=== PATIENT | male | born 1950 | race Caucasian/White ===

== ENCOUNTER 2022-11-27 09:19 | Outpatient (OUT) | payer MEDICARE, SELFPAY ==
--- NOTE | 2022-11-27 09:22 | CT_ITS ---
[address] [address] Patient Name: JEAN SANTIAGO MRN: [id number] date: 1950 Sex: M Assigned Patient Location: CT Current Patient Location: CT Accession/Order Number: [id number] Exam Date: 11/27/2022 09:28 Report Date: 11/27/2022 15:22 At the request of: KRISTY NEILSON Procedure: CT lung screening low-dose EXAMINATION: CT lung screening low-dose HISTORY: History Of Tobacco Dependence Z87.891 COMPARISON: 10/19/2021 TECHNIQUE: Axial, Coronal, and Sagittal images were created without the administration of IV contrast material. Dose reduction techniques were achieved by using automated exposure control and/or adjustment of mA and/or kV according to patient size and/or use of iterative reconstruction technique. FINDINGS: LUNGS: Mild paraseptal emphysema with an upper lobe predominance. Biapical patchy opacities, pleural parenchymal scarring is favored. 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 VASCULATURE: No abnormality. JOSEPHINE: No mass or pathologic adenopathy. MEDIASTINUM: No mass or pathologic adenopathy. CARDIAC: No enlargement or pericardial effusion. AORTA: No aneurysm. Mild to moderate atherosclerosis. CHEST WALL: No mass or axillary adenopathy BONES: No bone lesion or fracture. LIMITED ABDOMEN: No suspicious findings. Limited images of the upper abdomen. OTHER: Negative. CT/CT lung screening low-dose IMPRESSION: LUNG SCREENING: Lung-RADS Category 1 Negative. No nodules and definitely benign nodules. Continue annual screening with LDCT in 12 months. Electronically authenticated by: ESTRELLITA RAMÍREZ Date: 11/27/2022 15:22
== END 2022-11-27 09:20 | disposition home or self-care (01) ==
LOC: CT 09:19
PROVIDERS: PCP Internal Medicine; Visit Provider Internal Medicine
DX: Z87.891 Personal history of nicotine dependence (principal)
CPT/HCPCS: 71271

== ENCOUNTER 2022-12-14 11:36 | Outpatient (OUT) | payer MEDICARE, SELFPAY ==
[2022-12-14 12:08] LABS: Basophils Absolute Auto 0.1 10^3/uL (0.0-0.1); Basophils Percent Auto 0.8 % (0.2-2.0); Eosinophils Absolute Auto 0.4 10^3/uL (0.0-0.7); Eosinophils Percent Auto 5.3 % (0.9-7.0); Hematocrit 40.7 % (42.0-54.0); Immature Granulocytes Abs Auto 0.02 10^3/uL (0.00-0.03); Immature Granulocytes Pct Auto 0.2 % (0.0-0.5); Lymphocytes Absolute Auto 1.7 10^3/uL (1.2-3.8); Lymphocytes Percent Auto 20.6 % (20.5-60.0); Mean Corpuscular HGB Conc 31.9 g/dL (29.9-35.2); Mean Corpuscular Hemoglobin 30.1 pg (25.9-34.0); Mean Corpuscular Volume 94.2 fL (80.0-94.0); Mean Platelet Volume 9.1 fL (9.5-13.5); Monocytes Absolute Auto 0.7 10^3/uL (0.3-0.8); Monocytes Percent Auto 7.8 % (1.7-12.0); Neutrophils Absolute Auto 5.4 10^3/uL (1.4-6.5); Neutrophils Percent Auto 65.3 % (43.0-75.0); Platelet Count 359 10^3/uL (150-450); Red Blood Count 4.32 10^6/uL (4.70-6.10); Red Cell Distribution Width 11.9 % (11.0-15.0); White Blood Count 8.3 10^3/uL (4.0-11.0)
[2022-12-14 12:11] LABS: Alanine Aminotransferase 27 U/L (16-63); Anion Gap 13.6; Calcium 9.5 mg/dL (8.5-10.1); Carbon Dioxide 25.9 mmol/L (21.0-32.0); Chloride 102 mmol/L (98-107); Chol HDL Ratio 4.4; Cholesterol 168 mg/dL (<=200); Estimated GFR (African America >60 (>=60); Estimated GFR (Non-African Ame 51 (>=60); Glucose 122 mg/dL (74-106); HDL Cholesterol 38 mg/dL (40-60); Potassium 4.5 mmol/L (3.5-5.1); Sodium 137 mmol/L (136-145); Triglycerides 226 mg/dL (<=150); VLDL CHOLESTEROL 45.2 mg/dL
== END 2022-12-14 11:37 | disposition home or self-care (01) ==
LOC: LAB 11:37
PROVIDERS: PCP Internal Medicine; Visit Provider Internal Medicine
DX: Z00.00 Encounter for general adult medical examination without abnormal findings (principal); E78.00 Pure hypercholesterolemia, unspecified; I10 Essential (primary) hypertension; D64.9 Anemia, unspecified; Z79.899 Other long term (current) drug therapy
CPT/HCPCS: 36415; 80048; 80061; 84460; 85025

== ENCOUNTER 2022-12-28 10:17 | Outpatient (OUT) | payer MEDICARE, SELFPAY ==
[2022-12-28 11:32] LABS: Prostate Specific Antigen Dx 12.32 ng/mL (<=4.00)
== END 2022-12-28 10:18 | disposition home or self-care (01) ==
LOC: LAB 10:18
PROVIDERS: PCP Internal Medicine; Visit Provider Urology
DX: N40.1 Benign prostatic hyperplasia with lower urinary tract symptoms (principal); R97.20 Elevated prostate specific antigen [PSA]
CPT/HCPCS: 36415; 84153

== ENCOUNTER 2023-03-26 11:25 | Outpatient (OUT) | payer MEDICARE, SELFPAY ==
[2023-03-26 12:02] LABS: Basophils Absolute Auto 0.1 10^3/uL (0.0-0.1); Basophils Percent Auto 0.8 % (0.2-2.0); Eosinophils Absolute Auto 0.3 10^3/uL (0.0-0.7); Eosinophils Percent Auto 3.1 % (0.9-7.0); Hematocrit 38.7 % (42.0-54.0); Hemoglobin 12.4 g/dL (14.0-18.0); Immature Granulocytes Abs Auto 0.03 10^3/uL (0.00-0.03); Immature Granulocytes Pct Auto 0.3 % (0.0-0.5); Lymphocytes Absolute Auto 1.8 10^3/uL (1.2-3.8); Mean Corpuscular Hemoglobin 30.1 pg (25.9-34.0); Mean Corpuscular Volume 93.9 fL (80.0-94.0); Monocytes Absolute Auto 0.8 10^3/uL (0.3-0.8); Monocytes Percent Auto 8.7 % (1.7-12.0); Neutrophils Absolute Auto 6.1 10^3/uL (1.4-6.5); Neutrophils Percent Auto 67.1 % (43.0-75.0); Platelet Count 415 10^3/uL (150-450); Red Blood Count 4.12 10^6/uL (4.70-6.10); Red Cell Distribution Width 12.4 % (11.0-15.0); White Blood Count 9.1 10^3/uL (4.0-11.0)
== END 2023-03-26 11:26 | disposition home or self-care (01) ==
LOC: LAB 11:26
PROVIDERS: PCP Internal Medicine; Visit Provider Internal Medicine
DX: D64.9 Anemia, unspecified (principal)
CPT/HCPCS: 36415; 82607; 82728; 82746; 85025

== ENCOUNTER 2023-06-12 09:58 | Outpatient (OUT) | payer MEDICARE, SELFPAY ==
--- OUTSIDE RECORDS SUMMARY | 2023-06-12 10:23 | XMS_ITS | CCD ---
Author Organization [facility] Care Team Providers Care Orthodontic Treatment Coordinator Name Role Phone Saqib Saba Unavailable MARSHALL Casas Primary Care Physician DO Marshall Zaman Primary Care Provider MD Saqib Saba Attending Provider [phone] Stuart Qureshi Unavailable MD Stuart Qureshi Attending Provider DO Marshall Zaman Primary Care Provider MISC, DR CHRISTOPHER Attending Unavailable MISC, DR CHRISTOPHER Admitting Unavailable MISC, DR CHRISTOPHER Consulting Unavailable BALL, DR WAGNER Primary Care Unavailable JUANITO ., KIARA Attending Unavailable JUANITO ., KIARA Admitting Unavailable AUSTYN, DR WAGNER Primary Care Unavailable JUANITO ., KIARA Attending Unavailable JUANITO ., KIARA Admitting Unavailable JUANITO ., KIARA Consulting Unavailable AUSTYN, DR WAGNER Primary Care Unavailable BALL, DR WAGNER Primary Care Unavailable SABA ., DR COSTA Attending Unavailable SABA ., DR COSTA Admitting Unavailable SABA ., DR COSTA Consulting Unavailable GEE, LORIE Consulting Unavailable SABA ., DR COSTA Attending Unavailable SABA ., DR COSTA Admitting Unavailable SABA ., DR COSTA Consulting Unavailable AUSTYN, DR WAGNER Primary Care Unavailable AGUBOSIM, MARYBEL Consulting Unavailable DORKOSKIECASTILLO Consulting Unavailable AUSTYN, DR WAGNER Primary Care Unavailable AUSTYN, DR WAGNER Consulting Unavailable AUSTYN, DR WAGNER Attending Unavailable BALL, DR WAGNER Admitting Unavailable BALL, DR WAGNER Primary Care Unavailable SABA ., DR COSTA Consulting Unavailable SABA ., DR COSTA Attending Unavailable SABA ., DR COSTA Admitting Unavailable AUSTYN, DR WAGNER Primary Care Unavailable AUSTYN, DR WAGNER Consulting Unavailable AUSTYN, DR WAGNER Attending Unavailable BALL, DR WAGNER Admitting Unavailable ZIEBER, DR KEESHA Sumner Consulting Unavailable BALL, DR WAGNER Consulting Unavailable AUSTYN, DR WAGNER Attending Unavailable AUSTYN, DR WAGNER Admitting Unavailable AUSTYN, DR WAGNER Primary Care Unavailable FAUSTINO, DR KEESHA Sumner Consulting Unavailable AUSTYN, DR WAGNER Attending Unavailable AUSTYN, DR WAGNER Admitting Unavailable AUSTYN, DR WAGNER Consulting Unavailable AUSTYN, DR WAGNER Primary Care Unavailable Marshall Zaman Unavailable Saqib SABA Attending Unavailable Saqib SABA Attending Unavailable Marshall Zaman DO Primary Care Provider SAPPHIRE MCALLISTER Attending Unavailable MARSHALL ZAMAN Referring Unavailable MARSHALL ZAMAN Primary Care Unavailable Allergies Allergy Classification Reported Allergen(s) Allergy Type Date of Onset Reaction(s) Facility (4 sources) patient allergy list reviewed by nurse or physicia Propensity to adverse reactions Comment:Done [employer] Other (1 source) No Known Medication Allergies; Translations: [No Known Medication Allergies] Propensity to adverse reactions (disorder) [facility] Repository Medications Current Medications Medication Drug Class(es) Dates Sig (Normalized) Sig (Original) amLODIPine 5 mg oral tablet (15 sources) Dihydropyridine Calcium Channel Lina Start: 11-01-2021 take 1 tablet by mouth in the morning amLODIPine (NORVASC) 5 mg tablet Take 1 tablet (5 mg total) by mouth in the morning. 0 05/18/2022 Active amLODIPine Besyl ate Active amoxicillin 500 mg oral tablet (3 sources) Penicillin-class Antibacterial Start: 01-10-2023 take 4 tablets by mouth every hour Amoxicillin 500 MG 4 tablets Orally 1 hour prior to dental appt for 1 days Dec, Active aspirin 325 mg oral tablet (16 sources) Platelet Aggregation Inhibitor, Nonsteroidal Anti-inflammatory Drug Start: 01-01-2022 aspirin 325 mg tablet Take by mouth. 0 01/01/2022 Active Start: 11-01-2021 take 81 mg by mouth once daily Aspirin Active 81 MG PO Daily November 01, 2021 12:00am Start: 07-07-2019 aspirin 81 mg Chew Tab 81 mg = 1 tab(s), Chewed, Daily Start Date: 07/07/19 Status: Ordered take 1 tablet by mouth once [place] Aspirin 325 mg 325 mg one tab orally daily Active atorvastatin 20 mg oral tablet (16 sources) HMG-CoA Reductase Inhibitor Start: 07-07-2019 take 1 tablet by mouth once daily atorvastatin (LIPITOR) 20 mg tablet Take 1 tablet (20 mg total) by mouth nightly. 0 05/19/2022 Active 24 hr buPROPion hydrochloride 300 mg extended release oral tablet (16 sources) Aminoketone Start: 06-18-2022 take 1 tablet by mouth every twenty-four hours in the morning buPROPion XL (WELLBUTRIN XL) 300 mg 24 hr tablet Take 1 tablet (300 mg total) by mouth in the morning. 0 06/18/2022 Active Start: 11-01-2021 take 300 mg by mouth once [place] Bupropion Hcl Active 300 MG PO Daily November 01, 2021 12:00am Start: 04-29-2020 take 1 tablet by mercedes th every twenty-four hours buPROPion 300 mg XL /24 hrs mg tab(s), Oral, q24hr, Refills(s) 0 Start Date: 04/29/20 Status: Ordered Wellbutrin Activ e Celebrate Multivitamin (1 source) Start: 07-07-2019 Celebrate Mult ivitamin Start Date: 07/07/19 Status: Ordered lisinopril 30 mg oral tablet (13 sources) Angiotensin Converting Enzyme Inhibitor Start: 01-01-2022 lisinopriL (PRINIVIL,ZESTRIL) 30 mg tablet Take by mouth. 0 01/01/2022 Active Start: 11-01-2021 take 30 mg by mouth once daily Lisinopril Active 30 MG PO Daily November 01, 2021 12:00am take 1 tablet by mercedes th every twenty-four hours Lisinopril 40 MG 1 tablet Orally Once a day for 90 days Active Lisinopril Activ e Multi For Him (13 sources) Multi For Him Or ally Active Multivitamin (Daily Vitamin) Tablet (1 source) Start: 11-01-2021 take 1 tablet by mouth once daily Multivitamin (Daily Vitamin) Tablet Active 1 TAB PO Daily November 01, 2021 12:00am nabumetone 750 mg oral tablet (11 sources) Nonsteroidal Anti-inflammatory Drug Start: 11-01-2021 take 1 tablet by mouth in the morning, then take 1 tablet by mouth at bedtime nabumetone (RELAFEN) 750 mg tablet Take 1 tablet (750 mg total) by mouth in the morning and 1 tablet (750 mg total) before bedtime. 0 07/02/2022 Active Start: 07-14-2021 take 1 mg by mouth once daily nabumetone 750 mg Tab mg tab(s), Oral, Daily, Refills(s) 0 Start Date: 07/14/21 Status: Ordered Nabumetone Activ e tamsulosin hydrochloride 0.4 mg oral capsule (14 sources) alpha-Adrenergic Lina Start: 11-01-2021 tamsu losin (FLOMAX) 0.4 mg capsule Take by mouth daily. 0 06/26/2022 Active Tamsulosin HCl A ctive Completed/Discontinued Medications Medication Drug Class(es) Dates Sig (Normalized) Sig (Original) betamethasone 3 mg/ml / betamethasone acetate 3 mg/ml injectable suspension (2 sources) Corticosteroid Start: 06-03-2023 End: 06-03-2023 betamethasone acet & sod phos (CELESTONE) injection 12 mg Problems Active Problems Problem Classification Problem Date Documented Da te Episodic/Chronic Aortic; peripheral; and visceral artery aneurysms (15 sources) Aneurysm of left iliac artery; Translations: [Aneurysm of iliac artery] Chronic Calculus of urinary tract (1 source) History of calculus of kidney 07-07-2019 Episodic Chronic obstructive pulmonary disease and bronchiectasis (14 sources) Simple chronic bronchitis; Translations: [Simple chronic bronchitis] Chronic Deficiency and other anemia (8 sources) Anemia, unspecified; Translations: [ANEMIA UNSPECIFIED] Onset: 05-18-2022 Episodic Deficiency and other anemia (15 sources) Anemia; Translations: [Anemia, unspecified] Episodic Disorders of lipid metabolism (20 sources) Hyperlipidemia; Translations: [Familial hypercholesterolemia ] Onset: 08-24-2021 07-07-2019 Chronic Essential hypertension (18 sources) Essential hypertension; Translations: [Essential (primary) hypertension] Chronic Hyperplasia of prostate (20 sources) Benign prostatic hypertrophy with outflow obstruction; Translations: [Benign prostatic hyperplasia with lower urinary tract symptoms] Onset: 07-14-2021 Chronic Immunizations and screening for infectious disease (4 sources) Vaccination given; Translations: [Encounter for immunization] Episodic Mood disorders (19 sources) Recurrent major depression in full remission; Translations: [Major depressive disorder, recurrent, in full remission] Chronic Osteoarthritis (14 sources) Osteoarthritis of right knee joint; Translations: [Unilateral primary osteoarthritis, right knee] Onset: 10-22-2022 Chronic Other aftercare (1 source) Long-term current use of anticoagulant 07-07-2019 Episodic Other aftercare (2 sources) 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; Translations: [OTH ASSISTED CURRENT DRUG THERAPY] Onset: 12-14-2021 Episodic Other aftercare (4 sources) Long-term current use of drug therapy; Translations: [Other shelter (current) drug therapy] Episodic Other injuries and conditions due to external causes (4 sources) History of fall; Translations: [History of falling] Episodic Other male genital disorders (1 source) Impotence 10-23-2019 Chronic Other male genital disorders (1 source) Impotence of organic origin 07-07-2019 Chronic Other male genital disorders (1 source) Male erectile dysfunction, unspecified; Translations: [MALE ERECTILE DYSFUNCTION UNS] Onset: 08-24-2021 Chronic Other nutritional; endocrine; and metabolic disorders (4 sources) Overweight; Translations: [Overweight] Episodic Other upper respiratory disease (11 sources) Allergic rhinitis; Translations: [Other allergic rhinitis] Chronic Other upper respiratory disease (1 source) Other allergic rhinitis Chronic Peripheral and visceral atherosclerosis (20 sources) Peripheral vascular disease; Translations: [Peripheral vascular disease, unspecified] Onset: 07-24-2021 Resolved: 10-23-2021 Chronic Spondylosis; intervertebral disc disorders; other back problems (18 sources) Spondylosis without myelopathy or radiculopathy, thoracic region; Translations: [Lumbar spondylosis] Onset: 08-31-2021 Chronic Spondylosis; intervertebral disc disorders; other back problems (20 sources) Pain in thoracic spine; Translations: [Pain in thoracic spine] Onset: 11-03-2014 Resolved: 08-11-2019 Episodic Substance-related disorders (12 sources) Tobacco user; Translations: [Nicotine dependence, cigarettes, uncomplicated] Onset: 07-04-2018 Resolved: 12-07-2020 Chronic Unclassified (4 sources) Alcohol abuse with withdrawal, unspecified; Translations: [Alcohol abuse with withdrawal, unspecified] Onset: 01-20-2021 Past or Other Problems Problem Classification Problem Date Documented Date Episodic/Chronic Abdominal pain (4 sources) Left lower quadrant pain; Translations: [Left lower quadrant pain] Onset: 07-29-2015 Resolved: 08-11-2019 Episodic Aortic and peripheral arterial embolism or thrombosis (4 sources) Embolism and thrombosis of arteries of the lower extremities; Translations: [Embolism and thrombosis of arteries of the lower extremities] Onset: 11-03-2014 Resolved: 08-11-2019 Chronic Fracture of lower limb (4 sources) Closed fracture of foot; Translations: [Unspecified fracture of left foot, initial encounter for closed fracture] Onset: 01-17-2021 Episodic Genitourinary symptoms and ill-defined conditions (2 sources) Microscopic hematuria; Translations: [Hematuria, unspecified] Onset: 08-24-2021 07-07-2019 Episodic Malaise and fatigue (4 sources) Malaise and fatigue; Translations: [Other malaise and fatigue] Onset: 07-02-2017 Resolved: 08-11-2019 Episodic Other aftercare (1 source) jail (current) use of aspirin; Translations: [QUALITY HEAD CURRENT USE OF ASPIRIN] Onset: 08-24-2021 Episodic Other aftercare (1 source) jail (current) use of anticoagulants; Translations: [ASSISTED CURRNT USE ANTICOAGULANTS] Onset: 08-17-2021 Episodic Other connective tissue disease (1 source) Myalgia, other site; Translations: [MYALGIA OTHER SITE] Onset: 08-31-2021 Episodic Other eye disorders (4 sources) Dermatochalasis of unspecified eye, unspecified eyelid; Translations: [DERMATOCHALASIS UNS EYE UNS EYELID] Onset: 01-30-2022 Episodic Other eye disorders (1 source) Unspecified ptosis of unspecified eyelid; Translations: [UNSPEC PTOSIS OF UNS EYELID] Onset: 02-04-2022 Episodic Other male genital disorders (1 source) Other specified disorders of prostate; Translations: [OTHER SPECIFIED DISORDERS PROSTATE] Onset: 08-24-2021 Episodic Other male genital disorders (1 source) Disorder of prostate, unspecified; Translations: [DISORDER OF PROSTATE UNSPECIFIED] Onset: 08-17-2021 Episodic Other screening for suspected conditions (not mental disorders or infectious disease) (11 sources) Raised prostate specific antigen; Translations: [Elevated prostate specific antigen [PSA]] Onset: 07-02-2017 Resolved: 08-11-2019 Episodic Other skin disorders (4 sources) Disorder of sebaceous gland; Translations: [Other specified disease of sebaceous glands] Onset: 06-23-2014 Resolved: 08-11-2019 Episodic Residual codes; unclassified (2 sources) Other specified postprocedural states Onset: 09-18-2021 Resolved: 10-23-2021 Episodic Residual codes; unclassified (4 sources) Tobacco user; Translations: [Tobacco use] Onset: 07-02-2017 Resolved: 08-11-2019 Episodic Screening and history of mental health and substance abuse codes (5 sources) Ex-cigarette smoker; Translations: [Personal history of nicotine dependence] Onset: 10-19-2021 07-07-2019 Episodic Unclassified (4 sources) Long-term current use of drug therapy; Translations: [Long-term (current) use of other medications] Onset: 08-24-2017 Resolved: 08-11-2019 Unclassified (1 source) SBE (subacute bacterial endocarditis) prophylaxis candidate Z29.89 Results Test Name Value Interpretation Reference Range Facility $ Large Joint Injection: andres ateral kneeon 06-03-2023 Sapphire Mcallister MD 06/03/2023 1:06 PM $ Large Joint Injection: bilateral knee on 06/03/2023 1:02 PM Indications: pain Details: 22 G needle, anterolateral approach Medications (Right): 12 mg betamethasone acet & sod phos 6 mg/mL Medications (Left): 12 mg betamethasone acet & sod phos 6 mg/mL Outcome: tolerated well, no immediate complications The patient was instructed to use ice, NSAIDs, or Tylenol for pain as needed. The patient will call with any signs or concerns. Procedure, treatment alternatives, risks and benefits explained, specific risks discussed. Patient was prepped and draped in the usual sterile fashion. MANUALLY TRANSCRIBED RESULTS [facility] Ambulatory Visit Summaryon 1 Ambulatory Visit Summary JEAN SANTIAGO :1950 Visit Date:12/31/2022 Ambulatory Visit Instructions Your Diagnosis Benign localized hyperplasia of prostate with urinary obstruction and lower urinary tract symptoms Elevated PSA Tests Performed Urnls Dip Stick Auto w/o Microscopy POC 45110 Your Care Team Attending Physician - OMER JOVEL, Saqib Sumner Primary Care Physician - MARSHALL ZAMAN DO This Is Your Medications List tamsulosin (Flomax 0.4 mg Cap) Contact prescribing physician if questions or concerns amlodipine (amLODIPine 5 mg Tab) aspirin (aspirin 325 mg Tab) atorvastatin (Lipitor 20 mg Tab) buPROPion (buPROPion 300 mg XL /24 hrs) lisinopril (lisinopril 30 mg Tab) multivitamin with minerals (Celebrate Multivitamin) nabumetone (nabumetone 750 mg Tab) Procedures Performed MRI-US fusion guided transperineal biopsy of prostate (08/17/2021), Transrectal biopsy of prostate using ultrasound (US) guidance (10/21/2012), CE - Cataract extraction, Hernia repair, Reconstruction of artery, Rotator cuff repair. Discharge Vitals Heart Rate (Peripheral) 70 Respiratory Rate 16 Blood Pressure 133/70 Height 183 cm Height 72 in Weight 93.2 kg Weight 205.04 lb BMI 27.83 What to do next Scheduled Follow-Up Appointments Saturday 8:45 AM EDT With: OMER JOVEL, Saqib Sumner Where: [facility] Lab Reportson 12-31-2022 Lab Reports [id number] [facility] Patient Educationon 01-01-20 Patient Education Urology Benign Prostatic Hyperplasia Benign prostatic hyperplasia (BPH) is an enlarged prostate gland that is caused by the normal aging process. The prostate may get bigger as a man gets older. The condition is not caused by cancer. The prostate is a walnut-sized gland that is involved in the production of semen. It is located in front of the rectum and below the bladder. The bladder stores urine. The urethra carries stored urine out of the body. An enlarged prostate can press on the urethra. This can make it harder to pass urine. The buildup of urine in the bladder can cause infection. Back pressure and infection may progress to bladder damage and kidney (renal) failure. What are the causes? This condition is part of the normal aging process. However, not all men develop problems from this condition. If the prostate enlarges away from the urethra, urine flow will not be blocked. If it enlarges toward the urethra and compresses it, there will be problems passing urine. What increases the risk? This condition is more likely to develop in men older than 50 years. What are the signs or symptoms? Symptoms of this condition include: ? Getting up often during the night to urinate. ? Needing to urinate frequently during the day. ? Difficulty starting urine flow. ? Decrease in size and strength of your urine stream. ? Leaking (dribbling) after urinating. ? Inability to pass urine. This needs immediate treatment. ? Inability to completely empty your bladder. ? Pain when you pass urine. This is more common if there is also an infection. ? Urinary tract infection (UTI). How is this diagnosed? This condition is diagnosed based on your medical history, a physical exam, and your symptoms. Tests will also be done, such as: ? A post-void bladder scan. This measures any amount of urine that may remain in your bladder after you finish urinating. ? A digital rectal exam. In a rectal exam, your health care provider checks your prostate by putting a lubricated, gloved finger into your rectum to feel the back of your prostate gland. This exam detects the size of your gland and any abnormal lumps or growths. ? An exam of your urine (urinalysis). ? A prostate specific antigen (PSA) screening. This is a blood test used to screen for prostate cancer. ? An ultrasound. This test uses sound waves to electronically produce a picture of your prostate gland. Your health care provider may refer you to a specialist in kidney and prostate diseases (urologist). How is this treated? Once symptoms begin, your health care provider will monitor your condition (active surveillance or watchful waiting). Treatment for this condition will depend on the severity of your condition. Treatment may include: ? Observation and yearly exams. This may be the only treatment needed if your condition and symptoms are mild. ? Medicines to relieve your symptoms, including: ? Medicines to shrink the prostate. ? Medicines to relax the muscle of the prostate. ? Surgery in severe cases. Surgery may include: ? Prostatectomy. In this procedure, the prostate tissue is removed completely through an open incision or with a laparoscope or robotics. ? Transurethral resection of the prostate (TURP). In this procedure, a tool is inserted through the opening at the tip of the penis (urethra). It is used to cut away tissue of the inner core of the prostate. The pieces are removed through the same opening of the penis. This removes the blockage. ? Transurethral incision (TUIP). In this procedure, small cuts are made in the prostate. This lessens the prostate's pressure on the urethra. ? Transurethral microwave thermotherapy (TUMT). This procedure uses microwaves to create heat. The heat destroys and removes a small amount of prostate tissue. ? Transurethral needle ablation (TUNA). This procedure uses radio frequencies to destroy and remove a small amount of prostate tissue. ? Interstitial laser coagulation (ILC). This procedure uses a laser to destroy and remove a small amount of prostate tissue. ? Transurethral electrovaporization (TUVP). This procedure uses electrodes to destroy and remove a small amount of prostate tissue. ? Prostatic urethral lift. This procedure inserts an implant to push the lobes of the prostate away from the urethra. Follow these instructions at home: ? Take xtyd-cfh-ceofvua and prescription medicines only as told by your health care provider. ? Monitor your symptoms for any changes. Contact your health care provider with any changes. ? Avoid drinking large amounts of liquid before going to bed or out in public. ? Avoid or reduce how much caffeine or alcohol you drink. ? Give yourself time when you urinate. ? Keep all follow-up visits. This is important. Contact a health care provider if: ? You have unexplained back pain. ? Your symptoms do not get better with treatment. ? You develop side effects from the medicine (more content not included)... Normal [facility] Urology Office/Clinic Noteon 12-31-2022 Urology Office/Clinic Note Chief Complaint elevated PSA HPI Staff 1 year f/u with PSA. Previous dx of BPH with urinary obstruction/LUTS and elevated PSA. Current PSA done 12/28/22 is 12.32 and previous done 07/03/21 was 9.29. Pt needs a new script for the Tamsulosin 0.4mg QD. Dysuria: no Incomplete bladder emptying: no Hematuria: no Frequency: no Urgency: no Nocturia: 1-2x Stream: no straining or hesitation Leaking: no Post void dripping: no Wearing pads/ Depends: no Urge incontinence: no Stress incontinence: no Incontinence without Sensory Awareness: no Abdominal pain: no Flank pain: no Sexual complaints: no History of Present Illness Tests reviewed: reviewed UA and PSA. I have reviewed the previous health record information and history for this patient from . I have reviewed and verified the staff HPI to be accurate for this encounter. There have been no associated fever, chills, flank pain, or blood in the urine. Denies any urinary infections since last encounter. Review of Systems PHQ Score Initial Depression Screen Score: 0 ROS - Provider Constitutional: denies weight loss, denies hot flashes. Eyes: denies eye problems. Gastrointestinal: denies nausea, denies vomiting. Cardiovascular: denies chest pain or angina. Integumentary: no dryness Musculoskeletal: denies musculoskeletal symptoms. ENMT: denies otolaryngeal symptoms. Respiratory: no shortness of breath. Heme/Lymph: denies easy bleeding tendency, denies easy bruising tendency. Psychiatric: no confusion, no anxiety. Genitourinary: See HPI. Physical Exam Vitals & Measurements HR: 70(Peripheral) RR: 16 BP: 133/70 HT: 72 in HT: 183 cm WT: 93.2 kg WT: 205.04 lb BMI: 27.83 General Appearance: alert, no distress, well nourished, well developed male. Genitourinary: normal scrotum, normal testes, normal urethra, normal epididymis, normal vas deferens/spermatic cord. Flank Pain: none. Bladder: nonpalpable. Prostate: normal prostate, estimated weight 50 gms, no hard nodule observed. Assessment/Plan 1. Benign localized hyperplasia of prostate with urinary obstruction and lower urinary tract symptoms (N40.1: Benign prostatic hyperplasia with lower urinary tract symptoms) Pt is currently taking Tamsulosin 0.4mg QD. Pt states that he needs refills. SATYA: 50gms, no nodules. Pt states that his urinary sxs have stayed the same since prior OV, and he denies any SE's from the Tamsulosin. -Will send refill for Tamsulosin to pharm on file. 2. Elevated PSA (R97.20: Elevated prostate specific antigen [PSA]) Transrectal Biopsy of Prostate using US guidance 10/21/12 MRI of Prostate w/wo Con 07/07/20 - a suspicious lesion graded a PIRADS-4, in which the pathology showed inflammation in that area of interest. MRI fusion biopsy done 08/17/21 - no areas of malignancy, all benign prostatitic tissue. PSA 02/27/21 - 8.84 07/03/21 - 9.29 12/28/22 - 12.32 Discussed PSA levels with pt, increased from previous level, UA shows no signs of infection. Advised pt that he may be the type of person that has a chronically elevated PSA from chronic subclinical prostatitis. Will continue to monitor. Follow up in 6 mos w/PSA. All questions/concerns were discussed. Pt to call the office if he encounters any issues prior. Pt acknowledges understanding. -Will order PSA. Follow-up With When Contact Information Saqib SABA MD, URFrank In 6 months [facility] [address], [place] [address]- Additional Instructions: w/PSA Patient Education Benign Prostatic Hyperplasia I, Naima Arias , personally scribed for Dr. Saba on 12/31/2022 11:24:39. . Documentation recorded by the scribe, Naima Arias, accurately reflects the services(s) I performed and decisions made by me. 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 Medications amLODIPine 5 mg Tab aspirin 325 mg Tab, Oral, q4hr buPROPion 300 mg XL /24 hrs, Oral, q24hr Celebrate Multivitamin Flomax 0.4 mg Cap, 0.4 mg= 1 cap(s), Oral, Daily, 3 refills Lipitor 20 mg Tab, 20 mg= 1 tab(s), Oral, Daily lisinopril 30 mg Tab, Oral, Daily nabumetone 750 mg Tab, Oral, Daily Allergies No Known Medication Allergies Social History Alcohol - Denies Alcohol Use, 10/23/2019 Tobacco - Denies Tobacco Use, 10/23/2019 Former smoker, quit mo (more content not included)... Normal [facility] Comment on above: Result Comment: Elec tronically Signed By: Saqib SABA MD\.br\Date and Time Signed: 12/31/22 11:26 EDT\.br\Electronically Co-Signed By: Naima Arias\.br\Date and Time Co-Signed: 12/31/22 11:24 EDT CBC AUTO DIFFon 05-18-2022 BASO # 0.1 103/ul Normal 0.0-0.1 [facility] Comment on above: Performed By: #### C BC #### [facility] [address] [place] [address] Dr. Jr Leiva Basophils/100 WBC (Bld) 0.8 % Normal 0.2-2.0 [facility] Comment on above: Performed By: #### C BC #### [facility] [address] [place] [address] Dr. Jr Leiva EO # 0.5 103/ul Normal 0.0-0.7 [facility] Comment on above: Performed By: #### C BC #### [facility] [address] [place] [address] Dr. Jr Leiva Eosinophils/100 WBC (Bld) 6.1 % Normal 0.9-7.0 [facility] Comment on above: Performed By: #### C BC #### [facility] [address] [place] [address] Dr. Jr Leiva Erythrocyte distribution width (RBC) [Ratio] 12.6 % Normal 11.0-15.0 [facility] Comment on above: Performed By: #### C BC #### [facility] [address] [place] [address] Dr. Jr Leiva Hematocrit (Bld) [Volume fraction] 40.6 % Critically low 42.0-54.0 [facility] Comment on above: Performed By: #### C BC #### [facility] [address] [place] [address] Dr. Jr Leiva Hemoglobin (Bld) [Mass/Vol] 13.1 g/dL Critically low 14.0-18.0 [facility] Comment on above: Performed By: #### C BC #### [facility] [address] [place] [address] Dr. Jr Leiva IG # 0.02 10e3/ul Normal 0.00-0.03 [facility] Comment on above: Performed By: #### C BC #### [facility] [address] [place] [address] Dr. Jr Leiva IG % 0.3 % Normal 0.0-0.5 [facility] Comment on above: Performed By: #### C BC #### [facility] [address] [place] [address] Dr. Jr Leiva LYMPH # 1.5 103/ul Normal 1.2-3.8 [facility] Comment on above: Performed By: #### C BC #### [facility] [address] [place] [address] Dr. Jr Leiva Lymphocytes/100 WBC (Bld) 20.3 % Critically low 20.5-60.0 [facility] Comment on above: Performed By: #### C BC #### [facility] [address] [place] [address] Dr. Jr Leiva MANUAL DIFF REQ NO Normal [facility] Comment on above: Performed By: #### C BC #### [facility] [address] [place] [address] Dr. Jr Leiva MCH (RBC) [Entitic mass] 29.3 pg Normal 25.9-34.0 [facility] Comment on above: Performed By: #### C BC #### [facility] [address] [place] [address] Dr. Jr Leiva MCHC (RBC) [Mass/Vol] 32.3 g/dL Normal 29.9-35.2 [facility] Comment on above: Performed By: #### C BC #### [facility] [address] [place] [address] Dr. Jr Leiva MCV (RBC) [Entitic vol] 90.8 fL Normal 80.0-94.0 [facility] Comment on above: Performed By: #### C BC #### [facility] [address] [place] [address] Dr. Jr Leiva MONO # 0.6 103/ul Normal 0.3-0.8 [facility] Comment on above: Performed By: #### C BC #### [facility] [address] [address] [address] Jr Leiva Monocytes/100 WBC (Bld) 8.4 % Normal 1.7-12.0 [facility] Comment on above: Performed By: #### C BC #### [facility] [address] [address] [address] Jr Leiva NEUT # 4.7 103/ul Normal 1.4-6.5 [facility] Comment on above: Performed By: #### C BC #### [facility] [address] [address] [address] Jr Leiva Neutrophils/100 WBC (Bld) 64.1 % Normal 43.0-75.0 [facility] Comment on above: Performed By: #### C BC #### [facility] [address] [place] [address] Dr. Jr Leiva Platelet mean volume (Bld) [Entitic vol] 8.8 fL Critically low 9.5-13.5 [facility] Comment on above: Performed By: #### C BC #### [facility] [address] [place] [address] Dr. Jr Leiva PLT 402 103/ul Normal 150-450 [facility] Comment on above: Performed By: #### C BC #### [facility] [address] [address] [address] Jr Leiva RBC 4.47 106/ul Critically low 4.70-6.10 [facility] Comment on above: Performed By: #### C BC #### [facility] [address] [address] [address] Jr Leiva WBC 7.4 103/ul Normal 4.0-11.0 [facility] Comment on above: Performed By: #### C BC #### [facility] [address] [address] [address] Jr Leiva FERRITINon 05-18-2022 Ferritin [Mass/Vol] 85.0 ng/mL Normal 26.0-388.0 [facility] Comment on above: Performed By: #### F ETIBC, FERR, VITB12 #### [facility] [address] [place] [address] Dr. Jr Leiva IRON AND TIBCon 05-18-2022 % SATURATION 27.2 % Normal [facility] Comment on above: Performed By: #### C BC #### [facility] [address] [place] [address] Dr. Jr Leiva Iron [Mass/Vol] 72.0 ug/dL Normal 65.0-175.0 [facility] Comment on above: Performed By: #### C BC #### [facility] [address] [place] [address] Dr. Jr Leiva [facility] 265.0 ug/dL Normal 250.0-450.0 [facility] Comment on above: Performed By: #### C BC #### [facility] [address] [place] [address] Dr. Jr Leiva TIBCon 05-18-2022 [facility] [employer] Other VITAMIN B12on 05-18-2022 Cobalamin (Vitamin B12) [Mass/Vol] 832.0 pg/mL Normal 193.0-986.0 [facility] Comment on above: Performed By: #### F ETIBC, FERR, VITB12 #### [facility] [address] [place] [address] Dr. Jr Leiva CBC AUTO DIFFon 01-30-2022 BASO # 0.1 103/ul Normal 0.0-0.1 [facility] Comment on above: Performed By: #### C BC #### [facility] [address] [place] [address] Dr. Jr Leiva Basophils/100 WBC (Bld) 0.9 % Normal 0.2-2.0 [facility] Comment on above: Performed By: #### C BC #### [facility] [address] [place] [address] Dr. Jr Leiva EO # 0.3 103/ul Normal 0.0-0.7 [facility] Comment on above: Performed By: #### C BC #### [facility] [address] [place] [address] Dr. Jr Leiva Eosinophils/100 WBC (Bld) 4.0 % Normal 0.9-7.0 [facility] Comment on above: Performed By: #### C BC #### [facility] [address] [place] [address] Dr. Jr Leiva Erythrocyte distribution width (RBC) [Ratio] 12.3 % Normal 11.0-15.0 [facility] Comment on above: Performed By: #### C BC #### [facility] [address] [place] [address] Dr. Jr Leiva Hematocrit (Bld) [Volume fraction] 38.0 % Critically low 42.0-54.0 [facility] Comment on above: Performed By: #### C BC #### [facility] [address] [place] [address] Dr. Jr Leiva Hemoglobin (Bld) [Mass/Vol] 12.5 g/dL Critically low 14.0-18.0 [facility] Comment on above: Performed By: #### C BC #### [facility] [address] [place] [address] Dr. Jr Leiva IG # 0.02 10e3/ul Normal 0.00-0.03 [facility] Comment on above: Performed By: #### C BC #### [facility] [address] [place] [address] Dr. Jr Leiva IG % 0.2 % Normal 0.0-0.5 [facility] Comment on above: Performed By: #### C BC #### [facility] [address] [place] [address] Dr. Jr Leiva LYMPH # 1.7 103/ul Normal 1.2-3.8 [facility] Comment on above: Performed By: #### C BC #### [facility] [address] [place] [address] Dr. Jr Leiva Lymphocytes/100 WBC (Bld) 19.9 % Critically low 20.5-60.0 [facility] Comment on above: Performed By: #### C BC #### [facility] [address] [place] [address] Dr. Jr Leiva MANUAL DIFF REQ NO Normal [facility] Comment on above: Performed By: #### C BC #### [facility] [address] [place] [address] Dr. Jr Leiva MCH (RBC) [Entitic mass] 29.6 pg Normal 25.9-34.0 [facility] Comment on above: Performed By: #### C BC #### [facility] [address] [place] [address] Dr. Jr Leiva MCHC (RBC) [Mass/Vol] 32.9 g/dL Normal 29.9-35.2 [facility] Comment on above: Performed By: #### C BC #### [facility] [address] [place] [address] Dr. Jr Leiva MCV (RBC) [Entitic vol] 89.8 fL Normal 80.0-94.0 [facility] Comment on above: Performed By: #### C BC #### [facility] [address] [place] [address] Dr. Jr Leiva MONO # 0.7 103/ul Normal 0.3-0.8 [facility] Comment on above: Performed By: #### C BC #### [facility] [address] [place] [address] Dr. Jr Leiva Monocytes/100 WBC (Bld) 7.7 % Normal 1.7-12.0 [facility] Comment on above: Performed By: #### C BC #### [facility] [address] [place] [address] Dr. Jr Leiva NEUT # 5.7 103/ul Normal 1.4-6.5 [facility] Comment on above: Performed By: #### C BC #### [facility] [address] [place] [address] Dr. Jr Leiva Neutrophils/100 WBC (Bld) 67.3 % Normal 43.0-75.0 [facility] Comment on above: Performed By: #### C BC #### [facility] [address] [place] [address] Dr. Jr Leiva Platelet mean volume (Bld) [Entitic vol] 9.1 fL Critically low 9.5-13.5 [facility] Comment on above: Performed By: #### C BC #### [facility] [address] [address] [address] Jr Leiva PLT 312 103/ul Normal 150-450 [facility] Comment on above: Performed By: #### C BC #### [facility] [address] [place] [address] Dr. Jr Leiva RBC 4.23 106/ul Critically low 4.70-6.10 [facility] Comment on above: Performed By: #### C BC #### [facility] [address] [place] [address] Dr. Jr Leiva WBC 8.5 103/ul Normal 4.0-11.0 [facility] Comment on above: Performed By: #### C BC #### [facility] [address] [place] [address] Dr. Jr Leiva CBC AUTO DIFFon 12-13-2021 BASO # 0.1 103/ul Normal 0.0-0.1 [facility] Comment on above: Performed By: #### C BC #### [facility] [address] [place] [address] Dr. Jr Leiva Basophils/100 WBC (Bld) 0.7 % Normal 0.2-2.0 [facility] Comment on above: Performed By: #### C BC #### [facility] [address] [place] [address] Dr. Jr Leiva EO # 0.4 103/ul Normal 0.0-0.7 [facility] Comment on above: Performed By: #### C BC #### [facility] [address] [place] [address] Dr. Jr Leiva Eosinophils/100 WBC (Bld) 4.1 % Normal 0.9-7.0 [facility] Comment on above: Performed By: #### C BC #### [facility] [address] [place] [address] Dr. Jr Leiva Erythrocyte distribution width (RBC) [Ratio] 12.5 % Normal 11.0-15.0 [facility] Comment on above: Performed By: #### C BC #### [facility] [address] [place] [address] Dr. Jr Leiva Hematocrit (Bld) [Volume fraction] 40.1 % Critically low 42.0-54.0 [facility] Comment on above: Performed By: #### C BC #### [facility] [address] [place] [address] Dr. Jr Leiva Hemoglobin (Bld) [Mass/Vol] 13.0 g/dL Critically low 14.0-18.0 [facility] Comment on above: Performed By: #### C BC #### [facility] [address] [place] [address] Dr. Jr Leiva IG # 0.03 10e3/ul Normal 0.00-0.03 [facility] Comment on above: Performed By: #### C BC #### [facility] [address] [place] [address] Dr. Jr Leiva IG % 0.3 % Normal 0.0-0.5 [facility] Comment on above: Performed By: #### C BC #### [facility] [address] [place] [address] Dr. Jr Leiva LYMPH # 1.7 103/ul Normal 1.2-3.8 [facility] Comment on above: Performed By: #### C BC #### [facility] [address] [place] [address] Dr. Jr Leiva Lymphocytes/100 WBC (Bld) 19.1 % Critically low 20.5-60.0 [facility] Comment on above: Performed By: #### C BC #### [facility] [address] [place] [address] Dr. Jr Leiva MANUAL DIFF REQ NO Normal [facility] Comment on above: Performed By: #### C BC #### [facility] [address] [place] [address] Dr. Jr Leiva MCH (RBC) [Entitic mass] 29.8 pg Normal 25.9-34.0 [facility] Comment on above: Performed By: #### C BC #### [facility] [address] [place] [address] Dr. Jr Leiva MCHC (RBC) [Mass/Vol] 32.4 g/dL Normal 29.9-35.2 [facility] Comment on above: Performed By: #### C BC #### [facility] [address] [place] [address] Dr. Jr Leiva MCV (RBC) [Entitic vol] 92.0 fL Normal 80.0-94.0 [facility] Comment on above: Performed By: #### C BC #### [facility] [address] [place] [address] Dr. Jr Leiva MONO # 0.7 103/ul Normal 0.3-0.8 [facility] Comment on above: Performed By: #### C BC #### [facility] [address] [place] [address] Dr. Jr Leiva Monocytes/100 WBC (Bld) 8.3 % Normal 1.7-12.0 [facility] Comment on above: Performed By: #### C BC #### [facility] [address] [place] [address] Dr. Jr Leiva NEUT # 5.9 103/ul Normal 1.4-6.5 [facility] Comment on above: Performed By: #### C BC #### [facility] [address] [place] [address] Dr. Jr Leiva Neutrophils/100 WBC (Bld) 67.5 % Normal 43.0-75.0 [facility] Comment on above: Performed By: #### C BC #### [facility] [address] [place] [address] Dr. Jr Leiva Platelet mean volume (Bld) [Entitic vol] 9.2 fL Critically low 9.5-13.5 [facility] Comment on above: Performed By: #### C BC #### [facility] [address] [place] [address] Dr. Jr Leiva PLT 377 103/ul Normal 150-450 [facility] Comment on above: Performed By: #### C BC #### [facility] [address] [address] [address] Jr Leiva RBC 4.36 106/ul Critically low 4.70-6.10 [facility] Comment on above: Performed By: #### C BC #### [facility] [address] [address] [address] Jr Leiva WBC 8.8 103/ul Normal 4.0-11.0 [facility] Comment on above: Performed By: #### C BC #### [facility] [address] [place] [address] Dr. Jr Leiva LIPID PROFILEon 12-13-2021 CHOL-HDL RATIO NORM SEE BELOW Normal [facility] Comment on above: Result Comment: 3.3 - 4.4 LOW RISK 4.4 - 7.1 AVERAGE RISK 7.1 - 11.0 MODERATE RISK >11.0 HIGH RISK Performed By: #### L IPID, CMP #### [facility] [address] [place] [address] Dr. Jr Leiva Cholesterol [Mass/Vol] 186 mg/dL Normal <=200 [facility] Comment on above: Performed By: #### L IPID, CMP #### [facility] [address] [place] [address] Dr. Jr Leiva Cholesterol in HDL [Mass/Vol] 36 mg/dL Critically low 40-60 [facility] Comment on above: Performed By: #### L IPID, CMP #### [facility] [address] [place] [address] Dr. Jr Leiva Cholesterol in LDL [Mass/Vol] 100.8 mg/dL Normal [facility] Comment on above: Performed By: #### L IPID, CMP #### [facility] [address] [place] [address] Dr. Jr Leiva Cholesterol.total/Cho lesterol in HDL [Mass ratio] 5.2 {ratio} Normal [facility] Comment on above: Performed By: #### L IPID, CMP #### [facility] [address] [address] [address] Jr Leiva HDL NORMAL > or = 60 mg/dl - LO W CARDIOVASCULAR RISK <40 mg/dl - HIGH CARDIOVASCULAR RISK Normal [facility] Comment on above: Performed By: #### L IPID, CMP #### [facility] [address] [address] [address] Jr Leiva LDL CALC NORMAL SEE BELOW Normal [facility] Comment on above: Result Comment: <100 mg/dl OPTIMAL 100 - 129 mg/dl NEAR OR ABOVE OPTIMAL 130 - 159 mg/dl BORDERLINE HIGH 160 - 189 mg/dl HIGH >190 mg/dl VERY HIGH Performed By: #### L IPID, CMP #### [facility] [address] [place] [address] Dr. Jr Leiva Triglyceride [Mass/Vol] 246 mg/dL Critically high <=150 [facility] Comment on above: Performed By: #### L IPID, CMP #### [facility] [address] [address] [address] Jr Leiva VLDL CALC 49.2 mg/dL Normal [facility] Comment on above: Performed By: #### L IPID, CMP #### [facility] [address] [place] [address] Dr. Jr Leiva PROF 14(COMP METB)on 022 Albumin [Mass/Vol] 3.6 g/dL Normal 3.4-5.0 [facility] Comment on above: Performed By: #### L IPID, CMP #### [facility] [address] [place] [address] Dr. Jr Leiva Albumin/Globulin [Mass ratio] 1.1 {ratio} Normal [facility] Comment on above: Performed By: #### L IPID, CMP #### [facility] [address] [place] [address] Dr. Jr Leiva ALP [Catalytic activity/Vol] 102 U/L Normal 46-116 [facility] Comment on above: Performed By: #### L IPID, CMP #### [facility] [address] [place] [address] Dr. Jr Leiva ALT [Catalytic activity/Vol] 26 U/L Normal 16-63 [facility] Comment on above: Performed By: #### L IPID, CMP #### [facility] [address] [address] [address] Jr Leiva Anion gap [Moles/Vol] 11.4 mmol/L Normal [facility] Comment on above: Performed By: #### L IPID, CMP #### [facility] [address] [address] [address] Jr Leiva AST [Catalytic activity/Vol] 12 U/L Critically low 15-37 [facility] Comment on above: Performed By: #### L IPID, CMP #### [facility] [address] [place] [address] Dr. Jr Leiva Bilirubin [Mass/Vol] 0.5 mg/dL Normal 0.2-1.0 [facility] Comment on above: Performed By: #### L IPID, CMP #### [facility] [address] [place] [address] Dr. Jr Leiva Calcium [Mass/Vol] 8.9 mg/dL Normal 8.5-10.1 [facility] Comment on above: Performed By: #### L IPID, CMP #### [facility] [address] [place] [address] Dr. Jr Leiva Chloride [Moles/Vol] 105 mmol/L Normal 98-107 [facility] Comment on above: Performed By: #### L IPID, CMP #### [facility] [address] [place] [address] Dr. Jr Leiva CO2 [Moles/Vol] 26.5 mmol/L Normal 21.0-32.0 [facility] Comment on above: Performed By: #### L IPID, CMP #### [facility] [address] [place] [address] Dr. Jr Leiva Creatinine [Mass/Vol] 1.10 mg/dL Normal 0.70-1.30 [facility] Comment on above: Performed By: #### L IPID, CMP #### [facility] [address] [address] [address] Jr Leiva EGFR-AF SIERRA LEONEAN >60 Normal >=60 [facility] Comment on above: Performed By: #### L IPID, CMP #### [facility] [address] [address] [address] Jr Leiva EGFR-NON AF SIERRA LEONEAN >60 Normal >=60 [facility] Comment on above: Performed By: #### L IPID, CMP #### [facility] [address] [address] [address] Jr Leiva Globulin (S) [Mass/Vol] 3.4 g/dL Normal [facility] Comment on above: Performed By: #### L IPID, CMP #### [facility] [address] [address] [address] Jr Leiva Glucose [Mass/Vol] 109 mg/dL Critically high 74-106 [facility] Comment on above: Performed By: #### L IPID, CMP #### [facility] [address] [address] [address] Jr Leiva Potassium [Moles/Vol] 3.9 mmol/L Normal 3.5-5.1 [facility] Comment on above: Performed By: #### L IPID, CMP #### [facility] [address] [address] [address] Jr Leiva Protein [Mass/Vol] 7.0 g/dL Normal 6.4-8.2 [facility] Comment on above: Performed By: #### L IPID, CMP #### [facility] [address] [address] [address] Jr Leiva Sodium [Moles/Vol] 139 mmol/L Normal 136-145 [facility] Comment on above: Performed By: #### L IPID, CMP #### [facility] [address] [address] [address] Jr Leiva Urea nitrogen [Mass/Vol] 13.0 mg/dL Normal 7.0-18.0 [facility] Comment on above: Performed By: #### L IPID, CMP #### [facility] [address] [place], [place] [address] Dr. Jr Leiva Urea nitrogen/Creatinine [Mass ratio] 11.8 mg/mg Normal [facility] Comment on above: Performed By: #### L IPID, CMP #### [facility] [address] [place], [place] [address] Dr. Jr Leiva Blood Urea Nitrogenon 2021 Urea nitrogen [Mass/Vol] 15 mg/dL Normal 9- [facility] Comment on above: Performed By: #### C REAT, BUN #### [facility] [address] [place] [address] [place] Creatinineon 11-01-2021 Creatinine [Mass/Vol] 1.17 mg/dL Normal 0.64-1.27 [facility] Comment on above: Performed By: #### C REAT, BUN #### [address] Creatinine Clr Calc Pharmacy 63.56 [facility] Comment on above: Result Comment: PERF ORMED BY: [place] [address] PATHOLOGIST [employer] MARY BURNETT M.D. Performed By: #### C REAT, BUN #### [address] Estimated GFR ( María > 60 [facility] Comment on above: Result Comment: GFR estimated reference range: According to KDOQI guidelines, <60 ml/min/1.73m2 is sufficient to diagnose a patient with chronic kidney disease. Performed By: #### C REAT, BUN #### [address] Estimated GFR (Non- Am > 60 [facility] Comment on above: Performed By: #### C REAT, BUN #### [place] [address] [place] Creatinine and Glomerular fi ltration rate.predicted panel (S/P/Bld)Ordered By: Stuart Qureshi on 11-01-2021 Creatinine [Mass/Vol] 1.17 mg/dL 0.64-1.27 [facility] Estimated glomerular filtrat ion rate (GFR) non- AmericanOrdered By: Stuart Qureshi on 11-01-2021 GFR/1.73 sq M.predicted among non-blacks MDRD (S/P/Bld) [Vol rate/Area] > 60 mL/Min [facility] No Panel InformationOrdered By: Stuart Qureshi on 11-01-2021 Estimated GFR () > 60 mL/Min [facility] Comment on above: GFR estimated refere nce range: According to KDOQI guidelines, <60 ml/min/1.73m2 is sufficient to diagnose a patient with chronic kidney disease. Pharmacy Creatinine Clearance (Chem 63.56 [facility] Serum or plasma urea nitroge n measurement (mass/volume)Ordered By: Stuart Qureshi on 11-01-2021 Urea nitrogen [Mass/Vol] 15 mg/dL 9-23 [facility] [address] LUNG CANCER SCREENINGon 0 10-19-2021 CT LUNG CANCER SCREENING EXAMINATION: CT LUNG CANCER SCREENING HISTORY: Nicotine dependence COMPARISON: CT lung cancer screening 08/29/2020 TECHNIQUE: Axial, Coronal, and Sagittal images were created without the administration of IV contrast material. Dose reduction techniques were achieved by using automated exposure control and/or adjustment of mA and/or kV according to patient size and/or use of iterative reconstruction technique. FINDINGS: LUNGS: No suspicious nodules or acute infiltrates. Mild emphysematous changes. PLEURA: Calcified pleural plaques. VASCULATURE: No abnormality. JOSEPHINE: No mass or pathologic adenopathy. MEDIASTINUM: No mass or pathologic adenopathy. CARDIAC: No enlargement, pericardial thickening, or significant calcification. AORTA: No aneurysm or dissection. CHEST WALL: No mass or axillary adenopathy BONES: No bone lesion or fracture. LIMITED ABDOMEN: No suspicious findings. Limited images of the upper abdomen. OTHER: Negative. IMPRESSION: 1. LUNG SCREENING: Lung-RADS Category 1 Negative. No nodules and definitely benign nodules. Continue annual screening with LDCT in 12 months. 2. Mild emphysematous changes. 3. Calcified pleural plaques (typically associated with the combination of smoking and asbestos exposure). Electronically authenticated by: KEESHA HARMON Date: 2021-10-19 17:22 Normal [facility] CT angio abd aorta runoffon 09-29-2021 CT angio abd aorta runoff [facility] [place] [address] [place] [address] CT Scan Report Signed Patient: Jean Santiago MR#: [id number] 72 : 1950 Acct:[id number] Age/Sex: 71 / M ADM Date: 09/29/21 Loc: CT Room: Type: [facility] Attending Dr: Stuart Qureshi MD Copies to: Stuart Qureshi MD Ordering Provider: Stuart Qureshi MD Date of Service: 09/29/21 CT/CT angio abd aorta runoff: I70.213 CTA OF ABDOMEN PELVIS WERE WITH RUNOFF OF THE LOWER EXTREMITIES CLINICAL DATA: Lower extremity fatigue bilateral groin pseudoaneurysms COMPARISON: CT abdomen pelvis 07/29/2015 Following the intravenous administration of 90 mL Isovue-370 spiral images were obtained through the abdomen, pelvis and both lower extremities. Sagittal and coronal MIP as well as 3-D volume rendered reconstructions of the aorta and its branches were reviewed. This CT exam was performed using one or more following dose reduction techniques: Automated exposure control, adjustment of the mA and/or kV according to patient size, or use of iterative reconstruction technique. Limited cuts through the lung bases show calcified pleural plaque bilaterally. There is also minor atelectasis or scarring as well as some airspace lucencies. There is reflux of contrast into the IVC and hepatic veins suggesting the possibility of right heart failure. There is atherosclerotic plaque involving the aorta, greater distally. There is no aneurysm though there is a segment in the infrarenal region where there is mild luminal narrowing. There is also mild narrowing at the origin of the right common iliac artery and near the iliac bifurcation. There is no opacification of the proximal internal iliac artery on the left where there is suggestion of a short stent. A second external iliac stent is seen on that side that does contain contrast. There is some luminal narrowing at the distal aspect of the stent and the vessel distal to this remains small in caliber. There are postoperative changes in the groin region bilaterally where there is stenosis. A patent femorofemoral bypass graft is visualized. The femoral and popliteal arteries are patent. Otherwise. These areas show minor plaque and no prominent associated stenosis. There is potential fatty infiltration of the liver as well as small hepatic hemangiomas. There is cholelithiasis, without complication. The spleen and adrenal glands show no significant findings. The pancreatic duct is borderline prominent, similar to the prior. There is also still slight heterogeneity at the inferior pancreatic head. The renal nephrograms are symmetric. No hydronephrosis is seen. There is no prominent adenopathy or free fluid. There is an upper abdominal ventral hernia containing fat and another smaller fat-containing periumbilical hernia. There are no dilated small bowel loops. There is stool along the colon. Images through the pelvis show nondilated small bowel. There is mild colonic stool. There are some sigmoid diverticula. No active inflammation is present. No appendiceal inflammation is seen. There is an enlarged lobulated prostate with heterogeneous nodular enhancing area anteriorly on the left. There is mass effect at the bladder trigone. The bladder is not well-distended and there is apparent wall thickening. No ascites is seen. 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 THERE ARE LEFT-SIDED ILIAC STENTS, THE MORE PROXIMAL IS OCCLUDED. THERE IS ALSO A FEMOROFEMORAL BYPASS GRAFT WHICH IS PATENT. CHOLELITHIASIS. POSSIBLE FATTY LIVER WITH HEMANGIOMAS. NO BOWEL OR URINARY TRACT OBSTRUCTION. MILD DIVERTICULOSIS. ABDOMINAL VENTRAL HERNIAS CONTAINING FAT. ENLARGED PROSTATE. CORRELATION WITH PSA IS RECOMMENDED. Impression dictated by: Darlene Masters M.D.09/29/2021 2:40 PM Dictation Location: [place] [address] Transcribed By: [facility] 09/29/21 1440 Dictated By: Darlene Masters MD 09/29/21 1309 Signed By: 09/29/21 1440 [facility] Creatinine (Bld) [Mass/Vol]O rdered By: Stuart Qureshi on 09-29-2021 Creatinine [Mass/Vol] 1.0 mg/dL 0.6-1.3 [facility] Comment on above: ER/ESD physician is notified/shown all ISTAT results. Critical values may be confirmed by laboratory testing if deemed necessary by ER attending doctor. ISTAT XRay CREon 09-29-2021 Creatinine [Mass/Vol] 1.0 mg/dL Normal 0.6-1.3 [facility] Comment on above: Result Comment: ER/E SD physician is notified/shown all ISTAT results. Critical values may be confirmed by laboratory testing if deemed necessary by ER attending doctor. Performed By: #### I SCRE #### [facility] [address] [place] [address] Point of Care testing , ISTAT GFR ( > 60 Normal [facility] Comment on above: Result Comment: GFR estimated reference range: According to KDOQI guidelines, <60 ml/min/1.73m2 is sufficient to diagnose a patient with chronic kidney disease. PERFORMED BY: [place] [address] PATHOLOGIST [employer] MARY BURNETT M.D. Performed By: #### I SCRE #### [address] Point of Care testing , ISTAT GFR (Non- Am > 60 [facility] Comment on above: Performed By: #### I SCRE #### [facility] [address] [place] [address] Point of Care testing , No Panel InformationOrdered By: Stuart Qureshi on 09-29-2021 POC Estimated GFR > 60 [facility] Comment on above: GFR estimated refere nce range: According to KDOQI guidelines, <60 ml/min/1.73m2 is sufficient to diagnose a patient with chronic kidney disease. POC Estimated GFR Non- Amer > 60 [facility] CBC AUTO DIFFon 08-14-2021 BASO # 0.1 103/ul Normal 0.0-0.1 [facility] Comment on above: Performed By: #### C BC #### [facility] [address] [place] [address] [address] Jr Leiva Basophils/100 WBC (Bld) 0.7 % Normal 0.2-2.0 [facility] Comment on above: Performed By: #### C BC #### [facility] [address] [place] [address] [address] Jr Leiva EO # 0.4 103/ul Normal 0.0-0.7 [facility] Comment on above: Performed By: #### C BC #### [facility] [address] [place] [address] Dr. Jr Leiva Eosinophils/100 WBC (Bld) 4.5 % Normal 0.9-7.0 [facility] Comment on above: Performed By: #### C BC #### [facility] [address] [place] [address] Dr. Jr Leiva Erythrocyte distribution width (RBC) [Ratio] 12.6 % Normal 11.0-15.0 [facility] Comment on above: Performed By: #### C BC #### [facility] [address] [place] [address] Dr. Jr Leiva Hematocrit (Bld) [Volume fraction] 42.2 % Normal 42.0-54.0 [facility] Comment on above: Performed By: #### C BC #### [facility] [address] [place] [address] Dr. Jr Leiva Hemoglobin (Bld) [Mass/Vol] 13.6 g/dL Critically low 14.0-18.0 [facility] Comment on above: Performed By: #### C BC #### [facility] [address] [place] [address] Dr. Jr Leiva IG # 0.02 10e3/ul Normal 0.00-0.03 [facility] Comment on above: Performed By: #### C BC #### [facility] [address] [place] [address] Dr. Jr Leiva IG % 0.2 % Normal 0.0-0.5 [facility] Comment on above: Performed By: #### C BC #### [facility] [address] [place] [address] Dr. Jr Leiva LYMPH # 1.5 103/ul Normal 1.2-3.8 [facility] Comment on above: Performed By: #### C BC #### [facility] [address] [place] [address] Dr. Jr Leiva Lymphocytes/100 WBC (Bld) 18.4 % Critically low 20.5-60.0 [facility] Comment on above: Performed By: #### C BC #### [facility] [address] [place] [address] Dr. Jr Leiva MANUAL DIFF REQ NO Normal [facility] Comment on above: Performed By: #### C BC #### [facility] [address] [place] [address] Dr. Jr Leiva MCH (RBC) [Entitic mass] 29.4 pg Normal 25.9-34.0 [facility] Comment on above: Performed By: #### C BC #### [facility] [address] [place] [address] Dr. Jr Leiva MCHC (RBC) [Mass/Vol] 32.2 g/dL Normal 29.9-35.2 [facility] Comment on above: Performed By: #### C BC #### [facility] [address] [place] [address] Dr. Jr Leiva MCV (RBC) [Entitic vol] 91.1 fL Normal 80.0-94.0 [facility] Comment on above: Performed By: #### C BC #### [facility] [address] [place] [address] Dr. Jr Leiva MONO # 0.8 103/ul Normal 0.3-0.8 [facility] Comment on above: Performed By: #### C BC #### [facility] [address] [place] [address] Dr. Jr Leiva Monocytes/100 WBC (Bld) 9.2 % Normal 1.7-12.0 [facility] Comment on above: Performed By: #### C BC #### [facility] [address] [place] [address] Dr. Jr Leiva NEUT # 5.4 103/ul Normal 1.4-6.5 [facility] Comment on above: Performed By: #### C BC #### [facility] [address] [place] [address] Dr. Jr Leiva Neutrophils/100 WBC (Bld) 67.0 % Normal 43.0-75.0 [facility] Comment on above: Performed By: #### C BC #### [facility] [address] [place] [address] Dr. Jr Leiva Platelet mean volume (Bld) [Entitic vol] 8.9 fL Critically low 9.5-13.5 [facility] Comment on above: Performed By: #### C BC #### [facility] [address] [place] [address] Dr. Jr Leiva PLT 330 103/ul Normal 150-450 [facility] Comment on above: Performed By: #### C BC #### [facility] [address] [place] [address] [address] Jr Leiva RBC 4.63 106/ul Critically low 4.70-6.10 [facility] Comment on above: Performed By: #### C BC #### [facility] [address] [place] [address] Dr. Jr Leiva WBC 8.1 103/ul Normal 4.0-11.0 [facility] Comment on above: Performed By: #### C BC #### [facility] [address] [place] [address] Dr. Jr Leiva PROF CHEM 8 (BAS METB)on Anion gap [Moles/Vol] 13.7 mmol/L Normal [facility] Comment on above: Performed By: #### B MP #### [facility] [address] [place] [address] Dr. Jr Leiva Calcium [Mass/Vol] 9.0 mg/dL Normal 8.5-10.1 [facility] Comment on above: Performed By: #### B MP #### [facility] [address] [place] [address] Dr. Jr Leiva Chloride [Moles/Vol] 104 mmol/L Normal 98-107 [facility] Comment on above: Performed By: #### B MP #### [facility] [address] [place] [address] Dr. Jr Leiva CO2 [Moles/Vol] 24.9 mmol/L Normal 21.0-32.0 [facility] Comment on above: Performed By: #### B MP #### [facility] [address] [place] [address] [address] Jr Leiva Creatinine [Mass/Vol] 1.15 mg/dL Normal 0.70-1.30 [facility] Comment on above: Performed By: #### B MP #### [facility] [address] [place] [address] [address] Jr Leiva EGFR-AF SIERRA LEONEAN >60 Normal >=60 [facility] Comment on above: Performed By: #### B MP #### [facility] [address] [place] [address] [address] Jr Leiva EGFR-NON AF SIERRA LEONEAN >60 Normal >=60 [facility] Comment on above: Performed By: #### B MP #### [facility] [address] [place] [address] Dr. Jr Leiva Glucose [Mass/Vol] 111 mg/dL Critically high 74-106 T [facility] Comment on above: Performed By: #### B MP #### [facility] [address] [place] [address] Dr. Jr Leiva Potassium [Moles/Vol] 4.6 mmol/L Normal 3.5-5.1 [facility] Comment on above: Performed By: #### B MP #### [facility] [address] [place] [address] Dr. Jr Leiva Sodium [Moles/Vol] 138 mmol/L Normal 136-145 [facility] Comment on above: Performed By: #### B MP #### [facility] [address] [place] [address] Dr. Jr Leiva Urea nitrogen [Mass/Vol] 17.0 mg/dL Normal 7.0-18.0 [facility] Comment on above: Performed By: #### B MP #### [facility] [address] [place] [address] Dr. Jr Leiva Urea nitrogen/Creatinine [Mass ratio] 14.8 mg/mg Normal [facility] Comment on above: Performed By: #### B MP #### [facility] [address] [place] [address] Dr. Jr Leiva PROTIMEon 08-14-2021 INR Coag (PPP) [Relative time] 0.94 {INR} Normal [facility] Comment on above: Performed By: #### C BC #### [facility] [address] [place] [address] [address] Jr Leiva INR GUIDELINES SEE BELOW Normal [facility] Comment on above: Result Comment: ANANTH RED INR: 2.0 - 3.0 CONDITIONS NOT LISTED BELOW 2.5 - 3.5 FOR PROSTHETIC HEART VALVE REPLACEMENT 2.5 - 3.5 RECURRENT THROMBOSIS Performed By: #### C BC #### [facility] [address] [place] [address] [address] Jr Leiva PT Coag (PPP) [Time] 10.2 s Normal 9.0-11.6 [facility] Comment on above: Performed By: #### C BC #### [facility] [address] [place] [address] [address] Jr Leiva PTTon 08-14-2021 aPTT Coag (Bld) [Time] 28.8 s Normal 22.3-36.2 [facility] Comment on above: Performed By: #### C BC #### [facility] [address] [place] [address] [address] Jr Leiva Creatinine (Bld) [Mass/Vol]O rdered By: Saqib Saba on 08-07-2021 Creatinine [Mass/Vol] 1.0 mg/dL 0.6-1.3 [facility] Comment on above: ER/ESD physician is notified/shown all ISTAT results. Critical values may be confirmed by laboratory testing if deemed necessary by ER attending doctor. ISTAT XRay CREon 08-07-2021 Creatinine [Mass/Vol] 1.0 mg/dL Normal 0.6-1.3 [facility] Comment on above: Result Comment: ER/E SD physician is notified/shown all ISTAT results. Critical values may be confirmed by laboratory testing if deemed necessary by ER attending doctor. Performed By: #### I SCRE #### [address] Point of Care testing , ISTAT GFR ( > 60 Normal [facility] Comment on above: Result Comment: GFR estimated reference range: According to KDOQI guidelines, <60 ml/min/1.73m2 is sufficient to diagnose a patient with chronic kidney disease. PERFORMED BY: [place] [address] PATHOLOGIST [employer] MARY BURNETT M.D. Performed By: #### I SCRE #### [facility] [address] [place] [address] Point of Care testing , ISTAT GFR (Non- Am > 60 Normal [facility] Comment on above: Performed By: #### I SCRE #### [facility] [address] [place] [address] Point of Care testing , MR prostate wo/w conon 08-07 MR prostate wo/w con [facility] [place] [address] [place] [address] MRI Report Signed Patient: Jean Santiago MR#: [id number] 72 : 1950 Acct:[id number] Age/Sex: 71 / M ADM Date: 08/07/21 Loc: Room: Type: [facility] Attending Dr: Saqib Saba MD Ordering Provider: Saqib Saba MD Date of Service: 08/07/21 MR/MR prostate wo/w con: elevated PSA Copies to: Saqib Saba MD EXAMINATION: MR prostate wo/w con HISTORY: Elevated PSA. COMPARISON: Outside prostate MRI dated 07/07/2020 TECHNIQUE: Multiparametric imaging of the prostate gland was performed with IV contrast. FINDINGS: Prostate Dimensions: 5.2 x 4.4 x 6.5 cm. Prostate Volume: 78 mL Peripheral Zone: Heterogenous in T2 signal suggestive of prior prostatitis. A focal area of T2 hypointensity is identified within the posterolateral aspect of the right peripheral zone at the level of the mid gland measuring 5 x 5 mm which appears isointense on the high B value DWI imaging with low ADC value. Please see series 4 image 26, and series 650 image 21. There is associated abnormal enhancement. Central/Transitional Zone: BPH changes. No focal T2 or ADC map abnormality is identified to suggest prostate malignancy. Seminal Vesicles: Decompressed without focal abnormality. Neurovascular bundles: Unremarkable. Lymphadenopathy: No evidence of lymphadenopathy. Bladder: No focal lesion. Bowel: Diverticulosis. Peritoneal Cavity: No free fluid. Bones: Heterogenous in bone marrow signal without focal lesion. MR/MR prostate wo/w con IMPRESSION: 1. A focal area of T2 hypointensity is identified within the posterolateral aspect of the right peripheral zone at the level of the mid gland measuring 5 x 5 mm which appears isointense on the high B value DWI imaging with low ADC value. Please see series 4 image 26, and series 650 image 21. There is associated abnormal enhancement. PI-RADS 4. Targeting of this region on biopsy is recommended. 2. BPH. Impression dictated by: Freddie Garcia Jr., D.OMae08/07/2021 2:47 PM Dictation Location: [place] [address] Transcribed By: [facility] 08/07/21 1447 Dictated By: Freddie Garcia Jr, DO 08/07/21 1404 Signed By: 08/07/21 1447 Normal [facility] No Panel InformationOrdered By: Saqib Saba on 08-07-2021 POC Estimated GFR > 60 [facility] Comment on above: GFR estimated refere nce range: According to KDOQI guidelines, <60 ml/min/1.73m2 is sufficient to diagnose a patient with chronic kidney disease. POC Estimated GFR Non- Amer > 60 [facility] XR TSPINE 2 VIEWSon 07-25-19 XR TSPINE 2 VIEWS EXAMINATION: XR CHES T 2 V, XR TSPINE 2 VIEWS HISTORY: Pain in thoracic spine COMPARISON: CT lung cancer screening 08/29/2020 FINDINGS: LUNGS: Hyperexpanded lungs suggestive of mild COPD. Calcified pleural plaques greatest on left, felt to account for the midlung opacity. VASCULATURE: No increased pulmonary vasculature. PLEURA: No pneumothorax, effusion, or pleural thickening. CARDIAC: No cardiomegaly or cardiac silhouette abnormality. MEDIASTINUM: No visible mass or adenopathy. BONES: Very minimal anterior wedging of T8 and T9 vertebral bodies without increased irregular density or significant endplate changes. OTHER: Negative. IMPRESSION: 1. Mild COPD. 2. Calcified pleural plaques typically associated with the combination of smoking and asbestos exposure. 3. Stable minimal anterior wedging of T8 and T9; remote mild compression fractures versus developmental. These are unchanged compared to CT chest from 08/29/2020. Electronically authenticated by: KEESHA HARMON Date: 2021-07-24 10:39 Normal [facility] ALLIED HEALTHon 07-07-2020 ALLIED HEALTH HNO ID: [id number] Author: Georgina (Rt) Desire Moise Service: Radiology Author Type: [employer] Type: Allied Health Filed: 07/07/2020 9:37 AM Note Text: Radiology Service Progress Note PATIENT NAME: Jean Santiago DATE OF SERVICE: July 07, 2020 TIME: 9:37 AM PATIENT IDENTITY VERIFICATION COMPLETED USING TWO (2) IDENTIFIERS: Name and Date of confirmed by patient verbally and Name and Date of confirmed by identification band. FALL SCREENING: Has the patient had 2 falls in the last year or 1 fall with injury or currently using an Ambulatory Assistive Device (Walker, Cane, Wheelchair, Crutches, etc.)? No PATIENT GENDER DATA: Male PATIENT RELEVANT IMPLANT DATA REVIEWED: Yes RADIOLOGY DEPARTMENT: MR; Exam(s) Completed: Body: Prostate PERIPHERAL IV DATA: Site assessment: Clean,Dry and Intact, Site disposition Discontinued SIGNED BY: RT Mau July 07, 2020 9:37 AM Normal [facility] MRI PROSTATE WO/W IVCONon MRI PROSTATE WO/W IVCON * * *Final Report* * * DATE OF EXAM: Jul 07 2020 10:22AM [facility] 0751 - MRI PROSTATE WO/W IVCON / PROCEDURE REASON: ELEVATED PSA * * * * Physician Interpretation * * * * EXAMINATION: MRI PELVIS WITHOUT AND WITH IV CONTRAST (MULTIPARAMETRIC PROSTATE MRI) IV CONTRAST CLINICAL HISTORY: 70 year old being evaluated for prostate cancer. Prior biopsy and PSA results are not available. Previous biopsy: Not available or unknown. PSA: Not available or unknown; Prior therapy: Unknown COMPARISON: None TECHNIQUE: Multiparametric MRI of the prostate and pelvis performed on a 3T scanner utilizing phase pelvic coil. Sequences obtained: multiplanar T2-WI with small FOV; Axial DWI with multiple B-values and creation of ADC-maps; DCE T1-weighted images through the prostate obtained before, during and after the administration of intravenous gadolinium; prostate dimensions and volume were obtained using a semi-automated software (netZentry). CONTRAST: IV: 18 cc of (Dotarem). RESULT: Prostate: Dimensions: 5.8 x 5.5 x 6.3 cm corresponding to a volume of approximately 81 cc. Post biopsy hemorrhage: Absent Peripheral zone: Linear and/or wedge-shaped T2/ADC map hypointensities (PI-RADS 2). No focal lesion present. Transition zone: There is transition zone hypertrophy, without focal abnormalities suspicious for clinically significant disease (PI-RADS 2). No focal lesion present. Neurovascular bundle: Unremarkable. Seminal vesicles: Unremarkable. Adjacent Organ Involvement: Not applicable. Lymph nodes: No enlarged pelvic lymph nodes. Bladder: Unremarkable. Pelvic bones: No suspicious pelvic osseous lesions. Other Findings: Sigmoid diverticulosis. 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 IMPRESSION: BPH HYPERTROPHY IN THE TRANSITION ZONE. NO FOCAL LESIONS TO SUGGEST CLINICALLY SIGNIFICANT DISEASE. NO BONNIE OR OSSEOUS METASTATIC DISEASE. Number of targets created for MR/US fusion biopsy: Peripheral zone: 0 Transition zone: 0 If present, targets were numbered in order of level of suspicion for clinically significant prostate cancer (Deborah score 3 + 4 or higher). PI-RADS v2.1 Assessment Categories: PI-RADS 1: Clinically significant cancer is highly unlikely PI-RADS 2: Clinically significant cancer is unlikely PI-RADS 3: Clinically significant cancer is equivocal PI-RADS 4: Clinically significant cancer is likely PI-RADS 5: Clinically significant cancer is highly likely Medical Fee Clerk: STEVE Transcribe Date/Time: Jul 07 2020 11:26A Dictated by : GIRMA BROTHERS, DO This examination was interpreted and the report reviewed and electronically signed by: FREDDIE WILLSON MD on Jul 07 2020 2:53PM EST [id number] [facility] NURSING PROGon 07-07-2020 NURSING PROG HNO ID: [id number] Author: Caden Stephens (Rn) KVNG De La Fuente Service: Nursing Author Type: Registered Nurse Type: Nursing Progress Note Filed: 07/07/2020 9:04 AM Note Text: Radiology Service Progress Note DATE OF SERVICE: July 07, 2020 TIME: 9:02 AM PATIENT WEIGHT: 203 LBS PATIENT IDENTITY VERIFICATION COMPLETED USING TWO (2) STANDARD IDENTIFIERS: Name and Date of confirmed by patient verbally. FALL SCREENING: Has the patient had 2 falls in the last year or 1 fall with injury or currently using an Ambulatory Assistive Device (Walker, Cane, Wheelchair, Crutches, etc.)? No PATIENT GENDER DATA: Male ALLERGIES: Reviewed and unchanged CONTRAST ALLERGY: No EXAM: MRI - CONTRAST TYPE: GROUP II IV SITE: Ambulatory: A peripheral IV was started in the Right antecubital site with a Angio cath: 22 gauge. and A Saline lock was inserted per protocol IV SITE APPEARANCE: Clean,Dry and Intact SIGNATURE: Caden De La Fuente RN PATIENT NAME: Jean Santiago DATE: July 07, 2020 TIME: 9:02 AM [facility] 07-07-2020 [facility] Vital Signs Date Time Vital Sign Value Performing Clinician Facility 06-03-2023 12:33-0400 Body height 181.9 cm Sapphire Mcallister MD Work Phone: [employer] 06-03-2023 12:33-0400 Body mass index (BMI) [Ratio] 28.39 kg/m2 Sapphire Mcallister MD Work Phone: [employer] 06-03-2023 12:33-0400 Body weight 93.89 kg Sapphire Mcallister MD Work Phone: [employer] 12-14-2022 10:30-0400 Body height 182.88 cm Marshall Zaman Other [employer] Other 12-14-2022 10:30-0400 Body mass index (BMI) [Ratio] 26.69 kg/m2 Marshall Ball Other [employer] Other 12-14-2022 10:30-0400 Body weight 89.27 kg Marshall Ball Other [employer] Other 12-14-2022 10:30-0400 Diastolic blood pressure 72 mm[Hg] Marshall Ball Other [employer] Other 12-14-2022 10:30-0400 Respiratory rate 12 /min Marshall Ball Other [employer] Other 12-14-2022 10:30-0400 Systolic blood pressure 133 mm[Hg] Marshall Ball Other [employer] Other 05-28-2022 09:30-0500 Body height 182.88 cm Marshall Ball Other [employer] Other 05-28-2022 09:30-0500 Body mass index (BMI) [Ratio] 28.72 kg/m2 Marshall Ball Other [employer] Other 05-28-2022 09:30-0500 Body weight 96.07 kg Marshall Ball Other [employer] Other 05-28-2022 09:30-0500 Diastolic blood pressure 70 mm[Hg] Marshall Ball Other [employer] Other 05-28-2022 09:30-0500 Respiratory rate 12 /min Marshall Ball Other [employer] Other 05-28-2022 09:30-0500 Systolic blood pressure 122 mm[Hg] Marshall Ball Other [employer] Other 11-01-2021 11:00-0400 Diastolic blood pressure 73 mm[Hg] DO Marshall Ball Work Phone: [facility] 11-01-2021 11:00-0400 Heart rate 61 /min DO Marshall Ball Work Phone: [facility] 11-01-2021 11:00-0400 Respiratory rate 16 /min DO Marshall Ball Work Phone: [facility] 11-01-2021 11:00-0400 SaO2% (BldA) [Mass fraction] 96 % DO Marshall Ball Work Phone: [facility] 11-01-2021 11:00-0400 Systolic blood pressure 157 mm[Hg] DO Marshall Ball Work Phone: [facility] 11-01-2021 07:37-0400 Body height 182.88 cm DO Marshall Ball Work Phone: [facility] 11-01-2021 07:37-0400 Body weight 92.07 kg DO Marshall Ball Work Phone: [facility] 10-23-2021 10:15-0400 Body height 182.88 cm Stuart Qureshi Other [employer] Other 10-23-2021 10:15-0400 Body mass index (BMI) [Ratio] 27.12 kg/m2 Stuart Qureshi Other [employer] Other 10-23-2021 10:15-0400 Body temperature 97.3 [degF] Stuart Qureshi Other [employer] Other 10-23-2021 10:15-0400 Body weight 90.72 kg Stuartsybil Newmanrekaitlin Other [employer] Other 10-23-2021 10:15-0400 Diastolic blood pressure 58 mm[Hg] Stuart Newmanrekaitlin Other [employer] Other 10-23-2021 10:15-0400 SaO2% (BldA) [Mass fraction] 97 % Stuart Newmanrekaitlin Other [employer] Other 10-23-2021 10:15-0400 Systolic blood pressure 126 mm[Hg] Stuart Patyrer Other [employer] Other 09-18-2021 11:30-0400 Body height 182.88 cm Stuart Newmanrer Other [employer] Other 09-18-2021 11:30-0400 Body mass index (BMI) [Ratio] 27.12 kg/m2 Stuart Newmanrer Other [employer] Other 09-18-2021 11:30-0400 Body temperature 97.2 [degF] Stuart Titus Other [employer] Other 09-18-2021 11:30-0400 Body weight 90.72 kg Stuart Titus Other [employer] Other 09-18-2021 11:30-0400 Diastolic blood pressure 70 mm[Hg] Stuart Newmanrer Other [employer] Other 09-18-2021 11:30-0400 SaO2% (BldA) [Mass fraction] 96 % Stuart Titus Other [employer] Other 09-18-2021 11:30-0400 Systolic blood pressure 160 mm[Hg] Stuart Newmanrer Other [employer] Other 08-07-2021 09:50-0400 Body weight 94.34 kg DO Marshall Ball Work Phone: [facility] 08-07-2021 09:50-0400 Diastolic blood pressure 72 mm[Hg] DO Marshall Ball Work Phone: [facility] 08-07-2021 09:50-0400 Heart rate 66 /min DO Marshall Ball Work Phone: [facility] 08-07-2021 09:50-0400 Respiratory rate 16 /min DO Marshall Ball Work Phone: [facility] 08-07-2021 09:50-0400 SaO2% (BldA) [Mass fraction] 98 % DO Marshall Ball Work Phone: [facility] 08-07-2021 09:50-0400 Systolic blood pressure 201 mm[Hg] DO Marshall Ball Work Phone: [facility] 08-07-2021 09:36-0400 Body height 182.88 cm DO Marshall Ball Work Phone: [facility] 07-14-2021 08:13-0400 Blood Pressure Location Saqib SABA [facility] 07-14-2021 08:13-0400 Diastolic blood pressure 89 mm[Hg] Saqib SABA [facility] 07-14-2021 08:13-0400 Heart rate 68 /min Saqib SABA [facility] 07-14-2021 08:13-0400 Respiratory rate 16 /min Saqib SABA [facility] 07-14-2021 08:13-0400 Systolic blood pressure 138 mm[Hg] Saqib SABA [facility] Encounters Encounter Date Encounter Type Care Provider Facility Start: 07-12-2023 ambulatory Saqib Doyle ty:HARLEY Stevens Start: 06-03-2023 End: 06-03-2023 ambulatory SAPPHIRE MCALLISTER [facility] Start: 06-03-2023 End: 06-03-2023 Office outpatient visit 15 minutes Sapphire Mcallister MD Work Phone: [facility] Comment on above: 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 Dx) Start: 03-26-2023 End: 03-26-2023 ambulatory Marshall Ball [facility] [employer] Other Start: 03-26-2023 Telephone encounter Marshall Ball [facility] Start: 03-20-2023 End: 03-20-2023 ambulatory Marshall Ball Other [employer] Other Start: 03-20-2023 Telephone encounter Marshall Ball [facility] Start: 01-10-2023 End: 01-10-2023 ambulatory Marshall Ball Other [employer] Other Start: 01-10-2023 Telephone encounter Marshall Ball [facility] Start: 12-31-2022 End: 01-01-2023 ambulatory Saqib SABA Facility:[facility] Start: 12-14-2022 End: 12-14-2022 ambulatory Marshall Ball [facility] [employer] Other Start: 12-14-2022 Patient encounter procedure Marshall Ball [facility] Start: 12-05-2022 End: 12-05-2022 ambulatory Marshall Ball Other [employer] Other Start: 12-05-2022 Telephone encounter Marshall Ball [facility] Start: 11-29-2022 End: 11-29-2022 ambulatory Marshall Ball Other [employer] Other Start: 11-29-2022 Telephone encounter Marshall Ball [facility] Start: 11-28-2022 End: 11-28-2022 ambulatory Marshall Ball Other [employer] Other Start: 11-28-2022 Telephone encounter Marshall [facility]aman [facility] Start: 11-13-2022 End: 11-13-2022 ambulatory Marshall Zaman Other [employer] Other Start: 11-13-2022 Telephone encounter Marshall Zaman [facility] Start: 09-24-2022 End: 09-24-2022 ambulatory Marshall Zaman Other [employer] Other Start: 09-24-2022 Telephone encounter Marshall Zaman [facility] Start: 05-28-2022 End: 05-28-2022 ambulatory Marshall Zaman [facility] [employer] Other Start: 05-28-2022 Office outpatient vi sit 25 minutes Marshall Zaman [facility] Start: 05-18-2022 End: 05-19-[address] MARSHALL ZAMAN Facility:[facility] Start: 05-04-2022 End: 05-04-2022 ambulatory Marshall Zaman [facility] [employer] Other Start: 05-04-2022 Telephone encounter Marshall Zaman [facility] Start: 01-30-2022 End: 01-31-[address] DOCTOR WEST Facility:[facility] Start: 12-14-2021 Encounter for genera l adult medical examination without abnormal findings DR MARSHALL ZAMAN [facility] Start: 12-13-2021 Adult health examination Robert peacock Austyn Other [employer] Other Start: 12-13-2021 End: 12-14-[address] MARSHALL ZAMAN Facility:[facility] Start: 12-13-2021 End: 12-14-2021 Encounter for general adult medical examination without abnormal findings DR MARSHALL ZAMAN Facility:[facility] Start: 11-01-2021 End: 11-01-2021 Admission to same day surgery center DO Marshall Zaman Work Phone: [facility] Start: 10-23-2021 End: 10-23-2021 ambulatory Stuart Qureshi Other [employer] Other Start: 10-23-2021 Office outpatient vi sit 25 minutes Stuart Qureshi [facility] V[facility] Surgery Start: 10-19-2021 End: 10-20-[address] MARSHALL ZAMAN Facility:[facility] Start: 09-29-2021 End: 09-29-2021 Patient encounter procedure DO Marshall Zaman Work Phone: [facility] [place] Start: 09-27-2021 End: 09-28-2021 ambulatory KIARA JUANITO . Facility:[facility] Start: 09-18-2021 End: 09-18-2021 ambulatory Stuart Qureshi Other [facility] [employer] Other Start: 09-18-2021 Office outpatient vi sit 25 minutes Stuart Qureshi [facility] Vascular Surgery Start: 08-25-2021 End: 08-26-2021 ambulatory KIARA JUANITO . Facility:[facility] Start: 08-17-2021 Encounter for preprocedural cardiovascular examination DR SAQIB SABA . [facility] Start: 08-17-2021 Encounter for preprocedural laboratory examination DR SAQIB SBAA . [facility] Start: 08-17-2021 End: 08-17-[address] SAQIB SABA . Facility:[facility] Start: 08-14-2021 End: 08-15-[address] MARSHALL ZAMAN Facility:[facility] Start: 08-14-2021 End: 08-15-2021 Encounter for preprocedural cardiovascular examination DR MARSHALL ZAMAN Facility:[facility] Start: 08-07-2021 End: 08-07-2021 Patient encounter procedure DO Marshall Zaman Work Phone: [facility] [place] Start: 07-24-2021 End: 07-25-[address] MARSHALL ZAMAN Facility:[facility] Start: 07-14-2021 End: 07-14-2021 Patient encounter procedure Saqib SABA [facility] Start: 07-03-2021 End: 07-04-[address] MARSHALL ZAMAN Facility:[facility] Start: 07-07-2020 End: 07-07-2020 Subsequent hospital visit by physician [place] [id number] (I-Stat/3t) Work Phone: Radiology Comment on above: Benign prostatic hyp erplasia without lower urinary tract symptoms [N40.0] Procedures Date Procedure Procedure Detail Performing Clinician Start: 06-03-2023 Arthrocentesis aspir &/inj major jt/bursa w/o us Sapphire Mcallister MD Work Phone: Start: 11-01-2021 Abdominal aortogram DO Marshall Zaman Work Phone: Start: 09-29-2021 CT of abdominal aort a with contrast DO Marshall Zaman Work Phone: Start: 08-07-2021 MR prostate wo/w con DO Marshall Zaman Work Phone: Start: 07-03-[address] DOCTOR WEST Comment on above: Performed By: #### P SAD #### [facility] [address] [place] [address] Dr. Jr Leiva Start: 07-07-2020 Mri pelvis w/o & w/c ontrast material [facility] Provider Start: 07-05-2018 End: 08-11-2019 Screening for malignant neoplasm of colon Marshall Zaman Other Start: 07-02-2017 End: 08-11-2019 Diabetes mellitus screening Marshall valentino Other Start: 07-02-2017 End: 08-11-2019 Hyperlipidemia screening Marshall Zaman Other Start: 10-21-2012 Transrectal biopsy o f prostate using ultrasound guidance Saqib SABA Depression screening Collin Zaman Other Hernia repair Saqib SABA Reconstruction of artery Adwoa SABA Repair of musculoten dinous cuff of shoulder Saqib SABA Plan of Treatment Date Care Activity Detail Author Start: 06-02-2024 Adult BMI Screening Adult BMI Screening [facility] Start: 02-12-2024 Tobacco Screening Tobacco Screening [facility] Start: 09-16-2023 End: 09-16-2023 Patient encounter procedure 09/16/2023 9:40 AM EDT Office Visit [facility] [address] [place] [address] Sapphire Mcallister MD [address] [place] [id number] [facility] Start: 11-23-2022 Influenza vaccination Influenza Vaccine [facility] Start: 11-01-2021 End: 11-01-2021 [facility] Work Phone: Start: 11-23-2020 Influenza vaccination INFLUENZA (Season Ended) [facility] Start: 06-26-2015 ADVANCE DIRECTIVE DISCUSSION ADVANCE DIRECTIVE DISCUSSION [facility] Start: 06-26-2015 Fall Risk Screening Fall Risk Screening [facility] Start: 06-26-2015 PNEUMOVAX AGE 65 AND OVER WITH 5YR LOOKBACK (#1) PNEUMOVAX AGE 65 AND OVER WITH 5YR LOOKBACK (#1) [facility] Start: 2000 Screening for malignant neoplasm of colon [facility] Start: 2000 SHINGRIX VACCINE (1 of 2) SHINGRIX VACCINE (1 of 2) [facility] Start: 06-26-1995 DIABETES SCREEN DIABETES SCREEN [facility] Start: 1985 LIPID SCREEN LIPID SCREEN [facility] Start: 1969 DTaP,Tdap and Td Vaccines (1 - Tdap) DTaP,Tdap and Td Vaccines (1 - Tdap) [facility] Start: 1969 Urine microalbumin profile DTAP,TDAP,TD (1 - Tdap) [facility] Start: 1968 Adult BMI Follow Up Plan Adult BMI Follow Up Plan [facility] Start: 1968 HEPATITIS C SCREENING HEPATITIS C SCREENING [facility] Start: 1962 Adult depression screening assessment [facility] Start: 1950 Medicare Annual Wellness Visit Medicare Annual Wellness Visit [facility] [employer] [facility] Patient Education Arteriogram (DC) [facility] Work Phone: Patient referral [facility] Work Phone: Immunizations Immunization Date Immunization Notes Care Provider Fa cili 12-14-2022 influenza, high dose seasonal, preservative-free Marshall Zaman [facility] [employer] Other 12-13-2021 influenza virus vaccine, split virus (incl. purified surface antigen) Marshall Zaman [facility] [employer] Other 12-13-2021 influenza virus vaccine, unspecified formulation Sapphire Mcallister MD Work Phone: [employer] 01-13-2021 influenza virus vaccine, split virus (incl. purified surface antigen) Marshall Zaman [facility] [employer] Other 12-30-2020 COVID-19 mRNA, Comirnaty (Pfizer) DO Marshall Zaman Work Phone: [facility] 05-30-2020 SARS-CoV-2 (COVID-19 ) mRNA BNT-162b2 vax Saqib SABA [facility] 05-27-2020 COVID-19 mRNA, Comirnaty (Pfizer) DO Marshall Zamna Work Phone: [facility] 04-26-2020 COVID-19 mRNA, Comirnaty (Pfizer) DO Marshall Zaman Work Phone: [facility] 01-11-2020 influenza virus vaccine, unspecified formulation Saqib SABA [facility] 11-26-2019 influenza virus vaccine, split virus (incl. purified surface antigen) Marshall Zaman [facility] [employer] Other 07-04-2018 pneumococcal polysaccharide vaccine, 23 valent Marshall Zaman [facility] [employer] Other 07-02-2017 pneumococcal conjuga te vaccine, 13 valent Marshall Zaman [facility] [employer] Other 07-02-2017 pneumococcal Conjuga te, unspecified formulation; Translations: [Need for prophylactic vaccination against Streptococcus pneumoniae (pneumococcus)] Marshall Zaman Other [employer] Other 04-16-2017 influenza virus vaccine, split virus (incl. purified surface antigen) Marshall Zaman [facility] [employer] Other Payers Date Payer Category Payer Medicare ANTHEM MEDICARE ANTHEM MEDICARE ADVANTAGE [id number] 2017-Present [phone] [address] [place] [address] [id number] 2017 Unknown [facility] S AND BLUE SHIELD ANTH MEDIBLUE ACCESS [id number] 2017-Present PPO [id number] 1959 Medicare [id number] 1950 Unknown [id number] 1950 Unknown [id number] 1950 Unknown [id number] 1950 Unknown [id number] 1950 Unknown [id number] 1950 Unknown [id number] 1950 Unknown [id number] 1950 Unknown [id number] 1950 Unknown [id number] 1950 Unknown [id number] 1950 Unknown [id number] 1950 Unknown [id number] 1950 Unknown [id number] 6 Self-pay Self Pay [id number] Social History Date Type Detail Facility Tobacco smoking stat [facility] Unknown if ever smoked [facility] Start: 1950 Sex Assigned At Not on file [facility] Exposure to SARS-CoV -2 (event) Not sure [facility] Start: 10-23-2019 End: 07-16-2022 Tobacco smoking status Ex-smoker (finding) [facility] Start: 02-11-2023 End: 06-03-2023 Sex Assigned At Male [facility] Start: 04-03-1951 Sex Assigned At Male [facility] History of tobacco use [facility] History of tobacco use Cigarette Smoker [facility] Start: 07-16-2022 Tobacco use and exposure Smokeless tobacco non-user [facility] Start: 06-03-2023 Alcohol intake Ex-drinker (finding) [facility] Start: 02-11-2023 End: 06-03-2023 History of Social function [facility] Childcare Unknown [facility] Clinical Notes 07-14-2021 to 06-03-2023 Sapphire Mcallister MD - 06/03/2023 12:40 PM EDT Note Date & Type Note Facility 06-03-2023 History of Present illness Narrative Associated Order(s): $ Large Joint Injection: bilateral knee Post-Procedure Diagnose(s): Primary osteoarthritis of both knees [facility] [address] [facility] [id number] Name: Jean Santiago : 1950 Chief Complaint Patient presents with Right Knee - Follow-up Last [facility] 02/11/23 increased pain with bowling Left Knee - Follow-up Last [facility] 02/11/23 left is worse increased pain with bowling Subjective Jean Santiago is a 72 y.o. year old male who presents to the office today for evaluation of bilateral knees. He has a history of bilateral knee osteoarthritis. He states his left knee is more painful in his right knee. He did start bowling in November and feels after his 1st night of bowling during the week he will get increased pain in his left knee. He does take NSAIDs and Tylenol for pain relief. The shots lasted him until late April. He would like to continue with conservative management. Past Medical, Family, Surgical, and Social History, as well as Medications, Allergies, and Review of Systems were reviewed and can be seen in the patient's chart. Objective Body mass index is 28.39 kg/m . Jean is alert and oriented, in no acute distress. Upon examination of bilateral knees reveals skin is clean, dry intact with no erythema, edema or ecchymosis. No significant effusion present bilaterally. Range of motion is from 0-115 degrees bilaterally with crepitation noted. Strength 5/5 with flexion extension. Knee is stable to varus and valgus stress testing. Negative Heide's bilaterally. Calf is subtle nontender. Negative Homans. Images X-ray knee right minimum 4 views Bilateral standing AP, tunnel, Grecia x-rays of the knees and lateral x-ray of the right knee were performed in the office today. My interpretation is that there is evidence of lateral and patellofemoral compartment arthritis no acute osseous abnormalities. Assessment There are no diagnoses linked to this encounter. Bilateral knee pain. Lateral and patellofemoral compartment arthritis. Plan: I, SAPPHIRE MCALLISTER MD, personally performed the face to face evaluation on this patient. I discussed with the patient and confirmed the accuracy and completeness of the aforementioned history prepared by the [place] practice provider, and I personally performed the clinical examination of the patient. I discussed the treatment plan with the patient. Reviewed clinical findings in detail today. He does have lateral and predominantly patellofemoral based arthritis in both knees. The previous steroid injections provided significant pain relief. He would like to continue with conservative treatment. On examination today he has mild effusion bilaterally he has peripatellar tenderness palpation with peripatellar crepitus throughout range of motion. Risks benefits of bilateral knee steroid injections discussed he wished to proceed both knees were injected with steroid without complication. He tolerated this well I am going to see him back in 3 months with repeat x-rays of both knees all questions answered.. $ Large Joint Injection: bilateral knee on 06/03/2023 1:02 PM Indications: pain Details: 22 G needle, anterolateral approach Medications (Right): 12 mg betamethasone acet & sod phos 6 mg/mL Medications (Left): 12 mg betamethasone acet & sod phos 6 mg/mL Outcome: tolerated well, no immediate complications The patient was instructed to use ice, NSAIDs, or Tylenol for pain as needed. The patient will call with any signs or concerns. Procedure, treatment alternatives, risks and benefits explained, specific risks discussed. Patient was prepped and draped in the usual sterile fashion. documented in this encounter [facility] 03-26-2023 Evaluation note Encounter Date Diagnosis Assessment Notes Mar, Recurrent major depressive disorder, in full remission (ICD-10 - F33.42) [facility] Other 12-27-2023 Evaluation note* Encounter Date Diagnosis Assessment Notes Treatment Notes Treatment Clinical Notes Feb, Anemia, unspecified type (ICD-10 - D64.9) [facility] Other 10-19-2023 Evaluation note* Encounter Date Diagnosis Assessment Notes Treatment Notes Treatment Clinical Notes Dec, SBE (subacute bacterial endocarditis) prophylaxis candidate (ICD-10 - Z29.89) [facility] Other 09-22-2023 Evaluation note* Encounter Date Diagnosis Assessment Notes Treatment Notes Treatment Clinical Notes Nov, Medicare annual wellness visit, subsequent (ICD-10 - Z00.00) Personalized health advice was given to the beneficiary including a written plan for screenings discussed and provided. Advanced care planning reviewed and/or information given as requested. Additional counseling was provided here today in regards to, [ ]. The above visit was performed by [ ], under direct supervision of [ ]. Document reviewed and amended by provider signed below. Nov, Simple chronic bronchitis (ICD-10 - J41.0) Continue abstinence from tobacco products. No inhalers necessary. No ER visits for AECOPD Yearly LDCT completed w/o suspicious nodules found Nov, Primary hypertension (ICD-10 - I10) This patient is instructed to consume a healthy, low-fat, low-salt diet. They are also encouraged to continue exercise to achieve/maintain a normal BMI. Nov, Atherosclerosis of [place] arteries of extremities with intermittent claudication, bilateral legs (ICD-10 - I70.213) Walk daily until pain develops, rest and restart. Inspect feet daily for cuts, ulcers and calluses. Continue secondary prevention w/ ASA and Statin therapy Nov, Elevated cholesterol (ICD-10 - E78.00) Instructed on diet and exercise with continued statin therapy.Discussed the beneficial effects of lowering cholesterol in reducing the risk for cerebrovascular and cardiovascular disease. Nov, Lumbar spondylosis (ICD-10 - M47.816) The patient is instructed to avoid bending, twisting or lifting. They are to use intermittent heat and ice as needed. They may schedule a massage or gentle manipulation. They may safely use Tylenol as needed. Nov, Recurrent major depressive disorder, in full remission (ICD-10 - F33.42) Much improved, continue healthy diet and activity. Continue medical therapy Nov, Anemia, unspecified type (ICD-10 - D64.9) No obvious s/s of bleeding Denies N/V, heartburn or dysphagia. Had one episode of BRBPR - discussed further evaluation - last scope in 2018Nov, High risk medication use (ICD-10 - Z79.899) Check labs: CBC, BS, GFR [facility] Other 09-13-2023 Evaluation note* Encounter Date Diagnosis Assessment Notes Treatment Notes Treatment Clinical Notes Nov, Primary hypertension (ICD-10 - I10) [facility] Other 09-06-2023 Evaluation note* Encounter Date Diagnosis Assessment Notes Treatment Notes Treatment Clinical Notes Nov, Simple chronic bronchitis (ICD-10 - J41.0) LDCT w/o suspicious nodules: 11/2022 [facility] Other 07-03-2023 Evaluation note* Encounter Date Diagnosis Assessment Notes Treatment Notes Treatment Clinical Notes Sep, Recurrent major depressive disorder, in full remission (ICD-10 - F33.42) [facility] Other 03-06-2023 Evaluation note* Encounter Date Diagnosis Assessment Notes Treatment Notes Treatment Clinical Notes May, Simple chronic bronchitis (ICD-10 - J41.0) Mucinex as needed. No inhalers required for symptoms. Instructed to exercise, keep active May, Primary hypertension (ICD-10 - I10) This patient is instructed to consume a healthy, low-fat, low-salt diet. They are also encouraged to continue exercise to achieve/maintain a normal BMI. May, Atherosclerosis of [place] arteries of extremities with intermittent claudication, bilateral legs (ICD-10 - I70.213) Healthy diet, walk daily. Continue ASA and Statin therapy. Inspect feet on daily basis May, Elevated cholesterol (ICD-10 - E78.00) Diet and exercise with continued statin therapy. 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 They are to use intermittent heat and ice as needed. They may schedule a massage or gentle manipulation. They may safely use Tylenol as needed. May, Benign non-nodular prostatic hyperplasia with lower urinary tract symptoms (ICD-10 - N40.1) f/u for yearly evaluation and PSA May, Recurrent major depressive disorder, in full remission (ICD-10 - F33.42) Healthy diet and exercise May, Primary osteoarthritis of right knee (ICD-10 - M17.11) Quad exercises, ice/heat and bracing. Appt w/ Orthopedics May, Anemia, unspecified type (ICD-10 - D64.9) Discussed on evaluation: - no vitamin deficiency - no s/s bleeding - uses NSAIDs which may cause gastritis, ulcer Monitor for now, repeat CBC in 3mo, EGD discussed Normal Colonoscopy in 2019 [facility] Other 02-10-2023 Evaluation note* Encounter Date Diagnosis Assessment Notes Treatment Notes Treatment Clinical Notes Apr, Anemia, unspecified type (ICD-10 - D64.9) [facility] Other 08-01-2022 Evaluation note* Encounter Date Diagnosis Assessment Notes Treatment Notes Treatment Clinical Notes Oct, Peripheral vascular disease, unspecified (ICD-10 - I73.9) Oct, Other specified postprocedural states (ICD-10 - Z98.890) Oct, Other Peripheral vascular occlusive disease I have advised him that reviewing his anatomy we probably cannot improve his buttock claudication. However, he states that both eyes get tired and it may be that a right common iliac artery lesion above his femoral-femoral bypass graft could be resulting in claudication in both eyes. To avoid puncture of his femoral-femoral graft and for ease of access he will undergo diagnostic arteriogram from the left arm puncture. We will examine the right common iliac artery and if we indeed find significant stenosis we should be able to treated from the arm. He understands the nature of the procedure as well as goals and agrees to proceed. 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 He has not had a CT scan for some time and does have moderate femoral-popliteal disease based on his physical examination and noninvasive studies. We will perform a CT angiogram to better assess the internal iliac arteries as well as a runoff study to look at his femoral-popliteal disease and I will have him back once that is accomplished to discuss the findings with him. He and his understand and reviewed the previous images with me. They agree with that plan. [facility] Other 04-22-2022 Hospital Discharge instructions Patient Education 07/14/2021 08:41:31 Prostate Cancer Screening Prostate Cancer Screening The prostate is a walnut-sized gland that is located below the bladder and in front of the rectum in males. The function of the prostate (prostate gland) is to add fluid to semen during ejaculation. Prostate cancer is the second most common type of cancer in men. A screening test for cancer is a test that is done before cancer symptoms start. Screening can helpto identify cancer at an early stage, when the cancer can be treated more easily. The recommended prostate cancer screening test is a blood test called the prostate-specific antigen (PSA) test. PSA is a protein that is made in the prostate. As you age, your prostate naturally produces more PSA. Abnormally high PSA levels may be caused by: Prostate cancer. An enlarged prostate that is not caused by cancer (benign prostatic hyperplasia, BPH). This condition is very common in older men. A prostate gland infection (prostatitis). Medicines to assist with hair growth, such as finasteride. Depending on the PSA results, you may need more tests, such as: A physical exam to check the size of your prostate gland. Blood and imaging tests. A procedure to remove tissue samples from your prostate gland for testing (biopsy). Who should have screening? Screening recommendations vary based on age. If you are younger than age 40, screening is not recommended. If you are age 40 54 and you have no risk factors, screening is not recommended. If you are younger than age 55, ask your health care provider if you need screening if you have oneof these risk factors: ?Being of -Citizen Of [place] descent. ?Having a family history of prostate cancer. If you are age 55 69, talk with your health care provider about your need for screening and how often screening should be done. If you are older than age 70, screening is not recommended. This is because the risks that screening can cause are greater than the benefits that it may provide (risks outweigh the benefits). If you are at high risk for prostate cancer, your health care provider may recommend that you have screenings more often or start screening at a younger age. You may be at high risk if you: Are older than age 55. Are -Citizen Of [place]. Have a father, brother, or uncle who has been diagnosed with prostate cancer. The risk may be higher if your family member's cancer occurred at an early age. What are the benefits of screening? There is a small chance that screening may lower your risk of dying from prostate cancer. The chance is small because prostate cancer is typically a slow-growing cancer, and most men with prostate cancer from a different cause. What are the risks of screening? The main risk of prostate cancer screening is diagnosing and treating prostate cancer that would never have caused any symptoms or problems (overdiagnosis and overtreatment). PSA screening cannot tell you if your PSA is high due to cancer or a different cause. A prostate biopsy is the only procedure to diagnose prostate cancer. Even the results of a biopsy may not tell you if your cancer needs denny treated. Slow-growing prostate cancer may not need any treatment other than monitoring, so diagnosing and treating it may cause unnecessary stress or other side effects. A prostate biopsy may also cause: Infection or fever. A false negative. This is a result that shows that you do not have prostate cancer when you actually do have prostate cancer. Questions to ask your health care provider When should I start prostate cancer screening? What is my risk for prostate cancer? How often do I need screening? What type of screening tests do I need? How do I get my test results? What do my results mean? Do I need treatment? Contact a health care provider if: You have difficulty urinating. You have pain when you urinate or ejaculate. You have blood in your urine or semen. You have pain in your back or in the area of your prostate. You have trouble getting or maintaining an erection (erectile dysfunction, ED). Summary Prostate cancer is a common type of cancer in men. The prostate (prostate gland) is located below the bladder and in front of the rectum. This gland adds fluid to semen during ejaculation. Prostate cancer screening may identify cancer at an early stage, when the cancer can be treated more easily. The prostate-specific antigen (PSA) test is the recommended screening test for prostate cancer. Discuss the risks and benefits of prostate cancer screening with your health care provider. If you are age 70 or older, screening is likely to lead to more risks than benefits (risks outweigh the benefits). This information is not intended to replace advice given to you by your health care provider. Make sure you discuss any questions you have with your health care provider. Document Released: 12/20/2017 Document Revised: 02/21/2018 Document Reviewed: 12/20/2017 [employer] Patient Education 2020 [employer]. Follow Up Care 07/15/2020 08:51:04 With:OMER JOVEL, Saqib R, URL Address: [facility] [address], [place] [address]- [phone] When: Unknown [facility] evaluation + Plan note No data available for this section [facility] evaluation noteNo assessment information available [facility] Work Phone: Evaluation noteNo InformationNort [employer] Other Evaluation note* Diagnosis Primary osteoarthritis of both knees- Primary [facility] - [facility]* Type Description Date Medical History Ruptured iliac artery-left Medical History hypertension Medical History hypercholesterolemia Surgical History Aortogram/left iliac artery angiogram/right to left fem-fem bypass graft/left common iliac artery embolic occlusion with elective left common iliac artery angiogram/left external iliac artery endoluminal stent graft with angioplasty 07/30/2015 Surgical History hernia repair Surgical History rotator cuff tear repair B/L Surgical History 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 H Hospitalization History See Above [facility] Other [facility] general Narrative - Reported* Type Description Date Medical History Ruptured iliac artery-left Medical History hypertension Medical History hypercholesterolemia Medical History Anemia Medical History Benign non-nodular p rostatic hyperplasia with lower urinary tract symptoms Medical History Aneurysm of left iliac artery Medical History Lumbar spondylosis Medical History Hyperlipidemia type II Medical History 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, bilateral legs Medical History Chronic midline thoracic back pa in Surgical History Aortogram/left iliac artery angiogram/right to left fem-fem bypass graft/left common iliac artery embolic occlusion with elective left common iliac artery angiogram/left external iliac artery endoluminal stent graft with angioplasty 07/30/2015 Surgical History hernia repair Surgical History rotator cuff tear repair B/L Surgical History 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 H Surgical History MR GUIDANCE FOR NEEDLE PLACE Surgical History COLONOSCOPY Hospitalization History See Above [facility] Other [facility] general Narrative - Reported* Type Description Date Medical History Ruptured iliac artery-left Medical History hypertension Medical History hypercholesterolemia Medical History Anemia Medical History Benign non-nodular p rostatic hyperplasia with lower urinary tract symptoms Medical History Aneurysm of left iliac artery Medical History Lumbar spondylosis Medical History Hyperlipidemia type II Medical History 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, bilateral legs Medical History Chronic midline thoracic back pa in Surgical History Aortogram/left iliac artery angiogram/right to left fem-fem bypass graft/left common iliac artery embolic occlusion with elective left common iliac artery angiogram/left external iliac artery endoluminal stent graft with angioplasty 07/30/2015 Surgical History hernia repair Surgical History rotator cuff tear repair B/L Surgical History 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 H Surgical History MR GUIDANCE FOR NEEDLE PLACE Surgical History COLONOSCOPY 2019 Hospitalization History See Above [facility] Other InstructionsNot on filedocumented in this encounter [facility] Summary Purpose Family History No Family History Records FoundNo Family History Records FoundNo Family History Records FoundNo Family History Records FoundNo Family History Records Found Advance Directives No Advanced Directives Records Found Advance Directive Response Recorded Date/ Time Advance Directives No July 31, 2021 2:01pm Chief Complaint and Reason for Visit Chief Complaint Elevated PSA Chief Complaint Elevated PSA I70.213 Chief Complaint I70.213 PAD Additional Source Comments (unrecognized sect ion and content) No Status Records FoundNo Status Records FoundNo Status Records FoundNo Status Records FoundNo Status Records Found INFORMATION SOURCE (unrecogn ized section and content) DATE CREATED AUTHOR 07/08/2020 [facility] DATE CREATED AUTHOR AUTHOR'S ORGANIZ ATION 11/06/2021 [facility] DATE CREATED AUTHOR AUTHOR'S ORGANIZ ATION 05/25/2022 [facility] DATE CREATED AUTHOR AUTHOR'S ORGANIZ ATION 01/01/2023 [facility] DATE CREATED AUTHOR AUTHOR'S ORGANIZ ATION 06/04/2023 [facility] Source Comments (unrecognize d section and content) In the event this informatio n is protected by the Federal Confidentiality of Alcohol and Drug Abuse Patient Records regulations: The Federal rules restrict any use of the information to criminally investigate or prosecute any alcohol or drug abuse patient.[facility] Reason for Visit (unrecogniz ed section and content) Status Reason Specialty Diagnoses / Procedures Referred By Contact Referred To Contact Outside PCP Radiology / RADI O MRI [facility] Diagnoses MRI Prostate WWO Contrast- BPH elevated PSA Procedures MRI WWO PROSTATE [address] [place] [address] Radio Mri [facility] [address] [place] [address] Reason Comments Follow-up Last [facility] 02/11 increased pain with bowling Follow-up [facility] 02/11 left is worse increased pain with bowling Caden De La Fuente (Rn), RN - 07/07/2020 9:00 AM EDT Nursing Notes (unrecognized section and content) Radiology Service Progress Note DATE OF SERVICE: July 07, 2020 TIME: 9:02 AM PATIENT WEIGHT: 203 LBS PATIENT IDENTITY VERIFICATION COMPLETED USING TWO (2) STANDARD IDENTIFIERS: Name and Date of confirmed by patient verbally. FALL SCREENING: Has the patient had 2 falls in the last year or 1 fall with injury or currently using an Ambulatory Assistive Device (Walker, Cane, Wheelchair, Crutches, etc.)? No PATIENT GENDER DATA: Male ALLERGIES: Reviewed and unchanged CONTRAST ALLERGY: No EXAM: MRI - CONTRAST TYPE: GROUP II IV SITE: Ambulatory: A peripheral IV was started in the Right antecubital site with a Angio cath: 22 gauge. and A Saline lock was inserted per protocol IV SITE APPEARANCE: Clean,Dry and Intact SIGNATURE: Caden De La Fuente RN PATIENT NAME: Jean Santiago DATE: July 07, 2020 TIME: 9:02 AM documented in this encounter [facility]ina Moise)Desire - 07/07/2020 9:00 AM EDT Miscellaneous Notes (unrecog nized section and content) Radiology Service Progress Note PATIENT NAME: Jean Santiago DATE OF SERVICE: July 07, 2020 TIME: 9:37 AM PATIENT IDENTITY VERIFICATION COMPLETED USING TWO (2) IDENTIFIERS: Name and Date of confirmed by patient verbally and Name and Date of confirmed by identification band. FALL SCREENING: Has the patient had 2 falls in the last year or 1 fall with injury or currently using an Ambulatory Assistive Device (Walker, Cane, Wheelchair, Crutches, etc.)? No PATIENT GENDER DATA: Male PATIENT RELEVANT IMPLANT DATA REVIEWED: Yes RADIOLOGY DEPARTMENT: MR; Exam(s) Completed: Body: Prostate PERIPHERAL IV DATA: Site assessment: Clean,Dry and Intact, Site disposition Discontinued SIGNED BY: RT Mau July 07, 2020 9:37 AM documented in this encounter Care Teams (unrecognized sec tion and content) Team Status: Inactive Member Role Status Dates Marshall Ball , DO Primary Care Provider Active Saqib Saba MD Attending Provider Active Team Status: Active Member Role Status Dates Marshall Zaman , Primary Care Provider Active Team Status: Inactive Member Role Status Dates Marshall Zaman , Primary Care Provider Active Stuart Qureshi MD Attending Provider Active Orthodontic Treatment Coordinator Relationship Specialty Start Date End Date Marshall Zaman DO [address] [place] [address] PCP - General 07/14/22 Goals (unrecognized section and content) Goals may be documented in a n alternate section FOR RECORDS PERTAINING TO PATIENTS WHO ARE OR HAVE BEEN ENROLLED IN A CHEMICAL DEPENDENCY/SUBSTANCEABUSE PROGRAM, SOME INFORMATION MAY BE OMITTED. This clinical summary was aggregated from multiple sources. Caution should be exercised in using it in the provision of clinical care. This summary normalizes information from multiple sources, and as a consequence, information in this document may materially change the coding, format and clinical context of patient data. In addition, data may be omitted in some cases. CLINICAL DECISIONS SHOULD BE BASED ON THE PRIMARY CLINICAL RECORDS. [facility]. provides no warranty or guarantee of the accuracy or completeness of information in this document.
[2023-06-12 10:37] LABS: Basophils Absolute Auto 0.1 10^3/uL (0.0-0.1); Basophils Percent Auto 0.6 % (0.2-2.0); Eosinophils Absolute Auto 0.4 10^3/uL (0.0-0.7); Eosinophils Percent Auto 3.9 % (0.9-7.0); Hemoglobin 12.9 g/dL (14.0-18.0); Immature Granulocytes Abs Auto 0.05 10^3/uL (0.00-0.03); Immature Granulocytes Pct Auto 0.5 % (0.0-0.5); Lymphocytes Absolute Auto 1.9 10^3/uL (1.2-3.8); Lymphocytes Percent Auto 19.5 % (20.5-60.0); Mean Corpuscular HGB Conc 31.5 g/dL (29.9-35.2); Mean Corpuscular Hemoglobin 29.8 pg (25.9-34.0); Mean Corpuscular Volume 94.7 fL (80.0-94.0); Mean Platelet Volume 8.9 fL (9.5-13.5); Monocytes Absolute Auto 0.8 10^3/uL (0.3-0.8); Monocytes Percent Auto 8.2 % (1.7-12.0); Neutrophils Absolute Auto 6.6 10^3/uL (1.4-6.5); Neutrophils Percent Auto 67.3 % (43.0-75.0); Platelet Count 451 10^3/uL (150-450); Red Blood Count 4.33 10^6/uL (4.70-6.10); Red Cell Distribution Width 12.1 % (11.0-15.0); White Blood Count 9.9 10^3/uL (4.0-11.0)
[2023-06-12 10:55] LABS: Estimated Average Glucose 111 mg/dL; Glycohemoglobin A1C 5.5 % (4.5-6.2)
== END 2023-06-12 09:59 | disposition home or self-care (01) ==
LOC: LAB 09:59
PROVIDERS: PCP Internal Medicine; Visit Provider Internal Medicine
DX: R73.01 Impaired fasting glucose (principal); D64.9 Anemia, unspecified; I10 Essential (primary) hypertension
CPT/HCPCS: 36415; 82728; 83036; 85025

== ENCOUNTER 2023-07-05 10:07 | Outpatient (OUT) | payer MEDICARE, SELFPAY ==
--- OUTSIDE RECORDS SUMMARY | 2023-07-05 10:21 | XMS_ITS | CCD ---
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 Role Phone Saqib Saba Unavailable MARSHALL Casas Primary Care Physician DO Marshall Zaman Primary Care Provider MD Saqib Saba Attending Provider [phone] Stuart Qureshi Unavailable MD Stuart Qureshi Attending Provider DO Marshall Zaman Primary Care Provider [phone] MISC, DR CHRISTOPHER Attending Unavailable MISC, DR [...] AUSTYN, DR WAGNER Primary Care Unavailable Marshall Zaamn Unavailable Saqib SABA Attending Unavailable Saqib SABA Attending Unavailable Marshall Zaman DO Primary Care Provider SAPPHIRE MCALLISTER Attending Unavailable MARSHALL ZAMAN Referring Unavailable MARSHALL ZAMAN Primary Care Unavailable Allergies Allergy Classification Reported Allergen(s) Allergy Type Date of Onset Reaction(s) Facility (4 sources) patient allergy list reviewed by nurse or physicia Propensity to adverse reactions Comment:Done [facility] Other (1 source) No Known Medication Allergies; Translations: [No Known Medication Allergies] Propensity to adverse reactions (disorder) [facility] Repository Medications Current Medications Medication Drug [...] 07-07-2019 Episodic Other aftercare (2 sources) Other roasterman (current) drug therapy; Translations: [OTH CORRECTION CURRENT DRUG THERAPY] Onset: 12-14-2021 Episodic Other aftercare (4 sources) Long-term current use of drug therapy; Translations: [Other group home (current) drug therapy] Episodic Other injuries and [...] Resolved: 08-11-2019 Episodic Other aftercare (1 source) USP (current) use of aspirin; 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 Take owge-[id number] and prescription medicines only as told by [...] the medicine (more content not included)... Normal [facility] Urology Office/Clinic Noteon 12-31-2022 Urology Office/Clinic [...] [facility] [address], [place] [address]- Additional Instructions: w/PSA Patient Education Benign Prostatic [...] quit mo (more content not included)... Normal [facility] Comment on above: Result Comment: Elec tronically Signed By: Saqib SABA MD\.br\Date and Time Signed: 12/31/22 11:26 EDT\.br\Electronically Co-Signed By: Naima Arias\.br\Date and Time Co-Signed: 12/31/22 11:24 EDT CBC AUTO DIFFon 05-18-2022 BASO # 0.1 103/ul Normal 0.0-0.1 [facility] Comment on above: Performed By: #### C BC #### [facility] [address] [place] [address] Dr. Jr Leiva Basophils/100 WBC (Bld) 0.8 % Normal 0.2-2.0 [facility] Comment on above: Performed By: #### C BC #### [facility] [address] [place] [address] Dr. Jr Leiva EO # 0.5 103/ul Normal 0.0-0.7 [facility] Comment on above: Performed By: #### C BC #### [facility] [address] [place] [address] Dr. Jr Leiva Eosinophils/100 WBC (Bld) 6.1 % Normal 0.9-7.0 [facility] Comment on above: Performed By: #### C BC #### [facility] [address] [place] [address] Dr. Jr Leiva Erythrocyte distribution width (RBC) [Ratio] 12.6 % Normal 11.0-15.0 [facility] Comment on above: Performed By: #### C BC #### [facility] [address] [place] [address] Dr. Jr Leiva Hematocrit (Bld) [Volume fraction] 40.6 % Critically low 42.0-54.0 [facility] Comment on above: Performed By: #### C BC #### [facility] [address] [place] [address] Dr. Jr Leiva Hemoglobin (Bld) [Mass/Vol] 13.1 g/dL Critically low 14.0-18.0 [facility] Comment on above: Performed By: #### C BC #### [facility] [address] [place] [address] Dr. Jr Leiva IG # 0.02 10e3/ul Normal 0.00-0.03 [facility] Comment on above: Performed By: #### C BC #### [facility] [address] [place] [address] Dr. Jr Leiva IG % 0.3 % Normal 0.0-0.5 [facility] Comment on above: Performed By: #### C BC #### [facility] [address] [place] [address] Dr. Jr Leiva LYMPH # 1.5 103/ul Normal 1.2-3.8 [facility] Comment on above: Performed By: #### C BC #### [facility] [address] [place] [address] Dr. Jr Leiva Lymphocytes/100 WBC (Bld) 20.3 % Critically low 20.5-60.0 [facility] Comment on above: Performed By: #### C BC #### [facility] [address] [place] [address] Dr. Jr Leiva MANUAL DIFF REQ NO Normal [facility] Comment on above: Performed By: #### C BC #### [facility] [address] [place] [address] Dr. Jr Leiva MCH (RBC) [Entitic mass] 29.3 pg Normal 25.9-34.0 [facility] Comment on above: Performed By: #### C BC #### [facility] [address] [place] [address] Dr. Jr Leiva MCHC (RBC) [Mass/Vol] 32.3 g/dL Normal 29.9-35.2 [facility] Comment on above: Performed By: #### C BC #### [facility] [address] [place] [address] Dr. Jr Leiva MCV (RBC) [Entitic vol] 90.8 fL Normal 80.0-94.0 [facility] Comment on above: Performed By: #### C BC #### [facility] [address] [place] [address] Dr. Jr Leiva MONO # 0.6 103/ul Normal 0.3-0.8 [facility] Comment on above: Performed By: #### C BC #### [facility] [address] [address] [address] Jr Leiva Monocytes/100 WBC (Bld) 8.4 % Normal 1.7-12.0 [facility] Comment on above: Performed By: #### C BC #### [facility] [address] [address] [address] Jr Leiva NEUT # 4.7 103/ul Normal 1.4-6.5 [facility] Comment on above: Performed By: #### C BC #### [facility] [address] [address] [address] Jr Leiva Neutrophils/100 WBC (Bld) 64.1 % Normal 43.0-75.0 [facility] Comment on above: Performed By: #### C BC #### [facility] [address] [place] [address] Dr. Jr Leiva Platelet mean volume (Bld) [Entitic vol] 8.8 fL Critically low 9.5-13.5 [facility] Comment on above: Performed By: #### C BC #### [facility] [address] [place] [address] Dr. Jr Leiva PLT 402 103/ul Normal 150-450 [facility] Comment on above: Performed By: #### C BC #### [facility] [address] [address] [address] Jr Leiva RBC 4.47 106/ul Critically low 4.70-6.10 [facility] Comment on above: Performed By: #### C BC #### [facility] [address] [address] [address] Jr Leiva WBC 7.4 103/ul Normal 4.0-11.0 [facility] Comment on above: Performed By: #### C BC #### [facility] [address] [address] [address] Jr Leiva FERRITINon 05-18-2022 Ferritin [Mass/Vol] 85.0 ng/mL Normal 26.0-388.0 [facility] Comment on above: Performed By: #### F ETIBC, FERR, VITB12 #### [facility] [address] [place] [address] Dr. Jr Leiva IRON AND TIBCon 05-18-2022 % SATURATION 27.2 % Normal [facility] Comment on above: Performed By: #### C BC #### [facility] [address] [place] [address] Dr. Jr Leiva Iron [Mass/Vol] 72.0 ug/dL Normal 65.0-175.0 [facility] Comment on above: Performed By: #### C BC #### [facility] [address] [place] [address] Dr. Jr Leiva [facility] 265.0 ug/dL Normal 250.0-450.0 [facility] Comment on above: Performed By: #### C BC #### [facility] [address] [place] [address] Dr. Jr Leiva TIBCon 05-18-2022 [facility] [employer] Other VITAMIN B12on 05-18-2022 Cobalamin (Vitamin B12) [Mass/Vol] 832.0 pg/mL Normal 193.0-986.0 [facility] Comment on above: Performed By: #### F ETIBC, FERR, VITB12 #### [facility] [address] [place] [address] Dr. Jr Leiva CBC AUTO DIFFon 01-30-2022 BASO # 0.1 103/ul Normal 0.0-0.1 [facility] Comment on above: Performed By: #### C BC #### [facility] [address] [place] [address] Dr. Jr Leiva Basophils/100 WBC (Bld) 0.9 % Normal 0.2-2.0 [facility] Comment on above: Performed By: #### C BC #### [facility] [address] [place] [address] Dr. Jr Leiva EO # 0.3 103/ul Normal 0.0-0.7 [facility] Comment on above: Performed By: #### C BC #### [facility] [address] [place] [address] Dr. Jr Leiva Eosinophils/100 WBC (Bld) 4.0 % Normal 0.9-7.0 [facility] Comment on above: Performed By: #### C BC #### [facility] [address] [place] [address] Dr. Jr Leiva Erythrocyte distribution width (RBC) [Ratio] 12.3 % Normal 11.0-15.0 [facility] Comment on above: Performed By: #### C BC #### [facility] [address] [place] [address] Dr. Jr Leiva Hematocrit (Bld) [Volume fraction] 38.0 % Critically low 42.0-54.0 [facility] Comment on above: Performed By: #### C BC #### [facility] [address] [place] [address] Dr. Jr Leiva Hemoglobin (Bld) [Mass/Vol] 12.5 g/dL Critically low 14.0-18.0 [facility] Comment on above: Performed By: #### C BC #### [facility] [address] [place] [address] Dr. Jr Leiva IG # 0.02 10e3/ul Normal 0.00-0.03 [facility] Comment on above: Performed By: #### C BC #### [facility] [address] [place] [address] Dr. Jr Leiva IG % 0.2 % Normal 0.0-0.5 [facility] Comment on above: Performed By: #### C BC #### [facility] [address] [place] [address] Dr. Jr Leiva LYMPH # 1.7 103/ul Normal 1.2-3.8 [facility] Comment on above: Performed By: #### C BC #### [facility] [address] [place] [address] Dr. Jr Leiva Lymphocytes/100 WBC (Bld) 19.9 % Critically low 20.5-60.0 [facility] Comment on above: Performed By: #### C BC #### [facility] [address] [place] [address] Dr. Jr Leiva MANUAL DIFF REQ NO Normal [facility] Comment on above: Performed By: #### C BC #### [facility] [address] [place] [address] Dr. Jr Leiva MCH (RBC) [Entitic mass] 29.6 pg Normal 25.9-34.0 [facility] Comment on above: Performed By: #### C BC #### [facility] [address] [place] [address] Dr. Jr Leiva MCHC (RBC) [Mass/Vol] 32.9 g/dL Normal 29.9-35.2 [facility] Comment on above: Performed By: #### C BC #### [facility] [address] [place] [address] Dr. Jr Leiva MCV (RBC) [Entitic vol] 89.8 fL Normal 80.0-94.0 [facility] Comment on above: Performed By: #### C BC #### [facility] [address] [place] [address] Dr. Jr Leiva MONO # 0.7 103/ul Normal 0.3-0.8 [facility] Comment on above: Performed By: #### C BC #### [facility] [address] [place] [address] Dr. Jr Leiva Monocytes/100 WBC (Bld) 7.7 % Normal 1.7-12.0 [facility] Comment on above: Performed By: #### C BC #### [facility] [address] [place] [address] Dr. Jr Leiva NEUT # 5.7 103/ul Normal 1.4-6.5 [facility] Comment on above: Performed By: #### C BC #### [facility] [address] [place] [address] Dr. Jr Leiva Neutrophils/100 WBC (Bld) 67.3 % Normal 43.0-75.0 [facility] Comment on above: Performed By: #### C BC #### [facility] [address] [place] [address] Dr. Jr Leiva Platelet mean volume (Bld) [Entitic vol] 9.1 fL Critically low 9.5-13.5 [facility] Comment on above: Performed By: #### C BC #### [facility] [address] [address] [address] Jr Leiva PLT 312 103/ul Normal 150-450 [facility] Comment on above: Performed By: #### C BC #### [facility] [address] [place] [address] Dr. Jr Leiva RBC 4.23 106/ul Critically low 4.70-6.10 [facility] Comment on above: Performed By: #### C BC #### [facility] [address] [place] [address] Dr. Jr Leiva WBC 8.5 103/ul Normal 4.0-11.0 [facility] Comment on above: Performed By: #### C BC #### [facility] [address] [place] [address] Dr. Jr Leiva CBC AUTO DIFFon 12-13-2021 BASO # 0.1 103/ul Normal 0.0-0.1 [facility] Comment on above: Performed By: #### C BC #### [facility] [address] [place] [address] Dr. Jr Leiva Basophils/100 WBC (Bld) 0.7 % Normal 0.2-2.0 [facility] Comment on above: Performed By: #### C BC #### [facility] [address] [place] [address] Dr. Jr Leiva EO # 0.4 103/ul Normal 0.0-0.7 [facility] Comment on above: Performed By: #### C BC #### [facility] [address] [place] [address] Dr. Jr Leiva Eosinophils/100 WBC (Bld) 4.1 % Normal 0.9-7.0 [facility] Comment on above: Performed By: #### C BC #### [facility] [address] [place] [address] Dr. Jr Leiva Erythrocyte distribution width (RBC) [Ratio] 12.5 % Normal 11.0-15.0 [facility] Comment on above: Performed By: #### C BC #### [facility] [address] [place] [address] Dr. Jr Leiva Hematocrit (Bld) [Volume fraction] 40.1 % Critically low 42.0-54.0 [facility] Comment on above: Performed By: #### C BC #### [facility] [address] [place] [address] Dr. Jr Leiva Hemoglobin (Bld) [Mass/Vol] 13.0 g/dL Critically low 14.0-18.0 [facility] Comment on above: Performed By: #### C BC #### [facility] [address] [place] [address] Dr. Jr Leiva IG # 0.03 10e3/ul Normal 0.00-0.03 [facility] Comment on above: Performed By: #### C BC #### [facility] [address] [place] [address] Dr. Jr Leiva IG % 0.3 % Normal 0.0-0.5 [facility] Comment on above: Performed By: #### C BC #### [facility] [address] [place] [address] Dr. Jr Leiva LYMPH # 1.7 103/ul Normal 1.2-3.8 [facility] Comment on above: Performed By: #### C BC #### [facility] [address] [place] [address] Dr. Jr Leiva Lymphocytes/100 WBC (Bld) 19.1 % Critically low 20.5-60.0 [facility] Comment on above: Performed By: #### C BC #### [facility] [address] [place] [address] Dr. Jr Leiva MANUAL DIFF REQ NO Normal [facility] Comment on above: Performed By: #### C BC #### [facility] [address] [place] [address] Dr. Jr Leiva MCH (RBC) [Entitic mass] 29.8 pg Normal 25.9-34.0 [facility] Comment on above: Performed By: #### C BC #### [facility] [address] [place] [address] Dr. Jr Leiva MCHC (RBC) [Mass/Vol] 32.4 g/dL Normal 29.9-35.2 [facility] Comment on above: Performed By: #### C BC #### [facility] [address] [place] [address] Dr. Jr Leiva MCV (RBC) [Entitic vol] 92.0 fL Normal 80.0-94.0 [facility] Comment on above: Performed By: #### C BC #### [facility] [address] [place] [address] Dr. Jr Leiva MONO # 0.7 103/ul Normal 0.3-0.8 [facility] Comment on above: Performed By: #### C BC #### [facility] [address] [place] [address] Dr. Jr Leiva Monocytes/100 WBC (Bld) 8.3 % Normal 1.7-12.0 [facility] Comment on above: Performed By: #### C BC #### [facility] [address] [place] [address] Dr. rJ Leiva NEUT # 5.9 103/ul Normal 1.4-6.5 [facility] Comment on above: Performed By: #### C BC #### [facility] [address] [place] [address] Dr. Jr Leiva Neutrophils/100 WBC (Bld) 67.5 % Normal 43.0-75.0 [facility] Comment on above: Performed By: #### C BC #### [facility] [address] [place] [address] Dr. Jr Leiva Platelet mean volume (Bld) [Entitic vol] 9.2 fL Critically low 9.5-13.5 [facility] Comment on above: Performed By: #### C BC #### [facility] [address] [place] [address] Dr. Jr Leiva PLT 377 103/ul Normal 150-450 [facility] Comment on above: Performed By: #### C BC #### [facility] [address] [address] [address] Jr Leiva RBC 4.36 106/ul Critically low 4.70-6.10 [facility] Comment on above: Performed By: #### C BC #### [facility] [address] [address] [address] Jr Leiva WBC 8.8 103/ul Normal 4.0-11.0 [facility] Comment on above: Performed By: #### C BC #### [facility] [address] [place] [address] Dr. Jr Leiva LIPID PROFILEon 12-13-2021 CHOL-HDL RATIO NORM SEE BELOW Normal [facility] Comment on above: Result Comment: 3.3 - 4.4 LOW RISK 4.4 - 7.1 AVERAGE RISK 7.1 - 11.0 MODERATE RISK >11.0 HIGH RISK Performed By: #### L IPID, CMP #### [facility] [address] [place] [address] Dr. Jr Leiva Cholesterol [Mass/Vol] 186 mg/dL Normal <=200 [facility] Comment on above: Performed By: #### L IPID, CMP #### [facility] [address] [place] [address] Dr. Jr Leiva Cholesterol in HDL [Mass/Vol] 36 mg/dL Critically low 40-60 [facility] Comment on above: Performed By: #### L IPID, CMP #### [facility] [address] [place] [address] Dr. Jr Leiva Cholesterol in LDL [Mass/Vol] 100.8 mg/dL Normal [facility] Comment on above: Performed By: #### L IPID, CMP #### [facility] [address] [place] [address] Dr. Jr Leiva Cholesterol.total/Cho lesterol in HDL [Mass ratio] 5.2 {ratio} Normal [facility] Comment on above: Performed By: #### L IPID, CMP #### [facility] [address] [address] [address] Jr Leiva HDL NORMAL > or = 60 mg/dl - LO W CARDIOVASCULAR RISK <40 mg/dl - HIGH CARDIOVASCULAR RISK Normal [facility] Comment on above: Performed By: #### L IPID, CMP #### [facility] [address] [address] [address] Jr Leiva LDL CALC NORMAL SEE BELOW Normal [facility] Comment on above: Result Comment: <100 mg/dl OPTIMAL 100 - 129 mg/dl NEAR OR ABOVE OPTIMAL 130 - 159 mg/dl BORDERLINE HIGH 160 - 189 mg/dl HIGH >190 mg/dl VERY HIGH Performed By: #### L IPID, CMP #### [facility] [address] [place] [address] Dr. Jr Leiva Triglyceride [Mass/Vol] 246 mg/dL Critically high <=150 [facility] Comment on above: Performed By: #### L IPID, CMP #### [facility] [address] [address] [address] Jr Leiva VLDL CALC 49.2 mg/dL Normal [facility] Comment on above: Performed By: #### L IPID, CMP #### [facility] [address] [place] [address] Dr. Jr Leiva PROF 14(COMP METB)on 022 Albumin [Mass/Vol] 3.6 g/dL Normal 3.4-5.0 [facility] Comment on above: Performed By: #### L IPID, CMP #### [facility] [address] [place] [address] Dr. Jr Leiva Albumin/Globulin [Mass ratio] 1.1 {ratio} Normal [facility] Comment on above: Performed By: #### L IPID, CMP #### [facility] [address] [place] [address] Dr. Jr Leiva ALP [Catalytic activity/Vol] 102 U/L Normal 46-116 [facility] Comment on above: Performed By: #### L IPID, CMP #### [facility] [address] [place] [address] Dr. Jr Leiva ALT [Catalytic activity/Vol] 26 U/L Normal 16-63 [facility] Comment on above: Performed By: #### L IPID, CMP #### [facility] [address] [address] [address] Jr Leiva Anion gap [Moles/Vol] 11.4 mmol/L Normal [facility] Comment on above: Performed By: #### L IPID, CMP #### [facility] [address] [address] [address] Jr Leiva AST [Catalytic activity/Vol] 12 U/L Critically low 15-37 [facility] Comment on above: Performed By: #### L IPID, CMP #### [facility] [address] [place] [address] Dr. Jr Leiva Bilirubin [Mass/Vol] 0.5 mg/dL Normal 0.2-1.0 [facility] Comment on above: Performed By: #### L IPID, CMP #### [facility] [address] [place] [address] Dr. Jr Leiva Calcium [Mass/Vol] 8.9 mg/dL Normal 8.5-10.1 [facility] Comment on above: Performed By: #### L IPID, CMP #### [facility] [address] [place] [address] Dr. Jr Leiva Chloride [Moles/Vol] 105 mmol/L Normal 98-107 [facility] Comment on above: Performed By: #### L IPID, CMP #### [facility] [address] [place] [address] Dr. Jr Leiva CO2 [Moles/Vol] 26.5 mmol/L Normal 21.0-32.0 [facility] Comment on above: Performed By: #### L IPID, CMP #### [facility] [address] [place] [address] Dr. Jr Leiva Creatinine [Mass/Vol] 1.10 mg/dL Normal 0.70-1.30 [facility] Comment on above: Performed By: #### L IPID, CMP #### [facility] [address] [address] [address] Jr Leiva EGFR-AF BERMUDIAN >60 Normal >=60 [facility] Comment on above: Performed By: #### L IPID, CMP #### [facility] [address] [address] [address] Jr Leiva EGFR-NON AF BERMUDIAN >60 Normal >=60 [facility] Comment on above: Performed By: #### L IPID, CMP #### [facility] [address] [address] [address] Jr Leiva Globulin (S) [Mass/Vol] 3.4 g/dL Normal [facility] Comment on above: Performed By: #### L IPID, CMP #### [facility] [address] [address] [address] Jr Leiva Glucose [Mass/Vol] 109 mg/dL Critically high 74-[address] [facility] Comment on above: Performed By: #### L IPID, CMP #### [facility] [address] [address] [address] Jr Leiva Potassium [Moles/Vol] 3.9 mmol/L Normal 3.5-5.1 [facility] Comment on above: Performed By: #### L IPID, CMP #### [facility] [address] [address] [address] Jr Leiva Protein [Mass/Vol] 7.0 g/dL Normal 6.4-8.2 [facility] [place] [facility] Comment on above: Performed By: #### L IPID, CMP #### [facility] [address] [address] [address] Jr Leiva Sodium [Moles/Vol] 139 mmol/L Normal 136-145 [facility] [place] [facility] Comment on above: Performed By: #### L IPID, CMP #### [facility] [address] [address] [address] Jr Leiva Urea nitrogen [Mass/Vol] 13.0 mg/dL Normal 7.0-18.0 [facility] Comment on above: Performed By: #### L IPID, CMP #### [facility] [address] [place], [place] [address] Dr. Jr Leiva Urea nitrogen/Creatinine [Mass ratio] 11.8 mg/mg Normal [facility] Comment on above: Performed By: #### L IPID, CMP #### [facility] [address] [place], [place] [address] Dr. Jr Leiva Blood Urea Nitrogenon 2021 Urea nitrogen [Mass/Vol] 15 mg/dL Normal 9- [facility] Comment on above: Performed By: #### C REAT, BUN #### [facility] [address] [place] [address] [place] Creatinineon 11-01-2021 Creatinine [Mass/Vol] 1.17 mg/dL Normal 0.64-1.27 [facility] Comment on above: Performed By: #### C REAT, BUN #### [address] Creatinine Clr Calc Pharmacy 63.56 [facility] Comment on above: Result Comment: PERF ORMED BY: [place] [address] PATHOLOGIST CHOIR ACCOMPANIST MARY BURNETT M.D. Performed By: #### C REAT, BUN #### [address] Estimated GFR ( María > 60 [facility] Comment on above: Result Comment: GFR estimated reference range: According to KDOQI guidelines, <60 ml/min/1.73m2 is sufficient to diagnose a patient with chronic kidney disease. Performed By: #### C REAT, BUN #### [address] Estimated GFR (Non- Am > 60 [facility] Comment on above: Performed By: #### C REAT, BUN #### [place] [address] [place] Creatinine and Glomerular fi ltration rate.predicted panel (S/P/Bld)Ordered By: Stuart Qureshi on 11-01-2021 Creatinine [Mass/Vol] 1.17 mg/dL 0.64-1.27 [facility] Estimated glomerular filtrat ion rate (GFR) non- AmericanOrdered By: Stuart Qureshi on 11-01-2021 GFR/1.73 sq M.predicted among non-blacks MDRD (S/P/Bld) [Vol rate/Area] > 60 mL/Min [facility] No Panel InformationOrdered By: Stuart Qureshi on 11-01-2021 Estimated GFR () > 60 mL/Min [facility] Comment on above: GFR estimated refere nce range: According to KDOQI guidelines, <60 ml/min/1.73m2 is sufficient to diagnose a patient with chronic kidney disease. Pharmacy Creatinine Clearance (Chem 63.56 [facility] Serum or plasma urea nitroge n measurement (mass/volume)Ordered By: Stuart Qureshi on 11-01-2021 Urea nitrogen [Mass/Vol] 15 mg/dL 9-23 [facility] CT LUNG CANCER SCREENINGon 0 10-19-2021 [...] KEESHA HARMON Date: 2021-10-19 17:22 Normal [facility] CT angio abd aorta runoffon 09-29-2021 CT angio abd aorta runoff [facility] [place] [address] [place] [address] CT Scan Report Signed Patient: Jean Santiago MR#: [id number] 72 : 1950 Acct:[id number] Age/Sex: 71 / M ADM Date: 09/29/21 Loc: CT Room: Type: [facility] Attending Dr: Stuart Qureshi MD Copies to: [...] Darlene Masters M.D.09/29/2021 2:40 PM Dictation Location: [place] [address] Transcribed By: [facility] 09/29/21 1440 Dictated By: Darlene Masters MD 09/29/21 1309 Signed By: 09/29/21 1440 [facility] Creatinine (Bld) [Mass/Vol]O rdered By: Stuart Qureshi on 09-29-2021 Creatinine [Mass/Vol] 1.0 mg/dL 0.6-1.3 [facility] Comment on above: ER/ESD physician is notified/shown all ISTAT results. Critical values may be confirmed by laboratory testing if deemed necessary by ER attending doctor. ISTAT XRay CREon 09-29-2021 Creatinine [Mass/Vol] 1.0 mg/dL Normal 0.6-1.3 [facility] Comment on above: Result Comment: ER/E SD physician is notified/shown all ISTAT results. Critical values may be confirmed by laboratory testing if deemed necessary by ER attending doctor. Performed By: #### I SCRE #### [facility] [address] [place] [address] Point of Care testing , ISTAT GFR ( > 60 Normal [facility] Comment on above: Result Comment: GFR estimated reference range: According to KDOQI guidelines, <60 ml/min/1.73m2 is sufficient to diagnose a patient with chronic kidney disease. PERFORMED BY: [place] [address] PATHOLOGIST CHOIR ACCOMPANIST MARY BURNETT M.D. Performed By: #### I SCRE #### [address] Point of Care testing , ISTAT GFR (Non- Am > 60 [facility] Comment on above: Performed By: #### I SCRE #### [facility] [address] [place] [address] Point of Care testing , No Panel InformationOrdered By: Stuart Qureshi on 09-29-2021 POC Estimated GFR > 60 [facility] Comment on above: GFR estimated refere nce range: According to KDOQI guidelines, <60 ml/min/1.73m2 is sufficient to diagnose a patient with chronic kidney disease. POC Estimated GFR Non- Amer > 60 [facility] CBC AUTO DIFFon 08-14-2021 BASO # 0.1 103/ul Normal 0.0-0.1 [facility] Comment on above: Performed By: #### C BC #### [facility] [address] [place] [address] [address] Jr Leiva Basophils/100 WBC (Bld) 0.7 % Normal 0.2-2.0 [facility] Comment on above: Performed By: #### C BC #### [facility] [address] [place] [address] [address] Jr Leiva EO # 0.4 103/ul Normal 0.0-0.7 [facility] Comment on above: Performed By: #### C BC #### [facility] [address] [place] [address] Dr. Jr Leiva Eosinophils/100 WBC (Bld) 4.5 % Normal 0.9-7.0 [facility] Comment on above: Performed By: #### C BC #### [facility] [address] [place] [address] Dr. Jr Leiva Erythrocyte distribution width (RBC) [Ratio] 12.6 % Normal 11.0-15.0 [facility] Comment on above: Performed By: #### C BC #### [facility] [address] [place] [address] Dr. Jr Leiva Hematocrit (Bld) [Volume fraction] 42.2 % Normal 42.0-54.0 [facility] Comment on above: Performed By: #### C BC #### [facility] [address] [place] [address] Dr. Jr Leiva Hemoglobin (Bld) [Mass/Vol] 13.6 g/dL Critically low 14.0-18.0 [facility] Comment on above: Performed By: #### C BC #### [facility] [address] [place] [address] Dr. Jr Leiva IG # 0.02 10e3/ul Normal 0.00-0.03 [facility] Comment on above: Performed By: #### C BC #### [facility] [address] [place] [address] Dr. Jr Leiva IG % 0.2 % Normal 0.0-0.5 [facility] Comment on above: Performed By: #### C BC #### [facility] [address] [place] [address] Dr. Jr Leiva LYMPH # 1.5 103/ul Normal 1.2-3.8 [facility] Comment on above: Performed By: #### C BC #### [facility] [address] [place] [address] Dr. Jr Leiva Lymphocytes/100 WBC (Bld) 18.4 % Critically low 20.5-60.0 [facility] Comment on above: Performed By: #### C BC #### [facility] [address] [place] [address] Dr. Jr Leiva MANUAL DIFF REQ NO Normal [facility] Comment on above: Performed By: #### C BC #### [facility] [address] [place] [address] Dr. Jr Leiva MCH (RBC) [Entitic mass] 29.4 pg Normal 25.9-34.0 [facility] Comment on above: Performed By: #### C BC #### [facility] [address] [place] [address] Dr. Jr Leiva MCHC (RBC) [Mass/Vol] 32.2 g/dL Normal 29.9-35.2 [facility] Comment on above: Performed By: #### C BC #### [facility] [address] [place] [address] Dr. Jr Leiva MCV (RBC) [Entitic vol] 91.1 fL Normal 80.0-94.0 [facility] Comment on above: Performed By: #### C BC #### [facility] [address] [place] [address] Dr. Jr Leiva MONO # 0.8 103/ul Normal 0.3-0.8 [facility] Comment on above: Performed By: #### C BC #### [facility] [address] [place] [address] Dr. Jr Leiva Monocytes/100 WBC (Bld) 9.2 % Normal 1.7-12.0 [facility] Comment on above: Performed By: #### C BC #### [facility] [address] [place] [address] Dr. Jr Leiva NEUT # 5.4 103/ul Normal 1.4-6.5 [facility] Comment on above: Performed By: #### C BC #### [facility] [address] [place] [address] Dr. Jr Leiva Neutrophils/100 WBC (Bld) 67.0 % Normal 43.0-75.0 [facility] Comment on above: Performed By: #### C BC #### [facility] [address] [place] [address] Dr. Jr Leiva Platelet mean volume (Bld) [Entitic vol] 8.9 fL Critically low 9.5-13.5 [facility] Comment on above: Performed By: #### C BC #### [facility] [address] [place] [address] Dr. Jr Leiva PLT 330 103/ul Normal 150-450 [facility] Comment on above: Performed By: #### C BC #### [facility] [address] [place] [address] [address] Jr Leiva RBC 4.63 106/ul Critically low 4.70-6.10 [facility] Comment on above: Performed By: #### C BC #### [facility] [address] [place] [address] Dr. Jr Leiva WBC 8.1 103/ul Normal 4.0-11.0 [facility] Comment on above: Performed By: #### C BC #### [facility] [address] [place] [address] Dr. Jr Leiva PROF CHEM 8 (BAS METB)on Anion gap [Moles/Vol] 13.7 mmol/L Normal [facility] Comment on above: Performed By: #### B MP #### [facility] [address] [place] [address] Dr. Jr Leiva Calcium [Mass/Vol] 9.0 mg/dL Normal 8.5-10.1 [facility] Comment on above: Performed By: #### B MP #### [facility] [address] [place] [address] Dr. Jr Leiva Chloride [Moles/Vol] 104 mmol/L Normal 98-107 [facility] Comment on above: Performed By: #### B MP #### [facility] [address] [place] [address] Dr. Jr Leiva CO2 [Moles/Vol] 24.9 mmol/L Normal 21.0-32.0 [facility] Comment on above: Performed By: #### B MP #### [facility] [address] [place] [address] [address] Jr Leiva Creatinine [Mass/Vol] 1.15 mg/dL Normal 0.70-1.30 [facility] Comment on above: Performed By: #### B MP #### [facility] [address] [place] [address] [address] Jr Leiva EGFR-AF BERMUDIAN >60 Normal >=60 [facility] Comment on above: Performed By: #### B MP #### [facility] [address] [place] [address] [address] Jr Leiva EGFR-NON AF BERMUDIAN >60 Normal >=60 [facility] Comment on above: Performed By: #### B MP #### [facility] [address] [place] [address] Dr. Jr Leiva Glucose [Mass/Vol] 111 mg/dL Critically high 74-[address] [facility] Comment on above: Performed By: #### B MP #### [facility] [address] [place] [address] Dr. Jr Leiva Potassium [Moles/Vol] 4.6 mmol/L Normal 3.5-5.1 [facility] Comment on above: Performed By: #### B MP #### [facility] [address] [place] [address] Dr. Jr Leiva Sodium [Moles/Vol] 138 mmol/L Normal 136-145 [facility] Comment on above: Performed By: #### B MP #### [facility] [address] [place] [address] Dr. Jr Leiva Urea nitrogen [Mass/Vol] 17.0 mg/dL Normal 7.0-18.0 [facility] Comment on above: Performed By: #### B MP #### [facility] [address] [place] [address] Dr. Jr Leiva Urea nitrogen/Creatinine [Mass ratio] 14.8 mg/mg Normal [facility] Comment on above: Performed By: #### B MP #### [facility] [address] [place] [address] Dr. Jr Leiva PROTIMEon 08-14-2021 INR Coag (PPP) [Relative time] 0.94 {INR} Normal [facility] Comment on above: Performed By: #### C BC #### [facility] [address] [place] [address] [address] Jr Leiva INR GUIDELINES SEE BELOW Normal [facility] Comment on above: Result Comment: ANANTH RED INR: 2.0 - 3.0 CONDITIONS NOT LISTED BELOW 2.5 - 3.5 FOR PROSTHETIC HEART VALVE REPLACEMENT 2.5 - 3.5 RECURRENT THROMBOSIS Performed By: #### C BC #### [facility] [address] [place] [address] [address] Jr Leiva PT Coag (PPP) [Time] 10.2 s Normal 9.0-11.6 [facility] Comment on above: Performed By: #### C BC #### [facility] [address] [place] [address] [address] Jr Leiva PTTon 08-14-2021 aPTT Coag (Bld) [Time] 28.8 s Normal 22.3-36.2 [facility] Comment on above: Performed By: #### C BC #### [facility] [address] [place] [address] [address] Jr Leiva Creatinine (Bld) [Mass/Vol]O rdered By: Saqib Saba on 08-07-2021 Creatinine [Mass/Vol] 1.0 mg/dL 0.6-1.3 [facility] Comment on above: ER/ESD physician is notified/shown all ISTAT results. Critical values may be confirmed by laboratory testing if deemed necessary by ER attending doctor. ISTAT XRay CREon 08-07-2021 Creatinine [Mass/Vol] 1.0 mg/dL Normal 0.6-1.3 [facility] Comment on above: Result Comment: ER/E SD physician is notified/shown all ISTAT results. Critical values may be confirmed by laboratory testing if deemed necessary by ER attending doctor. Performed By: #### I SCRE #### [address] Point of Care testing , ISTAT GFR ( > 60 Normal [facility] Comment on above: Result Comment: GFR estimated reference range: According to KDOQI guidelines, <60 ml/min/1.73m2 is sufficient to diagnose a patient with chronic kidney disease. PERFORMED BY: [place] [address] PATHOLOGIST CHOIR ACCOMPANIST MARY BURNETT M.D. Performed By: #### I SCRE #### [facility] [address] [place] [address] Point of Care testing , ISTAT GFR (Non- Am > 60 Normal [facility] Comment on above: Performed By: #### I SCRE #### [facility] [address] [place] [address] Point of Care testing , MR prostate wo/w conon 08-07 MR prostate wo/w con [facility] [place] [address] [place] [address] MRI Report Signed Patient: Jean Santiago MR#: [id number] 72 : 1950 Acct:[id number] Age/Sex: 71 / M ADM Date: 08/07/21 Loc: Room: Type: [facility] Attending Dr: Saqib Saba MD Ordering Provider: [...] Garcia Jr., D.OMae08/07/2021 2:47 PM Dictation Location: [place] [address] Transcribed By: [facility] 08/07/21 1447 Dictated By: Freddie Garcia Jr, DO 08/07/21 1404 Signed By: 08/07/21 1447 Normal [facility] No Panel InformationOrdered By: Saqib Saba on 08-07-2021 POC Estimated GFR > 60 [facility] Comment on above: GFR estimated refere nce range: According to KDOQI guidelines, <60 ml/min/1.73m2 is sufficient to diagnose a patient with chronic kidney disease. POC Estimated GFR Non- Amer > 60 [facility] XR TSPINE 2 VIEWSon 07-25-19 XR [...] by: KEESHA HARMON Date: 2021-07-24 10:39 Normal [facility] ALLIED HEALTHon 07-07-2020 ALLIED HEALTH HNO ID: [id number] Author: Georgina (Rt) Desire Moise Service: Radiology Author Type: Safety Net Maker Type: Allied Health Filed: 07/07/2020 9:37 AM [...] Mau July 07, 2020 9:37 AM Normal [facility] MRI PROSTATE WO/W IVCONon MRI PROSTATE WO/W IVCON * * *Final Report* * * DATE OF EXAM: Jul 07 2020 10:22AM [facility] 0751 - MRI PROSTATE WO/W IVCON [...] volume were obtained using a semi-automated software (SVXR). CONTRAST: IV: 18 cc of (Dotarem). RESULT: [...] 5: Clinically significant cancer is highly likely [employer] Helper: STEVE Transcribe Date/Time: Jul 07 2020 11:26A Dictated by : GIRMA BROTHERS, DO This examination was interpreted and the report reviewed and electronically signed by: FREDDIE WILLSON MD on Jul 07 2020 2:53PM EST [id number] [facility] NURSING PROGon 07-07-2020 NURSING PROG HNO ID: [id number] Author: Caden Stephens (Rn) [facility] [place] [...] DATE: July 07, 2020 TIME: 9:02 AM [facility] 07-07-2020 [facility] Vital Signs Date Time Vital Sign Value Performing Clinician Facility 06-03-2023 12:33-0400 Body height 181.9 cm Sapphire Mcallister MD Work Phone: [employer] 06-03-2023 12:33-0400 Body mass index (BMI) [Ratio] 28.39 kg/m2 Sapphire Mcallister MD Work Phone: [employer] 06-03-2023 12:33-0400 Body weight 93.89 kg Sapphire Mcallister MD Work Phone: [employer] 12-14-2022 10:30-0400 Body height 182.88 cm Marshall Zaman Other [facility] Other 12-14-2022 10:30-0400 Body mass index (BMI) [Ratio] 26.69 kg/m2 Marshall Ball Other [facility] Other 12-14-2022 10:30-0400 Body weight 89.27 kg Marshall Ball Other [facility] Other 12-14-2022 10:30-0400 Diastolic blood pressure 72 mm[Hg] Marshall Ball Other [facility] Other 12-14-2022 10:30-0400 Respiratory rate 12 /min Marshall Ball Other [facility] Other 12-14-2022 10:30-0400 Systolic blood pressure 133 mm[Hg] Marshall Ball Other [facility] Other 05-28-2022 09:30-0500 Body height 182.88 cm Marshall Ball Other [facility] Other 05-28-2022 09:30-0500 Body mass index (BMI) [Ratio] 28.72 kg/m2 Marshall Ball Other [facility] Other 05-28-2022 09:30-0500 Body weight 96.07 kg Marshall Ball Other [facility] Other 05-28-2022 09:30-0500 Diastolic blood pressure 70 mm[Hg] Marshall Ball Other [facility] Other 05-28-2022 09:30-0500 Respiratory rate 12 /min Marshall Ball Other [facility] Other 05-28-2022 09:30-0500 Systolic blood pressure 122 mm[Hg] Marshall Ball Other [facility] Other 11-01-2021 11:00-0400 Diastolic blood pressure 73 mm[Hg] DO Marshall Ball Work Phone: [facility] 11-01-2021 11:00-0400 Heart rate 61 /min DO Marshall Ball Work Phone: [facility] 11-01-2021 11:00-0400 Respiratory rate 16 /min DO Marshall Ball Work Phone: [facility] 11-01-2021 11:00-0400 SaO2% (BldA) [Mass fraction] 96 % DO Marshall Ball Work Phone: [facility] 11-01-2021 11:00-0400 Systolic blood pressure 157 mm[Hg] DO Marshall Ball Work Phone: [facility] 11-01-2021 07:37-0400 Body height 182.88 cm DO Marshall Ball Work Phone: [facility] 11-01-2021 07:37-0400 Body weight 92.07 kg DO Marshall Ball Work Phone: [facility] 10-23-2021 10:15-0400 Body height 182.88 cm Stuart Qureshi Other [facility] Other 10-23-2021 10:15-0400 Body mass index (BMI) [Ratio] 27.12 kg/m2 Stuart Qureshi Other [facility] Other 10-23-2021 10:15-0400 Body temperature 97.3 [degF] Stuart Qureshi Other [facility] Other 10-23-2021 10:15-0400 Body weight 90.72 kg Stuartsybil Newmanrekaitlin Other [facility] Other 10-23-2021 10:15-0400 Diastolic blood pressure 58 mm[Hg] Stuart Newmanrekaitlin Other [facility] Other 10-23-2021 10:15-0400 SaO2% (BldA) [Mass fraction] 97 % Stuart Newmanrekaitlin Other [facility] Other 10-23-2021 10:15-0400 Systolic blood pressure 126 mm[Hg] Stuart Patyrer Other [facility] Other 09-18-2021 11:30-0400 Body height 182.88 cm Stuart Newmanrer Other [facility] Other 09-18-2021 11:30-0400 Body mass index (BMI) [Ratio] 27.12 kg/m2 Stuart Newmanrer Other [facility] Other 09-18-2021 11:30-0400 Body temperature 97.2 [degF] Stuart Titus Other [facility] Other 09-18-2021 11:30-0400 Body weight 90.72 kg Stuart Titus Other [facility] Other 09-18-2021 11:30-0400 Diastolic blood pressure 70 mm[Hg] Stuart Newmanrer Other [facility] Other 09-18-2021 11:30-0400 SaO2% (BldA) [Mass fraction] 96 % Stuart Titus Other [facility] Other 09-18-2021 11:30-0400 Systolic blood pressure 160 mm[Hg] Stuart Newmanrer Other [facility] Other 08-07-2021 09:50-0400 Body weight 94.34 kg DO Marshall Ball Work Phone: [facility] 08-07-2021 09:50-0400 Diastolic blood pressure 72 mm[Hg] DO Marshall Ball Work Phone: [facility] 08-07-2021 09:50-0400 Heart rate 66 /min DO Marshall Ball Work Phone: [facility] 08-07-2021 09:50-0400 Respiratory rate 16 /min DO Marshall Ball Work Phone: [facility] 08-07-2021 09:50-0400 SaO2% (BldA) [Mass fraction] 98 % DO Marshall Ball Work Phone: [facility] 08-07-2021 09:50-0400 Systolic blood pressure 201 mm[Hg] DO Marshall Ball Work Phone: [facility] 08-07-2021 09:36-0400 Body height 182.88 cm DO Marshall Ball Work Phone: [facility] 07-14-2021 08:13-0400 Blood Pressure Location Saqib SABA [facility] 07-14-2021 08:13-0400 Diastolic blood pressure 89 mm[Hg] Saqib SABA [facility] 07-14-2021 08:13-0400 Heart rate 68 /min Saqib SABA [facility] 07-14-2021 08:13-0400 Respiratory rate 16 /min Saqib SABA [facility] 07-14-2021 08:13-0400 Systolic blood pressure 138 mm[Hg] Saqib SABA [facility] Encounters Encounter Date Encounter Type Care Provider Facility Start: 07-12-2023 ambulatory Saqib Doyle ty:[facility] Start: 06-03-2023 End: 06-03-2023 ambulatory SAPPHIRE MCALLISTER [facility] Start: 06-03-2023 End: 06-03-2023 Office outpatient visit 15 minutes Sapphire Mcallister MD Work Phone: [facility] Comment on above: 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 Dx) Start: 03-26-2023 End: 03-26-2023 ambulatory Marshall Ball Other [facility] Other Start: 03-26-2023 Telephone encounter Marshall Ball [facility] Start: 03-20-2023 End: 03-20-2023 ambulatory Marshall Ball Other [facility] Other Start: 03-20-2023 Telephone encounter Marshall Ball [facility] Start: 01-10-2023 End: 01-10-2023 ambulatory Marshall Ball Other [facility] Other Start: 01-10-2023 Telephone encounter Marshall Ball [facility] Start: 12-31-2022 End: 01-01-2023 ambulatory Saqib SABA Facility:[facility] Start: 12-14-2022 End: 12-14-2022 ambulatory Marshall Ball Other [facility] Other Start: 12-14-2022 Patient encounter procedure Marshall Ball [facility] Start: 12-05-2022 End: 12-05-2022 ambulatory Marshall Ball Other [facility] Other Start: 12-05-2022 Telephone encounter Marshall Ball [facility] Start: 11-29-2022 End: 11-29-2022 ambulatory Marshall Ball Other [facility] Other Start: 11-29-2022 Telephone encounter Marshall Ball [facility] Start: 11-28-2022 End: 11-28-2022 ambulatory Marshall Ball Other [facility] Other Start: 11-28-2022 Telephone encounter [facility] Start: 11-13-2022 End: 11-13-2022 ambulatory Marshall Zaman Other [facility] Other Start: 11-13-2022 Telephone encounter Marshall Zaman [facility] Start: 09-24-2022 End: 09-24-2022 ambulatory Marshall Zaman Other [facility] Other Start: 09-24-2022 Telephone encounter Marshall Zaman [facility] Start: 05-28-2022 End: 05-28-2022 ambulatory Marshall Zaman Other [facility] Other Start: 05-28-2022 Office outpatient vi sit 25 minutes Marshall Z[facility] Start: 05-18-2022 End: 05-19-[address] MARSHALL ZAMAN Facility:[facility] Start: 05-04-2022 End: 05-04-2022 ambulatory Marshall Zaman Other [facility] Other Start: 05-04-2022 Telephone encounter Marshall Zaman [facility] Start: 01-30-2022 End: 01-31-[address] DOCTOR WEST Facility:[facility] Start: 12-14-2021 Encounter for genera l adult medical examination without abnormal findings DR MARSHALL ZAMAN [facility] Start: 12-13-2021 Adult health examination Robert peacock Austyn Other [facility] Other Start: 12-13-2021 End: 12-14-[address] MARSHALL ZAMAN Facility:[facility] Start: 12-13-2021 End: 12-14-2021 Encounter for general adult medical examination without abnormal findings DR MARSHALL ZAMAN Facility:[facility] Start: 11-01-2021 End: 11-01-2021 Admission to same day surgery center DO Marshall Zaman Work Phone: [facility]-Interventional Radiology Start: 10-23-2021 End: 10-23-2021 ambulatory Stuart Qureshi Other [address] [employer] Other Start: 10-23-2021 Office outpatient vi sit 25 minutes Stuart Qureshi [facility] Vascular Surgery Start: 10-19-2021 End: 10-20-[address] MARSHALL ZAMAN Facility:H1 Start: 09-29-2021 End: 09-29-2021 Patient encounter procedure DO Marshall Zaman Work Phone: [facility]-CT Scan Main [place] Start: 09-27-2021 End: 09-28-2021 ambulatory KIARA JUANITO . Facility:H1 Start: 09-18-2021 End: 09-18-2021 ambulatory Stuart Qureshi Other [facility] Other Start: 09-18-2021 Office outpatient vi sit 25 minutes Stuart Qureshi [facility] Vascular Surgery Start: 08-25-2021 End: 08-26-2021 ambulatory KIARA JUANITO . Facility:H1 Start: 08-17-2021 Encounter for preprocedural cardiovascular examination DR SAQIB SABA . [facility] Start: 08-17-2021 Encounter for preprocedural laboratory examination DR SAQIB SABA . [facility] Start: 08-17-2021 End: 08-17-[address] SAQIB SABA . Facility:H1 Start: 08-14-2021 End: 08-15-[address] MARSHALL ZAMAN Facility:H1 Start: 08-14-2021 End: 08-15-2021 Encounter for preprocedural cardiovascular examination DR MARSHALL ZAMAN Facility:H1 Start: 08-07-2021 End: 08-07-2021 Patient encounter procedure DO Marshall Zaman Work Phone: [facility]-MRI Main [place] Start: 07-24-2021 End: 07-25-[address] MARSHALL ZAMAN Facility:H1 Start: 07-14-2021 End: 07-14-2021 Patient encounter procedure Saqib SABA [facility] Start: 07-03-2021 End: 07-04-[address] MARSHALL ZAMAN Facility:H1 Start: 07-07-2020 End: 07-07-2020 Subsequent hospital visit by physician [place] [address] (I-Stat/3t) Work Phone: Radiology Comment on above: [...] above: Performed By: #### P SAD #### [facility] [address] [place] [address] Dr. Jr Leiva Start: 07-07-2020 Mri pelvis w/o & w/c ontrast material [facility] Provider Start: 07-05-2018 End: 08-11-2019 Screening for malignant neoplasm of colon Marshall Zmaan Other Start: 07-02-2017 End: 08-11-2019 Diabetes mellitus [...] 06-02-2024 Adult BMI Screening Adult BMI Screening [facility] Start: 02-12-2024 Tobacco Screening Tobacco Screening [facility] Start: 09-16-2023 End: 09-16-2023 Patient encounter procedure 09/16/2023 9:40 AM EDT Office Visit [facility] [address] [place] [address] Sapphire Mcallister MD [address] [place] [address] [facility] Start: 11-23-2022 Influenza vaccination Influenza Vaccine [facility] Start: 11-01-2021 End: 11-01-2021 [facility] Work Phone: Start: 11-23-2020 Influenza vaccination INFLUENZA (Season Ended) [facility] Start: 06-26-2015 ADVANCE DIRECTIVE DISCUSSION ADVANCE DIRECTIVE DISCUSSION [facility] Start: 06-26-2015 Fall Risk Screening Fall Risk Screening [facility] Start: 06-26-2015 PNEUMOVAX AGE 65 AND OVER WITH 5YR LOOKBACK (#1) PNEUMOVAX AGE 65 AND OVER WITH 5YR LOOKBACK (#1) [facility] Start: 2000 Screening for malignant neoplasm of colon [facility] Start: 2000 SHINGRIX VACCINE (1 of 2) SHINGRIX VACCINE (1 of 2) [facility] Start: 06-26-1995 DIABETES SCREEN DIABETES SCREEN [facility] Start: 1985 LIPID SCREEN LIPID SCREEN [facility] Start: 1969 DTaP,Tdap and Td Vaccines (1 - Tdap) DTaP,Tdap and Td Vaccines (1 - Tdap) [facility] Start: 1969 Urine microalbumin profile DTAP,TDAP,TD (1 - Tdap) [facility] Start: 1968 Adult BMI Follow Up Plan Adult BMI Follow Up Plan [facility] Start: 1968 HEPATITIS C SCREENING HEPATITIS C SCREENING [facility] Start: 1962 Adult depression screening [facility] Start: [facility] Medicare Annual Wellness Visit Medicare Annual Wellness Visit [facility] Patient Education Arteriogram (DC) [facility] Work Phone: Patient referral [facility] Work Phone: Immunizations Immunization Date Immunization Notes Care Provider Fa cili 12-14-2022 influenza, high dose seasonal, preservative-free Marshall Zaman Other [employer] Other 12-13-2021 influenza virus vaccine, split virus (incl. purified surface antigen) Marshall Zaman Other [employer] Other 12-13-2021 influenza virus vaccine, unspecified formulation Sapphire Mcallister MD Work Phone: [employer] 01-13-2021 influenza virus vaccine, split virus (incl. purified surface antigen) Marshall Zaman Other [employer] Other 12-30-2020 COVID-19 mRNA, Comirnaty (Pfizer) DO Marshall Zaman Work Phone: [facility] 05-30-2020 SARS-CoV-2 (COVID-19 ) mRNA BNT-162b2 vax Saqib SABA [facility] 05-27-2020 COVID-19 mRNA, Comirnaty (Pfizer) DO Marshall Zaman Work Phone: [facility] 04-26-2020 COVID-19 mRNA, Comirnaty (Pfizer) DO Marshall Zaman Work Phone: [facility] 01-11-2020 influenza virus vaccine, unspecified formulation Saqib SABA [facility] 11-26-2019 influenza virus vaccine, split virus (incl. purified surface antigen) Marshall Zaman Other [facility] Other 07-04-2018 pneumococcal polysaccharide vaccine, 23 valent Marshall Zaman Other [facility] Other 07-02-2017 pneumococcal conjuga te vaccine, 13 valent Marshall Zaman Other [facility] Other 07-02-2017 pneumococcal Conjuga te, unspecified formulation; Translations: [Need for prophylactic vaccination against Streptococcus pneumoniae (pneumococcus)] Marshall Zaman Other [employer] Other 04-16-2017 influenza virus vaccine, split virus (incl. purified surface antigen) Marshall Zaman Other [employer] Other Payers Date Payer Category Payer Medicare ANTHEM MEDICARE ANTHEM MEDICARE ADVANTAGE [id number] 2017-Present [phone] [address] [place] [address] [id number] 2017 Unknown [facility] S AND BLUE SHIELD ANTH MEDIBLUE ACCESS [id number] 2017-Present PPO [id number] 1959 Medicare [id number] 1950 Unknown [id number] 1950 Unknown [id number] [id number] 1950 Unknown [id number] [id number] 1950 Unknown [id number] [id number] 1950 Unknown [id number] [id number] 1950 Unknown [id number] [id number] 1950 Unknown [id number] 2.16.840.1.556172.3.579.2.593 1950 Unknown [id number] 2.16.840.1.619548.3.579.2.593 1950 Unknown [id number] 2.16.840.1.362720.3.579.2.593 1950 Unknown [id number] 2.16.840.1.558059.3.579.2.593 1950 Unknown [id number] [id number] 1950 Unknown [id number] [id number] 1950 Unknown [id number] [id number] 6 Self-pay Self Pay [id number] Social History Date Type Detail Facility Tobacco smoking stat [facility] Unknown if ever smoked [facility] Start: 1950 Sex Assigned At Not on file [facility] Exposure to SARS-CoV -2 (event) Not sure [facility] Start: 10-23-2019 End: 07-16-2022 Tobacco smoking status Ex-smoker (finding) [facility] Start: 02-11-2023 End: 06-03-2023 Sex Assigned At Male [facility] Start: 04-03-1951 Sex Assigned At Male [facility] History of tobacco use [facility] of tobacco use Cigarette Smoker [facility] Start: 07-16-2022 Tobacco use and exposure Smokeless tobacco non-user [facility] Start: 06-03-2023 Alcohol intake Ex-drinker (finding) [facility] Start: 02-11-2023 End: 06-03-2023 History of Social function [facility] Childcare Unknown [facility] Clinical Notes 07-14-2021 to 06-03-2023 Sapphire Mcallister MD - 06/03/2023 12:40 PM EDT Note Date & Type Note Facility 06-03-2023 History of Present illness Narrative Associated Order(s): $ Large Joint Injection: bilateral knee Post-Procedure Diagnose(s): Primary osteoarthritis of both knees [facility] [address] [facility] [address] Name: Jean Santiago : 1950 Chief Complaint [...] of the aforementioned history prepared by the [place] practice provider, and I personally performed the [...] usual sterile fashion. documented in this encounter [facility] 03-26-2023 Evaluation note Encounter Date Diagnosis Assessment Notes Mar, Recurrent major depressive disorder, in full remission (ICD-10 - F33.42) [facility] Other 12-27-2023 Evaluation note* Encounter Date Diagnosis Assessment Notes Treatment Notes Treatment Clinical Notes Feb, Anemia, unspecified type (ICD-10 - D64.9) [facility] Other 10-19-2023 Evaluation note* Encounter Date Diagnosis Assessment Notes Treatment Notes Treatment Clinical Notes Dec, SBE (subacute bacterial endocarditis) prophylaxis candidate (ICD-10 - Z29.89) [facility] Other 09-22-2023 Evaluation note* Encounter Date Diagnosis [...] achieve/maintain a normal BMI. Nov, Atherosclerosis of [place] arteries of extremities with intermittent claudication, bilateral [...] - Z79.899) Check labs: CBC, BS, GFR [facility] Other 09-13-2023 Evaluation note* Encounter Date Diagnosis Assessment Notes Treatment Notes Treatment Clinical Notes Nov, Primary hypertension (ICD-10 - I10) [facility] Other 09-06-2023 Evaluation note* Encounter Date Diagnosis Assessment Notes Treatment Notes Treatment Clinical Notes Nov, Simple chronic bronchitis (ICD-10 - J41.0) LDCT w/o suspicious nodules: 11/2022 [facility] Other 07-03-2023 Evaluation note* Encounter Date Diagnosis Assessment Notes Treatment Notes Treatment Clinical Notes Sep, Recurrent major depressive disorder, in full remission (ICD-10 - F33.42) [facility] Other 03-06-2023 Evaluation note* Encounter Date Diagnosis [...] achieve/maintain a normal BMI. May, Atherosclerosis of [place] arteries of extremities with intermittent claudication, bilateral [...] 3mo, EGD discussed Normal Colonoscopy in 2019 [facility] Other 02-10-2023 Evaluation note* Encounter Date Diagnosis Assessment Notes Treatment Notes Treatment Clinical Notes Apr, Anemia, unspecified type (ICD-10 - D64.9) [facility] Other 08-01-2022 Evaluation note* Encounter Date Diagnosis [...] well as goals and agrees to proceed. [facility] Other 06-27-2022 Evaluation note* Encounter Date Diagnosis [...] with me. They agree with that plan. [facility] Other 04-22-2022 Hospital Discharge instructions Patient Education [...] have oneof these risk factors: ?Being of -Portuguese descent. ?Having a family history of prostate [...] you: Are older than age 55. Are -Portuguese. Have a father, brother, or uncle who [...] 12/20/2017 Document Revised: 02/21/2018 Document Reviewed: 12/20/2017 [employer] Patient Education 2020 [employer]. Follow Up Care 07/15/2020 08:51:04 With:OMER JOVEL, Saqib R, URL Address: [facility] [address], [place] [address] [phone] When: Unknown [facility] evaluation + Plan note No data available for this section [facility] evaluation noteNo assessment information available [facility] Work Phone: Evaluation noteNo [employer] Other Evaluation note* Diagnosis Primary osteoarthritis of [...] LEG 2000IS H Hospitalization History See Above [facility] Other [facility] general Narrative - Reported* Type Description Date [...] Surgical History COLONOSCOPY Hospitalization History See Above [facility] Other [facility] general Narrative - Reported* Type Description Date [...] History COLONOSCOPY 2019 Hospitalization History See Above [facility] Other InstructionsNot on filedocumented in this encounter [facility] Summary Purpose Family History No Family [...] section and content) DATE CREATED AUTHOR 07/08/2020 [facility] DATE CREATED AUTHOR AUTHOR'S ORGANIZ ATION 11/06/2021 [facility] DATE CREATED AUTHOR AUTHOR'S ORGANIZ ATION 05/25/2022 [facility] DATE CREATED AUTHOR AUTHOR'S ORGANIZ [...] or prosecute any alcohol or drug abuse patient.[facility] Reason for Visit (unrecogniz ed section and content) Status Reason Specialty Diagnoses / Procedures Referred By Contact Referred To Contact Outside PCP Radiology / RADI O MRI [facility] Diagnoses MRI Prostate WWO Contrast- BPH elevated PSA Procedures MRI WWO PROSTATE [address] Saqib Saba [address] [place] [address] Radio Mri [facility] [address] [place] [address] Reason Comments Follow-up Last [facility] 02/11 increased [...] TIME: 9:02 AM documented in this encounter [facility] Georgina Moise)Desire - 07/07/2020 9:00 AM [...] Active Stuart Qureshi MD Attending Provider 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 [employer] [facility]. provides no warranty or guarantee of the accuracy or completeness of information in this document.
[2023-07-05 12:19] LABS: Prostate Specific Antigen Dx 12.14 ng/mL (<=4.00)
== END 2023-07-05 10:08 | disposition home or self-care (01) ==
LOC: LAB 10:08
PROVIDERS: PCP Internal Medicine; Visit Provider Urology
DX: R97.20 Elevated prostate specific antigen [PSA] (principal)
CPT/HCPCS: 36415; 84153

== ENCOUNTER 2023-12-24 09:15 | Outpatient (OUT) | payer MEDICARE, SELFPAY ==
--- NOTE | 2023-12-24 09:20 | CT_ITS ---
[address] [address] Patient Name: JEAN SANTIAGO MRN: [id number] date: 1950 Sex: M Assigned Patient Location: CT Current Patient Location: CT Accession/Order Number: [id number] Exam Date: 12/24/2023 09:28 Report Date: 12/24/2023 13:15 At the request of: KRISTY NIELSON Procedure: CT lung screening low-dose EXAMINATION: CT lung screening low-dose HISTORY: History Of Tobacco Dependence COMPARISON: 11/27/2022 TECHNIQUE: Axial, Coronal, and Sagittal images were created without the administration of IV contrast material. Dose reduction techniques were achieved by using automated exposure control and/or adjustment of mA and/or kV according to patient size and/or use of iterative reconstruction technique. FINDINGS: LUNGS: Mild biapical pleural parenchymal scarring. Mild paraseptal emphysema. Some scattered linear opacities likely representing atelectasis/scar. 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 JOSEPHINE: No mass or pathologic adenopathy. MEDIASTINUM: No mass or pathologic adenopathy. CARDIAC: No enlargement or pericardial effusion CORONARY ARTERIES: Coronary calcifications are mild. AORTA: No aortic aneurysm. Moderate calcific atherosclerosis CHEST WALL: No mass or axillary adenopathy BONES: No bone lesion or fracture. LIMITED ABDOMEN: No suspicious findings. Limited images of the upper abdomen. OTHER: Negative. CT/CT lung screening low-dose IMPRESSION: LUNG SCREENING: Lung-RADS Category 1 Negative. No nodules and definitely benign nodules. Continue annual screening with LDCT in 12 months. Electronically authenticated by: ESTRELLITA RAMÍREZ Date: 12/24/2023 13:15
--- OUTSIDE RECORDS SUMMARY | 2023-12-24 09:36 | XMS_ITS | CCD ---
Author Organization [facility] CliniSyri Care Team Providers Care Public Employment Mediator Name Role Phone Saqib Saba Unavailable Unavailable MARSHALL ZAMAN Primary Care Physician DO Marshall Zaman Primary Care Provider MD Saqib Saba Attending Provider [phone] Stuart Qureshi Unavailable MD Stuart Qureshi Attending Provider DO Marshall Zaman Primary Care Provider MISC, DR CHRISTOPHER Attending Unavailable MISC, DR CHRISTOPHER Admitting Unavailable MISC, DR CHRISTOPHER Consulting Unavailable AUSTYN, DR WAGNER Primary Care Unavailable JUANITO ., KIARA Attending Unavailable JUANITO ., KIARA Admitting Unavailable BALL, DR WAGNER Primary Care [...] Unavailable SABA ., DR COSTA Consulting Unavailable BALL, DR WAGNER Primary Care Unavailable AGUBOSIM, MARYBEL Consulting Unavailable DORKOSKIE, CASTILLO Consulting Unavailable BALL, DR WAGNER Primary Care Unavailable BALL, DR WAGNER Consulting Unavailable AUSTYN, DR WAGNER Attending Unavailable BALL, DR WAGNER Admitting Unavailable BALL, DR WAGNER Primary Care Unavailable SABA ., DR COSTA Consulting Unavailable SABA ., DR COSTA Attending Unavailable SABA ., DR COSTA Admitting Unavailable BALL, DR WAGNER Primary Care Unavailable BALL, DR WAGNER Consulting Unavailable AUSTYN, DR WAGNER Attending Unavailable BALL, DR WAGNER Admitting Unavailable ZIEBER, DR KEESHA Sumner Consulting Unavailable BALL, DR WAGNER Consulting Unavailable BALL, DR WAGNER Attending Unavailable BALL, DR WAGNER Admitting Unavailable AUSTYN, DR WAGNER Primary Care Unavailable FAUSTINO, DR KEESHA Sumner Consulting Unavailable AUSTYN, DR WAGNER Attending Unavailable AUSTYN, DR WAGNER Admitting Unavailable AUSTYN, DR WAGNER Consulting Unavailable AUSTYN, DR WAGNER Primary Care Unavailable Austyn, Marshall Unavailable Marshall Zaman DO E Primary Care Provider Saqib SABA Attending Unavailable OMER, Saqib Sumner Attending Unavailable Saqib SABA Attending Unavailable MCALLISTER, SAPPHIRE K Attending Unavailable AUSTYN, MARSHALL E Referring Unavailable AUSTYN, MARSHALL E Primary Care Unavailable MCALLISTER, SAPPHIRE K Attending Unavailable AUSTYN, MARSHALL E Referring Unavailable AUSTYN, MARSHALL E Primary Care Unavailable MCALLISTER, SAPPHIRE K Referring Unavailable AUSTYN, MARSHALL E Primary Care Unavailable Allergies Allergy Classification Reported Allergen(s) Allergy Type Date of Onset Reaction(s) Facility (4 sources) patient allergy list reviewed by nurse or physicia Propensity to adverse reactions 5 Comment:Done Hipvan Other (1 source) No Known Medication Allergies; Translations: [No Known Medication Allergies] Propensity to adverse reactions (disorder) [facility] Repository Medications Current Medications Medication Drug Class(es) Dates Sig (Normalized) Sig (Original) amLODIPine 5 mg oral tablet (15 sources) Dihydropyridine Calcium Channel Lina Start: 11-01-2021 take 1 tablet by mouth in the morning amLODIPine (NORVASC) 5 mg tablet Take 1 tablet (5 mg total) by mouth in the morning. 0 05/18/2022 Active amLODIPine Besyl ate Active amLODIPine 5 mg / telmisartan 80 mg oral tablet (1 source) Dihydropyridine Calcium Channel Lina, Angiotensin 2 Receptor Lina Start: 07-12-2023 amlodipine-telmisartan 5 mg-80 mg oral tablet Refill(s) 0 Start Date: 07/12/23 Status: Ordered amoxicillin 500 mg oral tablet (3 sources) Penicillin-class Antibacterial Start: 01-10-2023 take 4 tablets by mouth every hour Amoxicillin 500 MG 4 tablets Orally 1 hour prior to dental appt for 1 days Dec, Active aspirin 325 mg oral tablet (17 sources) Platelet Aggregation Inhibitor, Nonsteroidal Anti-inflammatory Drug [...] daily Active atorvastatin 20 mg oral tablet (17 sources) HMG-CoA Reductase Inhibitor Start: 07-07-2019 take 1 tablet by mouth once daily Lipitor 20 mg Tab 20 mg = 1 tab(s), Oral, Daily Start Date: 07/07/19 Status: Ordered 24 hr buPROPion hydrochloride 300 mg extended release oral tablet (17 sources) Aminoketone Start: 06-18-2022 take 1 tablet [...] Refills(s) 0 Start Date: 04/29/20 Status: Ordered Start: 04-29-2020 take 1 tablet by mercedes th every twenty-four hours buPROPion 300 mg XL /24 hrs mg tab(s), Oral, q24hr, Refills(s) 0 Start Date: 04/29/20 Status: Ordered Wellbutrin Activ e Celebrate Multivitamin (2 sources) Start: 07-07-2019 Celebrate Mult ivitamin Start Date: [...] 2021 12:00am nabumetone 750 mg oral tablet (12 sources) Nonsteroidal Anti-inflammatory Drug Start: 11-01-2021 take [...] e tamsulosin hydrochloride 0.4 mg oral capsule (15 sources) alpha-Adrenergic Lina Start: 11-01-2021 take 1 capsule by mouth once daily Flomax 0.4 mg Cap 0.4 mg = 1 cap(s), Oral, Daily, # 90 tab(s), Refills(s) 3, Pharmacy: [facility]/pharmacy #[id number], 183, cm, 12/31/22 10:47:00 EDT, Height/Length Dosing, 93.2, kg, 12/31/22 10:47:00 EDT, Weight Dosing Start Date: 12/31/22 Status: Ordered Tamsulosin HCl A ctive Completed/Discontinued Medications Medication [...] iliac artery] Chronic Calculus of urinary tract (2 sources) History of calculus of kidney 07-07-2019 Episodic [...] Essential hypertension; Translations: [Essential (primary) hypertension] Chronic Genitourinary symptoms and ill-defined conditions (3 sources) Microscopic hematuria; Translations: [Hematuria, unspecified] Onset: 08-24-2021 07-07-2019 Episodic Hyperplasia of prostate (20 sources) Benign prostatic hypertrophy with outflow obstruction; Translations: [Benign prostatic hyperplasia with lower urinary tract symptoms] Onset: 07-14-2021 Chronic Immunizations and screening for infectious disease (4 sources) Vaccination given; Translations: [Encounter for immunization] Episodic Mood disorders (19 sources) Recurrent major depression in full remission; Translations: [Major depressive disorder, recurrent, in full remission] Chronic Osteoarthritis (15 sources) Osteoarthritis of right knee joint; Translations: [Unilateral primary osteoarthritis, right knee] Onset: 10-22-2022 Chronic Other aftercare (2 sources) Long-term current use of anticoagulant 07-07-2019 Episodic Other aftercare (2 sources) Other 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 long goods helper (current) drug therapy; Translations: [OTH [facility] CURRENT DRUG THERAPY] Onset: 12-14-2021 Episodic Other aftercare (4 sources) Long-term current use of drug therapy; Translations: [Other machine long goods helper (current) drug therapy] Episodic Other injuries and conditions due to external causes (4 sources) History of fall; Translations: [History of falling] Episodic Other male genital disorders (2 sources) Impotence 10-23-2019 Chronic Other male genital disorders (2 sources) Impotence of organic origin 07-07-2019 Chronic Other male genital disorders (1 source) Male erectile dysfunction, unspecified; Translations: [MALE ERECTILE DYSFUNCTION UNS] Onset: 08-24-2021 Chronic Other non-traumatic joint disorders (1 source) Pain in right knee; Translations: [Pain in right knee] Onset: 09-16-2023 Episodic Other non-traumatic joint disorders (1 source) Pain in left knee; Translations: [Pain in left knee] Onset: 09-16-2023 Episodic Other nutritional; endocrine; and metabolic disorders (4 sources) Overweight; Translations: [Overweight] Episodic Other screening for suspected conditions (not mental disorders or infectious disease) (13 sources) Raised prostate specific antigen; Translations: [Elevated prostate specific antigen [PSA]] Onset: 07-02-2017 Resolved: 08-11-2019 Episodic Other upper respiratory disease (11 sources) Allergic rhinitis; Translations: [Other allergic rhinitis] Chronic Other upper respiratory disease (1 source) Other allergic rhinitis Chronic Peripheral and visceral atherosclerosis (20 sources) Peripheral vascular disease; Translations: [Peripheral vascular disease, unspecified] Onset: 07-24-2021 Resolved: 10-23-2021 Chronic Screening and history of mental health and substance abuse codes (6 sources) Ex-cigarette smoker; Translations: [Personal history of nicotine dependence] Onset: 10-19-2021 07-07-2019 Episodic Spondylosis; intervertebral disc disorders; other back problems [...] [Alcohol abuse with withdrawal, unspecified] Onset: 01-20-2021 Unclassified (1 source) Injection Onset: 09-16-2023 Past or Other Problems Problem Classification Problem [...] encounter for closed fracture] Onset: 01-17-2021 Episodic Malaise and fatigue (4 sources) Malaise and fatigue; Translations: [Other malaise and fatigue] Onset: 07-02-2017 Resolved: 08-11-2019 Episodic Other aftercare (1 source) [facility] (current) use of aspirin; 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] Onset: 08-24-2021 Episodic Other aftercare (1 source) [facility] (current) use of anticoagulants; Translations: [[facility] CURRNT USE ANTICOAGULANTS] Onset: 08-17-2021 Episodic Other [...] OF PROSTATE UNSPECIFIED] Onset: 08-17-2021 Episodic Other skin disorders (4 sources) Disorder of sebaceous gland; Translations: [Other specified disease of sebaceous glands] Onset: 06-23-2014 Resolved: 08-11-2019 Episodic Residual codes; unclassified (2 sources) Other specified postprocedural states Onset: 09-18-2021 Resolved: 10-23-2021 Episodic Residual codes; unclassified (4 sources) Tobacco user; Translations: [Tobacco use] Onset: 07-02-2017 Resolved: 08-11-2019 Episodic Unclassified (4 sources) Long-term current use of drug therapy; Translations: [Long-term (current) use of other medications] Onset: 08-24-2017 Resolved: 08-11-2019 Unclassified (1 source) SBE (subacute bacterial endocarditis) prophylaxis candidate Z29.89 Results Test Name Value Interpretation Reference Range Facility Ambulatory Visit Summaryon 0 07-12-2023 Ambulatory Visit Summary JEAN SANTIAGO :1950 Visit Date:07/12/2023 Ambulatory Visit Instructions Your Diagnosis Elevated PSA BPH with urinary obstruction Your Care Team Attending Physician - Saqib SABA MD Primary Care Physician - MARSHALL ZAMAN DO This Is Your Medications List tamsulosin (Flomax 0.4 mg Cap) Contact prescribing physician if questions or concerns amlodipine-telmisartan (amlodipine-telmisarta n 5 mg-80 mg oral tablet) aspirin (aspirin 325 mg Tab) atorvastatin (Lipitor 20 mg Tab) buPROPion (buPROPion 300 mg XL /24 hrs) multivitamin with minerals (Celebrate Multivitamin) nabumetone (nabumetone 750 mg Tab) Procedures Performed MRI-US fusion guided transperineal biopsy of prostate (08/17/2021), Transrectal biopsy of prostate using ultrasound (US) guidance (10/21/2012), CE - Cataract extraction, Hernia repair, Reconstruction of artery, Rotator cuff repair. Discharge Vitals Heart Rate (Peripheral) 67 Respiratory Rate 16 Blood Pressure 136/71 Height 183 cm Height 72 in Weight 91 kg Weight 200.2 lb BMI 27.17 What to do next Scheduled Follow-Up Appointments Saturday 8:30 AM EDT With: OMER JOVEL, Saqib Sumner Where: [facility] Patient Educationon 07-12-19 Patient Education Oncology Prostate Cancer Screening Prostate cancer screening is testing that is done to check for the presence of prostate cancer in men. The prostate gland is a walnut-sized gland that is located below the bladder and in front of the rectum in males. The function of the prostate is to add fluid to semen during ejaculation. Prostate cancer is one of the most common types of cancer in men. Who should have prostate cancer screening? Screening recommendations vary based on age and other risk factors, as well as between the professional organizations who make the recommendations. In general, screening is recommended if: ? You are age 50 to 70 and have an average risk for prostate cancer. You should talk with your health care provider about your need for screening and how often screening should be done. Because most prostate cancers are slow growing and will not cause , screening in this age group is generally reserved for men who have a 10- to 15-year life expectancy. ? You are younger than age 50, and you have these risk factors: ? Having a father, brother, or uncle who has been diagnosed with prostate cancer. The risk is higher if your family member's cancer occurred at an early age or if you have multiple family members with prostate cancer at an early age. ? Being a male who is Black or is of [place] or sub-Saharan descent. In general, screening is not recommended if: ? You are younger than age 40. ? You are between the ages of 40 and 49 and you have no risk factors. ? You are 70 years of age or older. At this age, the risks that screening can cause are greater than the benefits that it may provide. If you are at high risk for prostate cancer, your health care provider may recommend that you have screenings more often or that you start screening at a younger age. How is screening for prostate cancer done? The recommended prostate cancer screening test is a blood test called the prostate-specific antigen (PSA) test. PSA is a protein that is made in the prostate. As you age, your prostate naturally produces more PSA. Abnormally high PSA levels may be caused by: ? Prostate cancer. ? An enlarged prostate that is not caused by cancer (benign prostatic hyperplasia, or BPH). This condition is very common in older men. ? A prostate gland infection (prostatitis) or urinary tract infection. ? Certain medicines such as male hormones (like testosterone) or other medicines that raise testosterone levels. A rectal exam may be done as part of prostate cancer screening to help provide information about the size of your prostate gland. When a rectal exam is performed, it should be done after the PSA level is drawn to avoid any effect on the results. Depending on the PSA results, you may need more tests, such as: ? A physical exam to check the size of your prostate gland, if not done as part of screening. ? Blood and imaging tests. ? A procedure to remove tissue samples from your prostate gland for testing (biopsy). This is the only way to know for certain if you have prostate cancer. What are the benefits of prostate cancer screening? ? Screening can help to identify cancer at an early stage, before symptoms start and when the cancer can be treated more easily. ? There is a small chance that screening may lower your risk of dying from prostate cancer. The chance is small because prostate cancer is a slow-growing cancer, and most men with prostate cancer from a different cause. What are the risks of prostate cancer screening? The main risk of prostate cancer screening is diagnosing and treating prostate cancer that would never have caused any symptoms or problems. This is called overdiagnosisand overtreatment. PSA screening cannot tell you if your PSA is high due to cancer or a different cause. A prostate biopsy is the only procedure to diagnose prostate cancer. Even the results of a biopsy may not tell you if your cancer needs to be treated. Slow-growing prostate cancer may not need any treatment other than monitoring, so diagnosing and treating it may cause unnecessary stress or other side effects. Questions to ask your health care provider ? When should I start prostate cancer screening? ? What is my risk for prostate cancer? ? How often do I need screening? ? What type of screening tests do I need? ? How do I get my test results? ? What do my results mean? ? Do I need treatment? Where to find more information ? The [place] [employer]: www.cancer.org ? [employer]: www.auanet.org Contact a health care provider if: ? You have difficulty urinating. ? You have pain when you urinate or ejaculate. ? You have blood in your urine or semen. ? You have pain in your back or in the area of your prostate. Summary ? Prostate cancer is a common type of cancer in men. The prostate gland is located below the bladder and in front of the rectum. This gland adds flu (more content not included)... Normal [facility] Urology Office/Clinic Noteon 07-12-2023 Urology Office/Clinic Note Chief Complaint 6m PSA HPI Staff 6 month with PSA Dx: BPH with obstruction/LUTS and elevated PSA Tamsulosin 0.4mg qd PSA 07/05/23- 12.14 Denies pain/burning and visible blood in urine. Denies complaints with urinary stream. No concerns at this time. History of Present Illness Tests reviewed: reviewed UA and PSA. I have reviewed the previous health record information and history for this patient from Dr. Saba. I have reviewed and verified the staff HPI to be accurate for this encounter. There have been no associated fever, chills, flank pain, or blood in the urine. Denies any urinary infections since last encounter. Review of Systems PHQ Score Initial Depression Screen Score: 0 SCORE ROS - Provider Constitutional: denies weight loss, [...] HPI. Physical Exam Vitals & Measurements HR: 67(Peripheral) RR: 16 BP: 136/71 HT: 72 in HT: 183 cm WT: 91 kg WT: 200.2 lb BMI: 27.17 General Appearance: alert, no distress, well nourished, well developed male. Assessment/Plan 1. Elevated PSA (R97.20: Elevated prostate specific antigen [PSA]) PSA: 02/27/21 - 8.84 07/03/21 - 9.29 12/28/22 - 12.32 07/05/23 - 12.14 TRUS/bx 10/21/12. MRI of prostate w/wo Con 07/07/20 PI-RADS 2. No focal lesions to suggest clinically significant disease. No don or osseous metastatic disease. MRI of prostate 08/07/21 PI-RADS 4. MRI fusion bx 08/17/21 benign. Asx of prostatitis, could be subclinical prostatitis. Will continue to monitor PSA vs repeating bx at this time. -Follow up in 1 year w/ PSA 2. BPH with urinary obstruction (N40.1: Benign prostatic hyperplasia with lower urinary tract symptoms) MRI of prostate 07/07/20 prostate volume 81 cc. BPH hypertrophy in the transition zone. MRI of prostate 08/07/21 prostate volume 78 cc. BPH. Taking Flomax 0.4mg qd. UA today neg. Stable urination. Does notice a change in urination depending on what he drinks. No urinary concerns. Had the discussion of adding Dutasteride, in which pt understands it takes at least 6 months to receive full affect. Pt defers at this time. SATYA 12/31/22: 50g, no nodules. -Cont med management, call for refills Follow-up With When Contact Information OMER JOVEL, Saqib Sumner, [address] [place] [address]- Additional Instructions: 1 year w/ PSA Patient Education Prostate Cancer Screening I, Yazmin Oleary, personally scribed for Dr. Saba on 07/12/2023 09:37:13. . Documentation recorded by the scribe, Yazmin Oleary, accurately reflects the services(s) I performed and decisions made by me. Authenticated by Dr. Saba on 07/12/2023 09:38:43. Problem List/Past Medical History Ongoing Anticoagulant long-term use Benign localized hyperplasia of prostate with urinary obstruction and lower urinary tract symptoms BPH with elevated PSA BPH with urinary obstruction Elevated PSA Ex-cigarette smoker History of kidney stones Hyperlipemia Impotence Impotence of organic origin Microscopic hematuria Historical No qualifying data Procedure/Surgical History MRI-US fusion guided transperineal biopsy of prostate (08/17/2021), Transrectal biopsy of prostate using ultrasound (US) guidance (10/21/2012), CE - Cataract extraction, Hernia repair, Reconstruction of artery, Rotator cuff repair. Medications amlodipine-telmisartan 5 mg-80 mg oral tablet aspirin 325 mg Tab, Oral, q4hr buPROPion 300 mg XL /24 hrs, Oral, q24hr Celebrate Multivitamin Flomax 0.4 mg Cap, 0.4 mg= 1 cap(s), Oral, Daily, 3 refills Lipitor 20 mg Tab, 20 mg= 1 tab(s), Oral, Daily nabumetone 750 mg Tab, Oral, Daily Allergies No Known Medication Allergies Social History Alcohol - Denies Alcohol Use, 10/23/2019 Tobacco - Denies Tobacco Use, 10/23/2019 Former smoker, quit more than 30 days ago Tobacco Use:. Never Smokeless Tobacco Use:. Cigarettes, 07/12/2023 Family History Cancer: Father. Diabetes: Mother. Immunizations Vaccine Date Status Comments zoster vaccine, inactivated 02/13/2023 Recorded zoster vaccine, inactivated 11/12/2022 Recorded SARS-CoV-2 (COVID-19) [id number].ORD![id number] 08/02/2022 Recorded influenza virus vaccine, inactivated 12/13/2021 Recorded SARS-CoV-2 (COVID-19) mRNAMUL.ORD![id number] 12/06/2021 Recorded SARS-CoV-2 (COVID-19) mRNA BNT-162b2 vax 12/30/2020 Recorded 2023-07-12: [id number] SARS-CoV-2 (COVID-19) mRNA BNT-162b2 vax 05/30/2020 Recorded SARS-CoV-2 (COVID-19) mRNA BNT-162b2 vax 05/27/2020 Recorded SARS-CoV (more content not included)... [facility] Comment on above: Result Comment: Elec tronically Signed By: Saqib SABA MD\.br\Date and Time Signed: 07/12/23 09:38 EDT\.br\Electronically Co-Signed By: Yazmin Oleary.br\Date and Time Co-Signed: 07/12/23 09:37 EDT Lab Reportson 07-08-2023 Lab Reports [id number] 0TIFF [facility] $ Large Joint Injection: andres ateral kneeon [...] the usual sterile fashion. MANUALLY TRANSCRIBED RESULTS [facility] Ambulatory Visit Summaryon 1 Ambulatory Visit Summary JEAN SANTIAGO :1950 Visit Date:12/31/2022 Ambulatory Visit Instructions Your Diagnosis Benign localized hyperplasia of prostate with urinary obstruction and lower urinary tract symptoms Elevated PSA Tests Performed Urnls Dip Stick Auto w/o Microscopy POC [id number] Your Care Team Attending Physician - Saqib SABA MD Primary Care Physician - MARSHALL ZAMAN DO [...] JOVEL, Saqib Sumner Where: [facility] Lab Reportson 12-31-2022 Lab Reports [id number] 0TIFF [facility] Patient Educationon 01-01-20 Patient Education Urology Benign [...] Follow these instructions at home: ? Take [id number] and prescription medicines only as told by [...] the medicine (more content not included)... Normal [facility] Urology Office/Clinic Noteon 12-31-2022 Urology Office/Clinic Note [...] order PSA. Follow-up With When Contact Information OMER JOVEL, Saqib Sumner, [place] In 6 months [facility] [address], [place] [address]- Additional Instructions: w/PSA Patient Education Benign Prostatic [...] quit mo (more content not included)... Normal [facility] Comment on above: Result Comment: Elec tronically Signed By: Saqib SABA MD\.br\Date and Time Signed: 12/31/22 11:26 EDT\.br\Electronically Co-Signed By: Naima Arias\.br\Date and Time Co-Signed: 12/31/22 11:24 EDT CBC AUTO DIFFon 05-18-2022 BASO # 0.1 103/ul Normal 0.0-0.1 [facility] Comment on above: Performed By: #### C BC #### [facility] [address] [place] [address] Dr. Jr Leiva Basophils/100 WBC (Bld) 0.8 % Normal 0.2-2.0 [facility] Comment on above: Performed By: #### C BC #### [facility] [address] [address] [address] Jr Leiva EO # 0.5 103/ul Normal 0.0-0.7 [facility] Comment on above: Performed By: #### C BC #### [facility] [address] [place] [address] Dr. Jr Leiva Eosinophils/100 WBC (Bld) 6.1 % Normal 0.9-7.0 [facility] Comment on above: Performed By: #### C BC #### [facility] [address] [place] [address] Dr. Jr Leiva Erythrocyte distribution width (RBC) [Ratio] 12.6 % Normal 11.0-15.0 [facility] Comment on above: Performed By: #### C BC #### [facility] [address] [address] [address] Jr Leiva Hematocrit (Bld) [Volume fraction] 40.6 % Critically low 42.0-54.0 [facility] Comment on above: Performed By: #### C BC #### [facility] [address] [place] [address] Dr. Jr Leiva Hemoglobin (Bld) [Mass/Vol] 13.1 g/dL Critically low 14.0-18.0 [facility] Comment on above: Performed By: #### C BC #### [facility] [address] [place] [address] Dr. Jr Leiva IG # 0.02 10e3/ul Normal 0.00-0.03 [facility] Comment on above: Performed By: #### C BC #### [facility] [address] [place] [address] Dr. Jr Leiva IG % 0.3 % Normal 0.0-0.5 [facility] Comment on above: Performed By: #### C BC #### [facility] [address] [place] [address] Dr. Jr Leiva LYMPH # 1.5 103/ul Normal 1.2-3.8 [facility] Comment on above: Performed By: #### C BC #### [facility] [address] [place] [address] Dr. Jr Leiva Lymphocytes/100 WBC (Bld) 20.3 % Critically low 20.5-60.0 [facility] Comment on above: Performed By: #### C BC #### [facility] [address] [place] [address] Dr. Jr Leiva MANUAL DIFF REQ NO Normal [facility] Comment on above: Performed By: #### C BC #### [facility] [address] [place] [address] Dr. Jr Leiva MCH (RBC) [Entitic mass] 29.3 pg Normal 25.9-34.0 [facility] Comment on above: Performed By: #### C BC #### [facility] [address] [place] [address] Dr. Jr Leiva MCHC (RBC) [Mass/Vol] 32.3 g/dL Normal 29.9-35.2 [facility] Comment on above: Performed By: #### C BC #### [facility] [address] [place] [address] Dr. Jr Leiva MCV (RBC) [Entitic vol] 90.8 fL Normal 80.0-94.0 [facility] Comment on above: Performed By: #### C BC #### [facility] [address] [address] [address] Jr Leiva MONO # 0.6 103/ul Normal 0.3-0.8 [facility] Comment on above: Performed By: #### C BC #### [facility] [address] [address] [address] Jr Leiva Monocytes/100 WBC (Bld) 8.4 % Normal 1.7-12.0 [facility] Comment on above: Performed By: #### C BC #### [facility] [address] [place] [address] Dr. Jr Leiva NEUT # 4.7 103/ul Normal 1.4-6.5 [facility] Comment on above: Performed By: #### C BC #### [facility] [address] [place] [address] Dr. Jr Leiva Neutrophils/100 WBC (Bld) 64.1 % Normal 43.0-75.0 [facility] Comment on above: Performed By: #### C BC #### [facility] [address] [place] [address] Dr. Jr Leiva Platelet mean volume (Bld) [Entitic vol] 8.8 fL Critically low 9.5-13.5 [facility] Comment on above: Performed By: #### C BC #### [facility] [address] [place] [address] Dr. Jr Leiva PLT 402 103/ul Normal 150-450 [facility] Comment on above: Performed By: #### C BC #### [facility] [address] [place], [place] [id number] Dr. Jr Leiva RBC 4.47 106/ul Critically low 4.70-6.10 [facility] Comment on above: Performed By: #### C BC #### [facility] [address] [place] [address] Dr. Jr Leiva WBC 7.4 103/ul Normal 4.0-11.0 [facility] Comment on above: Performed By: #### C BC #### [facility] [address] [address] [address] Jr Leiva FERRITINon 05-18-2022 Ferritin [Mass/Vol] 85.0 ng/mL Normal 26.0-388.0 [facility] Comment on above: Performed By: #### F ETIBC, FERR, VITB12 #### [facility] [address] [address] [address] Jr Leiva IRON AND TIBCon 05-18-2022 % SATURATION 27.2 % Normal [facility] Comment on above: Performed By: #### C BC #### [facility] [address] [place] [address] Dr. Jr Leiva Iron [Mass/Vol] 72.0 ug/dL Normal 65.0-175.0 [facility] Comment on above: Performed By: #### C BC #### [facility] [address] [place] [address] Dr. Jr Leiva TIB DIRECT 265.0 ug/dL Normal 250.0-450.0 [facility] Comment on above: Performed By: #### C BC #### [facility] [address] [place] [address] Dr. Jr Leiva TIBCon 05-18-2022 [facility] Other VITAMIN B12on 05-18-2022 Cobalamin (Vitamin B12) [Mass/Vol] 832.0 pg/mL Normal 193.0-986.0 [facility] Comment on above: Performed By: #### F ETIBC, FERR, VITB12 #### [facility] [address] [place] [address] Dr. Jr Leiva CBC AUTO DIFFon 01-30-2022 BASO # 0.1 103/ul Normal 0.0-0.1 [facility] Comment on above: Performed By: #### C BC #### [facility] [address] [place] [address] Dr. Jr Leiva Basophils/100 WBC (Bld) 0.9 % Normal 0.2-2.0 [facility] Comment on above: Performed By: #### C BC #### [facility] [address] [place] [address] Dr. Jr Leiva EO # 0.3 103/ul Normal 0.0-0.7 [facility] Comment on above: Performed By: #### C BC #### [facility] [address] [place] [address] Dr. Jr Leiva Eosinophils/100 WBC (Bld) 4.0 % Normal 0.9-7.0 [facility] Comment on above: Performed By: #### C BC #### [facility] [address] [place] [address] Dr. Jr Leiva Erythrocyte distribution width (RBC) [Ratio] 12.3 % Normal 11.0-15.0 [facility] Comment on above: Performed By: #### C BC #### [facility] [address] [place] [address] Dr. Jr Leiva Hematocrit (Bld) [Volume fraction] 38.0 % Critically low 42.0-54.0 [facility] Comment on above: Performed By: #### C BC #### [facility] [address] [place] [address] Dr. Jr Leiva Hemoglobin (Bld) [Mass/Vol] 12.5 g/dL Critically low 14.0-18.0 [facility] Comment on above: Performed By: #### C BC #### [facility] [address] [place] [address] Dr. Jr Leiva IG # 0.02 10e3/ul Normal 0.00-0.03 [facility] Comment on above: Performed By: #### C BC #### [facility] [address] [place] [address] Dr. Jr Leiva IG % 0.2 % Normal 0.0-0.5 [facility] Comment on above: Performed By: #### C BC #### [facility] [address] [place] [address] Dr. Jr Leiva LYMPH # 1.7 103/ul Normal 1.2-3.8 [facility] Comment on above: Performed By: #### C BC #### [facility] [address] [place] [address] Dr. Jr Leiva Lymphocytes/100 WBC (Bld) 19.9 % Critically low 20.5-60.0 [facility] Comment on above: Performed By: #### C BC #### [facility] [address] [place] [address] Dr. Jr Leiva MANUAL DIFF REQ NO Normal [facility] Comment on above: Performed By: #### C BC #### [facility] [address] [place] [address] Dr. Jr Leiva MCH (RBC) [Entitic mass] 29.6 pg Normal 25.9-34.0 [facility] Comment on above: Performed By: #### C BC #### [facility] [address] [place] [address] Dr. Jr Leiva MCHC (RBC) [Mass/Vol] 32.9 g/dL Normal 29.9-35.2 [facility] Comment on above: Performed By: #### C BC #### [facility] [address] [place] [address] Dr. Jr Leiva MCV (RBC) [Entitic vol] 89.8 fL Normal 80.0-94.0 [facility] Comment on above: Performed By: #### C BC #### [facility] [address] [place] [address] Dr. Jr Leiva MONO # 0.7 103/ul Normal 0.3-0.8 [facility] Comment on above: Performed By: #### C BC #### [facility] [address] [place] [address] Dr. Jr Leiva Monocytes/100 WBC (Bld) 7.7 % Normal 1.7-12.0 [facility] Comment on above: Performed By: #### C BC #### [facility] [address] [place] [address] Dr. Jr Leiva NEUT # 5.7 103/ul Normal 1.4-6.5 [facility] Comment on above: Performed By: #### C BC #### [facility] [address] [address] [address] Jr Leiva Neutrophils/100 WBC (Bld) 67.3 % Normal 43.0-75.0 [facility] Comment on above: Performed By: #### C BC #### [facility] [address] [place] [address] Dr. Jr Leiva Platelet mean volume (Bld) [Entitic vol] 9.1 fL Critically low 9.5-13.5 [facility] Comment on above: Performed By: #### C BC #### [facility] [address] [place] [address] Dr. Jr Leiva PLT 312 103/ul Normal 150-450 [facility] Comment on above: Performed By: #### C BC #### [facility] [address] [place] [address] Dr. Jr Leiva RBC 4.23 106/ul Critically low 4.70-6.10 [facility] Comment on above: Performed By: #### C BC #### [facility] [address] [place] [address] Dr. Jr Leiva WBC 8.5 103/ul Normal 4.0-11.0 [facility] Comment on above: Performed By: #### C BC #### [facility] [address] [place] [address] Dr. Jr Leiva CBC AUTO DIFFon 12-13-2021 BASO # 0.1 103/ul Normal 0.0-0.1 [facility] Comment on above: Performed By: #### C BC #### [facility] [address] [place] [address] Dr. Jr Leiva Basophils/100 WBC (Bld) 0.7 % Normal 0.2-2.0 [facility] Comment on above: Performed By: #### C BC #### [facility] [address] [place] [address] Dr. Jr Leiva EO # 0.4 103/ul Normal 0.0-0.7 [facility] Comment on above: Performed By: #### C BC #### [facility] [address] [place] [address] Dr. Jr Leiva Eosinophils/100 WBC (Bld) 4.1 % Normal 0.9-7.0 [facility] Comment on above: Performed By: #### C BC #### [facility] [address] [place] [address] Dr. Jr Leiva Erythrocyte distribution width (RBC) [Ratio] 12.5 % Normal 11.0-15.0 [facility] Comment on above: Performed By: #### C BC #### [facility] [address] [place] [address] Dr. Jr Leiva Hematocrit (Bld) [Volume fraction] 40.1 % Critically low 42.0-54.0 [facility] Comment on above: Performed By: #### C BC #### [facility] [address] [place] [address] Dr. Jr Leiva Hemoglobin (Bld) [Mass/Vol] 13.0 g/dL Critically low 14.0-18.0 [facility] Comment on above: Performed By: #### C BC #### [facility] [address] [place] [address] Dr. Jr Leiva IG # 0.03 10e3/ul Normal 0.00-0.03 [facility] Comment on above: Performed By: #### C BC #### [facility] [address] [place] [address] Dr. Jr Leiva IG % 0.3 % Normal 0.0-0.5 [facility] Comment on above: Performed By: #### C BC #### [facility] [address] [place] [address] Dr. Jr Leiva LYMPH # 1.7 103/ul Normal 1.2-3.8 [facility] Comment on above: Performed By: #### C BC #### [facility] [address] [place] [address] Dr. Jr Leiva Lymphocytes/100 WBC (Bld) 19.1 % Critically low 20.5-60.0 [facility] Comment on above: Performed By: #### C BC #### [facility] [address] [place] [address] Dr. Jr Leiva MANUAL DIFF REQ NO Normal [facility] Comment on above: Performed By: #### C BC #### [facility] [address] [place] [address] Dr. Jr Leiva MCH (RBC) [Entitic mass] 29.8 pg Normal 25.9-34.0 [facility] Comment on above: Performed By: #### C BC #### [facility] [address] [place] [address] Dr. Jr Leiva MCHC (RBC) [Mass/Vol] 32.4 g/dL Normal 29.9-35.2 [facility] Comment on above: Performed By: #### C BC #### [facility] [address] [place] [address] Dr. Jr Leiva MCV (RBC) [Entitic vol] 92.0 fL Normal 80.0-94.0 [facility] Comment on above: Performed By: #### C BC #### [facility] [address] [place] [address] Dr. Jr Leiva MONO # 0.7 103/ul Normal 0.3-0.8 [facility] Comment on above: Performed By: #### C BC #### [facility] [address] [place] [address] Dr. Jr Leiva Monocytes/100 WBC (Bld) 8.3 % Normal 1.7-12.0 [facility] Comment on above: Performed By: #### C BC #### [facility] [address] [place] [address] Dr. Jr Leiva NEUT # 5.9 103/ul Normal 1.4-6.5 [facility] Comment on above: Performed By: #### C BC #### [facility] [address] [place] [address] Dr. Jr Leiva Neutrophils/100 WBC (Bld) 67.5 % Normal 43.0-75.0 [facility] Comment on above: Performed By: #### C BC #### [facility] [address] [address] [address] Jr Leiva Platelet mean volume (Bld) [Entitic vol] 9.2 fL Critically low 9.5-13.5 [facility] Comment on above: Performed By: #### C BC #### [facility] [address] [address] [address] Jr Leiva PLT 377 103/ul Normal 150-450 [facility] Comment on above: Performed By: #### C BC #### [facility] [address] [address] [address] Jr Leiva RBC 4.36 106/ul Critically low 4.70-6.10 [facility] Comment on above: Performed By: #### C BC #### [facility] [address] [address] [address] Jr Leiva WBC 8.8 103/ul Normal 4.0-11.0 [facility] Comment on above: Performed By: #### C BC #### [facility] [address] [place] [address] Dr. Jr Leiva LIPID PROFILEon 12-13-2021 CHOL-HDL RATIO NORM SEE BELOW Normal [facility] Comment on above: Result Comment: 3.3 - 4.4 LOW RISK 4.4 - 7.1 AVERAGE RISK 7.1 - 11.0 MODERATE RISK >11.0 HIGH RISK Performed By: #### L IPID, CMP #### [facility] [address] [place] [address] Dr. Jr Leiva Cholesterol [Mass/Vol] 186 mg/dL Normal <=200 [facility] Comment on above: Performed By: #### L IPID, CMP #### [facility] [address] [address] [address] Jr Leiva Cholesterol in HDL [Mass/Vol] 36 mg/dL Critically low 40-60 [facility] Comment on above: Performed By: #### L IPID, CMP #### [facility] [address] [address] [address] Jr Leiva Cholesterol in LDL [Mass/Vol] 100.8 mg/dL Normal [facility] Comment on above: Performed By: #### L IPID, CMP #### [facility] [address] [address] [address] Jr Leiva Cholesterol.total/Cho lesterol in HDL [Mass ratio] 5.2 {ratio} Normal [facility] Comment on above: Performed By: #### L IPID, CMP #### [facility] [address] [address] [address] Jr Leiva HDL NORMAL > or = 60 mg/dl - LO W CARDIOVASCULAR RISK <40 mg/dl - HIGH CARDIOVASCULAR RISK Normal [facility] Comment on above: Performed By: #### L IPID, CMP #### [facility] [address] [address] [address] Jr Leiva LDL CALC NORMAL SEE BELOW Normal [facility] Comment on above: Result Comment: <100 mg/dl OPTIMAL 100 - 129 mg/dl NEAR OR ABOVE OPTIMAL 130 - 159 mg/dl BORDERLINE HIGH 160 - 189 mg/dl HIGH >190 mg/dl VERY HIGH Performed By: #### L IPID, CMP #### [facility] [address] [address] [address] Jr Leiva Triglyceride [Mass/Vol] 246 mg/dL Critically high <=150 [facility] Comment on above: Performed By: #### L IPID, CMP #### [facility] [address] [place] [address] Dr. Jr Leiva VLDL CALC 49.2 mg/dL Normal [facility] Comment on above: Performed By: #### L IPID, CMP #### [facility] [address] [address] [address] Jr Leiva PROF 14(COMP METB)on 022 Albumin [Mass/Vol] 3.6 g/dL Normal 3.4-5.0 [facility] Comment on above: Performed By: #### L IPID, CMP #### [facility] [address] [place] [address] Dr. Jr Leiva Albumin/Globulin [Mass ratio] 1.1 {ratio} Normal [facility] Comment on above: Performed By: #### L IPID, CMP #### [facility] [address] [address] [address] Jr Leiva ALP [Catalytic activity/Vol] 102 U/L Normal 46-116 [facility] Comment on above: Performed By: #### L IPID, CMP #### [facility] [address] [address] [address] Jr Leiva ALT [Catalytic activity/Vol] 26 U/L Normal 16-63 [facility] Comment on above: Performed By: #### L IPID, CMP #### [facility] [address] [address] [address] Jr Leiva Anion gap [Moles/Vol] 11.4 mmol/L Normal [facility] Comment on above: Performed By: #### L IPID, CMP #### [facility] [address] [place] [address] Dr. Jr Leiva AST [Catalytic activity/Vol] 12 U/L Critically low 15-37 [facility] Comment on above: Performed By: #### L IPID, CMP #### [facility] [address] [address] [address] Jr Leiva Bilirubin [Mass/Vol] 0.5 mg/dL Normal 0.2-1.0 [facility] Comment on above: Performed By: #### L IPID, CMP #### [facility] [address] [address] [address] Jr Leiva Calcium [Mass/Vol] 8.9 mg/dL Normal 8.5-10.1 [facility] Comment on above: Performed By: #### L IPID, CMP #### [facility] [address] [address] [address] Jr Leiva Chloride [Moles/Vol] 105 mmol/L Normal 98-107 [facility] Comment on above: Performed By: #### L IPID, CMP #### [facility] [address] [address] [address] Jr Leiva CO2 [Moles/Vol] 26.5 mmol/L Normal 21.0-32.0 [facility] Comment on above: Performed By: #### L IPID, CMP #### [facility] [address] [address] [address] Jr Leiva Creatinine [Mass/Vol] 1.10 mg/dL Normal 0.70-1.30 [facility] Comment on above: Performed By: #### L IPID, CMP #### [facility] [address] [address] [address] Jr Leiva EGFR-AF TANZANIAN >60 Normal >=60 [facility] Comment on above: Performed By: #### L IPID, CMP #### [facility] [address] [address] [address] Jr Leiva EGFR-NON AF TANZANIAN >60 Normal >=60 [facility] Comment on above: Performed By: #### L IPID, CMP #### [facility] [address] [address] [address] Jr Leiva Globulin (S) [Mass/Vol] 3.4 g/dL Normal [facility] Comment on above: Performed By: #### L IPID, CMP #### [facility] [address] [address] [address] Jr Leiva Glucose [Mass/Vol] 109 mg/dL Critically high 74-106 [facility] Comment on above: Performed By: #### L IPID, CMP #### [facility] [address] [address] [address] Jr Leiva Potassium [Moles/Vol] 3.9 mmol/L Normal 3.5-5.1 [facility] Comment on above: Performed By: #### L IPID, CMP #### [facility] [address] [address] [address] Jr Leiva Protein [Mass/Vol] 7.0 g/dL Normal 6.4-8.2 [facility] Comment on above: Performed By: #### L IPID, CMP #### [facility] [address] [address] [address] Jr Leiva Sodium [Moles/Vol] 139 mmol/L Normal 136-145 [facility] Comment on above: Performed By: #### L IPID, CMP #### [facility] [address] [place], [place] [address] Dr. Jr Leiva Urea nitrogen [Mass/Vol] 13.0 mg/dL Normal 7.0-18.0 [facility] Comment on above: Performed By: #### L IPID, CMP #### [facility] [address] [place], [place] [address] Dr. Jr Leiva Urea nitrogen/Creatinine [Mass ratio] 11.8 mg/mg Normal [facility] Comment on above: Performed By: #### L IPID, CMP #### [facility] [address] [place], [place] [address] Dr. Jr Leiva Blood Urea Nitrogenon 2021 Urea nitrogen [Mass/Vol] 15 mg/dL Normal - [facility] Comment on above: Performed By: #### C REAT, BUN #### [facility] [address] [place] [address] [place] Creatinineon 11-01-2021 Creatinine [Mass/Vol] 1.17 mg/dL Normal 0.64-1.27 [facility] Comment on above: Performed By: #### C REAT, BUN #### [facility] [address] [place] [address] [place] Creatinine Clr Calc Pharmacy 63.56 [facility] Comment on above: Result Comment: PERF ORMED BY: [place] [address] PATHOLOGIST MACHINE [employer]AYER MARY BURNETT M.D. Performed By: #### C REAT, BUN #### [facility] [address] Estimated GFR ( María > 60 [facility] Comment on above: Result Comment: GFR estimated reference range: According to KDOQI guidelines, <60 ml/min/1.73m2 is sufficient to diagnose a patient with chronic kidney disease. Performed By: #### C REAT, BUN #### [facility] [address] [place] [address] [place] Estimated GFR (Non- Am > 60 [facility] Comment on above: Performed By: #### C REAT, BUN #### [facility] [address] Creatinine and Glomerular fi ltration rate.predicted panel (S/P/Bld)Ordered By: Stuart Qureshi on 11-01-2021 Creatinine [Mass/Vol] 1.17 mg/dL 0.64-1.27 [facility] Estimated glomerular filtrat ion rate (GFR) non- AmericanOrdered By: Stuart Qureshi on 11-01-2021 GFR/1.73 sq M.predicted among non-blacks MDRD (S/P/Bld) [Vol rate/Area] > 60 mL/Min [facility] No Panel InformationOrdered By: Stuart Qureshi on 11-01-2021 Estimated GFR () > 60 mL/Min [facility] Comment on above: GFR estimated refere nce range: According to KDOQI guidelines, <60 ml/min/1.73m2 is sufficient to diagnose a patient with chronic kidney disease. Pharmacy Creatinine Clearance (Chem 63.56 [facility] Serum or plasma urea nitroge n measurement (mass/volume)Ordered By: Stuart Qureshi on 11-01-2021 Urea nitrogen [Mass/Vol] 15 mg/dL 9 [facility] CT LUNG CANCER SCREENINGon 0 10-19-2021 CT [...] by: KEESHA HARMON Date: 2021-10-19 17:22 Normal [facility] CT angio abd aorta runoffon 09-29-2021 CT angio abd aorta runoff [facility] [place] [address] [place] [address] CT Scan Report Signed Patient: Jean Santiago MR#: [id number] 72 : 1950 Acct:[id number] Age/Sex: 71 / M ADM Date: 09/29/21 Loc: CT Room: Type: [facility] Attending Dr: Stuart Qureshi MD Copies to: [...] Darlene Masters M.D.09/29/2021 2:40 PM Dictation Location: [place] [address] Transcribed By: [facility] 09/29/21 1440 Dictated By: Darlene Masters MD 09/29/21 1306 Signed By: 09/29/21 1440 [facility] Creatinine (Bld) [Mass/Vol]O rdered By: Stuart Qureshi on 09-29-2021 Creatinine [Mass/Vol] 1.0 mg/dL 0.6-1.3 [facility] Comment on above: ER/ESD physician is notified/shown all ISTAT results. Critical values may be confirmed by laboratory testing if deemed necessary by ER attending doctor. ISTAT XRay CREon 09-29-2021 Creatinine [Mass/Vol] 1.0 mg/dL Normal 0.6-1.3 [facility] Comment on above: Result Comment: ER/E SD physician is notified/shown all ISTAT results. Critical values may be confirmed by laboratory testing if deemed necessary by ER attending doctor. Performed By: #### I SCRE #### [address] Point of Care testing , ISTAT GFR ( > 60 Normal [facility] Comment on above: Result Comment: GFR estimated reference range: According to KDOQI guidelines, <60 ml/min/1.73m2 is sufficient to diagnose a patient with chronic kidney disease. PERFORMED BY: [place] [address] PATHOLOGIST MACHINE SPRAYER MARY BURNETT M.D. Performed By: #### I SCRE #### [address] Point of Care testing , ISTAT GFR (Non- Am > 60 Normal [facility] Comment on above: Performed By: #### I SCRE #### [facility] [address] [place] [address] Point of Care testing , No Panel InformationOrdered By: Stuart Qureshi on 09-29-2021 POC Estimated GFR > 60 [facility] Comment on above: GFR estimated refere nce range: According to KDOQI guidelines, <60 ml/min/1.73m2 is sufficient to diagnose a patient with chronic kidney disease. POC Estimated GFR Non- Amer > 60 [facility] CBC AUTO DIFFon 08-14-2021 BASO # 0.1 103/ul Normal 0.0-0.1 [facility] Comment on above: Performed By: #### C BC #### [facility] [address] [address] [address] Jr Leiva Basophils/100 WBC (Bld) 0.7 % Normal 0.2-2.0 [facility] Comment on above: Performed By: #### C BC #### [facility] [address] [place] [address] Dr. Jr Leiva EO # 0.4 103/ul Normal 0.0-0.7 [facility] Comment on above: Performed By: #### C BC #### [facility] [address] [place] [address] Dr. Jr Leiva Eosinophils/100 WBC (Bld) 4.5 % Normal 0.9-7.0 [facility] Comment on above: Performed By: #### C BC #### [facility] [address] [place] [address] Dr. Jr Leiva Erythrocyte distribution width (RBC) [Ratio] 12.6 % Normal 11.0-15.0 [facility] Comment on above: Performed By: #### C BC #### [facility] [address] [place] [address] Dr. Jr Leiva Hematocrit (Bld) [Volume fraction] 42.2 % Normal 42.0-54.0 [facility] Comment on above: Performed By: #### C BC #### [facility] [address] [place] [address] Dr. Jr Leiva Hemoglobin (Bld) [Mass/Vol] 13.6 g/dL Critically low 14.0-18.0 [facility] Comment on above: Performed By: #### C BC #### [facility] [address] [place] [address] Dr. Jr Leiva IG # 0.02 10e3/ul Normal 0.00-0.03 [facility] Comment on above: Performed By: #### C BC #### [facility] [address] [place] [address] Dr. Jr Leiva IG % 0.2 % Normal 0.0-0.5 [facility] Comment on above: Performed By: #### C BC #### [facility] [address] [place] [address] Dr. Jr Leiva LYMPH # 1.5 103/ul Normal 1.2-3.8 [facility] Comment on above: Performed By: #### C BC #### [facility] [address] [place] [address] Dr. Jr Leiva Lymphocytes/100 WBC (Bld) 18.4 % Critically low 20.5-60.0 [facility] Comment on above: Performed By: #### C BC #### [facility] [address] [place] [address] Dr. Jr Leiva MANUAL DIFF REQ NO Normal [facility] Comment on above: Performed By: #### C BC #### [facility] [address] [place] [address] Dr. Jr Leiva MCH (RBC) [Entitic mass] 29.4 pg Normal 25.9-34.0 [facility] Comment on above: Performed By: #### C BC #### [facility] [address] [place] [address] Dr. Jr Leiva MCHC (RBC) [Mass/Vol] 32.2 g/dL Normal 29.9-35.2 [facility] Comment on above: Performed By: #### C BC #### [facility] [address] [place] [address] Dr. Jr Leiva MCV (RBC) [Entitic vol] 91.1 fL Normal 80.0-94.0 [facility] Comment on above: Performed By: #### C BC #### [facility] [address] [place] [address] Dr. Jr Leiva MONO # 0.8 103/ul Normal 0.3-0.8 [facility] Comment on above: Performed By: #### C BC #### [facility] [address] [place] [address] Dr. Jr Leiva Monocytes/100 WBC (Bld) 9.2 % Normal 1.7-12.0 [facility] Comment on above: Performed By: #### C BC #### [facility] [address] [place] [address] Dr. Jr Leiva NEUT # 5.4 103/ul Normal 1.4-6.5 [facility] Comment on above: Performed By: #### C BC #### [facility] [address] [address] [address] Jr Leiva Neutrophils/100 WBC (Bld) 67.0 % Normal 43.0-75.0 [facility] Comment on above: Performed By: #### C BC #### [facility] [address] [address] [address] Jr Leiva Platelet mean volume (Bld) [Entitic vol] 8.9 fL Critically low 9.5-13.5 [facility] Comment on above: Performed By: #### C BC #### [facility] [address] [place] [address] Dr. Jr Leiva PLT 330 103/ul Normal 150-450 [facility] Comment on above: Performed By: #### C BC #### [facility] [address] [place] [address] Dr. Jr Leiva RBC 4.63 106/ul Critically low 4.70-6.10 [facility] Comment on above: Performed By: #### C BC #### [facility] [address] [place] [address] Dr. Jr Leiva WBC 8.1 103/ul Normal 4.0-11.0 [facility] Comment on above: Performed By: #### C BC #### [facility] [address] [place] [address] Dr. Jr Leiva PROF CHEM 8 (BAS METB)on Anion gap [Moles/Vol] 13.7 mmol/L Normal [facility] Comment on above: Performed By: #### B MP #### [facility] [address] [place] [address] Dr. Jr Leiva Calcium [Mass/Vol] 9.0 mg/dL Normal 8.5-10.1 [facility] Comment on above: Performed By: #### B MP #### [facility] [address] [place] [address] Dr. Jr Leiva Chloride [Moles/Vol] 104 mmol/L Normal 98-107 [facility] Comment on above: Performed By: #### B MP #### [facility] [address] [address] [address] Jr Leiva CO2 [Moles/Vol] 24.9 mmol/L Normal 21.0-32.0 [facility] Comment on above: Performed By: #### B MP #### [facility] [address] [address] [address] Jr Leiva Creatinine [Mass/Vol] 1.15 mg/dL Normal 0.70-1.30 [facility] Comment on above: Performed By: #### B MP #### [facility] [address] [address] [address] Jr Leiva EGFR-AF TANZANIAN >60 Normal >=60 [facility] Comment on above: Performed By: #### B MP #### [facility] [address] [address] [address] Jr Leiva EGFR-NON AF TANZANIAN >60 Normal >=60 [facility] Comment on above: Performed By: #### B MP #### [facility] [address] [address] [address] Jr Leiva Glucose [Mass/Vol] 111 mg/dL Critically high 74-106 [facility] Comment on above: Performed By: #### B MP #### [facility] [address] [address] [address] Jr Leiva Potassium [Moles/Vol] 4.6 mmol/L Normal 3.5-5.1 [facility] Comment on above: Performed By: #### B MP #### [facility] [address] [address] [address] Jr Leiva Sodium [Moles/Vol] 138 mmol/L Normal 136-145 [facility] Comment on above: Performed By: #### B MP #### [facility] [address] [address] [address] Jr Leiva Urea nitrogen [Mass/Vol] 17.0 mg/dL Normal 7.0-18.0 [facility] Comment on above: Performed By: #### B MP #### [facility] [address] [address] [address] Jr Leiva Urea nitrogen/Creatinine [Mass ratio] 14.8 mg/mg Normal [facility] Comment on above: Performed By: #### B MP #### [facility] [address] [address] [address] Jr Leiva PROTIMEon 08-14-2021 INR Coag (PPP) [Relative time] 0.94 {INR} Normal [facility] Comment on above: Performed By: #### C BC #### [facility] [address] [place] [address] Dr. Jr Leiva INR GUIDELINES SEE BELOW Normal [facility] Comment on above: Result Comment: ANANTH RED INR: 2.0 - 3.0 CONDITIONS NOT LISTED BELOW 2.5 - 3.5 FOR PROSTHETIC HEART VALVE REPLACEMENT 2.5 - 3.5 RECURRENT THROMBOSIS Performed By: #### C BC #### [facility] [address] [place] [address] Dr. Jr Leiva PT Coag (PPP) [Time] 10.2 s Normal 9.0-11.6 [facility] Comment on above: Performed By: #### C BC #### [facility] [address] [place] [address] Dr. Jr Leiva PTTon 08-14-2021 aPTT Coag (Bld) [Time] 28.8 s Normal 22.3-36.2 [facility] Comment on above: Performed By: #### C BC #### [facility] [address] [place] [address] Dr. Jr Leiva Creatinine (Bld) [Mass/Vol]O rdered By: Saqib Saba on 08-07-2021 Creatinine [Mass/Vol] 1.0 mg/dL 0.6-1.3 [facility] Comment on above: ER/ESD physician is notified/shown all ISTAT results. Critical values may be confirmed by laboratory testing if deemed necessary by ER attending doctor. ISTAT XRay CREon 08-07-2021 Creatinine [Mass/Vol] 1.0 mg/dL Normal 0.6-1.3 [facility] Comment on above: Result Comment: ER/E SD physician is notified/shown all ISTAT results. Critical values may be confirmed by laboratory testing if deemed necessary by ER attending doctor. Performed By: #### I SCRE #### [address] Point of Care testing , ISTAT GFR ( > 60 Normal [facility] Comment on above: Result Comment: GFR estimated reference range: According to KDOQI guidelines, <60 ml/min/1.73m2 is sufficient to diagnose a patient with chronic kidney disease. PERFORMED BY: [place] [address] PATHOLOGIST MACHINE SPRAYER MARY BURNETT M.D. Performed By: #### I SCRE #### [address] Point of Care testing , ISTAT GFR (Non- Am > 60 Normal [facility] Comment on above: Performed By: #### I SCRE #### [address] Point of Care testing , MR prostate wo/w conon 08-07 MR prostate wo/w con [facility] [place] [address] MRI Report Signed Patient: Jean Santiago MR#: [id number] 72 : 1950 Acct:[id number] Age/Sex: 71 / M ADM Date: 08/07/21 Loc: Room: Type: [facility] Attending Dr: Saqib Saba MD Ordering Provider: [...] BPH. Impression dictated by: Freddie Garcia Jr., Kristine08/07/2021 2:47 PM Dictation Location: [place] [address] Transcribed By: [facility] 08/07/21 1447 Dictated By: Freddie Garcia Jr, DO 08/07/21 1404 Signed By: 08/07/21 1447 Normal [facility] No Panel InformationOrdered By: Saqib Saba on 08-07-2021 POC Estimated GFR > 60 [facility] Comment on above: GFR estimated refere nce range: According to KDOQI guidelines, <60 ml/min/1.73m2 is sufficient to diagnose a patient with chronic kidney disease. POC Estimated GFR Non- Amer > 60 [facility] XR TSPINE 2 VIEWSon 07-25-19 XR TSPINE [...] by: KEESHA HARMON Date: 2021-07-24 10:39 Normal [facility] ALLIED HEALTHon 07-07-2020 ALLIED HEALTH HNO ID: [id number] Author: Georgina GonzalezRtDesire Garcia Service: Radiology Author Type: [employer] Specialist Type: Allied Health Filed: 07/07/2020 9:37 AM [...] Mau July 07, 2020 9:37 AM Normal [facility] MRI PROSTATE WO/W IVCONon MRI PROSTATE WO/W IVCON * * *Final Report* * * DATE OF EXAM: Jul 07 2020 10:22AM [facility] 0751 - MRI PROSTATE WO/W IVCON / [...] volume were obtained using a semi-automated software ([employer]). CONTRAST: IV: 18 cc of (Dotare[employer]). RESULT: [...] LESIONS TO SUGGEST CLINICALLY SIGNIFICANT DISEASE. NO DON OR OSSEOUS METASTATIC DISEASE. Number of targets [...] 5: Clinically significant cancer is highly likely [employer]: STEVE Transcribe Date/Time: Jul 07 2020 11:26A Dictated by : GIRMA BROTHERS, DO This examination was interpreted and the report reviewed and electronically signed by: FREDDIE WILLSON MD on Jul 07 2020 2:53PM EST [id number] [facility] NURSING PROGon 07-07-2020 NURSING PROG HNO ID: [id number] Author: Caden Stephens (Rn) [facility] [place] [...] DATE: July 07, 2020 TIME: 9:02 AM [facility] Otheron 07-07-2020 [facility] Vital Signs Date Time Vital Sign Value Performing Clinician Facility 07-12-2023 08:49-0400 Blood Pressure Location Saqib SABA [facility] 07-12-2023 08:49-0400 Diastolic blood pressure 71 mm[Hg] Saqib SABA [facility] 07-12-2023 08:49-0400 Heart rate 67 /min Saqib SABA [facility] 07-12-2023 08:49-0400 Respiratory rate 16 /min Saqib SABA [facility] 07-12-2023 08:49-0400 Systolic blood pressure 136 mm[Hg] Saqib SABA [facility] 06-03-2023 12:33-0400 Body height 181.9 cm Sapphire Mcallister MD Work Phone: [email or web address] 06-03-2023 12:33-0400 Body mass index (BMI) [Ratio] 28.39 kg/m2 Sapphire Mcallister MD Work Phone: [email or web address] 06-03-2023 12:33-0400 Body weight 93.89 kg Sapphire Mcallister MD Work Phone: [email or web address] 12-14-2022 10:30-0400 Body height 182.88 cm Marshall Ball Other [facility] Other 12-14-2022 10:30-0400 Body mass index (BMI) [Ratio] 26.69 kg/m2 Marshall Ball Other [facility] Other 12-14-2022 10:30-0400 Body weight 89.27 kg Marshall Ball Other [facility] Other 12-14-2022 10:30-0400 Diastolic blood pressure 72 mm[Hg] Marshall Ball Other [facility] Other 12-14-2022 10:30-0400 Respiratory rate 12 /min Marshall Ball Other [facility] Other 12-14-2022 10:30-0400 Systolic blood pressure 133 mm[Hg] Marshall Ball Other [facility] Other 05-28-2022 09:30-0500 Body height 182.88 cm Marshall Ball Other [facility] Other 05-28-2022 09:30-0500 Body mass index (BMI) [Ratio] 28.72 kg/m2 Marshall Ball Other [facility] [employer] Other 05-28-2022 09:30-0500 Body weight 96.07 kg Marshall Ball Other [facility] Other 05-28-2022 09:30-0500 Diastolic blood pressure 70 mm[Hg] Marshall Ball Other [facility] [employer] Other 05-28-2022 09:30-0500 Respiratory rate 12 /min Marshall Ball Other [facility] [employer] Other 05-28-2022 09:30-0500 Systolic blood pressure 122 mm[Hg] Marshall Ball Other [facility] [employer] Other 11-01-2021 11:00-0400 Diastolic blood pressure 73 mm[Hg] DO Marshall Ball Work Phone: [facility] 11-01-2021 11:00-0400 Heart rate 61 /min DO Marshall Ball Work Phone: [facility] 11-01-2021 11:00-0400 Respiratory rate 16 /min DO Marshall Ball Work Phone: [facility] 11-01-2021 11:00-0400 SaO2% (BldA) [Mass fraction] 96 % DO Marshall Ball Work Phone: [facility] 11-01-2021 11:00-0400 Systolic blood pressure 157 mm[Hg] DO Marshall Ball Work Phone: [facility] 11-01-2021 07:37-0400 Body height 182.88 cm DO Marshall Ball Work Phone: [facility] 11-01-2021 07:37-0400 Body weight 92.07 kg DO Marshall Ball Work Phone: [facility] 10-23-2021 10:15-0400 Body height 182.88 cm Stuart Buehrer Other [facility] Other 10-23-2021 10:15-0400 Body mass index (BMI) [Ratio] 27.12 kg/m2 Stuart Buehrer Other [facility] Other 10-23-2021 10:15-0400 Body temperature 97.3 [degF] Stuart Buehrer Other [facility] Other 10-23-2021 10:15-0400 Body weight 90.72 kg Stuart Buehrer Other [facility] Other 10-23-2021 10:15-0400 Diastolic blood pressure 58 mm[Hg] Stuart Buehrer Other [facility] Other 10-23-2021 10:15-0400 SaO2% (BldA) [Mass fraction] 97 % Stuart Buehrer Other [facility] Other 10-23-2021 10:15-0400 Systolic blood pressure 126 mm[Hg] Stuart Buehrer Other [facility] Other 09-18-2021 11:30-0400 Body height 182.88 cm Stuart Buehrer Other [facility] Other 09-18-2021 11:30-0400 Body mass index (BMI) [Ratio] 27.12 kg/m2 Stuart Buehrer Other [facility] Other 09-18-2021 11:30-0400 Body temperature 97.2 [degF] Stuart Buehrer Other [facility] Other 09-18-2021 11:30-0400 Body weight 90.72 kg Stuart Qureshi Other [facility] Other 09-18-2021 11:30-0400 Diastolic blood pressure 70 mm[Hg] Stuart Qureshi Other [facility] Other 09-18-2021 11:30-0400 SaO2% (BldA) [Mass fraction] 96 % Stuart Qureshi Other [facility] Other 09-18-2021 11:30-0400 Systolic blood pressure 160 mm[Hg] Stuart Qureshi Other [facility] Other 08-07-2021 09:50-0400 Body weight 94.34 kg DO Marshall Ball Work Phone: [facility] 08-07-2021 09:50-0400 Diastolic blood pressure 72 mm[Hg] DO Marshall Ball Work Phone: [facility] 08-07-2021 09:50-0400 Heart rate 66 /min DO Marshall Ball Work Phone: [facility] 08-07-2021 09:50-0400 Respiratory rate 16 /min DO Marshall Ball Work Phone: [facility] 08-07-2021 09:50-0400 SaO2% (BldA) [Mass fraction] 98 % DO Marshall Ball Work Phone: [facility] 08-07-2021 09:50-0400 Systolic blood pressure 201 mm[Hg] DO Marshall Ball Work Phone: [facility] 08-07-2021 09:36-0400 Body height 182.88 cm DO Marshall Ball Work Phone: [phone] [place] [address] 07-14-2021 08:13-0400 Blood Pressure Location Saqib SABA [facility] 07-14-2021 08:13-0400 Diastolic blood pressure 89 mm[Hg] Saqib SABA [facility] 07-14-2021 08:13-0400 Heart rate 68 /min Saqib SABA [facility] 07-14-2021 08:13-0400 Respiratory rate 16 /min Saqib SABA [facility] 07-14-2021 08:13-0400 Systolic blood pressure 138 mm[Hg] Saqib SABA [facility] Encounters Encounter Date Encounter Type Care Provider Facility Start: 07-10-2024 ambulatory Saqib SABA Facili ty:[facility] Start: 09-16-2023 End: 09-16-2023 ambulatory SAPPHIRE MCALLISTER [facility] Start: 07-12-2023 End: 07-13-2023 ambulatory Saqib SABA Facility:[facility] Start: 07-12-2023 End: 07-12-2023 Patient encounter procedure Saqib SABA [facility] Start: 06-03-2023 End: 06-03-2023 Office outpatient visit 15 minutes Sapphire Mcallister MD Work Phone: [facility] Comment on above: 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 Dx) Start: 06-03-2023 End: 06-03-2023 ambulatory SAPPHIRE Wills [facility] Start: 03-26-2023 End: 03-26-2023 ambulatory Marshall Ball Other [facility] Other Start: 03-26-2023 Telephone encounter Marshall Zaman [facility] Start: 03-20-2023 End: 03-20-2023 ambulatory Marshall Ball Other [facility] Other Start: 03-20-2023 Telephone encounter Marshall Ball [facility] Start: 01-10-2023 End: 01-10-2023 ambulatory Marshall Ball Other [facility] Other Start: 01-10-2023 Telephone encounter Marshall Ball [facility] Start: 12-31-2022 End: 01-01-2023 ambulatory Saqib SABA Facility:[facility] Start: 12-14-2022 End: 12-14-2022 ambulatory Marshall Zaman Other [facility] Other Start: 12-14-2022 Patient encounter procedure Marshall Austyn [facility] Start: 12-05-2022 End: 12-05-2022 ambulatory Marshall Ball Other [facility] Other Start: 12-05-2022 Telephone encounter Marshall Ball [facility] Start: 11-29-2022 End: 11-29-2022 ambulatory Marshall Ball Other [facility] Other Start: 11-29-2022 Telephone encounter Marshall Ball [facility] Start: 11-28-2022 End: 11-28-2022 ambulatory Marshall Ball Other [facility] Other Start: 11-28-2022 Telephone encounter Marshall Ball [facility] Start: 11-13-2022 End: 11-13-2022 ambulatory Marshall Ball Other [facility] Other Start: 11-13-2022 Telephone encounter Marshall Zaman [facility] Start: 09-24-2022 End: 09-24-2022 ambulatory Marshall Zaman Other [facility] Other Start: 09-24-2022 Telephone encounter Marshall Zaman ANNA [facility] Start: 05-28-2022 End: 05-28-2022 ambulatory Marshall Zaman Other [facility] Other Start: 05-28-2022 Office outpatient vi sit 25 minutes Marshall Zaman [facility] Start: 05-18-2022 End: 05-19-[address] MARSHALL ZAMAN Facility:[facility] Start: 05-04-2022 End: 05-04-2022 ambulatory Marshall Zaman Other [facility] Other Start: 05-04-2022 Telephone encounter Marshall Zaman ANNA [facility] Start: 01-30-2022 End: 01-31-[address] DOCTOR WEST Facility:[facility] Start: 12-14-2021 Encounter for genera l adult medical examination without abnormal findings DR MARSHALL ZAMNA [facility] Start: 12-13-2021 Adult health examination Robert Zaman Other [facility] Other Start: 12-13-2021 End: 12-14-[address] MARSHALL ZAMAN Facility:[facility] Start: 12-13-2021 End: 12-14-2021 Encounter for general adult medical examination without abnormal findings DR MARSHALL ZAMAN Facility:[facility] Start: 11-01-2021 End: 11-01-2021 Admission to same day surgery center DO Marshall Zaman Work Phone: [facility] Start: 10-23-2021 End: 10-23-2021 ambulatory Stuart Qureshi Other [facility] Other Start: 10-23-2021 Office outpatient vi sit 25 minutes Stuart Qureshi [facility] Vascular Surgery Start: 10-19-2021 End: 10-20-[address] MARSHALL ZAMAN Facility:[facility] Start: 09-29-2021 End: 09-29-2021 Patient encounter procedure DO Marshall Zaman Work Phone: [facility]-CT Scan [place] Start: 09-27-2021 End: 09-28-2021 ambulatory KIARA SOLOMON . Facility:H1 Start: 09-18-2021 End: 09-18-2021 ambulatory Stuart Qureshi Other [facility] [employer] Other Start: 09-18-2021 Office outpatient vi sit 25 minutes Stuart Qureshi [facility] Vascular Surgery Start: 08-25-2021 End: 08-26-2021 ambulatory KIARA SOLOMON . Facility:H1 Start: 08-17-2021 Encounter for preprocedural cardiovascular examination DR SAQIB SABA . [facility] Start: 08-17-2021 Encounter for preprocedural laboratory examination DR SAQIB SABA . [facility] Start: 08-17-2021 End: 08-17-[address] SAQIB SABA . Facility:[facility]1 Start: 08-14-2021 End: 08-15-[address] MARSHALL ZAMAN Facility:[facility]1 Start: 08-14-2021 End: 08-15-2021 Encounter for preprocedural cardiovascular examination DR MARSHALL ZAMAN Facility:[facility]1 Start: 08-07-2021 End: 08-07-2021 Patient encounter procedure DO Marshall Zaman Work Phone: [facility]-MRI [place] Start: 07-24-2021 End: 07-25-[address] MARSHALL ZAMAN Facility:[facility]1 Start: 07-14-2021 End: 07-14-2021 Patient encounter procedure Saqib SABA [facility] Start: 07-03-2021 End: 07-04-[address] MARSHALL ZAMAN Facility:H1 Start: 07-07-2020 End: 07-07-2020 Subsequent hospital visit by physician [facility] 2 (I-Stat/3t) Work Phone: Radiology Comment on above: Benign prostatic hyp erplasia without lower urinary tract symptoms [N40.0] Procedures Date Procedure Procedure Detail Performing Clinician Start: 06-03-2023 Arthrocentesis aspir &/inj major jt/bursa w/o us Sapphire Mcallister MD Work Phone: Start: 06-03-2023 Follow-up visit Follow-up SAPPHIRE MCALLISTER Start: 11-01-2021 Abdominal aortogram DO Marshall Zaman Work Phone: Start: 09-29-2021 CT of abdominal aort a with contrast DO Marshall Zaman Work Phone: Start: 08-17-2021 MRI-US fusion guided transperineal biopsy of prostate Saqib SABA Start: 08-07-2021 MR prostate wo/w con DO Marshall Zaman Work Phone: Start: 07-03-[address] DOCTOR WEST Comment on above: Performed By: #### P SAD #### [facility] [address] [place] [address] Dr. Jr Leiva Start: 07-07-2020 Mri pelvis w/o & w/c ontrast material [facility] Provider Start: 07-05-2018 End: 08-11-2019 Screening for malignant neoplasm of colon Marshall Zaman Other Start: 07-02-2017 End: 08-11-2019 Diabetes mellitus screening Marshall Shen chelsy Other Start: 07-02-2017 End: 08-11-2019 Hyperlipidemia screening Marshall Zaman Other Start: 10-21-2012 Transrectal biopsy o f prostate using ultrasound guidance Saqib SABA Depression screening Collin Zaman Other Extraction of cataract Adwoadanyel christiane SABA Hernia repair Saqib SABA Reconstruction of artery Pat leonel SABA Repair of musculoten dinous cuff of shoulder Saqib SABA Plan of Treatment Date Care Activity Detail Author Start: 06-02-2024 Adult BMI Screening Adult BMI Screening [facility] Start: 02-12-2024 Tobacco Screening Tobacco Screening [facility] Start: 09-16-2023 End: 09-16-2023 Patient encounter procedure 09/16/2023 9:40 AM EDT Office Visit [facility] [address] [place] [phone] Sapphire Mcallister MD [address] [place] [id number] [facility] Start: 11-23-2022 Influenza vaccination Influenza Vaccine [facility] Start: 11-01-2021 End: 11-01-2021 [facility] Work Phone: Start: 11-23-2020 Influenza vaccination INFLUENZA (Season Ended) [facility] Start: 06-26-2015 ADVANCE DIRECTIVE DISCUSSION ADVANCE DIRECTIVE DISCUSSION [facility] Start: 06-26-2015 Fall Risk Screening Fall Risk Screening [facility] Start: 06-26-2015 PNEUMOVAX AGE 65 AND OVER WITH 5YR LOOKBACK (#1) PNEUMOVAX AGE 65 AND OVER WITH 5YR LOOKBACK (#1) [facility] Start: 2000 Screening for malignant neoplasm of colon [facility] Start: 2000 SHINGRIX VACCINE (1 of 2) SHINGRIX VACCINE (1 of 2) [facility] Start: 06-26-1995 DIABETES SCREEN DIABETES SCREEN [facility] Start: 1985 LIPID SCREEN LIPID SCREEN [facility] Start: 1969 DTaP,Tdap and Td Vaccines (1 - Tdap) DTaP,Tdap and Td Vaccines (1 - Tdap) [facility] Start: 1969 Urine microalbumin profile DTAP,TDAP,TD (1 - Tdap) [facility] Start: 1968 Adult BMI Follow Up Plan Adult BMI Follow Up Plan [facility] Start: 1968 HEPATITIS C SCREENING HEPATITIS C SCREENING [facility] Start: 1962 Adult depression screening assessment DEPRESSION SCREENING [facility] Start: 1950 Medicare Annual Wellness Visit Medicare Annual Wellness Visit [facility] Patient Education Arteriogram (DC) [facility] Work Phone: Patient referral [facility] Work Phone: Immunizations Immunization Date Immunization Notes Care Provider [facility] 02-13-2023 zoster vaccine recombinant Saqib SABA [facility] 12-14-2022 influenza, high dose seasonal, preservative-free Marshall Zaman Other [facility] Other 11-12-2022 zoster vaccine recombinant Saqibleonel SABA [facility] 08-02-2022 SARS-CoV-2 (COVID-19 ) mRNAMUL.ORD![id number] Saqib SABA [facility] 12-13-2021 influenza virus vaccine, split virus (incl. purified surface antigen) Marshall Zaman Other [facility] Other 12-13-2021 influenza virus vaccine, unspecified formulation Sapphire Mcallister MD Work Phone: [facility] 12-06-2021 SARS-CoV-2 (COVID-19 ) mRNAMUL.ORD![id number] Saqib SABA [facility] 01-13-2021 influenza virus vaccine, split virus (incl. purified surface antigen) Marshall Zaman Other [facility] Other 12-30-2020 COVID-19 mRNA, Comirnaty (Pfizer) DO Marshall Zaman Work Phone: [facility] Comment on above: Result Comment: 2023: [id number] 03-08-2021 SARS-CoV-2 (COVID-19 ) mRNA BNT-162b2 vax Saqib SABA [facility] 05-27-2020 COVID-19 mRNA, Comirnaty (Pfizer) DO Marshall Zaman Work Phone: [facility] 05-06-2020 SARS-CoV-2 (COVID-19 ) mRNA BNT-162b2 vax Saqib SABA [facility] 04-26-2020 COVID-19 mRNA, Comirnaty (Pfizer) DO Marshall Zaman Work Phone: [facility] 01-11-2020 influenza virus vaccine, unspecified formulation Saqib [employer] [facility] 11-26-2019 influenza virus vaccine, split virus (incl. purified surface antigen) Marshall Zaman Other [facility] Other 11-22-2018 influenza virus vaccine, unspecified formulation Saqib [employer] [facility] 07-04-2018 pneumococcal polysaccharide vaccine, 23 valent Marshall Zaman Other [facility] 01-22-2018 influenza virus vaccine, unspecified formulation Saqib SABA [facility] 07-02-2017 pneumococcal conjuga te vaccine, 13 valent Marshall Zaman Other [facility] 07-02-2017 pneumococcal Conjuga te, unspecified formulation; Translations: [Need for prophylactic vaccination against Streptococcus pneumoniae (pneumococcus)] Marshall Zaman Other [facility] Other 04-16-2017 influenza virus vaccine, split virus (incl. purified surface antigen) Marshall Zaman Other [facility] Other 04-16-2017 influenza virus vaccine, unspecified formulation Saqib SABA [facility] 01-16-2014 influenza virus vaccine, unspecified formulation Saqib SABA [facility] Payers Date Payer Category Payer Medicare ANTHEM MEDICARE ANTHEM MEDICARE ADVANTAGE [id number] 2017-Present [phone] [address] [place] [address] [id number] 2017 Unknown ANTHEM BLUE CROS S AND BLUE SHIELD ANTHEM MEDIBLUE ACCESS [id number] 2017-Present PPO [id number] 1959 Medicare [id number] 1950 Unknown [id number] 1950 Unknown [id number] .[id number] 1950 Unknown [id number] .[id number] 1950 Unknown [id number] 2.16.840.1.309500.3.579.2.593 1950 Unknown [id number] .16.840.1.745355.3.579.2.593 1950 Unknown [id number] 2.16.840.1.055539.3.579.2.593 1950 Unknown [id number] 2.16.840.1.111796.3.579.2.593 1950 Unknown [id number] 2.16.840.1.217492.3.579.2.593 1950 Unknown [id number] 2.16.840.1.256370.3.579.2.593 1950 Unknown [id number] 2.16.840.1.435347.3.579.2.593 1950 Unknown [id number] 2.16.840.1.001342.3.579.2.727 1950 Unknown [id number] 2.16.840.1.812827.3.579.2.727 1950 Unknown [id number] 2.16.840.1.727587.3.579.2.727 1950 Unknown [id number] 2.16.840.1.545780.3.579.2.128 6 1950 Unknown [id number] 2.16.840.1.391903.3.579.2.128 6 1950 Unknown [id number] 2.16.840.1.670775.3.579.2.128 6 1950 Unknown [id number] 2.16.840.1.745017.3.579.2.128 6 Self-pay Self Pay [id number] Social History Date Type Detail Facility [facility] Start: 1950 Sex Assigned At Not on file [facility] Exposure to SARS-CoV -2 (event) Not sure [facility] Start: 10-23-2019 End: 07-12-2023 Tobacco smoking status Ex-smoker (finding) [facility] Start: 02-11-2023 End: 06-03-2023 Sex Assigned At Male [facility] Start: 1950 Sex Assigned At Male [facility] History of tobacco use Current smoker [facility] History of tobacco use Cigarette Smoker [facility] Start: 07-16-2022 Tobacco use and exposure Smokeless tobacco non-user [facility] Start: 06-03-2023 Alcohol intake Ex-drinker (finding) [email or web address] Start: 02-11-2023 End: 06-03-2023 History of Social function [facility] [employer] [facility] Functional Status Date Assessment Result Facility 07-12-2023 Functional Status N/A [facility] Clinical Notes 07-14-2021 to 07-12-2023 Sapphire Mcallister MD - 06/03/2023 12:40 PM EDT Note Date & Type Note Facility 07-12-2023 Hospital Discharge instructions Patient Education 07/12/2023 09:35:33 Prostate Cancer Screening Prostate Cancer Screening Prostate cancer screening is testing that is done to check for the presence of prostate cancer in men. The prostate gland is a walnut-sized gland that is located below the bladder and in front of the rectum in males. The function of the prostate is to add fluid to semen during ejaculation. Prostate cancer is one of the most common types of cancer in men. Who should have prostate cancer screening? Screening recommendations vary based on age and other risk factors, as well as between the professional organizations who make the recommendations. In general, screening is recommended if: You are age 50 to 70 and have an average risk for prostate cancer. You should talk with your health care provider about your need for screening and how often screening should be done. Because most prostate cancers are slow growing and will not cause , screening in this age group is generally reserved for men who have a 10- to 15-year life expectancy. You are younger than age 50, and you have these risk factors: ?Having a father, brother, or uncle who has been diagnosed with prostate cancer. The risk is higher if your family member's cancer occurred at an early age or if you have multiple family members with prostate cancer at an early age. ?Being a male who is Black or is of [place] or sub-Saharan descent. In general, screening is not recommended if: You are younger than age 40. You are between the ages of 40 and 49 and you have no risk factors. You are 70 years of age or older. At this age, the risks that screening can cause are greater than the benefits that it may provide. If you are at high risk for prostate cancer, your health care provider may recommend that you have screenings more often or that you start screening at a younger age. How is screening for prostate cancer done? The recommended prostate cancer screening test is a blood test called the prostate-specific antigen (PSA) test. PSA is a protein that is made in the prostate. As you age, your prostate naturally produces more PSA. Abnormally high PSA levels may be caused by: Prostate cancer. An enlarged prostate that is not caused by cancer (benign prostatic hyperplasia, or BPH). This condition is very common in older men. A prostate gland infection (prostatitis) or urinary tract infection. Certain medicines such as male hormones (like testosterone) or other medicines that raise testosterone levels. A rectal exam may be done as part of prostate cancer screening to help provide information about the size of your prostate gland. When a rectal exam is performed, it should be done after the PSA level is drawn to avoid any effect on the results. Depending on the PSA results, you may need more tests, such as: A physical exam to check the size of your prostate gland, if not done as part of screening. Blood and imaging tests. A procedure to remove tissue samples from your prostate gland for testing (biopsy). This is the only way to know for certain if you have prostate cancer. What are the benefits of prostate cancer screening? Screening can help to identify cancer at an early stage, before symptoms start and when the cancer can be treated more easily. There is a small chance that screening may lower your risk of dying from prostate cancer. The chance is small because prostate cancer is a slow-growing cancer, and most men with prostate cancer from a different cause. What are the risks of prostate cancer screening? The main risk of prostate cancer screening is diagnosing and treating prostate cancer that would never have caused any symptoms or problems. This is called overdiagnosisand overtreatment. PSA screening cannot tell you if your PSA is high due to cancer or a different cause. A prostate biopsy is the only procedure to diagnose prostate cancer. Even the results of a biopsy may not tell you if your cancer needs to be treated. Slow-growing prostate cancer may not need any treatment other than monitoring, so diagnosing and treating it may cause unnecessary stress or other side effects. Questions to ask your health care provider When should I start prostate cancer screening? What is my risk for prostate cancer? How often do I need screening? What type of screening tests do I need? How do I get my test results? What do my results mean? Do I need treatment? Where to find more information The [employer]: www.cancer.org [employer]: www.auanet.org Contact a health care provider if: You have difficulty urinating. You have pain when you urinate or ejaculate. You have blood in your urine or semen. You have pain in your back or in the area of your prostate. Summary Prostate cancer is a common type of cancer in men. The prostate gland is located below the bladder and in front of the rectum. This gland adds fluid to semen during ejaculation. Prostate cancer screening may identify cancer at an early stage, when the cancer can be treated more easily and is less likely to have spread to other areas of the body. The prostate-specific antigen (PSA) test is the recommended screening test for prostate cancer, but it has associated risks. Discuss the risks and benefits of prostate cancer screening with your health care provider. If you are age 70 or older, the risks that screening can cause are greater than the benefits that it may provide. This information is not intended to replace advice given to you by your health care provider. Make sure you discuss any questions you have with your health care provider. Document Revised: 09/04/2021 Document Reviewed: 09/04/2021 [email or web address] Patient Education 2022 [employer]. Follow Up Care 12/31/2022 11:29:59 With:OMER JOVEL, Saqib Sumner, URL Address: [address] [place] [address]- When: Unknown [facility] 06-03-2023 History of Present illness Narrative Associated Order(s): $ Large Joint Injection: bilateral knee Post-Procedure Diagnose(s): Primary osteoarthritis of both knees [facility] [address] [facility] [address] Name: Jean Santiago : 1950 Chief Complaint [...] of the aforementioned history prepared by the advance practice provider, and I personally performed the [...] usual sterile fashion. documented in this encounter [facility] 03-26-2023 Evaluation note Encounter Date Diagnosis Assessment Notes Mar, Recurrent major depressive disorder, in full remission (ICD-10 - F33.42) [facility] Other 12-27-2023 Evaluation note* Encounter Date Diagnosis Assessment Notes Treatment Notes Treatment Clinical Notes Feb, Anemia, unspecified type (ICD-10 - D64.9) [facility] Other 10-19-2023 Evaluation note* Encounter Date Diagnosis Assessment Notes Treatment Notes Treatment Clinical Notes Dec, SBE (subacute bacterial endocarditis) prophylaxis candidate (ICD-10 - Z29.89) [facility] Other 09-22-2023 Evaluation note* Encounter Date Diagnosis [...] achieve/maintain a normal BMI. 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, bilateral [...] - Z79.899) Check labs: CBC, BS, GFR [facility] Other 09-13-2023 Evaluation note* Encounter Date Diagnosis Assessment Notes Treatment Notes Treatment Clinical Notes Nov, Primary hypertension (ICD-10 - I10) [facility] Other 09-06-2023 Evaluation note* Encounter Date Diagnosis Assessment Notes Treatment Notes Treatment Clinical Notes Nov, Simple chronic bronchitis (ICD-10 - J41.0) LDCT w/o suspicious nodules: 11/2022 [facility] Other 07-03-2023 Evaluation note* Encounter Date Diagnosis Assessment Notes Treatment Notes Treatment Clinical Notes Sep, Recurrent major depressive disorder, in full remission (ICD-10 - F33.42) [facility] Other 03-06-2023 Evaluation note* Encounter Date Diagnosis [...] achieve/maintain a normal BMI. 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 [facility] Other 06-27-2022 Evaluation note* Encounter Date Diagnosis [...] with me. They agree with that plan. [facility] Other 04-22-2022 Hospital Discharge instructions Patient Education [...] have oneof these risk factors: ?Being of -Ira[place] descent. ?Having a family history of prostate [...] you: Are older than age 55. Are -[place]raqi. Have a father, brother, or uncle who [...] 12/20/2017 Document Revised: 02/21/2018 Document Reviewed: 12/20/2017 [email or web address] Patient Education 2020 [email or web address] Follow Up Care 07/15/2020 08:51:04 With:Saqib SABA MD, URL Address: [facility] [address] [place] [phone] When: Unknown [facility] evaluation + Plan note No data available for this section [facility] evaluation + Plan note Future Appointments Appointment Date:07/10/2024 08:30:00 AM Scheduled Provider:Saqib SABA MD Location:[facility] Appointment Type:URO Office Visit Diagnostic Tests Pending * PSA Total 04/25/24 [facility] evaluation noteNo assessment information available [facility] Work Phone: Evaluation noteNo InformationNort [employer] Other Evaluation note* Diagnosis Primary osteoarthritis of both knees- Primary documented in this encounter [facility] System[facility] general Narrative - Reported* Type Description [...] LEG 2000IS H Hospitalization History See Above [facility] Other Hisilwd general Narrative - Reported* Type Description Date [...] Surgical History COLONOSCOPY Hospitalization History See Above [facility] Other History general Narrative - Reported* Type Description Date [...] History COLONOSCOPY 2019 Hospitalization History See Above [facility] Other InstructionsNot on filedocumented in this encounter [facility] note No data available for this section [facility] Harri Summary Purpose Family History No Family History Records FoundNo Family History Records FoundNo Family History Records Found No data available for this section No Family History Records FoundNo Family History [...] section and content) DATE CREATED AUTHOR 07/08/2020 [facility] DATE CREATED AUTHOR AUTHOR'S ORGANIZ ATION 11/06/2021 [facility] DATE CREATED AUTHOR AUTHOR'S ORGANIZ ATION 05/25/2022 [facility] DATE CREATED AUTHOR AUTHOR'S ORGANIZ ATION 07/14/2023 [facility] DATE CREATED AUTHOR AUTHOR'S ORGANIZ ATION 09/16/2023 [facility] [employer] Comments (unrecognize d section and content) In the event this informatio n is protected by the Federal Confidentiality of Alcohol and Drug Abuse Patient Records regulations: The Federal rules restrict any use of the information to criminally investigate or prosecute any alcohol or drug abuse patient.[facility] Reason for Visit (unrecogniz ed section and content) Status Reason Specialty Diagnoses / Procedures Referred By Contact Referred To Contact Outside PCP Radiology / RADI O MRI [facility] Diagnoses MRI Prostate WWO Contrast- BPH elevated PSA Procedures MRI WWO PROSTATE [address] Saqib Saba [address] [place] [address] Radio Mri [facility] [address] [place] [address] Reason Comments Follow-up Last [facility] 02/11 increased [...] TIME: 9:02 AM documented in this encounter [facility] Georgina Moise ()Desire - 07/07/2020 9:00 AM EDT Miscellaneous Notes [...] Inactive Member Role Status Dates Marshall Zaman DO Primary Care Provider Active Saqib Saba MD Attending Provider Active Team Status: Active Member Role Status Dates Marshall Zaman DO Primary Care Provider Active Team Status: Inactive Member Role Status Dates Marshall Zaman DO Primary Care Provider Active Stuart Qureshi MD Attending Provider Active Public Employment Mediator Relationship Specialty Start Date End Date Marshall Zaman DO [address] [place] [address] PCP - General 07/14/22 Goals (unrecognized section [...] BE BASED ON THE PRIMARY CLINICAL RECORDS. [facility] [employer] [facility]. provides no warranty or guarantee of the accuracy or completeness of information in this document.
[2023-12-24 10:04] LABS: Basophils Absolute Auto 0.1 10^3/uL (0.0-0.1); Eosinophils Absolute Auto 0.4 10^3/uL (0.0-0.7); Hematocrit 38.4 % (42.0-54.0); Hemoglobin 12.7 g/dL (14.0-18.0); Immature Granulocytes Abs Auto 0.04 10^3/uL (0.00-0.03); Immature Granulocytes Pct Auto 0.5 % (0.0-0.5); Lymphocytes Absolute Auto 1.5 10^3/uL (1.2-3.8); Lymphocytes Percent Auto 18.2 % (20.5-60.0); Mean Corpuscular HGB Conc 33.1 g/dL (29.9-35.2); Mean Corpuscular Hemoglobin 30.7 pg (25.9-34.0); Mean Corpuscular Volume 92.8 fL (80.0-94.0); Mean Platelet Volume 9.2 fL (9.5-13.5); Monocytes Absolute Auto 0.7 10^3/uL (0.3-0.8); Monocytes Percent Auto 8.7 % (1.7-12.0); Neutrophils Absolute Auto 5.6 10^3/uL (1.4-6.5); Neutrophils Percent Auto 66.6 % (43.0-75.0); Platelet Count 424 10^3/uL (150-450); Red Blood Count 4.14 10^6/uL (4.70-6.10); Red Cell Distribution Width 12.3 % (11.0-15.0); White Blood Count 8.4 10^3/uL (4.0-11.0)
[2023-12-24 10:20] LABS: Estimated Average Glucose 108 mg/dL; Glycohemoglobin A1C 5.4 % (4.5-6.2)
[2023-12-24 10:22] LABS: Alanine Aminotransferase 23 U/L (16-63); Albumin Level 3.3 g/dL (3.4-5.0); Alkaline Phosphatase 100 U/L (46-116); Anion Gap 12.1; Aspartate Amino Transferase 15 U/L (15-37); BUN Creatinine Ratio 12.8; Bilirubin Total 0.5 mg/dL (0.2-1.0); Calcium 9.4 mg/dL (8.5-10.1); Carbon Dioxide 23.9 mmol/L (21.0-32.0); Chloride 104 mmol/L (98-107); Chol HDL Ratio 4.7; Cholesterol 191 mg/dL (<=200); Estimated GFR (African America >60 (>=60); Estimated GFR (Non-African Ame >60 (>=60); Globulin 3.4 g/dL; Glucose 111 mg/dL (74-106); HDL Cholesterol 41 mg/dL (40-60); Sodium 136 mmol/L (136-145); Total Protein 6.7 g/dL (6.4-8.2); Triglycerides 312 mg/dL (<=150); VLDL CHOLESTEROL 62.4 mg/dL
== END 2023-12-24 09:16 | disposition home or self-care (01) ==
LOC: CT 09:15
PROVIDERS: PCP Internal Medicine; Visit Provider Internal Medicine
DX: Z87.891 Personal history of nicotine dependence (principal); E78.00 Pure hypercholesterolemia, unspecified; N18.9 Chronic kidney disease, unspecified; R73.01 Impaired fasting glucose; I12.9 Hypertensive chronic kidney disease with stage 1 through stage 4 chronic kidney disease, or unspecified chronic kidney disease
CPT/HCPCS: 36415; 71271; 80053; 80061; 83036; 85025

== ENCOUNTER 2024-07-01 13:31 | Outpatient (OUT) | payer MEDICARE, SELFPAY ==
[2024-07-01 14:58] LABS: Prostate Specific Antigen Dx 16.28 ng/mL (<=4.00)
== END 2024-07-01 13:32 | disposition home or self-care (01) ==
LOC: LAB 13:33
PROVIDERS: PCP Internal Medicine; Visit Provider Urology
DX: R97.20 Elevated prostate specific antigen [PSA] (principal)
CPT/HCPCS: 36415; 84153

== ENCOUNTER 2024-10-30 16:47 | Observation (INO) | payer MEDICARE, SELFPAY ==
[2024-10-30 16:56] VITALS: BP 140/66; PULSE 74; TEMP 36.6; O2SAT 97; BMI 25.8
--- NOTE | 2024-10-30 17:04 | CT_ITS ---
The [address] [address] Patient Name: JEAN SANTIAGO MRN: [id number] date: 1950 Sex: M Assigned Patient Location: ED.MAIN Current Patient Location: ED.MAIN Accession/Order Number: [id number] Exam Date: 10/30/2024 18:51 Report Date: 10/30/2024 18:59 At the request of: JAYCOB GARY Procedure: CT angio abdomen pelvis CTA abdomen and pelvis . CLINICAL DATA: abdominal pain / sudden onset with hx aortic aneur. TECHNIQUE: While Intravenous contrast-enhanced CT angiography of the abdomen and pelvis was then performed. Axial, sagittal, coronal and volume-rendered three-dimensional reconstructions were created and reviewed. This CT exam was performed using one or more of the following dose reduction techniques: Automated exposure control, adjustment of the mA and/or kV according to patient size, or use of iterative reconstruction technique. COMPARISON: None. FINDINGS: Hypoventilatory changes lung bases. Pleural calcifications involving lung bases noted Cholelithiasis. Liver, spleen, adrenals, kidneys, are unremarkable. Pancreas, density 1.6 x 2.4 cm in size. Slight prominence of the pancreatic duct. Additional pancreatic tail/body lesion 9 x 9 mm in size. [id number] retained stool within colon. No bowel obstruction. There is pericolonic fat stranding involving the sigmoid colon mild background colonic diverticulosis. Enlarged prostate. Bladder grossly unremarkable. Moderate plaque involving the aorta. Evidence of postsurgical changes involving the aorta. Evidence of left iliac stent grafting.. Occluded left iliac arteries/stent graft noted likely chronic. On the left common iliac artery there is abnormal soft tissue density noted could represent postsurgical change versus sequelae of remote blood products. Evidence of bilateral femoral artery graft noted within the inguinal regions. Retrograde opacification left external iliac artery by the bypass and graft. Multilevel degenerative changes of the spine greatest L5-S1. Ventral bowel wall fat-containing hernias noted. CT/CT angio abdomen pelvis IMPRESSION: Sigmoid colonic wall thickening and surrounding haziness and adjacent lymph nodes may suggest colitis versus diverticulitis. Recommend follow-up to resolution. Extensive postsurgical change involving the aorta including evidence of prior femoral bypass grafting noted. Heterogeneous pancreas with pancreatic head hypodensity noted. This measures roughly 2 cm size. Recommend pancreatic MRI with and without contrast. Cholelithiasis. Impression dictated by: Chet Rodriguez M.D. 10/30/2024 6:59 PM Dictation Location: [place] [address] Electronically authenticated by: [id number] Y Date: 10/30/2024 18:59
--- NOTE | 2024-10-30 17:11 | ED.GENADUL1 ---
HPI HPI - General Adult General Chief complaint: Abdominal Pain Stated complaint: ABDOMINAL PAIN Time Seen by Provider: 10/30/24 16:49 Source: patient and family Mode of arrival: Wheelchair Limitations: no limitations History of Present Illness HPI narrative: Presents with 5-hour history of sudden onset abdominal pain indicates lower abdomen. States he was sweating denies any fever, chills, nausea, vomiting, blood thinner use with the exception of aspirin denies any pain, burning or frequent urination or urinary bleeding denies rectal bleeding. Denies history of diverticulosis diverticulitis. 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 Symptoms improved with lying down. Symptoms moderate severity. Worse with touch or motion. Onset (ago): hour(s) (5 hours) Location: Reports abdomen Radiation: Reports non-radiation Severity: severe Treatments prior to arrival: Reports none Related Data Home Medications ?Medication ?Instructions ?Recorded ?Confirmed aspirin 325 mg tablet 325 mg PO DAILY 10/30/24 10/30/24 atorvastatin 40 mg tablet 40 mg PO DAILY 10/30/24 10/30/24 bupropion HCl 300 mg 24 hr tablet, 300 mg PO DAILY 10/30/24 10/30/24 extended release multivitamin (Daily Multi-Vitamin 1 tab PO DAILY 10/30/24 10/30/24 tablet) tamsulosin 0.4 mg capsule 0.4 mg PO DAILY 10/30/24 10/30/24 telmisartan 80 mg-amlodipine 5 mg 1 tab PO DAILY 10/30/24 10/30/24 tablet Allergies Allergy/AdvReac Type Severity Reaction Status Date / Time No Known Drug Allergies Allergy Verified 10/30/24 16:56 Opioid HPI Opioid Management Most Recent Opioid Data: Last Pain Scale 10 Today, 17:30 Last ED Pain Assessment Today, 17:25 Last MAR Pain Assessment Today, 17:30 Review of Systems ROS Status of ROS 10 or more systems reviewed and unremarkable except as noted in history and below Constitutional Denies: fever or chills Cardiovascular Denies: chest pain or palpitations Respiratory Denies: cough Gastrointestinal Reports: abdominal pain; Denies: nausea or vomiting Genitourinary Denies: painful urination or blood in urine Musculoskeletal Reports: back pain Integumentary/Breast Denies: rash Psychiatric Denies: anxiety Endocrine Denies: excessive urination Hematologic/Lymphatic Denies: easy bruising PFSH PFSH Medical History (Updated 10/30/24 @ 20:16 by Lyubov Chirstine RN) Depression ?F32.A - Depression, unspecified (ICD-10) Hypertension ?I10 - Essential (primary) hypertension (ICD-10) Surgical History (Updated 10/30/24 @ 20:17 by Lyubov Christine RN) H/O rotator cuff surgery ?Z98.890 - Other specified postprocedural states (ICD-10) H/O hernia repair ?Z98.890 - Other specified postprocedural states (ICD-10) ?Z87.19 - Personal history of other diseases of the digestive system (ICD-10) Social History Little interest or pleasure in doing things: not at all Feeling down, depressed, or hopeless: not at all Exam Constitutional Vital Signs, click to edit/add: Last Vital Signs Temp 97.8 F 10/30/24 16:56 Pulse 72 10/30/24 19:06 Resp 20 10/30/24 19:06 BP 129/62 10/30/24 19:06 Pulse Ox 96 10/30/24 19:06 O2 Del Method Room Air 10/30/24 19:06 Documenting provider has reviewed patient's vital signs: yes Common normals: no apparent distress, average body habitus and oriented x3 Exam limitations: no altered mental status General appearance: cooperative Orientation/consciousness: Yes awake HENCO Common normals: normocephalic Head and scalp: normal to inspection Face and sinus: normal facial exam Eye Common normals: PERRL and EOMs intact bilaterally Neck & C-Spine Common normals: supple Respiratory Common normals: normal respiratory effort and clear to auscultation bilaterally Effort & inspection: able to speak in complete sentences Cardio Common normals: regular rate, regular rhythm, S1 normal heart sound, S2 normal heart sound and peripheral pulses 2+ throughout GI Common normals: soft to palpation Auscultation: normoactive bowel sounds Palpation: soft, tender Details: LLQ and RLQ and guarding Extremity Common normals: normal to inspection, full ROM and no pedal edema Neuro Common normals: oriented x3 and moves all extremities Psych Common normals: mental status grossly normal and thought process normal Appearance: grossly normal Course Vital Signs Vital signs: Vital Signs Temperature 97.8 F 10/30/24 16:56 Pulse Rate 74 10/30/24 16:56 Respiratory Rate 20 10/30/24 16:56 Blood Pressure 140/66 10/30/24 16:56 Pulse Oximetry 97 10/30/24 16:56 Oxygen Delivery Method Room Air 10/30/24 16:56 Temperature 97.8 F 10/30/24 16:56 Pulse Rate 72 10/30/24 19:06 Respiratory Rate 20 10/30/24 19:06 Blood Pressure 129/62 10/30/24 19:06 Pulse Oximetry 96 10/30/24 19:06 Oxygen Delivery Method Room Air 10/30/24 19:06 Medical Decision Making MDM Narrative Medical decision making narrative: Patient has history of aortic repair and pseudoaneurysm. Will add CBC CMP PT PTT lipase urinalysis along with CTA angio abd/pelvis. Notes patient does have continued abdominal pain request pain medication reviewed his CBC from today 18.6 white cell count. Will add additional labs including lactic acid blood culture x 2 Zosyn 3.375 g Dilaudid 0.5 mg. 0.9% saline 1 L patient does have history of aortic and iliac repairs with pseudoaneurysms. Proceed with hospitalist she agrees to admit patient to [facility]. Discussed plan of care with patient agreeable plan of care. Differential Diagnosis Differential Diagnosis: Pain, diverticulitis, aneurysm. Lab Data Lab results reviewed: Yes I reviewed the patient's lab results Labs: Lab Results 10/30/24 Range/Units 17:10 WBC 18.6 H (4.0-11.0) 10^3/uL RBC 4.44 L (4.70-6.10) 10^6/uL Hgb 13.4 L (14.0-18.0) g/dL Hct 40.2 L (42.0-54.0) % MCV 90.5 (80.0-94.0) fL MCH 30.2 (25.9-34.0) pg MCHC 33.3 (29.9-35.2) g/dL RDW 12.0 (11.0-15.0) % Plt Count 340 (150-450) 10^3/uL MPV 9.1 L (9.5-13.5) fL Neut % (Auto) 89.2 H (43.0-75.0) % Lymph % (Auto) 3.9 L (20.5-60.0) % [place] % (Auto) 6.0 (1.7-12.0) % Eos % (Auto) 0.2 L (0.9-7.0) % Baso % (Auto) 0.3 (0.2-2.0) % Neut # (Auto) 16.6 H (1.4-6.5) 10^3/uL Lymph # (Auto) 0.7 L (1.2-3.8) 10^3/uL [place] # (Auto) 1.1 H (0.3-0.8) 10^3/uL Eos # (Auto) 0.0 (0.0-0.7) 10^3/uL Baso # (Auto) 0.1 (0.0-0.1) 10^3/uL Abs Immat Gran (auto) 0.07 H (0.00-0.03) 10^3/uL Imm/Tot Granulo (auto) 0.4 (0.0-0.5) % PT 10.5 (9.0-11.6) sec INR 0.99 APTT 28.3 (22.3-36.2) sec Sodium 138 (136-145) mmol/L Potassium 4.5 (3.5-5.1) mmol/L Chloride 105 (98-107) mmol/L Carbon Dioxide 25.6 (21.0-32.0) mmol/L Anion Gap 11.9 BUN 27.0 H (7.0-18.0) mg/dL Creatinine 1.25 (0.70-1.30) mg/dL Est GFR ( Amer) >60 (>=60 mL/min/1.73m^2) Est GFR (Non-Af Amer) 56 L (>=60 mL/min/1.73m^2) BUN/Creatinine Ratio 21.6 Glucose 158 H (74-106) mg/dL Lactate 1.5 (0.4-2.0) mmol/L Calcium 9.4 (8.5-10.1) mg/dL Magnesium 2.1 (1.8-2.4) mg/dL Total Bilirubin 0.4 (0.2-1.0) mg/dL AST 15 (15-37) U/L ALT 28 (16-63) U/L Alkaline Phosphatase 131 H (46-116) U/L Total Protein 7.1 (6.4-8.2) g/dL Albumin 3.5 (3.4-5.0) g/dL Globulin 3.6 g/dL Albumin/Globulin Ratio 1.0 Lipase 32.0 (16.0-77.0) U/L Discharge Plan Discharge Chief Complaint: Abdominal Pain Clinical Impression: Diverticulitis, Pancreatic lesion Abdominal pain Qualifiers: Abdominal location: lower abdomen, unspecified Qualified Code(s): R10.30 - Lower abdominal pain, unspecified Cholelithiasis Qualifiers: Cholelithiasis location: gallbladder Cholecystitis presence: without cholecystitis Leukocytosis Qualifiers: Leukocytosis type: unspecified Qualified Code(s): D72.829 - Elevated white blood cell count, unspecified Patient Disposition: Admitted As Inpatient Time of Disposition Decision: 19:54 Condition: Good
--- OUTSIDE RECORDS SUMMARY | 2024-10-30 17:15 | XMS_ITS | CCD ---
Author Organization [facility] CliniSyak Care Team Providers Care Arts Manager Name Role Phone Saqib Saba Unavailable Unavailable MARSHALL ZAMAN Primary Care Physician [phone] DO Marshall Zaman Primary Care Provider MD Saqib Saba Attending Provider Stuart Qureshi Unavailable MD Stuart Qureshi Attending Provider DO Marshall Zaman Primary Care Provider [phone] MISC, DR CHRISTOPHER Attending Unavailable MISC, DR [...] Unavailable BALL, DR WAGNER Primary Care Unavailable ZIEBER, DR KEESHA Sumner Consulting Unavailable BALL, DR WAGNER Attending Unavailable BALL, DR WAGNER Admitting Unavailable BALL, DR WAGNER Consulting Unavailable BALL, DR WAGNER Primary Care Unavailable Ball, Marshall Unavailable Ball DO, Marshall E Primary Care Provider MCALLISTER, SAPPHIRE K Attending Unavailable BALL, MARSHALL E Referring Unavailable BALL, MARSHALL E Primary Care Unavailable MCALLISTER, SAPPHIRE K Attending Unavailable BALL, MARSHALL E Referring Unavailable BALL, MARSHALL E Primary Care Unavailable MCALLISTER, SAPPHIRE K Attending Unavailable BALL, MARSHALL E Referring Unavailable BALL, MARSHALL E Primary Care Unavailable MCALLISTER, SAPPHIRE K Attending Unavailable BALL, MARSHALL E Referring Unavailable BALL, MARSHALL E Primary Care Unavailable MCALLISTER, SAPPHIRE K Referring Unavailable BALL, MARSHALL E Primary Care Unavailable Ball DO, Marshall Primary Care Provider [phone] Saqib Saba MD Attending Provider Saqib SABA Attending Unavailable Saqib SABA Attending Unavailable Austyn, Marshall Primary Care Unavailable Saqib Saba Attending Unavailable Saqib Saba Admitting Unavailable Austyn DO, Marshall Crews Primary Care Provider JAE ANDERSON Attending Unavailable JAE ANDERSON Referring Unavailable Allergies Allergy Classification Reported Allergen(s) Allergy Type Date of Onset Reaction(s) Facility (4 sources) patient allergy list reviewed by nurse or physicia Propensity to adverse reactions 5 Comment:Done Musikki Other (1 source) No Known Medication Allergies; Translations: [No Known Medication Allergies] Propensity to adverse reactions (disorder) [facility] Repository Medications Current Medications Medication Drug Class(es) Dates Sig (Normalized) Sig (Original) amLODIPine 5 mg / telmisartan 80 mg oral tablet (12 sources) Dihydropyridine Calcium Channel Lina, Angiotensin 2 Receptor Lina Start: 07-12-2023 amlodipine-telmi sartan 5 mg-80 mg oral tablet Refill(s) 0 Start Date: 07/12/23 Status: Ordered Start: 07-08-2023 End: 06-26-2024 take 1 tablet by mouth once daily Telmisartan-Amlodipine 80-5 mg tablet Active 0 .ROUTE .COMPLEX 90 June 26, 2024 7:28am TAKE 1 TABLET BY MOUTH EVERY DAY Start: 07-08-2023 End: 07-08-2023 take 1 tablet by mouth once daily Telmisartan-Amlodipine 80-5 mg tablet Discontinued 1 TAB PO Daily July 08, 2023 12:00am July 08, 2023 6:21pm take 1 tablet by mercedes th once in the morning telmisartan-amLODIPine (TWYNSTA) 80-5 mg per tablet Take 1 tablet by mouth in the morning. Active amoxicillin 500 mg oral tablet (3 sources) Penicillin-class Antibacterial Start: 01-10-2023 take 4 tablets by mouth every hour Amoxicillin 500 MG 4 tablets Orally 1 hour prior to dental appt for 1 days Dec, Active aspirin 325 mg oral tablet (20 sources) Platelet Aggregation Inhibitor, Nonsteroidal Anti-inflammatory Drug Start: 01-01-2022 take 1 tablet by mouth once daily Aspirin 325 mg tablet Active 325 MG PO Daily June 11, 2023 12:00am Start: 01-01-2022 aspirin 325 mg tablet Take by mouth. 01/01/2022 Active Start: 11-01-2021 End: 06-11-2023 take 1 tablet by mouth once daily Aspirin 81 mg Tablet,Delayed Release (Dr/Ec) Discontinued 81 MG PO Daily November 01, 2021 12:00am June 11, 2023 11:35am Start: 07-07-2019 aspirin 81 mg Chew Tab 81 mg = 1 tab(s), Chewed, Daily Start Date: 07/07/19 Status: Ordered aspirin (Rahul crews) 325 MG capsule 325 mg Active take 1 tablet by mercedes th once daily Aspirin 325 mg 325 mg one tab orally daily Active atorvastatin 40 mg oral tablet (20 sources) HMG-CoA Reductase Inhibitor Start: 12-25-2023 End: 06-15-2024 take 1 tablet by mouth once daily in the evening Atorvastatin 40 mg tablet Active 40 MG PO Every evening June 15, 2024 10:32am Start: 10-29-2023 End: 12-25-2023 take 1 tablet by mouth once daily in the evening Atorvastatin 20 mg tablet Discontinued 0 .ROUTE .COMPLEX 90 October 29, 2023 8:39am December 25, 2023 5:59pm TAKE 1 TABLET BY MOUTH EVERY DAY IN THE EVENING Start: 05-19-2022 take 2 tablets by mo uth once daily atorvastatin (LIPITOR) 20 mg tablet Take 2 tablets (40 mg total) by mouth nightly. 05/19/2022 Active Start: 07-07-2019 End: 10-29-2023 take 1 tablet by mouth once daily Atorvastatin 20 mg tablet Discontinued 20 MG PO Daily November 01, 2021 12:00am October 29, 2023 8:39am 24 hr buPROPion hydrochloride 300 mg extended release oral tablet (20 sources) Aminoketone Start: 03-11-2024 take 1 tablet by mouth once daily in the morning Bupropion Hcl 300 mg tablet extended release 24 hr Active 0 .ROUTE .COMPLEX 90 March 11, 2024 1:38pm TAKE 1 TABLET BY MOUTH IN THE MORNING ONCE DAILY Start: 06-18-2022 take 1 tablet by [facility] every twenty-four hours in the morning buPROPion XL (WELLBUTRIN XL) 300 mg 24 hr tablet Take 1 tablet (300 mg total) by mouth in the morning. 06/18/2022 Active Start: 11-01-2021 End: 03-11-2024 take 1 tablet by mouth once daily Bupropion Hcl 300 mg tablet extended release 24 hr Discontinued 300 MG PO Daily November 01, 2021 12:00am March 11, 2024 1:38pm Start: 04-29-2020 take 1 tablet by [facility] every twenty-four hours buPROPion 300 mg XL /24 hrs mg tab(s), Oral, q24hr, Refills(s) 0 Start Date: 04/29/20 Status: Ordered Start: 04-29-2020 take 1 tablet by [facility] every twenty-four hours buPROPion 300 mg XL /24 hrs mg tab(s), Oral, q24hr, Refills(s) 0 Start Date: 04/29/20 Status: Ordered Wellbutrin Activ e Celebrate Multivitamin (2 sources) Start: 07-07-2019 Celebrate Mult ivitamin Start Date: 07/07/19 Status: Ordered Multi For Him (13 sources) Multi For Him Or ally Active Multiple Vitamin (MULTIVITAMIN ADULT PO) (2 sources) Multiple Vitamin (MULTIVITAMIN ADULT PO) Active Multivitamin (Daily Vitamin) Tablet (3 sources) Start: take 1 tablet by mouth once daily Multivitamin (Daily Vitamin) Tablet Active 1 TAB PO Daily November 01, 2021 12:00am tamsulosin hydrochloride 0.4 mg oral capsule (20 sources) alpha-Adrenergic Lina Start: Tamsulosin 0.4 mg capsule Active MG PO December 16, 2023 12:00am Start: 11-01-2021 End: 06-11-2023 take 1 capsule by mouth once daily Tamsulosin 0.4 mg capsule Discontinued 0.4 MG PO Daily November 01, 2021 12:00am June 11, 2023 11:37am Tamsulosin HCl A ctive Completed/Discontinued Medications Medication Drug Class(es) Dates Sig (Normalized) Sig (Original) amLODIPine 5 mg oral tablet (20 sources) Dihydropyridine Calcium Channel Lina Start: 11-01-2021 End: 12-16-2023 take 1 tablet by mouth once daily Amlodipine 5 mg tablet Discontinued 5 MG PO Daily November 01, 2021 12:00am December 16, 2023 10:01am amLODIPine Besyl ate Active betamethasone 3 mg/ml / betamethasone acetate 3 mg/ml injectable suspension (10 sources) Corticosteroid Start: 07-06-2024 End: 07-06-2024 12 mg, intra-articular, One-Time Injection, Starting on Sat07/06/24 at 0956, For 1 dose Start: 04-06-2024 End: 04-06-2024 12 mg, intra-articular, One- Time Injection, Starting on Sat04/06/24 at 1043, For 1 dose Start: 01-03-2024 End: 01-03-2024 12 mg, intra-articular, One- Time Injection, Starting on Sat01/03/24 at 0929, For 1 dose Start: 09-16-2023 End: 09-16-2023 12 mg, intra-articular, One- Time Injection, Starting on Sat09/16/23 at 1013, For 1 dose Start: 06-03-2023 End: 06-03-2023 betamethasone acet & sod yomi s (CELESTONE) injection 12 mg 5 ml bupivacaine hydrochloride 5 mg/ml injection (8 sources) Amide Local Anesthetic Start: 10-12-2024 End: 10-12-2024 bupivacaine PF (Marcaine) 0.5 % injection 1 mL Start: 10-12-2024 End: 10-12-2024 1 mL, Injection, Once PRN Pr ocedure, Starting on Sat10/12/24 at 1002, For 1 dose lisinopril 30 mg oral tablet (20 sources) Angiotensin Converting Enzyme Inhibitor Start: 01-01-2022 End: 06-15-2024 take 1 tablet by mouth once daily Lisinopril 30 mg tablet Discontinued 30 MG PO Daily June 11, 2023 12:00am June 15, 2024 10:43am Start: 11-01-2021 End: 06-11-2023 take 3 tablets by mouth once daily Lisinopril 10 mg tablet Discontinued 30 MG PO Daily November 01, 2021 12:00am June 11, 2023 11:36am Start: 11-01-2021 take 30 mg by mouth once daily Lisinopril Active 30 MG PO Daily November 01, 2021 12:00am take 1 tablet by mercedes th every twenty-four hours Lisinopril 40 MG 1 tablet Orally Once a day for 90 days Active Lisinopril Activ e 1 ml methylPREDNISolone acetate 40 mg/ml injection (8 sources) Corticosteroid Start: 10-12-2024 End: 10-12-2024 methylPREDNISolone acetate (DEPO-Medrol) injection 40 mg Start: 10-12-2024 End: 10-12-2024 40 mg, Intra-articular, Once PRN Procedure, Starting on Sat10/12/24 at 1002, For 1 dose nabumetone 750 mg oral tablet (20 sources) Nonsteroidal Anti-inflammatory Drug Start: 10-03-2023 End: 06-15-2024 take 1 tablet by mouth twice daily Nabumetone 750 mg tablet Discontinued 0 .ROUTE .COMPLEX 60 April 06, 2024 2:44pm June 15, 2024 10:31am TAKE 1 TABLET BY MOUTH TWICE A DAY Start: 11-01-2021 End: 10-03-2023 take 1 tablet by mouth twice daily Nabumetone 750 mg tablet Discontinued 750 MG PO Twice daily November 01, 2021 12:00am October 03, 2023 8:32am Start: 07-14-2021 take 1 mg by mouth once daily nabumetone 750 mg Tab mg tab(s), Oral, Daily, Refills(s) 0 Start Date: 07/14/21 Status: Ordered Nabumetone Activ e Problems Active Problems Problem Classification Problem Date Documented Da te Episodic/Chronic Aortic; peripheral; and visceral artery aneurysms (15 sources) Aneurysm of left iliac artery; Translations: [Aneurysm of iliac artery] Chronic Calculus of urinary tract (2 sources) History of calculus of kidney 07-07-2019 Episodic Chronic kidney disease (4 sources) Chronic kidney disease; Translations: [Chronic kidney disease, unspecified] 06-10-2023 Chronic Chronic obstructive pulmonary disease and bronchiectasis (14 sources) Simple chronic bronchitis; Translations: [Simple chronic bronchitis] Chronic Deficiency and other anemia (10 sources) Anemia, unspecified; Translations: [Anemia, unspecified] Onset: 05-18-2022 Episodic Deficiency and other anemia (17 sources) Anemia; Translations: [Anemia, unspecified] 06-11-2023 Episodic Diabetes mellitus without complication (4 sources) Impaired fasting glycemia; Translations: [Impaired fasting glucose] 06-12-2023 Episodic Disorders of lipid metabolism (20 sources) Hyperlipidemia; Translations: [Familial hypercholesterolemia ] Onset: 08-24-2021 07-07-2019 Chronic Essential hypertension (20 sources) Essential hypertension; Translations: [Essential (primary) hypertension] Chronic Genitourinary symptoms and ill-defined conditions (3 sources) Microscopic hematuria; Translations: [Hematuria, unspecified] Onset: 08-24-2021 07-07-2019 Episodic Hyperplasia of prostate (20 sources) Benign prostatic hypertrophy with outflow obstruction; Translations: [Benign prostatic hyperplasia with lower urinary tract symptoms] Onset: 07-14-2021 Chronic Comment on above: MRI: TR4 5mm nodule - 07/2021,TRUS/bx x3 Immunizations and screening for infectious disease (4 sources) Vaccination given; Translations: [Encounter for immunization] Episodic Mood disorders (20 sources) Recurrent major depression in full remission; Translations: [Major depressive disorder, recurrent, in full remission] Chronic Osteoarthritis (20 sources) Osteoarthritis of right knee joint; Translations: [Unilateral primary osteoarthritis, right knee] Onset: 10-22-2022 Chronic Other aftercare (2 sources) Long-term current use of anticoagulant 07-07-2019 Episodic Other aftercare (2 sources) 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; Translations: [OTH [facility] CURRENT DRUG THERAPY] Onset: 12-14-2021 Episodic Other aftercare (4 sources) Long-term current use of drug therapy; Translations: [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] Episodic Other injuries [...] Onset: 08-24-2021 Chronic Other non-traumatic joint disorders (2 sources) Arthritis of left knee 10-12-2024 Chronic Other non-traumatic joint disorders (2 sources) Arthritis of right knee 10-12-2024 Chronic Other non-traumatic joint disorders (6 sources) Pain in right knee; Translations: [Other acute pain] Onset: 09-16-2023 09-16-2023 Episodic Other nutritional; endocrine; and metabolic disorders (6 sources) Overweight; Translations: [Overweight] 12-16-2023 Episodic Other nutritional; endocrine; and metabolic disorders (2 sources) Overweight; Translations: [Overweight] 06-15-2024 Episodic Other screening for suspected conditions (not mental disorders or infectious disease) (16 sources) Raised prostate specific antigen; Translations: [Elevated prostate specific antigen [PSA]] Onset: 07-02-2017 Resolved: 08-11-2019 Episodic Other upper respiratory disease (11 sources) Allergic rhinitis; Translations: [Other allergic rhinitis] Chronic Other upper respiratory disease (1 source) Other allergic rhinitis Chronic Peripheral and visceral atherosclerosis (20 sources) Peripheral vascular disease; Translations: [Peripheral vascular disease, unspecified] Onset: 07-24-2021 Resolved: 10-23-2021 Chronic Residual codes; unclassified (1 source) Pain Onset: 07-06-2024 Episodic Screening and history of mental health and substance abuse codes (6 sources) Ex-cigarette smoker; Translations: [Personal history of nicotine dependence] Onset: 10-19-2021 07-07-2019 Episodic Spondylosis; intervertebral disc disorders; other back problems (20 sources) Spondylosis without myelopathy or radiculopathy, thoracic region; Translations: [Lumbar spondylosis] Onset: 08-31-2021 Chronic Spondylosis; intervertebral disc disorders; other back problems (20 sources) Pain in thoracic spine; Translations: [Pain in thoracic spine] Onset: 11-03-2014 Resolved: 08-11-2019 Episodic Substance-related disorders (16 sources) Tobacco user; Translations: [Nicotine dependence, cigarettes, uncomplicated] Onset: 07-04-2018 Resolved: 12-07-2020 06-11-2024 Chronic Comment on above: LDCT: no suspicious nodules 11/2022, 12/2023 Unclassified (4 sources) Alcohol abuse with withdrawal, [...] Resolved: 08-11-2019 Episodic Other aftercare (1 source) 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 treater 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; Translations: [[facility] CURRENT USE OF ASPIRIN] Onset: 08-24-2021 Episodic Other aftercare (1 source) [facility] (current) use of anticoagulants; Translations: [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 COOKIE Leung 10/12/2024 12:34 PM L Inj/Asp: L knee on 10/12/2024 10:02 AM Indications: pain Details: 22 G needle, anterolateral approach Medications: 40 mg methylPREDNISolone acetate 40 MG/ML; 1 mL bupivacaine PF 0.5 % Outcome: tolerated well, no immediate complications UTILIZING ASEPTIC TECHNIQUE PT GIVEN INJECTION IN LEFT KNEE, NEUROVASC INTACT S/P INJ, TOLERATED WELL Procedure, treatment alternatives, risks and benefits explained, specific risks discussed. Consent was given by the patient. Patient was prepped and draped in the [facility] fashion[facility]/12/[facility] 12:34 PM L Inj/Asp: R knee on 10/12/2024 10:02 AM Indications: pain Details: 22 G needle, anterolateral approach Medications: 40 mg methylPREDNISolone acetate 40 MG/ML; 1 mL bupivacaine PF 0.5 % Outcome: tolerated well, no immediate complications E UTILIZING ASEPTIC TECHNIQUE PT GIVEN INJECTION IN RIGHT KNEE, NEUROVASC INTACT S/P INJ, TOLERATED WELL Procedure, treatment alternatives, risks and benefits explained, specific risks discussed. Consent was given by the patient. Patient was prepped and draped in the usual sterile fashion. [facility] K[facility] - left 1 or 2 Viewso n 10-12-2024 Imaging Result: AP and lateral left knee: No acute fracture or dislocation Mild effusion Valgus alignment with narrowing lateral joint line, Flattening or articular surface weight bearing and subchondral sclerosis noted.. narrowing and flattening of patella femoral joint consistent with degenerative changes. Impression: mild to moderate tricompartmental left knee arthritis [facility] Knee - right 1 or 2 Views on 10-12-2024 Imaging Result: AP and lateral right knee: No acute fracture or dislocation Mild effusion Valgus alignment with bone on bone articulation lateral joint line, narrowing and flattening of patella femoral joint with spurring of articular surface of patella Soft tissue calcifications likely large loose body anterior knee. Impression: severe tricompartmental right knee arthritis [facility] Creatinine (Bld) [Mass/Vol]O rdered By: Saqib Saba on 07-29-2024 Creatinine [Mass/Vol] Whole blood creatinine measurement 0.6-1.3 [facility] Comment on above: ER/ESD physician is notified/shown all ISTAT results.Critical values may be confirmed by laboratory testing ifdeemed necessary by ER attending doctor. ISTAT XRay CREon 07-29-2024 Creatinine [Mass/Vol] 1.2 mg/dL Normal 0.6-1.3 [facility] Comment on above: Result Comment: ER/E SD physician is notified/shown all ISTAT results. Critical values may be confirmed by laboratory testing if deemed necessary by ER attending doctor. Performed By: #### I SCRE #### [address] ISTAT GFR >60.0 Normal [facility] Comment on above: Result Comment: PERF ORMED BY: [place] [address] PATHOLOGIST DIGITAL DESIGN ENGINEER LIONEL HAGAN M.D. Performed By: #### I SCRE #### [address] MR prostate wo/w conon 07-29 MR prostate wo/w [place] [address] MRI Report Signed Patient: Jean Santiago MR#: [id number] : 1950 Acct:[id number] Age/Sex: 74 / M ADM Date: 07/29/24 Loc: Room: Type: [facility] Attending Dr: Saqib Saba MD Copies to: Saqib Saba MD Ordering Provider: Saqib Saba MD Date of Service: 07/29/24 MR/MR prostate wo/w con: R97.20 EXAMINATION: MR prostate wo/w con HISTORY: Elevated PSA. COMPARISON: NONE TECHNIQUE: Multiparametric imaging of the prostate gland was performed with IV contrast. FINDINGS: Prostate Dimensions: 6.0 x 4.9 x 5.6 cm. Prostate Volume: 86 mL. Peripheral Zone: Heterogenous inT2 signal suggestive of prior prostatitis. No suspicious T2 or ADC map abnormality is identified to suggest prostate malignancy. Central/Transitional Zone: BPH changes. Seminal Vesicles: Unremarkable Neurovascular bundles: Unremarkable. Lymphadenopathy: No evidence of lymphadenopathy. Bladder: No focal lesion. Bowel: The visualized bowel is without acute abnormality. Peritoneal Cavity: No free fluid. Bones: No suspicious bony lesion. MR/MR prostate wo/w con IMPRESSION: No MRI evidence of clinically significant prostate cancer. BPH. Impression dictated by: Freddie Garcia Jr., D.OMae 07/29/2024 4:38 PM Dictation Location: [place] [address] Transcribed By: [facility] 07/29/24 1638 Dictated By: Freddie Garcia Jr, DO 07/29/24 1635 Signed By: 07/29/24 1638 Normal [facility] Magnetic resonance imaging r eportOrdered By: Freddie Garcia on 07-29-2024 Study report [facility] [place] [address] [place] [address] MRI Report Signed Patient: Jean Santiago MR#: [id number] : 1950 Acct:[id number] Age/Sex: 74 / M ADM Date: 5 Loc: MR Room: Type: [facility] Attending Dr: Saqib Saba MD Copies to: Saqib Saba MD~ Ordering Provider: Saqib Saba MD Date of Service: 07/29/24 MR/MR prostate wo/w con: R97.20 EXAMINATION: MR prostate wo/w con HISTORY: Elevated PSA. COMPARISON: NONE TECHNIQUE: Multiparametric imaging of the prostate gland was performed with IV contrast. FINDINGS: Prostate Dimensions: 6.0 x 4.9 x 5.6 cm. Prostate Volume: 86 mL. Peripheral Zone: Heterogenous inT2 signal suggestive of prior prostatitis. Nosuspicious T2 or ADC map abnormality is identified to suggest prostate malignancy. Central/Transitional Zone: BPH changes. Seminal Vesicles: Unremarkable Neurovascular bundles: Unremarkable. Lymphadenopathy: No evidence of lymphadenopathy. Bladder: No focal lesion. Bowel: The visualized bowel is without acute abnormality. Peritoneal Cavity: No free fluid. Bones: No suspicious bony lesion. MR/MR prostate wo/w con IMPRESSION: No MRI evidence of clinically significant prostate cancer. BPH. Impression dictated by: Freddie Garcia Jr., D.O. 07/29/2024 4:38 PM Dictation Location: [place] [address] Transcribed By: [facility] 07/29/24 1638 Dictated By: Freddie Garcia Jr, DO 07/29/24 1635 Signed By: 07/29/24 1638 [facility] No Panel InformationOrdered By: Saqib Saba on 07-29-2024 Bedside Estimated GFR (eGFR) > 60.0 [facility] Ambulatory Visit Summaryon 0 07-10-2024 Ambulatory Visit Summary Ambulatory Visit Summary JEAN SANTIAGO :1950 Visit Date:07/10/2024 Ambulatory Visit Instructions Your Diagnosis Elevated PSA BPH with urinary obstruction Tests Performed MRI Pelvis (Soft Tissue) w/ + w/o contrast -- Results Pending -- Please visit your patient portal for your results or contact your primary care physician. Your Care Team Attending Physician - OMER JOVEL, Saqib Sumner Primary Care Physician - MARSHALL ZAMAN DO This Is Your Medications List tamsulosin (Flomax 0.4 mg Cap) Contact prescribing physician if questions or concerns amlodipine-telmisarta n (amlodipine-telmisart an 5 mg-80 mg oral tablet) aspirin (aspirin 325 mg Tab) atorvastatin (atorvastatin 40 mg Tab) buPROPion (buPROPion 300 mg XL /24 hrs) multivitamin with minerals (Celebrate Multivitamin) Procedures Performed MRI-US fusion guided transperineal biopsy of prostate (08/17/2021), Transrectal biopsy of prostate using ultrasound (US) guidance (10/21/2012), CE - Cataract extraction, Hernia repair, Reconstruction of artery, Rotator cuff repair. Discharge Vitals Temperature (Temporal Artery) 6.9 ???C Heart Rate (Peripheral) 68 Respiratory Rate 16 Blood Pressure 134/69 Height 183 cm Height 72 in Weight 91 kg Weight 200.62 lb BMI 27.17 What to do next You Need to Schedule the Following Appointments Follow Up with OMER JOVEL, CONNER Jay When: Where: [address] [place] [address]- Medications What How Much When Instructions Unchanged tamsulosin (Flomax 0.4 mg Cap) 1 Capsules By Mouth Every day Unchanged amlodipine-telmisarta n (amlodipine-telmisart an 5 mg-80 mg oral tablet) Contact prescribing physician if questions or concerns Unchanged aspirin (aspirin 325 mg Tab) By Mouth Every 4 hours Contact prescribing physician if questions or concerns Unchanged atorvastatin (atorvastatin 40 mg Tab) 1 Tablets Contact prescribing physician if questions or concerns Unchanged buPROPion (buPROPion 300 mg XL / 24 hrs) By Mouth Every 24 hours Contact prescribing physician if questions or concerns Unchanged multivitamin with minerals (Celebrate Multivitamin) Contact prescribing physician if questions or concerns Allergies No Known Medication Allergies Problems Ongoing - Any problem that you are currently receiving treatment for. Anticoagulant long-term use Benign localized hyperplasia of prostate with urinary obstruction and lower urinary tract symptoms BPH with elevated PSA BPH with urinary obstruction Elevated PSA Ex-cigarette smoker History of kidney stones Hyperlipemia Impotence Impotence of organic origin Microscopic hematuria Patient Survey You may receive a survey via text or e-mail asking about your office visit. Please share your experience with us by completing your survey. We appreciate your feedback and thank you for choosing us for your care. Education Materials Prostate Cancer Screening Prostate cancer screening is [...] recommendations. In general, screening is recommended if: ??? You are age 50 to 70 and [...] have a 10- to 15-year life expectancy. ??? You are younger than age 50, and [...] In general, screening is not recommended if: ??? You are younger than age 40. ??? You are between the ages of 40 and 49 and you have no risk factors. ??? You are 70 years of age or [...] a blood test called the prostate-specific antigen (more content not included)... Normal [facility] Urology Office/Clinic Noteon 07-10-2024 Urology Office/Clinic Note Urology Office/Clinic Note Chief Complaint 1 year with PSA HPI Staff 74 year old male patient here for a year follow up with PSA. Previous Dx: elevated PSA, BPH with urinary obstruction & flomax 0.4 mg qd. Previous PSA: 24- 12.14 Current PSA: 07/01/24- 16.28 Denies any urinary concerns at this time. Denies any visible blood. Denies any abdominal/flank pain. History of Present Illness Tests reviewed: reviewed UA and PSA. I have reviewed the previous health record information and history for this patient from Dr. Saba I have reviewed and verified the staff [...] See HPI. Physical Exam Vitals & Measurements T: 6.9 ???C(Temporal Artery) HR: 68(Peripheral) RR: 16 BP: 134/69 HT: 183 cm HT: 72 in WT: 91 kg WT: 200.62 lb BMI: 27.17 General Appearance: alert, no distress, well nourished, well developed male. Prostate: normal prostate, estimated weight 50 gms, no hard nodule observed. Assessment/Plan Pt accompanied by today. 1. Elevated PSA (R97.20: Elevated prostate specific antigen [PSA]) PSA 02/27/21 - 8.84 07/03/21 - 9.29 12/28/22 - 12.32 07/05/23 - 12.14 07/01/24 - 16.28 TRUS/bx 10/21/12. MRI of prostate w/wo Con 07/07/20 PI-RADS 2. No focal lesions to suggest clinically significant disease. No don or osseous metastatic disease. MRI of prostate 08/07/21 PI-RADS 4. MRI fusion bx 08/17/21 benign, acute inflammation (WICHO). Rise in PSA is concerning. Asymptomatic of prostatitis however rise in PSA is likely due to subclinical infection however there is a chance that prostate CA is present. SATYA - 50g, benign. Proceeding with MRI is recommended. If MRI is abnormal we will proceed with biopsy. If MRI is negative, will cont to monitor PSA in 6 months. -Schedule MRI of prostate at [facility] [place] if MRI is neg 2. BPH with urinary obstruction (N40.1: Benign prostatic hyperplasia with lower urinary tract symptoms) MRI of prostate 07/07/20 - prostate volume 81 cc. BPH hypertrophy in the transition zone. MRI of prostate 08/07/21 - prostate volume 78 cc. BPH. UA today negative for blood or infection. IPSS 9. Taking Flomax 0.4mg qd. Previously declined starting Dutasteride. Emptying well. Denies gross hematuria or infections. No urinary concerns. -Cont Flomax wo changes Follow-up With When Contact Information OMER JOVEL, Saqib Sumner, [address] [place] [address]- Additional Instructions: MRI pending f/up Patient Education Prostate Cancer Screening I, Yazmin Oleary, personally scribed for Dr. Saba on 07/10/2024 09:40:18. . Documentation recorded by the scribe, Yazmin Oleary, accurately reflects the services(s) I performed and decisions made by me. Authenticated by Dr. Saba on 07/10/2024 09:41:45. Problem List/Past Medical History Ongoing Anticoagulant long-term [...] Reconstruction of artery, Rotator cuff repair. Medications amlodipine-telmisarta n 5 mg-80 mg oral tablet aspirin 325 mg Tab, Oral, q4hr atorvastatin 40 mg Tab, 40 mg= 1 tab(s) buPROPion 300 mg XL /24 hrs, Oral, q24hr Celebrate Multivitamin Flomax 0.4 mg Cap, 0.4 mg= 1 cap(s), Oral, Daily, 3 refills Allergies No Known Medication Allergies Social History Alcohol - Denies Alcohol Use, 10/23/2019 Never., 07/05/2024 Substance Abuse Never., 07/05/2024 Tobacco - Denies Tobacco Use, 10/23/2019 Former smoker, quit more than 30 days ago Tobacco Use:. Never Smokeless Tobacco Use:. Cigarettes, Household tobacco concerns: No. Yes, 07/10/2024 Family History Cancer: Father. Diabetes: Mother. Immunizations Vaccine Date Status Comments zoster vaccine, inactivated (more content not included)... Normal [facility] Comment on above: Result Comment: Elec tronically Signed By: Saqib SABA MD\.br\Date and Time Signed: 07/10/24 09:41 EDT\.br\Electronically Co-Signed By: Yazmin Oleary\.br\Date and Time Co-Signed: 07/10/24 09:40 EDT $ Large Joint Injection: andres ateral kneeon 07-06-2024 Sapphire Mcallister MD 07/06/2024 3:56 PM $ Large Joint Injection: bilateral knee on 07/06/2024 9:56 AM Indications: pain Details: 22 G needle, anterolateral [...] risks and benefits explained, specific risks discussed. Consent was given by the patient. Patient was prepped and draped in the usual sterile fashion. MANUALLY TRANSCRIBED RESULTS [facility] No Panel Informationon 07-01 Prostate Specific Antigen Total 16.28 ng/mL High <=4.00 [facility] $ Large Joint Injection: andres ateral kneeon 04-06-2024 Sapphire Mcallister MD 04/06/2024 12:06 PM $ Large Joint Injection: bilateral knee on 04/06/2024 10:43 AM Indications: pain Details: 22 G needle, anterolateral [...] risks and benefits explained, specific risks discussed. Consent was given by the patient. Patient was prepped and draped in the usual sterile fashion. MANUALLY TRANSCRIBED RESULTS [facility] $ Large Joint Injection: andres ateral kneeon 01-03-2024 Sapphire Mcallister MD 01/03/2024 1:24 PM $ Large Joint Injection: bilateral knee on 01/03/2024 9:29 AM Indications: pain Details: 22 G needle, anterolateral [...] risks and benefits explained, specific risks discussed. Consent was given by the patient. Patient was prepped and draped in the usual sterile fashion. MANUALLY TRANSCRIBED RESULTS [facility] $ Large Joint Injection: andres ateral kneeon 09-16-2023 Sapphire Mcallister MD 09/16/2023 4:27 PM $ Large Joint Injection: bilateral knee on 09/16/2023 10:13 AM Indications: pain Details: 22 G needle, anterolateral [...] the usual sterile fashion. MANUALLY TRANSCRIBED RESULTS [facility] XR Knee - left 4 Viewson Bilateral standing AP, tunnel, Grecia x-rays of the knees and lateral x-ray of the left knee were performed in the office today. 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 No acute osseous abnormality. MANUALLY TRANSCRIBED [facility]ULTS [facility] Radiology Study observation (narrative) [facility] XR Knee - right 4 Viewson Bilateral standing AP, tunnel, Grecia x-rays of the knees and lateral x-ray of the right knee were performed in the office today. 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 No acute osseous abnormality. MANUALLY TRANSCRIBED [facility]ULTS [facility] $ Large Joint Injection: andres ateral kneeon [...] the usual sterile fashion. MANUALLY TRANSCRIBED RESULTS [facility] CBC AUTO DIFFon 05-18-2022 BASO # 0.1 103/ul Normal 0.0-0.1 [facility] Comment on above: Performed By: #### C BC #### [facility] [address] [place] [address] Dr. Jr Leiva Basophils/100 WBC (Bld) 0.8 % Normal 0.2-2.0 [facility] Comment on above: Performed By: #### C BC #### [facility] [address] [address] [address] Jr Leiva EO # 0.5 103/ul Normal 0.0-0.7 [facility] Comment on above: Performed By: #### C BC #### [facility] [address] [place] [address] Dr. Jr Leiva Eosinophils/100 WBC (Bld) 6.1 % Normal 0.9-7.0 [facility] Comment on above: Performed By: #### C BC #### [facility] [address] [place] [address] Dr. Jr Leiva Erythrocyte distribution width (RBC) [Ratio] 12.6 % Normal 11.0-15.0 [facility] Comment on above: Performed By: #### C BC #### [facility] [address] [place] [address] Dr. rJ Leiva Hematocrit (Bld) [Volume fraction] 40.6 % Critically low 42.0-54.0 [facility] Comment on above: Performed By: #### C BC #### [facility] [address] [place] [address] Dr. Jr Leiva Hemoglobin (Bld) [Mass/Vol] 13.1 g/dL Critically low 14.0-18.0 [facility] Comment on above: Performed By: #### C BC #### [facility] [address] [place] [address] Dr. Jr Leiva IG # 0.02 10e3/ul Normal 0.00-0.03 [facility] Comment on above: Performed By: #### C BC #### [facility] [address] [place] [address] Dr. Jr Leiva IG % 0.3 % Normal 0.0-0.5 [facility] Comment on above: Performed By: #### C BC #### [facility] [address] [place] [address] Dr. Jr Leiva LYMPH # 1.5 103/ul Normal 1.2-3.8 [facility] Comment on above: Performed By: #### C BC #### [facility] [address] [place] [address] Dr. Jr Leiva Lymphocytes/100 WBC (Bld) 20.3 % Critically low 20.5-60.0 [facility] Comment on above: Performed By: #### C BC #### [facility] [address] [place] [address] Dr. Jr Leiva MANUAL DIFF REQ NO Normal [facility] Comment on above: Performed By: #### C BC #### [facility] [address] [address] [address] rJ Leiva MCH (RBC) [Entitic mass] 29.3 pg Normal 25.9-34.0 [facility] Comment on above: Performed By: #### C BC #### [facility] [address] [address] [address] Jr Leiva MCHC (RBC) [Mass/Vol] 32.3 g/dL Normal 29.9-35.2 [facility] Comment on above: Performed By: #### C BC #### [facility] [address] [address] [address] Jr Leiva MCV (RBC) [Entitic vol] 90.8 fL Normal 80.0-94.0 [facility] Comment on above: Performed By: #### C BC #### [facility] [address] [place] [address] Dr. Jr Leiva MONO # 0.6 103/ul Normal 0.3-0.8 [facility] Comment on above: Performed By: #### C BC #### [facility] [address] [place] [address] Dr. Jr Leiva Monocytes/100 WBC (Bld) 8.4 % Normal 1.7-12.0 [facility] Comment on above: Performed By: #### C BC #### [facility] [address] [place] [address] Dr. Jr Leiva NEUT # 4.7 103/ul Normal 1.4-6.5 [facility] Comment on above: Performed By: #### C BC #### [facility] [address] [place] [address] Dr. Jr Leiva Neutrophils/100 WBC (Bld) 64.1 % Normal 43.0-75.0 [facility] Comment on above: Performed By: #### C BC #### [facility] [address] [place] [address] Dr. Jr Leiva Platelet mean volume (Bld) [Entitic vol] 8.8 fL Critically low 9.5-13.5 [facility] Comment on above: Performed By: #### C BC #### [facility] [address] [address] [address] Jr Leiva PLT 402 103/ul Normal 150-450 [facility] Comment on above: Performed By: #### C BC #### [facility] [id number] Jr Leiva RBC 4.47 106/ul Critically low 4.70-6.10 [facility] Comment on above: Performed By: #### C BC #### [facility] [address] [address] [address] Jr Leiva WBC 7.4 103/ul Normal 4.0-11.0 [facility] Comment on above: Performed By: #### C BC #### [facility] [address] [place] [address] Dr. Jr Leiva FERRITINon 05-18-2022 Ferritin [Mass/Vol] 85.0 ng/mL Normal 26.0-388.0 [facility] Comment on above: Performed By: #### F ETIBC, FERR, VITB12 #### [facility] [address] [address] [address] Jr Leiva IRON AND TIBCon 05-18-2022 % SATURATION 27.2 % Normal [facility] Comment on above: Performed By: #### C BC #### [facility] [address] [address] [address] Jr Leiva Iron [Mass/Vol] 72.0 ug/dL Normal 65.0-175.0 [facility] Comment on above: Performed By: #### C BC #### [facility] [address] [place] [address] Dr. Jr Leiva TIBC DIRECT 265.0 ug/dL Normal 250.0-450.0 [facility] Comment on above: Performed By: #### C BC #### [facility] [id number] Jr Leiva TIBCon 05-18-2022 [facility] [employer] Other VITAMIN B12on 05-18-2022 Cobalamin (Vitamin B12) [Mass/Vol] 832.0 pg/mL Normal 193.0-986.0 [facility] Comment on above: Performed By: #### F ETIBC, FERR, VITB12 #### [facility] [address] [place] [address] Dr. Jr Leiva CBC AUTO DIFFon 01-30-2022 BASO # 0.1 103/ul Normal 0.0-0.1 [facility] Comment on above: Performed By: #### C BC #### [facility] [address] [place] [address] Dr. Jr Leiva Basophils/100 WBC (Bld) 0.9 % Normal 0.2-2.0 [facility] Comment on above: Performed By: #### C BC #### [facility] [address] [place] [address] Dr. Jr Leiva EO # 0.3 103/ul Normal 0.0-0.7 [facility] Comment on above: Performed By: #### C BC #### [facility] [address] [place] [address] Dr. Jr Leiva Eosinophils/100 WBC (Bld) 4.0 % Normal 0.9-7.0 [facility] Comment on above: Performed By: #### C BC #### [facility] [address] [place] [address] Dr. Jr Leiva Erythrocyte distribution width (RBC) [Ratio] 12.3 % Normal 11.0-15.0 [facility] Comment on above: Performed By: #### C BC #### [facility] [address] [place] [address] Dr. Jr Leiva Hematocrit (Bld) [Volume fraction] 38.0 % Critically low 42.0-54.0 [facility] Comment on above: Performed By: #### C BC #### [facility] [address] [place] [address] Dr. Jr Leiva Hemoglobin (Bld) [Mass/Vol] 12.5 g/dL Critically low 14.0-18.0 [facility] Comment on above: Performed By: #### C BC #### [facility] [address] [address] [address] Jr Leiva IG # 0.02 10e3/ul Normal 0.00-0.03 [facility] Comment on above: Performed By: #### C BC #### [facility] [address] [place] [address] Dr. Jr Leiva IG % 0.2 % Normal 0.0-0.5 [facility] Comment on above: Performed By: #### C BC #### [facility] [address] [place] [address] Dr. Jr Leiva LYMPH # 1.7 103/ul Normal 1.2-3.8 [facility] Comment on above: Performed By: #### C BC #### [facility] [address] [place] [address] Dr. Jr Leiva Lymphocytes/100 WBC (Bld) 19.9 % Critically low 20.5-60.0 [facility] Comment on above: Performed By: #### C BC #### [facility] [address] [place] [address] Dr. Jr Leiva MANUAL DIFF REQ NO Normal [facility] Comment on above: Performed By: #### C BC #### [facility] [address] [place] [address] Dr. Jr Leiva MCH (RBC) [Entitic mass] 29.6 pg Normal 25.9-34.0 [facility] Comment on above: Performed By: #### C BC #### [facility] [address] [place] [address] Dr. Jr Leiva MCHC (RBC) [Mass/Vol] 32.9 g/dL Normal 29.9-35.2 [facility] Comment on above: Performed By: #### C BC #### [facility] [address] [place] [address] Dr. Jr Leiva MCV (RBC) [Entitic vol] 89.8 fL Normal 80.0-94.0 [facility] Comment on above: Performed By: #### C BC #### [facility] [address] [place] [address] Dr. Jr Leiva MONO # 0.7 103/ul Normal 0.3-0.8 [facility] Comment on above: Performed By: #### C BC #### [facility] [address] [place] [address] Dr. Jr Leiva Monocytes/100 WBC (Bld) 7.7 % Normal 1.7-12.0 [facility] Comment on above: Performed By: #### C BC #### [facility] [address] [place] [address] Dr. Jr Leiva NEUT # 5.7 103/ul Normal 1.4-6.5 [facility] Comment on above: Performed By: #### C BC #### [facility] [address] [place] [address] Dr. Jr Leiva Neutrophils/100 WBC (Bld) 67.3 % Normal 43.0-75.0 [facility] Comment on above: Performed By: #### C BC #### [facility] [address] [place] [address] Dr. Jr Leiva Platelet mean volume (Bld) [Entitic vol] 9.1 fL Critically low 9.5-13.5 [facility] Comment on above: Performed By: #### C BC #### [facility] [address] [place] [address] Dr. Jr Leiva PLT 312 103/ul Normal 150-450 [facility] Comment on above: Performed By: #### C BC #### [facility] [address] [place] [address] Dr. Jr Leiva RBC 4.23 106/ul Critically low 4.70-6.10 [facility] Comment on above: Performed By: #### C BC #### [facility] [address] [place] [address] Dr. Jr Leiva WBC 8.5 103/ul Normal 4.0-11.0 [facility] Comment on above: Performed By: #### C BC #### [facility] [address] [place] [address] Dr. Jr Leiva CBC AUTO DIFFon 12-13-2021 BASO # 0.1 103/ul Normal 0.0-0.1 [facility] Comment on above: Performed By: #### C BC #### [facility] [address] [place] [address] Dr. Jr Leiva Basophils/100 WBC (Bld) 0.7 % Normal 0.2-2.0 [facility] Comment on above: Performed By: #### C BC #### [facility] [address] [place] [address] Dr. Jr Leiva EO # 0.4 103/ul Normal 0.0-0.7 [facility] Comment on above: Performed By: #### C BC #### [facility] [address] [place] [address] Dr. Jr Leiva Eosinophils/100 WBC (Bld) 4.1 % Normal 0.9-7.0 [facility] Comment on above: Performed By: #### C BC #### [facility] [address] [place] [address] Dr. Jr Leiva Erythrocyte distribution width (RBC) [Ratio] 12.5 % Normal 11.0-15.0 [facility] Comment on above: Performed By: #### C BC #### [facility] [address] [place] [address] Dr. Jr Leiva Hematocrit (Bld) [Volume fraction] 40.1 % Critically low 42.0-54.0 [facility] Comment on above: Performed By: #### C BC #### [facility] [address] [place] [address] Dr. Jr Leiva Hemoglobin (Bld) [Mass/Vol] 13.0 g/dL Critically low 14.0-18.0 [facility] Comment on above: Performed By: #### C BC #### [facility] [address] [place] [address] Dr. Jr Leiva IG # 0.03 10e3/ul Normal 0.00-0.03 [facility] Comment on above: Performed By: #### C BC #### [facility] [address] [place] [address] Dr. Jr Leiva IG % 0.3 % Normal 0.0-0.5 [facility] Comment on above: Performed By: #### C BC #### [facility] [address] [place] [address] Dr. Jr Leiva LYMPH # 1.7 103/ul Normal 1.2-3.8 [facility] Comment on above: Performed By: #### C BC #### [facility] [address] [place] [address] Dr. Jr Leiva Lymphocytes/100 WBC (Bld) 19.1 % Critically low 20.5-60.0 [facility] Comment on above: Performed By: #### C BC #### [facility] [address] [place] [address] Dr. Jr Leiva MANUAL DIFF REQ NO Normal [facility] Comment on above: Performed By: #### C BC #### [facility] [address] [place] [address] Dr. Jr Leiva MCH (RBC) [Entitic mass] 29.8 pg Normal 25.9-34.0 [facility] Comment on above: Performed By: #### C BC #### [facility] [address] [place] [address] Dr. Jr Leiva MCHC (RBC) [Mass/Vol] 32.4 g/dL Normal 29.9-35.2 [facility] Comment on above: Performed By: #### C BC #### [facility] [address] [place] [address] Dr. Jr Leiva MCV (RBC) [Entitic vol] 92.0 fL Normal 80.0-94.0 [facility] Comment on above: Performed By: #### C BC #### [facility] [address] [place] [address] Dr. Jr Leiva MONO # 0.7 103/ul Normal 0.3-0.8 [facility] Comment on above: Performed By: #### C BC #### [facility] [address] [place] [address] Dr. Jr Leiva Monocytes/100 WBC (Bld) 8.3 % Normal 1.7-12.0 [facility] Comment on above: Performed By: #### C BC #### [facility] [address] [place] [address] Dr. Jr Leiva NEUT # 5.9 103/ul Normal 1.4-6.5 [facility] Comment on above: Performed By: #### C BC #### [facility] [address] [address] [address] Jr Leiva Neutrophils/100 WBC (Bld) 67.5 % Normal 43.0-75.0 [facility] Comment on above: Performed By: #### C BC #### [facility] [address] [place] [address] Dr. Jr Leiva Platelet mean volume (Bld) [Entitic vol] 9.2 fL Critically low 9.5-13.5 [facility] Comment on above: Performed By: #### C BC #### [facility] [address] [place] [address] Dr. Jr Leiva PLT 377 103/ul Normal 150-450 [facility] Comment on above: Performed By: #### C BC #### [facility] [address] [place] [address] Dr. Jr Leiva RBC 4.36 106/ul Critically low 4.70-6.10 [facility] Comment on above: Performed By: #### C BC #### [facility] [address] [place] [address] Dr. Jr Leiva WBC 8.8 103/ul Normal 4.0-11.0 [facility] [facility] Comment on above: Performed By: #### C BC #### [facility] [address] [place] [address] Dr. Jr Leiva LIPID PROFILEon 12-13-2021 CHOL-HDL RATIO NORM SEE BELOW Normal [facility] Comment on above: Result Comment: 3.3 - 4.4 LOW RISK 4.4 - 7.1 AVERAGE RISK 7.1 - 11.0 MODERATE RISK >11.0 HIGH RISK Performed By: #### L IPID, CMP #### [facility] [address] [address] [address] Jr Leiva Cholesterol [Mass/Vol] 186 mg/dL Normal <=200 [facility] Comment on above: Performed By: #### L IPID, CMP #### [facility] [address] [address] [address] Jr Leiva Cholesterol in HDL [Mass/Vol] 36 mg/dL Critically low 40-60 [facility] Comment on above: Performed By: #### L IPID, CMP #### [facility] [address] [address] [address] Jr Leiva Cholesterol in LDL [Mass/Vol] 100.8 mg/dL Normal [facility] Comment on above: Performed By: #### L IPID, CMP #### [facility] [address] [address] [address] Jr Leiva Cholesterol.total/Cho lesterol in HDL [Mass ratio] 5.2 {ratio} Normal [facility] Comment on above: Performed By: #### L IPID, CMP #### [facility] [address] [address] [address] Jr Leiva HDL NORMAL > or = 60 mg/dl - LO W CARDIOVASCULAR RISK <40 mg/dl - HIGH CARDIOVASCULAR RISK Normal [facility] Comment on above: Performed By: #### L IPID, CMP #### [facility] [address] [address] [address] Jr Leiva LDL CALC NORMAL SEE BELOW Normal [facility] Comment on above: Result Comment: <100 mg/dl OPTIMAL 100 - 129 mg/dl NEAR OR ABOVE OPTIMAL 130 - 159 mg/dl BORDERLINE HIGH 160 - 189 mg/dl HIGH >190 mg/dl VERY HIGH Performed By: #### L IPID, CMP #### [facility] [address] [address] [address] Jr Leiva Triglyceride [Mass/Vol] 246 mg/dL Critically high <=150 [facility] Comment on above: Performed By: #### L IPID, CMP #### [facility] [address] [address] [address] Jr Leiva VLDL CALC 49.2 mg/dL Normal [facility] Comment on above: Performed By: #### L IPID, CMP #### [facility] [address] [place] [address] Dr. Jr Leiva PROF 14(COMP METB)on 022 Albumin [Mass/Vol] 3.6 g/dL Normal 3.4-5.0 [facility] Comment on above: Performed By: #### L IPID, CMP #### [facility] [address] [place] [address] Dr. Jr Leiva Albumin/Globulin [Mass ratio] 1.1 {ratio} Normal [facility] Comment on above: Performed By: #### L IPID, CMP #### [facility] [address] [place] [address] Dr. Jr Leiva ALP [Catalytic activity/Vol] 102 U/L Normal 46-116 [facility] Comment on above: Performed By: #### L IPID, CMP #### [facility] [address] [place] [address] Dr. Jr Leiva ALT [Catalytic activity/Vol] 26 U/L Normal 16-63 [facility] Comment on above: Performed By: #### L IPID, CMP #### [facility] [address] [place] [address] Dr. Jr Leiva Anion gap [Moles/Vol] 11.4 mmol/L Normal [facility] Comment on above: Performed By: #### L IPID, CMP #### [facility] [address] [place] [address] Dr. Jr Leiva AST [Catalytic activity/Vol] 12 U/L Critically low 15-37 [facility] Comment on above: Performed By: #### L IPID, CMP #### [facility] [address] [place] [address] Dr. Jr Leiva Bilirubin [Mass/Vol] 0.5 mg/dL Normal 0.2-1.0 [facility] Comment on above: Performed By: #### L IPID, CMP #### [facility] [address] [place] [address] Dr. Jr Leiva Calcium [Mass/Vol] 8.9 mg/dL Normal 8.5-10.1 [facility] Comment on above: Performed By: #### L IPID, CMP #### [facility] [address] [place] [address] Dr. Jr Leiva Chloride [Moles/Vol] 105 mmol/L Normal 98-107 [facility] Comment on above: Performed By: #### L IPID, CMP #### [facility] [address] [place] [address] Dr. Jr Leiva CO2 [Moles/Vol] 26.5 mmol/L Normal 21.0-32.0 [facility] Comment on above: Performed By: #### L IPID, CMP #### [facility] [address] [place] [address] Dr. Jr Leiva Creatinine [Mass/Vol] 1.10 mg/dL Normal 0.70-1.30 [facility] Comment on above: Performed By: #### L IPID, CMP #### [facility] [address] [place] [address] Dr. Jr Leiva EGFR-AF LAO >60 Normal >=60 [facility] Comment on above: Performed By: #### L IPID, CMP #### [facility] [address] [place] [address] Dr. Jr Leiva EGFR-NON AF LAO >60 Normal >=60 [facility] Comment on above: Performed By: #### L IPID, CMP #### [facility] [address] [place] [address] Dr. Jr Leiva Globulin (S) [Mass/Vol] 3.4 g/dL Normal [facility] Comment on above: Performed By: #### L IPID, CMP #### [facility] [address] [place] [address] Dr. Jr Leiva Glucose [Mass/Vol] 109 mg/dL Critically high 74-106 [facility] Comment on above: Performed By: #### L IPID, CMP #### [facility] [address] [place] [address] Dr. Jr Leiva Potassium [Moles/Vol] 3.9 mmol/L Normal 3.5-5.1 [facility] Comment on above: Performed By: #### L IPID, CMP #### [facility] [address] [address] [address] Jr Leiva Protein [Mass/Vol] 7.0 g/dL Normal 6.4-8.2 [facility] Comment on above: Performed By: #### L IPID, CMP #### [facility] [address] [address] [address] Jr Leiva Sodium [Moles/Vol] 139 mmol/L Normal 136-145 [facility] Comment on above: Performed By: #### L IPID, CMP #### [facility] [address] [place] [address] Dr. Jr Leiva Urea nitrogen [Mass/Vol] 13.0 mg/dL Normal 7.0-18.0 [facility] Comment on above: Performed By: #### L IPID, CMP #### [facility] [address] [place] [address] Dr. Jr Leiva Urea nitrogen/Creatinine [Mass ratio] 11.8 mg/mg Normal [facility] Comment on above: Performed By: #### L IPID, CMP #### [facility] [address] [place] [address] Dr. Jr Leiva Creatinine and Glomerular fi ltration rate.predicted panel (S/P/Bld)Ordered By: Stuart Qureshi on 11-01-2021 Creatinine [Mass/Vol] 1.17 mg/dL 0.64-1.27 [facility] Estimated glomerular filtrat ion rate (GFR) non- AmericanOrdered By: Stuart Qureshi on 11-01-2021 GFR/1.73 sq M.predicted among non-blacks MDRD (S/P/Bld) [Vol rate/Area] > 60 mL/Min [facility] No Panel InformationOrdered By: Stuart Qureshi on 11-01-2021 Estimated GFR () > 60 mL/Min [facility] Comment on above: GFR estimated refere nce range: According to KDOQI guidelines, <60 ml/min/1.73m2 is sufficient to diagnose a patient with chronic kidney disease. Pharmacy Creatinine Clearance (Chem 63.56 [facility] Serum or plasma urea nitroge n measurement (mass/volume)Ordered By: Stuart Qureshi on 11-01-2021 Urea nitrogen [Mass/Vol] 15 mg/dL 9-23 [facility] CT LUNG CANCER SCREENINGon 0 [...] by: KEESHA HARMON Date: 2021-10-19 17:22 Normal [facility] Creatinine (Bld) [Mass/Vol]O rdered By: Stuart Qureshi on 09-29-2021 Creatinine [Mass/Vol] 1.0 mg/dL 0.6-1.3 [facility] Comment on above: ER/ESD physician is notified/shown all ISTAT results. Critical values may be confirmed by laboratory testing if deemed necessary by ER attending doctor. No Panel InformationOrdered By: Stuart Qureshi on 09-29-2021 POC Estimated GFR > 60 [facility] Comment on above: GFR estimated refere nce range: According to KDOQI guidelines, <60 ml/min/1.73m2 is sufficient to diagnose a patient with chronic kidney disease. POC Estimated GFR Non- Amer > 60 [facility] CBC AUTO DIFFon 08-14-2021 BASO # 0.1 103/ul Normal 0.0-0.1 [facility] Comment on above: Performed By: #### C BC #### [facility] [address] [place] [address] Dr. Jr Leiva Basophils/100 WBC (Bld) 0.7 % Normal 0.2-2.0 [facility] Comment on above: Performed By: #### C BC #### [facility] [address] [place] [address] Dr. Jr Leiva EO # 0.4 103/ul Normal 0.0-0.7 [facility] Comment on above: Performed By: #### C BC #### [facility] [address] [place] [address] Dr. Jr Leiva Eosinophils/100 WBC (Bld) 4.5 % Normal 0.9-7.0 [facility] Comment on above: Performed By: #### C BC #### [facility] [address] [place] [address] Dr. Jr Leiva Erythrocyte distribution width (RBC) [Ratio] 12.6 % Normal 11.0-15.0 [facility] Comment on above: Performed By: #### C BC #### [facility] [address] [place] [address] Dr. Jr Leiva Hematocrit (Bld) [Volume fraction] 42.2 % Normal 42.0-54.0 [facility] Comment on above: Performed By: #### C BC #### [facility] [address] [place] [address] Dr. Jr Leiva Hemoglobin (Bld) [Mass/Vol] 13.6 g/dL Critically low 14.0-18.0 [facility] Comment on above: Performed By: #### C BC #### [facility] [address] [place] [address] Dr. Jr Leiva IG # 0.02 10e3/ul Normal 0.00-0.03 [facility] Comment on above: Performed By: #### C BC #### [facility] [address] [place] [address] Dr. Jr Leiva IG % 0.2 % Normal 0.0-0.5 [facility] Comment on above: Performed By: #### C BC #### [facility] [address] [place] [address] Dr. Jr Leiva LYMPH # 1.5 103/ul Normal 1.2-3.8 [facility] Comment on above: Performed By: #### C BC #### [facility] [address] [place] [address] Dr. Jr Leiva Lymphocytes/100 WBC (Bld) 18.4 % Critically low 20.5-60.0 [facility] Comment on above: Performed By: #### C BC #### [facility] [address] [place] [address] Dr. Jr Leiva MANUAL DIFF REQ NO Normal [facility] Comment on above: Performed By: #### C BC #### [facility] [address] [place] [address] Dr. Jr Leiva MCH (RBC) [Entitic mass] 29.4 pg Normal 25.9-34.0 [facility] Comment on above: Performed By: #### C BC #### [facility] [address] [place] [address] Dr. Jr Leiva MCHC (RBC) [Mass/Vol] 32.2 g/dL Normal 29.9-35.2 [facility] Comment on above: Performed By: #### C BC #### [facility] [address] [place] [address] Dr. Jr Leiva MCV (RBC) [Entitic vol] 91.1 fL Normal 80.0-94.0 [facility] Comment on above: Performed By: #### C BC #### [facility] [address] [place] [address] Dr. Jr Leiva MONO # 0.8 103/ul Normal 0.3-0.8 [facility] Comment on above: Performed By: #### C BC #### [facility] [address] [address] [address] Jr Leiva Monocytes/100 WBC (Bld) 9.2 % Normal 1.7-12.0 [facility] Comment on above: Performed By: #### C BC #### [facility] [address] [address] [address] Jr Leiva NEUT # 5.4 103/ul Normal 1.4-6.5 [facility] Comment on above: Performed By: #### C BC #### [facility] [address] [address] [address] Jr Leiva Neutrophils/100 WBC (Bld) 67.0 % Normal 43.0-75.0 [facility] Comment on above: Performed By: #### C BC #### [facility] [address] [place] [address] Dr. Jr Leiva Platelet mean volume (Bld) [Entitic vol] 8.9 fL Critically low 9.5-13.5 [facility] Comment on above: Performed By: #### C BC #### [facility] [address] [place] [address] Dr. Jr Leiva PLT 330 103/ul Normal 150-450 [facility] Comment on above: Performed By: #### C BC #### [facility] [address] [place] [address] Dr. Jr Leiva RBC 4.63 106/ul Critically low 4.70-6.10 [facility] Comment on above: Performed By: #### C BC #### [facility] [address] [place] [address] Dr. Jr Leiva WBC 8.1 103/ul Normal 4.0-11.0 [facility] Comment on above: Performed By: #### C BC #### [facility] [address] [place] [address] Dr. Jr Leiva PROF CHEM 8 (BAS METB)on Anion gap [Moles/Vol] 13.7 mmol/L Normal Th [facility] Comment on above: Performed By: #### B MP #### [facility] [address] [address] [address] Jr Leiva Calcium [Mass/Vol] 9.0 mg/dL Normal 8.5-10.1 [facility] Comment on above: Performed By: #### B MP #### [facility] [address] [address] [address] Jr Leiva Chloride [Moles/Vol] 104 mmol/L Normal 98-107 [facility] Comment on above: Performed By: #### B MP #### [facility] [address] [address] [address] Jr Leiva CO2 [Moles/Vol] 24.9 mmol/L Normal 21.0-32.0 [facility] Comment on above: Performed By: #### B MP #### [facility] [address] [address] [address] Jr Leiva Creatinine [Mass/Vol] 1.15 mg/dL Normal 0.70-1.30 [facility] Comment on above: Performed By: #### B MP #### [facility] [address] [address] [address] Jr Leiva EGFR-AF LAO >60 Normal >=60 [facility] Comment on above: Performed By: #### B MP #### [facility] [address] [address] [address] Jr Leiva EGFR-NON AF LAO >60 Normal >=60 [facility] Comment on above: Performed By: #### B MP #### [facility] [address] [address] [address] Jr Leiva Glucose [Mass/Vol] 111 mg/dL Critically high 74-106 [facility] Comment on above: Performed By: #### B MP #### [facility] [address] [address] [address] Jr Leiva Potassium [Moles/Vol] 4.6 mmol/L Normal 3.5-5.1 [facility] Comment on above: Performed By: #### B MP #### [facility] [address] [place] [address] Dr. Jr Leiva Sodium [Moles/Vol] 138 mmol/L Normal 136-145 [facility] Comment on above: Performed By: #### B MP #### [facility] [address] [place] [address] Dr. Jr Leiva Urea nitrogen [Mass/Vol] 17.0 mg/dL Normal 7.0-18.0 [facility] Comment on above: Performed By: #### B MP #### [facility] [address] [place] [address] Dr. Jr Leiva Urea nitrogen/Creatinine [Mass ratio] 14.8 mg/mg Normal [facility] Comment on above: Performed By: #### B MP #### [facility] [address] [place] [address] Dr. Jr Leiva PROTIMEon 08-14-2021 INR Coag (PPP) [Relative time] 0.94 {INR} Normal [facility] Comment on above: Performed By: #### C BC #### [facility] [address] [place] [address] Dr. Jr Leiva INR GUIDELINES SEE BELOW Normal [facility] Comment on above: Result Comment: ANANTH RED INR: 2.0 - 3.0 CONDITIONS NOT LISTED BELOW 2.5 - 3.5 FOR PROSTHETIC HEART VALVE REPLACEMENT 2.5 - 3.5 RECURRENT THROMBOSIS Performed By: #### C BC #### [facility] [address] [place] [address] Dr. Jr Leiva PT Coag (PPP) [Time] 10.2 s Normal 9.0-11.6 [facility] Comment on above: Performed By: #### C BC #### [facility] [address] [place] [address] Dr. Jr Leiva PTTon 08-14-2021 aPTT Coag (Bld) [Time] 28.8 s Normal 22.3-36.2 [facility] Comment on above: Performed By: #### C BC #### [facility] [address] [place] [address] Dr. Jr Leiva Creatinine (Bld) [Mass/Vol]O rdered By: Saqib Saba on 08-07-2021 Creatinine [Mass/Vol] 1.0 mg/dL 0.6-1.3 [facility] Comment on above: ER/ESD physician is notified/shown all ISTAT results. Critical values may be confirmed by laboratory testing if deemed necessary by ER attending doctor. No Panel InformationOrdered By: Saqib Saba on 08-07-2021 POC Estimated GFR > 60 [facility] Comment on above: GFR estimated refere nce range: According to KDOQI guidelines, <60 ml/min/1.73m2 is sufficient to diagnose a patient with chronic kidney disease. POC Estimated GFR Non- Amer > 60 [facility] XR TSPINE 2 VIEWSon 07-25-19 [...] by: KEESHA HARMON Date: 2021-07-24 10:[address] [facility] 07-07-2020 [facility] HNO ID: [id number] Author: Georgina GonzalezRtDesire Garcia Service: Radiology Author Type: Educational Advisor Type: Allied Health Filed: 07/07/2020 9:37 AM [...] Mau July 07, 2020 9:37 AM Normal [facility] MRI PROSTATE WO/W IVCONon MRI PROSTATE WO/W IVCON * * *Final Report* * * DATE OF EXAM: Jul 07 2020 10:22AM [facility] 0751 - MRI PROSTATE WO/W IVCON / [...] volume were obtained using a semi-automated software (Agent Partner). CONTRAST: IV: 18 cc of (Dotarem). RESULT: [...] of suspicion for clinically significant prostate cancer ([place] score 3 + 4 or higher). PI-RADS v2.1 Assessment Categories: PI-RADS 1: Clinically significant cancer is highly unlikely PI-RADS 2: Clinically significant cancer is unlikely PI-RADS 3: Clinically significant cancer is equivocal PI-RADS 4: Clinically significant cancer is likely PI-RADS 5: Clinically significant cancer is highly likely Airconditioning Plant Operator: STEVE Transcribe Date/Time: Jul 07 2020 11:26A Dictated by : GIRMA BROTHERS DO This examination was interpreted and the report reviewed and electronically signed by: FREDDIE WILLSON MD on Jul 07 2020 2:53PM EST [id number] N [facility] NURSING PROGon 07-07-2020 NURSING PROG HNO ID: [id number] Author: Caden Stephens (Rn) [facility] [place] [...] DATE: July 07, 2020 TIME: 9:02 AM [facility] Other 07-07-2020 [facility] Vital Signs Date Time Vital Sign Value Performing Clinician Facility 07-29-2024 14:26-0400 Body height 182.88 cm [employer] Work Phone: [facility] 07-29-2024 14:26-0400 Body weight 92.98 kg Marshall Aviary DO Work Phone: [facility] 07-06-2024 09:45-0400 Body height 180.3 cm Sapphire Mcallister MD Work Phone: [facility] 07-06-2024 09:45-0400 Body mass index (BMI) [Ratio] 28.87 kg/m2 Sapphire Mcallister MD Work Phone: [facility] 07-06-2024 09:45-0400 Body weight 93.89 kg Sapphire Mcallister MD Work Phone: [facility] 06-15-2024 10:09-0400 Body height 182.88 cm [facility] 06-15-2024 10:09-0400 Body mass index (BMI) [Ratio] 27.4 kg/m2 [facility] 06-15-2024 10:09-0400 Body weight 91.79 kg [facility] 06-15-2024 10:09-0400 Diastolic blood pressure 64 mm[Hg] [facility] 06-15-2024 10:09-0400 Heart rate 76 /min [facility] 06-15-2024 10:09-0400 Respiratory rate 12 /min [facility] 06-15-2024 10:09-0400 Systolic blood pressure 165 mm[Hg] [facility] 04-06-2024 09:47-0500 Body height 180.3 cm Sapphire Mcallister MD Work Phone: [facility] 04-06-2024 09:47-0500 Body mass index (BMI) [Ratio] 28.87 kg/m2 Sapphire Mcallister MD Work Phone: [facility] 04-06-2024 09:47-0500 Body weight 93.89 kg Sapphire Mcallister MD Work Phone: [facility] 01-03-2024 09:07-0400 Body height 180.3 cm Sapphire Mcallister MD Work Phone: [facility] 01-03-2024 09:07-0400 Body mass index (BMI) [Ratio] 28.87 kg/m2 Sapphire Mcallister MD Work Phone: [facility] 01-03-2024 09:07-0400 Body weight 93.89 kg Sapphire Mcallister MD Work Phone: [facility] 09-16-2023 09:59-0400 Body height 181.9 cm Sapphire Mcallister MD Work Phone: [facility] 09-16-2023 09:59-0400 Body mass index (BMI) [Ratio] 28.39 kg/m2 Sapphire Mcallister MD Work Phone: [facility] 09-16-2023 09:59-0400 Body weight 93.89 kg Sapphire Mcallister MD Work Phone: [facility] 07-12-2023 08:49-0400 Blood Pressure Location Saqib SABA [facility] 07-12-2023 08:49-0400 Diastolic blood pressure 71 mm[Hg] Saqib SABA [facility] 07-12-2023 08:49-0400 Heart rate 67 /min Saqib SABA [facility] 07-12-2023 08:49-0400 Respiratory rate 16 /min Saqib SABA [facility] 07-12-2023 08:49-0400 Systolic blood pressure 136 mm[Hg] Saqib SABA [facility] 06-03-2023 12:33-0400 Body height 181.9 cm Sapphire Mcallister MD Work Phone: [employer] 06-03-2023 12:33-0400 Body mass index (BMI) [Ratio] 28.39 kg/m2 Sapphire Mcallister MD Work Phone: [employer] 06-03-2023 12:33-0400 Body weight 93.89 kg Sapphire Mcallister MD Work Phone: [employer] 12-14-2022 10:30-0400 Body height 182.88 cm Marshall Ball Other [employer] Other 12-14-2022 10:30-0400 Body mass index (BMI) [Ratio] 26.69 kg/m2 Marshall Ball Other [employer] Other 12-14-2022 10:30-0400 Body weight 89.27 kg Marshall Ball Other [employer] Other 12-14-2022 10:30-0400 Diastolic blood pressure 72 mm[Hg] Marshall Ball Other [employer] Other 12-14-2022 10:30-0400 Respiratory rate 12 /min Marshall Ball Other [employer] Other 12-14-2022 10:30-0400 Systolic blood pressure 133 mm[Hg] Marshall Ball Other [employer] Other 05-28-2022 09:30-0500 Body height 182.88 cm Marshall Ball Other [employer] Other 05-28-2022 09:30-0500 Body mass index (BMI) [Ratio] 28.72 kg/m2 Marshall Ball Other [employer] Other 05-28-2022 09:30-0500 Body weight 96.07 kg Marshall Ball Other [facility] Other 05-28-2022 09:30-0500 Diastolic blood pressure 70 mm[Hg] Marshall Ball Other [facility] Other 05-28-2022 09:30-0500 Respiratory rate 12 /min Marshall Ball Other [facility] Other 05-28-2022 09:30-0500 Systolic blood pressure 122 mm[Hg] Marshall Ball Other [facility] Other 11-01-2021 11:00-0400 Diastolic blood pressure 73 mm[Hg] DO Marshall Ball Work Phone: [facility] 11-01-2021 11:00-0400 Heart rate 61 /min DO Marshall Ball Work Phone: [facility] 11-01-2021 11:00-0400 Respiratory rate 16 /min DO Marshall Ball Work Phone: [facility] 11-01-2021 11:00-0400 SaO2% (BldA) [Mass fraction] 96 % DO Marshall Ball Work Phone: [facility] 11-01-2021 11:00-0400 Systolic blood pressure 157 mm[Hg] DO Marshall Ball Work Phone: [facility] 11-01-2021 07:37-0400 Body height 182.88 cm DO Marshall Ball Work Phone: [facility] 11-01-2021 07:37-0400 Body weight 92.07 kg DO Marshall Ball Work Phone: [facility] 10-23-2021 10:15-0400 Body height 182.88 cm Stuart Buehrer Other [facility] Other 10-23-2021 10:15-0400 Body mass index (BMI) [Ratio] 27.12 kg/m2 Stuart Buehrer Other [facility] Other 10-23-2021 10:15-0400 Body temperature 97.3 [degF] Stuart Buehrer Other [facility] Other 10-23-2021 10:15-0400 Body weight 90.72 kg Stuart Buehrer Other [facility] Other 10-23-2021 10:15-0400 Diastolic blood pressure 58 mm[Hg] Stuart Buehrer Other [facility] Other 10-23-2021 10:15-0400 SaO2% (BldA) [Mass fraction] 97 % Stuart Buehrer Other [facility] Other 10-23-2021 10:15-0400 Systolic blood pressure 126 mm[Hg] Stuart Buehrer Other [facility] Other 09-18-2021 11:30-0400 Body height 182.88 cm Stuart Buehrer Other [facility] Other 09-18-2021 11:30-0400 Body mass index (BMI) [Ratio] 27.12 kg/m2 Stuart Buehrer Other [facility] Other 09-18-2021 11:30-0400 Body temperature 97.2 [degF] Stuart Qureshi Other [facility] Other 09-18-2021 11:30-0400 Body weight 90.72 kg Stuart Qureshi Other [facility] Other 09-18-2021 11:30-0400 Diastolic blood pressure 70 mm[Hg] Stuart Qureshi Other [facility] Other 09-18-2021 11:30-0400 SaO2% (BldA) [Mass fraction] 96 % Stuart Qureshi Other [facility] Other 09-18-2021 11:30-0400 Systolic blood pressure 160 mm[Hg] Stuart Qureshi Other [employer] Other 08-07-2021 09:50-0400 Body weight 94.34 kg DO Marshall Ball Work Phone: [facility] 08-07-2021 09:50-0400 Diastolic blood pressure 72 mm[Hg] DO Marshall Ball Work Phone: [facility] 08-07-2021 09:50-0400 Heart rate 66 /min DO Marshall Ball Work Phone: [facility] 08-07-2021 09:50-0400 Respiratory rate 16 /min DO Marshall Ball Work Phone: [facility] 08-07-2021 09:50-0400 SaO2% (BldA) [Mass fraction] 98 % DO Marshall Ball Work Phone: [facility] 08-07-2021 09:50-0400 Systolic blood pressure 201 mm[Hg] DO Marshall Ball Work Phone: [facility] 08-07-2021 09:36-0400 Body height 182.88 cm DO Marshall Zaman Work Phone: [facility] 07-14-2021 08:13-0400 Blood Pressure Location Saqib SABA [facility] 07-14-2021 08:13-0400 Diastolic blood pressure 89 mm[Hg] Saqib SABA [facility] 07-14-2021 08:13-0400 Heart rate 68 /min Saqib SABA [facility] 07-14-2021 08:13-0400 Respiratory rate 16 /min Saqib SABA [facility] 07-14-2021 08:13-0400 Systolic blood pressure 138 mm[Hg] Saqib SABA [facility] Encounters Encounter Date Encounter Type Care Provider Facility Start: 01-15-2025 ambulatory Saqib SABA Facili ty:[facility] [place] Start: 10-12-2024 End: 10-12-2024 Bamboo flowsheet Jae GARY Work Phone: [facility] Start: 10-12-2024 End: 10-12-2024 Bamboo flowsheet Jae GARY Work Phone: [facility] Start: 10-12-2024 End: 10-12-2024 Office outpatient new 45 minutes Jae GARY Work Phone: [facility] Comment on above: Acute pain of right knee (Primary Dx); Acute pain of left knee; Arthritis of right knee; Arthritis of left knee Start: 10-12-2024 End: 10-12-2024 ambulatory JAE J ANDERSON Not Available Start: 07-29-2024 End: 07-29-2024 Patient encounter procedure Marshall Zaman DO Work Phone: [facility] [place] Work Phone: Start: 07-29-2024 End: 07-29-2024 ambulatory Marshall Zaman DO Work Phone: [facility] Work Phone: Start: 07-10-2024 End: 07-10-2024 ambulatory Saqib SABA Facility:[facility] Start: 07-06-2024 End: 07-06-2024 ambulatory [facility] Start: 07-06-2024 End: 07-06-2024 Office outpatient visit 15 minutes Sapphire Mcallister MD Work Phone: [facility] Comment on above: 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 Dx) Start: 07-01-2024 Non-patient / Non-visit Benjam in Ball DO Work Phone: [facility] Work Phone: Start: 06-15-2024 End: 06-15-2024 ambulatory [facility] Work Phone: Start: 06-15-2024 End: 06-15-2024 Patient encounter procedure [facility] Work Phone: Start: 04-06-2024 End: 04-06-2024 Office outpatient visit 15 minutes Sapphire Mcallister MD Work Phone: [facility] Comment on above: 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 Dx) Start: 04-06-2024 End: 04-06-2024 ambulatory [facility] Start: 01-03-2024 End: 01-03-2024 Office outpatient visit 15 minutes Sapphire Mcallister MD Work Phone: [facility] Comment on above: 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 Dx) Start: 01-03-2024 End: 01-03-2024 ambulatory [facility] Start: 12-12-2023 Patient encounter procedure [facility] Start: 09-16-2023 End: 09-16-2023 Office outpatient visit 15 minutes Sapphire Mcallister MD Work Phone: [facility] Comment on above: 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 Dx); Acute bilateral knee pain Start: 09-16-2023 End: 09-16-2023 ambulatory [facility] Start: 07-12-2023 End: 07-12-2023 Patient encounter procedure Saqib Sumner OMER [facility] Start: 06-03-2023 End: 06-03-2023 Office outpatient visit 15 minutes Sapphire Mcallister MD Work Phone: [facility] Comment on above: 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 Dx) Start: 03-26-2023 End: 03-26-2023 ambulatory Marshall Ball Other [facility] Other Start: 03-26-2023 Telephone encounter Marshall Ball [facility] Start: 03-20-2023 End: 03-20-2023 ambulatory Marshall Ball Other [employer] Other Start: 03-20-2023 Telephone encounter Marshall Ball [facility] Start: 01-10-2023 End: 01-10-2023 ambulatory Marshall Ball Other [facility] Other Start: 01-10-2023 Telephone encounter Marshall Ball [facility] Start: 12-14-2022 End: 12-14-2022 ambulatory Marshall Ball Other [employer] Other Start: 12-14-2022 Patient encounter procedure Marshall Zaman [facility] Start: 12-05-2022 End: 12-05-2022 ambulatory Marshall Zaman Other [employer] Other Start: 12-05-2022 Telephone encounter Marshall Zaman [facility] Start: 11-29-2022 End: 11-29-2022 ambulatory Marshall Zaman Other [employer] Other Start: 11-29-2022 Telephone encounter Marshall Zaman [facility] Start: 11-28-2022 End: 11-28-2022 ambulatory Marshall Zaman Other [facility] Other Start: 11-28-2022 Telephone encounter Marshall Zaman [facility] Start: 11-13-2022 End: 11-13-2022 ambulatory Marshall Zaman Other [employer] Other Start: 11-13-2022 Telephone encounter Marshall Zaman [facility] Start: 09-24-2022 End: 09-24-2022 ambulatory Marshall Zaman Other [employer] Other Start: 09-24-2022 Telephone encounter Marshall Zaman [facility] Start: 05-28-2022 End: 05-28-2022 ambulatory Marshall Austyn Other [employer] Other Start: 05-28-2022 Office outpatient vi sit 25 minutes Marshall Zaman [facility] Start: 05-18-2022 End: 05-19-[address] MARSHALL ZAMAN Facility:[facility] Start: 05-04-2022 End: 05-04-2022 ambulatory Marshall Zaman Other [facility] Other Start: 05-04-2022 Telephone encounter Marshall Zaman [facility] Start: 01-30-2022 End: 01-31-[address] [facility] Facility:[facility] Start: 12-14-2021 Encounter for genera l adult medical examination without abnormal findings DR MARSHALL ZAMAN [facility] Start: 12-13-2021 Adult health examination Robert Zaman Other [employer] Other Start: 12-13-2021 End: 12-14-[address] MARSHALL ZAMAN Facility:[facility] Start: 12-13-2021 End: 12-14-2021 Encounter for general adult medical examination without abnormal findings DR MARSHALL ZAMAN Facility:[facility] Start: 11-01-2021 End: 11-01-2021 Admission to same day surgery center DO Marshall Zaman Work Phone: [facility]-Interventional Radiology Start: 10-23-2021 End: 10-23-2021 ambulatory Stuart Qureshi Other [employer] Other Start: 10-23-2021 Office outpatient vi sit 25 minutes Stuart Qureshi [facility] V[facility] Start: 10-19-2021 End: 10-20-[address] MARSHALL ZAMAN Facility:[facility] Start: 09-29-2021 End: 09-29-2021 Patient encounter procedure DO Marshall Zaman Work Phone: [facility]-CT Scan [facility] [place] Start: 09-27-2021 End: 09-28-2021 ambulatory KIARA JUANITO . Facility:[facility] Start: 09-18-2021 End: 09-18-2021 ambulatory Stuart Qureshi Other [employer] Other Start: 09-18-2021 Office outpatient vi sit 25 minutes Stuart Qureshi [facility] Vascular Surgery Start: 08-25-2021 End: 08-26-2021 ambulatory KIARA JUANITO . Facility:[facility] Start: 08-17-2021 Encounter for preprocedural cardiovascular examination DR SAQIB SABA . [facility] Start: 08-17-2021 Encounter for preprocedural laboratory examination DR SAQIB SABA . [facility] Start: 08-17-2021 End: 08-17-[address] SAQIB SABA . Facility:[facility] Start: 08-14-2021 End: 08-15-[address] MARSHALL ZAMAN Facility:[facility] Start: 08-14-2021 End: 08-15-2021 Encounter for preprocedural cardiovascular examination DR MARSHALL ZAMAN Facility:[facility] Start: 08-07-2021 End: 08-07-2021 Patient encounter procedure DO Marshall Zaman Work Phone: [facility] [place] Start: 07-24-2021 End: 07-25-[address] MARSHALL ZAMAN Facility:[facility] Start: 07-14-2021 End: 07-14-2021 Patient encounter procedure Saqib Sumner OMRE [facility] Start: 07-03-2021 End: 07-04-[address] MARSHALL ZAMAN Facility:[facility] Start: 07-07-2020 End: 07-07-2020 Subsequent hospital visit by physician [place] [id number] (I-Stat/3t) Work Phone: Radiology Comment on above: Benign prostatic hyp erplasia without lower urinary tract symptoms [N40.0] Procedures Date Procedure Procedure Detail Performing Clinician Start: 10-12-2024 Radiologic examinati on knee 1/2 views Jae GARY Work Phone: Start: 10-12-2024 Radiologic examinati on knee 1/2 views Jae GARY Work Phone: Start: 10-12-2024 Arthrocentesis aspir &/inj major jt/bursa w/o us Jae GARY Work Phone: Start: 10-12-2024 Arthrocentesis aspir &/inj major jt/bursa w/o us Jae GARY Work Phone: Start: 07-29-2024 MR prostate wo/w con Be cassie Zaman DO Work Phone: Start: 07-06-2024 Arthrocentesis aspir &/inj major jt/bursa w/o us Sapphire Mcallister MD Work Phone: Start: 04-06-2024 Arthrocentesis aspir &/inj major jt/bursa w/o us Sapphire Mcallister MD Work Phone: Start: 01-03-2024 Arthrocentesis aspir &/inj major jt/bursa w/o us Sapphire Mcallister MD Work Phone: Start: 09-16-2023 Arthrocentesis aspir &/inj major jt/bursa w/o us Sapphire Mcallister MD Work Phone: Start: 06-03-2023 Arthrocentesis aspir &/inj major jt/bursa [...] above: Performed By: #### P SAD #### [facility] [address] [place] [address] Dr. Jr Leiva Start: 07-07-2020 Mri pelvis [...] screening Collin Zaman Other Extraction of cataract Mckenna SABA Hernia repair Saqib SABA Reconstruction of artery Adwoa SABA Repair of musculoten dinous cuff of shoulder Saqib SABA Plan of Treatment Date Care Activity Detail Author Start: 07-06-2025 Adult BMI Screening Adult BMI Screen ing [facility] Start: 07-06-2025 Tobacco Screening Tobacco Screening [facility] Start: 01-11-2025 End: 01-11-2025 Patient encounter procedure 01/11/2025 10:30 AM EDT Office Visit [facility] [address] [place] [address] Jae Anderson, COOKIE [address] [place] [address] [facility] Start: 01-08-2025 End: 01-08-2025 Patient encounter procedure 01/08/2025 9:00 AM EDT Office Visit [facility] [address] [place] [address] Sapphire Mcallister MD [address] [place] [address] [facility] Start: 01-02-2025 Adult BMI Screening Adult BMI Screen ing [facility] Start: 01-02-2025 Tobacco Screening Tobacco Screening [facility] Start: 11-23-2024 Influenza vaccination [facility] Start: 10-12-2024 End: 10-12-2024 Patient encounter procedure 10/12/2024 9:30 AM EDT Office Visit [facility] [address] [place] [address] Jae Anderson, C[address] [address] [place] [address] Acute pain of right knee (Primary Dx); Acute pain of left knee; Arthritis of right knee; Arthritis of left knee [facility] Comment on above: Acute pain of right knee (Primary Dx); Acute pain of left knee; Arthritis of right knee; Arthritis of left knee Start: 10-05-2024 End: 10-05-2024 Patient encounter procedure 10/05/2024 9:40 AM EDT Office Visit [facility] [address] [place] [address] Sapphire Mcallister MD [address] [place] [address] [facility] Start: 09-15-2024 Adult BMI Screening Adult BMI Screen ing [facility] Start: 09-15-2024 Tobacco Screening Tobacco Screening [facility] Start: 07-06-2024 End: 07-06-2024 Patient encounter procedure 07/06/2024 9:40 AM EDT Office Visit [facility] [address] [place] [address] Sapphire Mcallister MD [address] [place] [address] [facility] Start: 06-02-2024 Adult BMI Screening Adult BMI Screen ing [facility] Start: 04-06-2024 End: 04-06-2024 Patient encounter procedure 04/06/2024 9:45 AM EST Office Visit [facility] [address] [place] [address] Sapphire Mcallister MD [address] [place] [address] [facility] Start: 04-03-2024 End: 04-03-2024 Patient encounter procedure 04/03/2024 9:45 AM EST Office Visit [facility] [address] [place] [address] Sapphire Mcallister MD [address] [place] [address] [facility] Start: 02-12-2024 Tobacco Screening Tobacco Screening [facility] Start: 01-03-2024 End: 01-03-2024 Patient encounter procedure 01/03/2024 9:20 AM EDT Office Visit [facility] [address] [place] [address] Sapphire Mcallister MD [address] [place] [address] [facility] Start: 11-24-2023 COVID-19 Vaccine ( season) COVID-19 Vaccine ( season) [facility] Start: 11-24-2023 COVID-19 Vaccine ( season) COVID-19 Vaccine ( season) [facility] Start: 11-24-2023 Influenza vaccination Influenza Vacc ine [facility] Start: 09-16-2023 End: 09-16-2023 Patient encounter procedure 09/16/2023 9:40 AM EDT Office Visit [facility] [address] [place] [address] Sapphire Mcallister MD [address] [place] [address] [facility] Start: 05-14-2023 COVID-19 Vaccine ( season) COVID-19 Vaccine ( season) [facility] Start: 11-23-2022 Influenza vaccination Influenza Vacc ine [facility] Start: 11-01-2021 End: 11-01-2021 [facility] Work Phone: Start: 11-23-2020 Influenza vaccination INFLUENZ A (Season Ended) [facility] Start: 06-26-2015 Abdominal aortic aneurysm screening Abdominal Aortic Aneurysm (AAA) Screen [facility] Start: 06-26-2015 ADVANCE DIRECTIVE DISCUSSION ADVANCE DIRECTIVE DISCUSSION [facility] Start: 06-26-2015 Fall Risk Screening Fall Risk Screen ing [facility] Start: 06-26-2015 PNEUMOVAX AGE 65 AND OVER WITH 5YR LOOKBACK (#1) PNEUMOVAX AGE 65 AND OVER WITH 5YR LOOKBACK (#1) [facility] Start: 2000 Screening for malign ant neoplasm of colon [facility] Start: 2000 SHINGRIX VACCINE (1 of 2) SHINGRIX VACCINE (1 of 2) [facility] Start: 06-26-1995 DIABETES SCREEN DIABETES SCREEN [facility] Start: 1985 LIPID SCREEN LIPID SCREEN [facility] Start: 1969 DTaP,Tdap and Td Vaccines (1 - Tdap) DTaP,Tdap and Td Vaccines (1 - Tdap) [facility] Start: 1969 Urine microalbumin profile DTAP,TDAP,TD (1 - Tdap) [facility] Start: 1968 Adult BMI Follow Up Plan Adult BMI Follow Up Plan [facility] Start: 1968 HEPATITIS C SCREENING HEPATITIS C SC REENING [facility] Start: 1962 Adult depression screening assessment DEPRESSION SCREENING [facility] Start: 1950 Medicare Annual Well ness Visit Medicare Annual Wellness Visit [facility] Start: 1950 Screening for malign ant neoplasm of colon [facility] Patient Education Arteriogram (DC) [facility] Work Phone: Patient referral [facility] Work Phone: Immunizations Immunization Date Immunization Notes Care Provider Fa lisa 12-16-2023 influenza, high dose seasonal, preservative-free [facility] 12-16-2023 influenza virus vaccine, unspecified formulation Sapphire Mcallister [facility] 02-13-2023 zoster vaccine recombinant Saqib SABA [facility] 12-14-2022 influenza, high dose seasonal, preservative-free Marshall Zaman Other [employer] Other 12-14-2022 influenza virus vaccine, unspecified formulation Sapphire Mcallister MD Work Phone: [facility] 11-12-2022 zoster vaccine recombinant Saqibleonel SABA [facility] 08-02-2022 SARS-CoV-2 (COVID-19 ) [id number] Saqib SABA [facility] 12-13-2021 influenza virus vaccine, split virus (incl. purified surface antigen) Marshall Zaman Other [facility] Other 12-13-2021 influenza virus vaccine, unspecified formulation Sapphire Mcallister MD Work Phone: [facility] 12-06-2021 SARS-CoV-2 (COVID-19 ) [id number] Saqib SABA [facility] 01-13-2021 influenza virus vaccine, split virus (incl. purified surface antigen) Marshall Zaman Other [facility] Other 01-13-2021 influenza virus vaccine, unspecified formulation [facility] 12-30-2020 COVID-19 mRNA, Comirnaty (Pfizer) DO Marshall Zaman Work Phone: [facility] Comment on above: Result Comment: 2023: [id number] 05-30-2020 SARS-CoV-2 (COVID-19 ) mRNA BNT-162b2 vax Saqib SABA [facility] 05-27-2020 COVID-19 mRNA, Comirnaty (Pfizer) DO Marshall Zaman Work Phone: [facility] 05-06-2020 SARS-CoV-2 (COVID-19 ) mRNA BNT-162b2 vax Saqib SABA [facility] 04-26-2020 COVID-19 mRNA, Comirnaty (Pfizer) DO Marshall Zaman Work Phone: [facility] 01-11-2020 influenza virus vaccine, unspecified formulation [employer] [facility] 11-26-2019 influenza virus vaccine, split virus (incl. purified surface antigen) Marshall Zaman Other [employer] Other 11-26-2019 influenza virus vaccine, unspecified formulation [facility] 11-22-2018 influenza virus vaccine, unspecified formulation Saqib Paperton [facility] 07-04-2018 pneumococcal polysaccharide vaccine, 23 valent Marshall Zaman Other [facility] 01-22-2018 influenza virus vaccine, unspecified formulation Saqib Paperton [facility] 07-02-2017 pneumococcal conjuga te vaccine, 13 valent Marshall Zaman Other [facility] 07-02-2017 pneumococcal Conjuga te, unspecified formulation; Translations: [Need for prophylactic vaccination against Streptococcus pneumoniae (pneumococcus)] Marshall Zaman Other [facility] Other 04-16-2017 influenza virus vaccine, split virus (incl. purified surface antigen) Marshall Zaman Other [employer] Other 04-16-2017 influenza virus vaccine, unspecified formulation Saqib SABA [facility] 01-16-2014 influenza virus vaccine, unspecified formulation Saqib SAAB [facility] Payers Date Payer Category Payer Self-pay [id number] 2023 Medicare (Managed Care) [facility] ADVANTAGE [id number] 2017 Medicare ANTHEM MEDICARE ANTHEM MEDICARE ADVANTAGE [id number] 2017-Present [id number] [place] [address] [id number] 2017 Medicare O [facility] MEDICARE [id number] 2017 Unknown ANTHEM BLUE CROS S AND BLUE SHIELD ANTHEM MEDIBLUE ACCESS [id number] 2017-Present PPO [id number] 1959 Medicare [id number] 1950 Unknown [id number] 2.16.840.1.560854.3.579. 2.593 1950 Unknown [id number] 2.16.840.1.073078.3.579. 2.593 1950 Unknown [id number] 2.16.840.1.525417.3.579. 2.593 1950 Unknown [id number] 2.16.840.1.302111.3.579. 2.593 1950 Unknown [id number] 2.16.840.1.263742.3.579. 2.593 1950 Unknown [id number] 2.16.840.1.633750.3.579. 2.593 1950 Unknown [id number] 2.16.840.1.192282.3.579. 2.593 1950 Unknown [id number] 2.16.840.1.970327.3.579. 2.593 1950 Unknown [id number] 2.16.840.1.042392.3.579. 2.593 1950 Unknown [id number] 2.16.840.1.449994.3.579. 2.593 1950 Unknown [id number] 2.16.840.1.176518.3.579. 2.1286 1950 Unknown [id number] 2.16.840.1.352233.3.579. 2.1286 1950 Unknown [id number] 2.16.840.1.827232.3.579. 2.1286 1950 Unknown [id number] 2.16.840.1.491492.3.579. 2.1286 1950 Unknown [id number] 2.16.840.1.207443.3.579. 2.1286 1950 Unknown [id number] 2.16.840.1.920064.3.579. 2.1286 1950 Unknown [id number] 2.16.840.1.404350.3.579. 2.727 1950 Unknown [id number] 1950 Unknown [id number] 1950 Unknown [id number] 1950 Unknown [id number] Medicare Medicare [id number] Unknown [facility] [id number] Unknown [id number] Social History Date Type Detail Facility [facility] Start: 1950 Sex Assigned At Not on file [facility] Exposure to SARS-CoV -2 (event) Not sure [facility] Start: 10-23-2019 End: 10-12-2024 Tobacco smoking status Ex-smoker (finding) [facility] Start: 04-06-2024 End: 10-12-2024 Sex Assigned At Male [facility] Start: 1950 Sex Assigned At Male F [facility] Tobacco smoking status Never [facility] History of tobacco use [facility] History of tobacco use Cigarette Smoker P [facility] Start: 07-16-2022 End: 10-12-2024 Tobacco use and exposure Smokeless tobacco non-user [facility] Start: 04-06-2024 End: 07-06-2024 Alcoholic beverage intake Ex-drinker (finding) [facility] Start: 04-06-2024 End: 10-12-2024 History of Social function [facility] Start: 10-28-2014 End: 07-30-2024 Sex Male (finding) [facility] Tobacco smoking stat [facility] Tobacco smoking consumption unknown [facility] Functional Status Date Assessment Result Facility 07-12-2023 Functional Status N/A [facility] Clinical Notes 07-14-2021 to 10-12-2024 COOKIE Leung - 10/12/2024 9:30 AM Anthony Mcallister MD - 07/06/2024 9:40 AM EDT Note Date & Type Note Facility 10-12-2024 History of Present illness Narrative Associated Order(s): L Inj/Asp: R knee; L Inj/Asp: L knee Post-Procedure Diagnose(s): Arthritis of right knee; Arthritis of left knee Images from the original note were not included. Orthopedic Office note: NAME: Jean Santiago : 1950 (NEW PT) - B/L KNEE DISCOMFORT (L>R) ; S/P CELESTONE INJ 07/06/24 (3 MONTHS, 2 WKS) @[facility] - HERE FOR POSSIBLE B/L CORTISONE INJ XRAY B/L KNEES 07/06/24 @[facility] CELESTONE INJ B/L KNEES 07/06/24, 04/06/24 (DR. MCALLISTER @[facility]) ADMITS B/L DISCOMFORT (L>R) S/P CELESTONE INJ - WITH GREAT RELIEF. PT INTERESTED IN POSSIBLE REPEAT INJECTIONS TODAY. INTERMITTENT LATERAL DISCOMFORT - WORSE WITH PROLONGED AMBULATION - DENIES RADIATION. ADMITS SOME LATERAL SWELLING TO (L) KNEE. DENIES N/T. DENIES INSTABILITY / WEAKNESS / BUCKLING. DENIES STIFFNESS. OCCASIONALLY WAKING HS. TYL PRN. DENIES ICING / HEATING. ADMITS ELEVATION. TRIED TOPICALS. Knee Musculoskeletal Exam Gait Antalgic: right and left Inspection Leg length disparity: no discrepancy Right Erythema: none Effusion: mild Edema: none Ecchymosis: none Deformity: none Alignment: valgus Left Erythema: none Effusion: mild Edema: none Ecchymosis: none Deformity: none Alignment: valgus Palpation Right Right knee palpation is unremarkable. Increased warmth: none Masses: none Crepitus: patellofemoral and lateral Tenderness: present Lateral joint line: moderate Patella: mild Left Left knee palpation is unremarkable. Increased warmth: none Masses: none Crepitus: patellofemoral and lateral Tenderness: present Lateral joint line: moderate Patella: mild Range of Motion Right Right knee range of motion is normal and full. Active extension: 0 Passive extension: 0 Active flexion: 120 Passive flexion: 125 Left Left knee range of motion is normal and full. Active extension: 0 Passive extension: 0 Active flexion: 120 Passive flexion: 125 Strength Right Right knee strength is normal. Extension: 5/5. Extension is affected by pain. Flexion: 5/5. Flexion is affected by pain. Left Left knee strength is normal. Extension: 5/5. Extension is affected by pain. Flexion: 5/5. Flexion is affected by pain. Instability Right Instability signs: none - stable Anterior drawer: normal Left Instability signs: none - stable Anterior drawer: normal Neurovascular Right Right knee neurovascular exam is normal. Pulses - PT: normal Posterior tibial: 2+ Capillary refill: warm and well-perfused Left Left knee neurovascular exam is normal. Pulses - PT: normal Posterior tibial: 2+ Capillary refill: warm and well-perfused Special Signs Right Right knee special signs are normal. Patellar compression: mild Patellar apprehension: mild Left Left knee special signs are normal. Patellar compression: mild Patellar apprehension: mild General Constitutional: appears stated age Labored breathing: no Psychiatric: normal mood and affect Neurological: alert Skin: intact Lymphadenopathy: none Orders Placed This Encounter Procedures L Inj/Asp: R knee This order was created via procedure documentation L Inj/Asp: L knee This order was created via procedure documentation XR knee 1 or 2 views right Reason for exam:: Pain XR knee 1 or 2 views left Reason for exam:: Pain L Inj/Asp: R knee on 10/12/2024 10:02 AM Indications: pain Details: 22 G needle, anterolateral approach Medications: 40 mg methylPREDNISolone acetate 40 MG/ML; 1 mL bupivacaine PF 0.5 % Outcome: tolerated well, no immediate complications E UTILIZING ASEPTIC TECHNIQUE PT GIVEN INJECTION IN RIGHT KNEE, NEUROVASC INTACT S/P INJ, TOLERATED WELL Procedure, treatment alternatives, risks and benefits explained, specific risks discussed. Consent was given by the patient. Patient was prepped and draped in the usual sterile fashion. L Inj/Asp: L knee on 10/12/2024 10:02 AM Indications: pain Details: 22 G needle, anterolateral approach Medications: 40 mg methylPREDNISolone acetate 40 MG/ML; 1 mL bupivacaine PF 0.5 % Outcome: tolerated well, no immediate complications UTILIZING ASEPTIC TECHNIQUE PT GIVEN INJECTION IN LEFT KNEE, NEUROVASC INTACT S/P INJ, TOLERATED WELL Procedure, treatment alternatives, risks and benefits explained, specific risks discussed. Consent was given by the patient. Patient was prepped and draped in the usual sterile fashion. Results - Imaging: - X-rays show tricompartmental arthritis, most pronounced in the right knee ICD-10-CM 1. Acute pain of right knee M25.561 XR knee 1 or 2 views right 2. Acute pain of left knee M25.562 XR knee 1 or 2 views left 3. Arthritis of right knee M17.11 L Inj/Asp: R knee 4. Arthritis of left knee M17.12 L Inj/Asp: L knee Assessment & Plan Bilateral knee arthritis The patient has been receiving conservative treatment at [facility], including cortisone injections every 3 months, which have provided good relief. He is requesting to continue these treatments closer to home. Repeat x-rays today were compared to those taken a year ago, revealing tricompartmental arthritis, most pronounced in the right knee. He is aware of this diagnosis. Knee replacement surgery was discussed, but he declined due to his current tolerance to activity with conservative measures and injections. Viscosupplementation was suggested as a potential treatment for his left knee if cortisone injections do not provide sufficient relief. The possibility of spinal stenosis affecting his ability to walk and stand for extended periods was also mentioned. He is an avid bowler, participating multiple times a week, and wishes to continue this activity as long as his symptoms permit. Treatment plan: Continue cortisone injections every 3 months closer to home. Consider viscosupplementation for the left knee if cortisone injections do not provide adequate relief. Monitor for symptoms of spinal stenosis, and if pain with standing and prolonged walking persists, consider further evaluation. Encourage continued participation in bowling as tolerated. Follow-up: The patient will follow up in 3 months for reevaluation, with the option to call sooner for spine evaluation if needed. Questions answered in laymen terms at the bedside. The diagnosis, home exercise plan and any ongoing restrictions/ recommendations reviewed. If unable to be reached in office, I recommend evaluation at nearest Emergency Room if any symptoms worsened or new symptoms develop for requiring urgent evaluation. Visit was preformed using [employer] Co-instructor pilot speech recognition. documented in this encounter [facility] 07-10-2024 Note Patient Education Oncology Prostate Cancer Screening Prostate [...] recommendations. In general, screening is recommended if: ??? You are age 50 to 70 and [...] have a 10- to 15-year life expectancy. ??? You are younger than age 50, and [...] In general, screening is not recommended if: ??? You are younger than age 40. ??? You are between the ages of 40 and 49 and you have no risk factors. ??? You are 70 years of age or [...] high PSA levels may be caused by: ??? Prostate cancer. ??? An enlarged prostate that is not caused by cancer (benign prostatic hyperplasia, or BPH). This condition is very common in older men. ??? A prostate gland infection (prostatitis) or urinary tract infection. ??? Certain medicines such as male hormones (like [...] you may need more tests, such as: ??? A physical exam to check the size of your prostate gland, if not done as part of screening. ??? Blood and imaging tests. ??? A procedure to remove tissue samples from your prostate gland for testing (biopsy). This is the only way to know for certain if you have prostate cancer. What are the benefits of prostate cancer screening? Screening can help to identify cancer at an early stage, before symptoms start and when the cancer can be treated more easily. ??? There is a small chance that screening [...] Questions to ask your health care provider ??? When should I start prostate cancer screening? What is my risk for prostate cancer? How often do I need screening? What type of screening tests do I need? How do I get my test results? What do my results mean? Do I need treatment? Where to find more information ??? The Citizen [place] Cancer Society: www.cancer.org ??? Citizen [place] Urological Association: www.auanet.org Contact a health care provider if: ??? You have difficulty urinating. ??? You have pain when you urinate or ejaculate. ??? You have blood in your urine or semen. ??? You have pain in your back or in the area of your prostate. Summary ??? Prostate cancer is a common type of cancer in men. The prostate gland (more content not included)... [facility] 07-06-2024 History of Present illness Narrative Associated Order(s): $ Large Joint Injection: bilateral knee Post-Procedure Diagnose(s): Primary osteoarthritis of both knees [facility] [address] [facility] [id number] CHART NOTE: 07/06/2024 Chief Complaint: Chief Complaint Patient presents with Left Knee - Pain Bilateral knee celestone injection 04/06/24, lasted until a couple weeks ago. Right Knee - Pain Bilateral knee celestone injection 04/06/24, lasted until a couple weeks ago. Subjective History Jean Santiago is a 74 y.o. male who presents to the office today for evaluation of his bilateral knees. The patient has a history of bilateral knee osteoarthritis which we have treated conservatively in the past with intermittent Celestone injections. His most recent injections were given on April 06, 2024. He states these did provide him pain relief up until a few weeks ago. He would like to repeat these today. He denies any new injuries. He denies any numbness or tingling. Tylenol as needed. Past Medical, Family, Surgical, and Social History, as well as Medications, Allergies, and Review of Systems were reviewed and can be seen in the patient's chart. Objective History: Body mass index is 28.87 kg/m . Patient was alert and oriented x3, no apparent distress. Upon examination of the , skin is dry and intact without signs of erythema or ecchymosis. No signs of effusion. No joint line pain to palpation. He can perform bilateral straight leg raises without lag. He is lacking a few degrees of extension bilaterally and can flex both knees to 110 . Knees are stable to valgus and varus stress testing. He was neurovascularly intact distally with present sensation of light touch and brisk capillary refill. XRAYS: X-ray knee left minimum 4 views Bilateral standing AP, tunnel, Grecia x-rays of the knees and lateral x-ray of the left knee were performed in the office today. 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 No acute osseous abnormality. X-ray knee right minimum 4 views Bilateral standing AP, tunnel, Grecia x-rays of the knees and lateral x-ray of the right knee were performed in the office today. 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 No acute osseous abnormality. Assessment 1. Primary osteoarthritis of both knees Plan: I, SAPPHIRE MCALLISTER MD, personally performed the face to face evaluation on this patient. I discussed with the patient and confirmed the accuracy and completeness of the aforementioned history prepared by the advance practice provider, and I personally performed the clinical examination of the patient. I discussed the treatment plan with the patient. In detail today on examination of both knees he has good extension with patellofemoral crepitation and medial joint line tenderness palpation. The previous steroid injections provided a few months of pain relief. We discussed indications for knee replacement surgery versus bilateral knee intra-articular Celestone steroid injections she he would like to proceed with the injections both knees injected with Celestone today without complication I will see him in 3 months all questions answered he agrees with this plan.. $ Large Joint Injection: bilateral knee on 07/06/2024 9:56 AM Indications: pain Details: 22 G needle, anterolateral [...] risks and benefits explained, specific risks discussed. Consent was given by the patient. Patient was prepped and draped in the usual sterile fashion. documented in this encounter [facility] 06-15-2024 Evaluation note Diagnosis Onset Date Resolution Chronic kidney disease acute [facility] 2024 9:50am Elevated cholesterol acute Enrique 2024 9:50am Hypertension acute June 15, 2024 9:50am IFG (impaired fasting glucose) acute June 15, 2024 9:50am Lumbar spondylosis acute June 15, 2024 9:50am Major depression acute June 152024 9:50am Nicotine dependence acute June 15, 2024 9:50am Overweight acute June 15 9:50am PAD (peripheral artery disease) acute June 15, 2024 9:50am Prostate nodule acute May 9:50am Anemia noneactive June 15 9:50am [facility] Work Phone: 1(876) 472-403701-13-2025 History of Present illness Narrative* Sapphire Mcallister MD - 04/06/2024 9:45 AM ESTAssociated Order(s): $ Large Joint Injection: bilateral knee Post-Procedure Diagnose(s): Primary osteoarthritis of both knees [facility] [address] [place] [address] Name: Jean Santiago : 1950 Chief Complaint Patient presents with Right Knee - Pain Bilateral knee celestone injection 01/03/24, lasted about 3 months. Would like to repeat. Left Knee - Pain Bilateral knee celestone injection 01/03/24, lasted about 3 months. Would like to repeat. Subjective Jean Santiago is a 73 y.o. year old male who presents to the office today for recheck of bilateralknee osteoarthritis. Patient received a Celestone injection into bilateral knees on 01/03/2024. He states this lasted almost 3 months. He would like to continue with conservative management. No otherchanges since his last visit. Past Medical, Family, Surgical, and Social History, as well as Medications, Allergies, and Review of Systems were reviewed and can be seen in the patient's chart. Objective Body mass index is 28.87 kg/m . Jean is alert and oriented, in no acute distress. Bilateral knees examined. Mild swelling appreciated. He is able to perform a straight leg raise. Patella is mobile. Range of motion 0-120. Stable tovarus and valgus stress. Calf is soft, supple and nontender. Imaging X-ray knee left minimum 4 views Bilateral standing AP, tunnel, Grecia x-rays of the knees and lateral x-ray of the left knee were performed in the office today. 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 No acute osseous abnormality. X-ray knee right minimum 4 views Bilateral standing AP, tunnel, Grecia x-rays of the knees and lateral x-ray of the right knee were performed in the office today. 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 No acute osseous abnormality. Assessment 1. Primary osteoarthritis of both knees - $ Large Joint Injection Plan Patient was seen today for recheck of bilateral knees. He did very well with previous Celestone injections. We offered to do repeat injections today. He was agreeable to this and tolerated the injections well. Follow up in 3 months. All questions were answered. $ Large Joint Injection: bilateral knee on 04/06/2024 10:43 AM Indications: pain Details: 22 G needle, anterolateral approach Medications (Right): 12 mg betamethasone acet & sod phos 6 mg/mL Medications (Left): 12 mg betamethasone acet & sod phos 6 mg/mL Outcome: tolerated well, no immediate complications The patient was instructed to use ice, NSAIDs, or Tylenol for pain as needed. The patient will callwith any signs or concerns. Procedure, treatment alternatives, risks and benefits explained, specific risks discussed. Consent was given by the patient. Patient was prepped and draped in the usual sterile fashion. documented in this encounterFostoria City HospitalYiBai-shopping [id number] History of Present illness Narrative* Sapphire Mcallister MD - 01/03/2024 9:20 AM EDTAssociated Order(s): $ Large Joint Injection: bilateral knee Post-Procedure Diagnose(s): Primary osteoarthritis of both knees Chief Complaint: Chief Complaint Patient presents with Left Knee - Pain Bilateral knee celestone injection 09/16/23, was effective would like to repeat. Right Knee - Pain Bilateral knee celestone injection 09/16/23, was effective would like to repeat. Subjective History Jean Santiago is a 73 y.o. male who presents to the office today for recheck of bilateral knees. The patient does have a history of bilateral osteoarthritis. The last we saw the patient was 09/16/2023. We did do bilateral Celestone injections and they were helpful. He denies any new injuries to the knees. Objective History: Patient was alert and oriented x3, no apparent distress. Bilateral knees: Skin is dry and intact. Patient is able to perform a straight leg raise today. No significant effusion present bilaterally. Range of motion is from 5-110 degrees bilaterally with crepitation noted. Patient does have significant joint line tenderness. Knee is stable to varus and valgus stress testing. XRAYS: None Assessment: Jean Santiago is a 73 y.o. male with bilateral knee osteoarthritis Plan: I, SAPPHIRE MCALLISTER MD, personally performed the face to face evaluation on this patient. I discussed with the patient and confirmed the accuracy and completeness of the aforementioned history prepared by the advance practice provider, and I personally performed the clinical examination of the patient. I discussed the treatment plan with the patient. Reviewed clinical findings in detail today on examination of both knees he has functional range of motion with a effusion bilaterally with crepitation in the joint line. He responds well to conservative treatment and would like to continue with conservative treatment versus surgical intervention at this point. Risks benefits of bilateral knee steroid injections discussed and he wished to proceed both knees injected with steroid today without complication I will see him back again in 3 months all questions answered.. $ Large Joint Injection: bilateral knee on 01/03/2024 9:29 AM Indications: pain Details: 22 G needle, anterolateral approach Medications (Right): 12 mg betamethasone acet & sod phos 6 mg/mL Medications (Left): 12 mg betamethasone acet & sod phos 6 mg/mL Outcome: tolerated well, no immediate complications The patient was instructed to use ice, NSAIDs, or Tylenol for pain as needed. The patient will callwith any signs or concerns. Procedure, treatment alternatives, risks and benefits explained, specific risks discussed. Consent was given by the patient. Patient was prepped and draped in the usual sterile fashion. [facility] of Present illness Narrative* Sapphire Mcallister MD - 09/16/2023 9:40 AM EDTAssociated Order(s): $ Large Joint Injection: bilateral knee Post-Procedure Diagnose(s): Primary osteoarthritis of both knees Images from the original note were not included. [facility] [address] [facility] [address] Name: Jean Santiago : 1950 09/16/2023 SUBJECTIVE: Chief Complaint: Bilateral knee pain History of Present Illness: The patient is a pleasant 73-year-old male who is known to have osteoarthritis of both knees. He complains of a flare-up of bilateral knee pain. The pain is worse on the left side. He states the injections he had in May did provide effective relief of his symptoms up until recently. His left kneehas been bothering him for about a month and his right knee just started to flare-up. He points to all 3 compartments of both knees when asked location of pain. He states the pain is exacerbated whenhe sits with his knees in a flexed position. He does have pain at night. He does have increased pain with activity as well. Review of Systems: Refer to [facility] for other pertinent ROS findings Past Medical, Family, Surgical, and Social History, as well as Medications, Allergies, and Review of Systems were reviewed and can be seen in the patient's chart. OBJECTIVE: Physical Examination: There were no vitals filed for this visit. Body mass index is 28.39 kg/m . GENERAL APPEARANCE: The patient is well-developed, well-nourished, and in no acute distress. The patient is alert and oriented x 3, pleasant, and cooperative. The patient has a normal body habitus. The patient walks with an antalgic gait. ASSESSMENT: 1. Primary osteoarthritis of both knees 2. Acute bilateral knee pain Radiologic findings: Lts X-ray knee left minimum 4 views Bilateral standing AP, tunnel, Grecia x-rays of the knees and lateral x-ray of the left knee were performed in the office today. 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 No acute osseous abnormality. X-ray knee right minimum 4 views Bilateral standing AP, tunnel, Grecia x-rays of the knees and lateral x-ray of the right knee were performed in the office today. 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 No acute osseous abnormality. My personal interpretation of outside test results: NA External notes reviewed: NA PLAN: I, SAPPHIRE MCALLISTER MD, personally performed the face to face evaluation on this patient. I discussed with the patient and confirmed the accuracy and completeness of the aforementioned history prepared by the gay practice provider, and I personally performed the clinical examination of the patient. I discussed the treatment plan with the patient. Reviewed clinical findings in detail today. On examination of both knees he has lateral and peripatellar tenderness palpation along with some patellofemoral crepitus throughout range of motion. Mild effusion bilaterally. Good functional range of motion of both knees. We discussed indications for knee replacement today. Also discussed prognosis of continued conservative treatment. Reviewed the x-rays as well. He does have evidence of bilateral knee osteoarthritis and he responds well to steroid injections in the past. He would like to continue with nonsurgical management for both knees. Risks benefits of bilateral knee steroid injections werediscussed with him in detail and he wished to proceed. Both knees were injected with Celestone today without complication he tolerated this well. I will plan on seeing him back again in 3 months all questions answered.. $ Large Joint Injection: bilateral knee on 09/16/2023 10:13 AM Indications: pain Details: 22 G needle, anterolateral approach Medications (Right): 12 mg betamethasone acet & sod phos 6 mg/mL Medications (Left): 12 mg betamethasone acet & sod phos 6 mg/mL Outcome: tolerated well, no immediate complications The patient was instructed to use ice, NSAIDs, or Tylenol for pain as needed. The patient will callwith any signs or concerns. Procedure, treatment alternatives, risks and benefits explained, specific risks discussed. Patient was prepped and draped in the usual sterile fashion. [facility] Discharge instructions Patient Education 07/12/2023 09:35:33 Prostate Cancer Screening Prostate Cancer Screening Prostate cancer screening is testing that is done to check for the presence of prostate cancer in men. The prostate gland is a walnut-sized gland that is located below the bladder and in front of therectum in males. The function of the prostate is to add fluid to semen during ejaculation. Prostatecancer is one of the most common types of cancer in men. Who should have prostate cancer screening? Screening recommendations vary based on age and other risk factors, as well as between the professional organizations who make the recommendations. In general, screening is recommended if: You are age 50 to 70 and have an average risk for prostate cancer. You should talk with your healthcare provider about your need for screening and [...] diagnosed with prostate cancer. The risk is higherif your family member's cancer occurred at an early age or if you have multiple family members withprostate cancer at an early age. ?Being a [...] is a blood test called the prostate-specific antigen(PSA) test. PSA is a protein that is [...] treatment? Where to find more information The Citizen Of [place] Cancer Society: www.cancer.org Citizen Of [place] Urological Association: www.auanet.org Contact a health care [...] the recommended screening test for prostate cancer, butit has associated risks. Discuss the risks and [...] provider. Document Revised: 09/04/2021 Document Reviewed: 09/04/2021 [employer]) Patient Education 2022 [employer]. Follow Up Care 12/31/2022 11:29:59 With:OMER JOVEL, Saqib Sumner, URL Address: [address] [place] [address]- When: Unknown [facility] 03-11-2024 History of Present illness Narrative* Sapphire Mcallister MD - 06/03/2023 12:40 PM EDTAssociated Order(s): $ Large Joint Injection: bilateral knee Post-Procedure Diagnose(s): Primary osteoarthritis of both knees [facility] [address] [facility] [id number] Name: Jean Santiago : 1950 Chief Complaint [...] distress. Upon examination of bilateral knees reveals skinis clean, dry intact with no erythema, edema or ecchymosis. No significant effusion present bilaterally. Range of motion is from 0-115 degrees bilaterally with crepitation noted. Strength 5/5 with flexion extension. Knee is stable to varus and valgus stress testing. Negative Heide's bilaterally.Calf is subtle nontender. Negative Homans. Images X-ray [...] of the aforementioned history prepared by the gay practice provider, and I personally performed the clinical examination of the patient. I discussed the treatment plan with the patient. Reviewed clinical findings in detail today.He does have lateral and predominantly patellofemoral based [...] for pain as needed. The patient will callwith any signs or concerns. Procedure, treatment alternatives, risks and benefits explained, specific risks discussed. Patient was prepped and draped in the usual sterile fashion. [facility]* Encounter Date Diagnosis Assessment Notes Treatment Notes Treatment Clinical Notes Mar, Recurrent major depressive disorder, in full remission (ICD-10 - F33.42) [facility] Other 12-27-2023 Evaluation note* Encounter Date Diagnosis Assessment Notes Treatment Notes Treatment Clinical Notes Feb, Anemia, unspecified type (ICD-10 - D64.9) [facility] Other 10-19-2023 Evaluation note* Encounter Date Diagnosis Assessment Notes Treatment Notes Treatment Clinical Notes Dec, SBE (subacute bacterial endocarditis) prophylaxis candidate (ICD-10 - Z29.89) [facility] Other 09-22-2023 Evaluation note* Encounter Date Diagnosis [...] achieve/maintain a normal BMI. Nov, Atherosclerosis of [place] arteries of extremities with intermittent claudication, bilateral [...] - Z79.899) Check labs: CBC, BS, GFR [facility] Other 09-13-2023 Evaluation note* Encounter Date Diagnosis Assessment Notes Treatment Notes Treatment Clinical Notes Nov, Primary hypertension (ICD-10 - I10) [facility] Other 09-06-2023 Evaluation note* Encounter Date Diagnosis Assessment Notes Treatment Notes Treatment Clinical Notes Nov, Simple chronic bronchitis (ICD-10 - J41.0) LDCT w/o suspicious nodules: 11/2022 [facility] Other 07-03-2023 Evaluation note* Encounter Date Diagnosis Assessment Notes Treatment Notes Treatment Clinical Notes Sep, Recurrent major depressive disorder, in full remission (ICD-10 - F33.42) [facility] Other 03-06-2023 Evaluation note* Encounter Date Diagnosis [...] achieve/maintain a normal BMI. May, Atherosclerosis of [place] arteries of extremities with intermittent claudication, bilateral [...] 3mo, EGD discussed Normal Colonoscopy in 2019 [facility] Other 02-10-2023 Evaluation note* Encounter Date Diagnosis Assessment Notes Treatment Notes Treatment Clinical Notes Apr, Anemia, unspecified type (ICD-10 - D64.9) [facility] Other 08-01-2022 Evaluation note* Encounter Date Diagnosis [...] well as goals and agrees to proceed. [facility] Other 06-27-2022 Evaluation note* Encounter Date Diagnosis [...] with me. They agree with that plan. [facility] Other 04-22-2022 Hospital Discharge instructions Patient Education [...] these risk factors: ?Being of -Citizen Of [place] descent. ?Having a family history of prostate [...] older than age 55. Are -Citizen Of [place]. Have a father, brother, or uncle who [...] 12/20/2017 Document Revised: 02/21/2018 Document Reviewed: 12/20/2017 [employer] ([employer]) Patient Education 2020 [employer]. Follow Up Care 07/15/2020 08:51:04 With:OMER JOVEL, Saqib Sumner, URL Address: [facility] [address], [place] [phone] When: Unknown [facility] evaluation + Plan note No data available for this section [facility] evaluation + Plan note Future Appointments Appointment Date:07/10/2024 08:30:00 AM Scheduled Provider:Saqib ASBA MD Location:[facility] Appointment Type:URO Office Visit Diagnostic Tests Pending * PSA Total 04/25/24 [facility] evaluation noteNo assessment information available [facility] Work Phone: evaluation noteNo InformationNort CD Diagnostics Other evaluation note* Diagnosis Primary osteoarthritis of both knees- Primary documented in this encounter [facility] [employer] SystemEvaluation note* Diagnosis Primary osteoarthritis of both knees- Primary Acute bilateral knee pain Acute bilateral knee pain Acute bilateral knee pain [facility] encounter [email or web address]* Diagnosis Primary osteoarthritis of both knees- Primary [facility] System[facility]* Diagnosis Primary osteoarthritis of both knees- Primary documented in this encounter [facility] SystemEvaluation [facility]* Diagnosis Onset Date Resolution Status Admit Date Chronic kidney disease acute Ma h 2024 9:50am Elevated cholesterol acute Enrique h 2024 9:50am Hypertension acute June 15, 2024 9:50am IFG (impaired fasting glucose) acute June 15, 2024 9:50am Lumbar spondylosis acute June 15, 2024 9:50am Major depression acute June 152024 9:50am Nicotine dependence acute June 15, 2024 9:50am Overweight acute June 15 9:50am PAD (peripheral artery disease) acute June 15, 2024 9:50am Prostate nodule acute May 9:50am Anemia noneactive June 15 9:50am [facility] Work Phone: Evaluation note* Diagnosis Acute pain of right knee- Primary Acute pain of left knee Arthritis of right knee Arthritis of left knee documented in this encounter [facility] N[facility] - Reported* Type Description Date [...] LEG 2000IS H Hospitalization History See Above [facility] Other History general Narrative - Reported* Type [...] Surgical History COLONOSCOPY Hospitalization History See Above [facility] Other History general Narrative - Reported* Type [...] History COLONOSCOPY 2019 Hospitalization History See Above [facility] Other InstructionsNot on filedocumented in this encounter [employer] SystemInstructionsNot on filedocumented in this encounter [facility] [employer] SystemProgress note No data available for this section [facility] [employer] Summary Purpose Family History No Family History Records Found Relationship Condition Age at Onset Recorded Date/T alex father Unknown Malignant neoplasm of throat Unknown Malignant neoplasm Unknown mother Unknown Diabetes mellitus Unknown sister Malignant neoplasm Unknown Advance Directives No Advanced Directives Records Found Advance Directive Response Recorded Date/ Time Advance Directives No July 31, 2021 2:01pm Chief Complaint and Reason for Visit Chief Complaint Admit Date 6 month f/u June 15, 2024 9:5 0am R97.20 July 29, 2024 2:08pm Reason for Visit Admit Date Chronic kidney disease June 15, 2024 9:50am Elevated cholesterol June 15, 2024 9: 50am Hypertension June 15, 2024 9:5 0am IFG (impaired fasting glucose) May 9:50am Lumbar spondylosis June 15, 2024 9:5 0am Major depression June 15, 2024 9:5 0am Nicotine dependence June 15, 2024 9:5 0am Overweight June 15, 2024 9:5 0am PAD (peripheral artery disease) June 152024 9:50am Prostate nodule June 15, 2024 9:5 0am Anemia June 15, 2024 9:5 0am Chief Complaint Elevated PSA Chief Complaint Elevated PSA I70.213 Chief Complaint I70.213 PAD Chief Complaint Admit Date 6 month f/u June 15, 2024 9:5 0am Additional Source Comments (unrecognized sect ion and content) No Status Records FoundNo Status Records FoundNo Status Records FoundNo Status Records FoundNo Status Records FoundNo Status Records Found INFORMATION SOURCE (unrecogn ized section and content) DATE CREATED AUTHOR 07/08/2020 [facility] DATE CREATED AUTHOR AUTHOR'S ORGANIZ ATION 05/25/2022 [facility] DATE CREATED AUTHOR AUTHOR'S ORGANIZ ATION 07/07/2024 [facility] DATE CREATED AUTHOR AUTHOR'S ORGANIZ ATION 08/06/2024 [facility] DATE CREATED AUTHOR AUTHOR'S ORGANIZ ATION 09/02/2024 [facility] DATE CREATED AUTHOR AUTHOR'S ORGANIZ ATION 10/17/2024 [facility] EPIC Source Comments (unrecognize d section and content) In the event this informatio n is protected by the Federal Confidentiality of Alcohol and Drug Abuse Patient Records regulations: The Federal rules restrict any use of the information to criminally investigate or prosecute any alcohol or drug abuse patient.[facility] Reason for Visit (unrecogniz ed section and content) Status Reason Specialty Diagnoses / Procedures Referred By Contact Referred To Contact Outside PCP Radiology / RADI O MRI [facility] Diagnoses MRI Prostate WWO Contrast- BPH elevated PSA Procedures MRI WWO PROSTATE [address] Saqib Saba R [address] [place] [address] Radio Mri [facility] [address] [place] [address] Reason Comments Pain Bilateral knee valerie tone injection 01/03/24, lasted about 3 months. Would like to repeat. Reason Comments Injection Celestone injection Injection Celestone Reason Comments Follow-up Last celestone 02/11 increased pain with bowling Follow-up Last celestone 02/11 left is worse increased pain with bowling Reason Comments Pain Bilateral knee valerie tone injection 09/16/23, was effective would like to repeat. Reason Comments Pain Bilateral knee valerie tone injection 04/06/24, lasted until a couple weeks ago. Reason Comments Pain Caden De La Fuente), RN - 07/07/2020 9:00 AM EDT Nursing [...] TIME: 9:02 AM documented in this encounter [facility] - 07/07/2020 9:00 AM EDT Miscellaneous Notes [...] Status: Inactive Member Role Status Dates Marshall Zamna DO Primary Care Provider Active Stuart Qureshi MD Attending Provider Active Arts Manager Relationship Specialty Start Date End Date Marshall Zaman DO [address] [place] [address] PCP - General 07/14/22 Arts Manager Relationship Specialty Start Date End Date Marshall Zaman DO [address] [place] [address] PCP - General 07/14/22 Arts Manager Relationship Specialty Start Date End Date Marshall Zaman DO [address] [place], [place] [id number] PCP - General 07/14/22 Arts Manager Relationship Specialty Start Date End Date Marshall Zaman DO [address] [place] [address] PCP - General 07/14/22 Team Status: Inactive Member Role Status Dates Marshall Zaman DO Primary Care Provide r, Attending Provider Active Start: June 15, 2024 End: June 15, 2024 Team Status: Active Member Role Status Dates Marshall Zaman DO Primary Care Provider Active Start: July 01, 2024 Saqib Saba MD Attending Provider Active St art: July 01, 2024 Team Status: Inactive Member Role Status Dates Marshall Zaman DO Primary Care Provider Active Start: July 29, 2024 End: July 29, 2024 Saqib Saba MD Attending Provider Active art: July 29, 2024 End: July 29, 2024 Arts Manager Relationship Specialty Start Date End Date Marshall Zaman DO [address] [place] [id number] PCP - General Internal Medicine 10/12/24 Arts Manager Relationship Specialty Start Date End Date Marshall Zaman DO [address] [place] [id number] PCP - General Internal Medicine 10/12/24 Goals (unrecognized section and content) Goals may [...] BE BASED ON THE PRIMARY CLINICAL RECORDS. [employer] provides no warranty or guarantee of the accuracy or completeness of information in this document.
[2024-10-30 17:20] LABS: Hematocrit 40.2 % (42.0-54.0); Hemoglobin 13.4 g/dL (14.0-18.0); Immature Granulocytes Abs Auto 0.07 10^3/uL (0.00-0.03); Immature Granulocytes Pct Auto 0.4 % (0.0-0.5); Lymphocytes Absolute Auto 0.7 10^3/uL (1.2-3.8); Mean Corpuscular HGB Conc 33.3 g/dL (29.9-35.2); Mean Corpuscular Hemoglobin 30.2 pg (25.9-34.0); Mean Corpuscular Volume 90.5 fL (80.0-94.0); Platelet Count 340 10^3/uL (150-450); Red Blood Count 4.44 10^6/uL (4.70-6.10); White Blood Count 18.6 10^3/uL (4.0-11.0)
[2024-10-30] MEDS: HYDROMORPHONE HCL 0.5 MG/0.5 ML SYRINGE IV (17:30)
[2024-10-30 17:31] LABS: Partial Thromboplastin Time 28.3 sec (22.3-36.2)
[2024-10-30 17:33] LABS: Alanine Aminotransferase 28 U/L (16-63); Albumin Level 3.5 g/dL (3.4-5.0); Alkaline Phosphatase 131 U/L (46-116); Anion Gap 11.9; Aspartate Amino Transferase 15 U/L (15-37); Blood Urea Nitrogen 27.0 mg/dL (7.0-18.0); Calcium 9.4 mg/dL (8.5-10.1); Carbon Dioxide 25.6 mmol/L (21.0-32.0); Chloride 105 mmol/L (98-107); Estimated GFR (African America >60 (>=60 mL/min/1.73m^2); Estimated GFR (Non-African Ame 56 (>=60 mL/min/1.73m^2); Globulin 3.6 g/dL; Glucose 158 mg/dL (74-106); Lipase 32.0 U/L (16.0-77.0); Magnesium 2.1 mg/dL (1.8-2.4); Potassium 4.5 mmol/L (3.5-5.1); Sodium 138 mmol/L (136-145); Total Protein 7.1 g/dL (6.4-8.2)
[2024-10-30 17:34] LABS: Albumin Globulin Ratio 1.0; INR 0.99; Prothrombin Time 10.5 sec (9.0-11.6)
[2024-10-30 18:06] LABS: Lactate/Lactic Acid 1.5 mmol/L (0.4-2.0)
[2024-10-30] MEDS: PIPERACILLIN SODIUM/TAZOBACTAM 3.375 GM in 0.9 % SODIUM CHLORIDE 50 ML IV (18:36)
[2024-10-30] MEDS: 0.9 % SODIUM CHLORIDE 500 ML 1000 ML IV (18:36)
[2024-10-30 19:06] VITALS: BP 129/62; PULSE 72; O2SAT 96
--- OUTSIDE RECORDS SUMMARY | 2024-10-30 21:29 | XMS_ITS | CCD ---
Author Organization [facility] Care Team Providers Care Electric Organ Assembler Name Role Phone Saqib Saba Unavailable Unavailable MARSHALL ZAMAN Primary Care Physician DO Marshall Zaman Primary Care Provider [phone] MD Saqib Saba Attending Provider Stuart Qureshi [...] Unavailable Ball DO, Marshall Primary Care Provider [phone] Saqib Saba MD Attending Provider [phone] Saqib SABA Attending Unavailable Saqib SABA Attending [...] physicia Propensity to adverse reactions 5 Comment:Done [employer] Other (1 source) No Known Medication Allergies; Translations: [No Known Medication Allergies] Propensity to adverse reactions (disorder) [facility] Repository Medications Current Medications Medication Drug [...] DAILY Start: 06-18-2022 take [address] [facility] every twenty-four hours in the morning [...] 1:38pm Start: 04-29-2020 take [address] [facility] every twenty-four hours buPROPion 300 mg XL /24 hrs mg tab(s), Oral, q24hr, Refills(s) 0 Start Date: 04/29/20 Status: Ordered Start: 04-29-2020 take [address] 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 [facility] 10/12/2024 12:34 PM L [...] and draped in the usual sterile fashion. [employer] [facility] XR Knee - left 1 or 2 Viewso n 10-12-2024 Imaging Result: AP and lateral left knee: No acute fracture or dislocation Mild effusion Valgus alignment with narrowing lateral joint line, Flattening or articular surface weight bearing and subchondral sclerosis noted.. narrowing and flattening of patella femoral joint consistent with degenerative changes. 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 Impression: severe tricompartmental right knee arthritis [facility] Creatinine (Bld) [Mass/Vol]O rdered By: Saqib Saba on 07-29-2024 Creatinine [Mass/Vol] Whole blood creatinine measurement 0.6-1.3 [facility] Comment on above: ER/ESD physician is notified/shown all ISTAT results.Critical values may be confirmed by laboratory testing ifdeemed necessary by ER attending doctor. ISTAT XRay CREon 07-29-2024 Creatinine [Mass/Vol] 1.2 mg/dL Normal 0.6-1.3 [facility] Comment on above: Result Comment: ER/E SD physician is notified/shown all ISTAT results. Critical values may be confirmed by laboratory testing if deemed necessary by ER attending doctor. Performed By: #### I SCRE #### [address] ISTAT GFR >60.0 Normal [facility] Comment on above: Result Comment: PERF ORMED BY: [place] [address] PATHOLOGIST SHELVING SUPERVISOR LIONEL HAGAN M.D. Performed By: #### I SCRE #### [address] MR prostate wo/w conon 07-29 MR prostate wo/w con [facility] [place] [address] MRI Report Signed Patient: Jean Santiago MR#: [id number] : 1950 Acct:[id number] Age/Sex: 74 / M ADM Date: 07/29/24 Loc: Room: Type: [facility] Attending Dr: Saqib Saba MD Copies to: [...] Jr., D.OMae 07/29/2024 4:38 PM Dictation Location: [place] [address] Transcribed By: [facility] 07/29/24 1638 Dictated By: Freddie Garcia Jr, DO 07/29/24 1635 Signed By: 07/29/24 1638 Normal [facility] Magnetic resonance imaging r eportOrdered By: Freddie Garcia on 07-29-2024 Study report [facility] [place] [address] [place] [address] MRI Report Signed Patient: Jean Santiago MR#: [id number] : 1950 Acct:[id number] Age/Sex: 74 / M ADM Date: 5 Loc: MR Room: Type: [facility] Attending Dr: Saqib Saba MD Copies to: [...] Jr., D.O. 07/29/2024 4:38 PM Dictation Location: [place] [address] Transcribed By: [facility] 07/29/24 1638 Dictated By: Freddie Garcia Jr, DO 07/29/24 1635 Signed By: 07/29/24 1638 [facility] No Panel InformationOrdered By: Saqib Saba on 07-29-2024 Bedside Estimated GFR (eGFR) > 60.0 [facility] Ambulatory Visit Summaryon 0 07-10-2024 Ambulatory Visit [...] with OMER JOVEL, CONNER Jay When: Where: [address] [place] [address]- Medications What How Much When Instructions Unchanged [...] prostate-specific antigen (more content not included)... Normal [facility] Urology Office/Clinic Noteon 07-10-2024 Urology Office/Clinic [...] 6 months. -Schedule MRI of prostate at [facility] in 6 months if MRI is [...] Information OMER JOVEL, Saqib Sumner, URL [address] [place] [address]- Additional Instructions: MRI pending f/up Patient Education [...] vaccine, inactivated (more content not included)... Normal [facility] Comment on above: Result Comment: Elec [...] the usual sterile fashion. MANUALLY TRANSCRIBED RESULTS [employer] [facility] No Panel Informationon 07-01 Prostate Specific Antigen Total 16.28 ng/mL High <=4.00 [facility] $ Large Joint Injection: andres ateral kneeon [...] the usual sterile fashion. MANUALLY TRANSCRIBED RESULTS [employer] $ Large Joint Injection: andres ateral kneeon [...] the usual sterile fashion. MANUALLY TRANSCRIBED RESULTS [employer] $ Large Joint Injection: andres ateral kneeon [...] the usual sterile fashion. MANUALLY TRANSCRIBED RESULTS [employer] XR Knee - left 4 Viewson Bilateral standing AP, tunnel, Grecia x-rays of the knees and lateral x-ray of the left knee were performed in the office today. 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 No acute osseous abnormality. MANUALLY TRANSCRIBED [facility] [employer] Radiology Study observation (narrative) [employer] XR Knee - right 4 Viewson Bilateral standing AP, tunnel, Grecia x-rays of the knees and lateral x-ray of the right knee were performed in the office today. 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 No acute osseous abnormality. MANUALLY TRANSCRIBED RESULTS [facility] observation (narrative) [employer] $ Large Joint Injection: andres ateral kneeon [...] the usual sterile fashion. MANUALLY TRANSCRIBED RESULTS [facility] [employer] CBC AUTO DIFFon 05-18-2022 BASO # 0.1 103/ul Normal 0.0-0.1 [facility] Comment on above: Performed By: #### C BC #### [facility] [address] [place] [address] Dr. Jr Leiva Basophils/100 WBC (Bld) 0.8 % Normal 0.2-2.0 [facility] Comment on above: Performed By: #### C BC #### [facility] [address] [place] [address] [address] Jr Leiva EO # 0.5 103/ul Normal 0.0-0.[address] [facility] Comment on above: Performed By: #### C BC #### [facility] [address] [place] [address] Dr. Jr Leiva Eosinophils/100 WBC (Bld) 6.1 % Normal 0.9-7.[address] [facility] Comment on above: Performed By: #### C BC #### [facility] [address] [place] [address] Dr. Jr Leiva Erythrocyte distribution width (RBC) [Ratio] 12.6 % Normal 11.0-15.[address] [facility] Comment on above: Performed By: #### C BC #### [facility] [address] [place] [address] Dr. Jr Leiva Hematocrit (Bld) [Volume fraction] 40.6 % Critically low 42.0-54.[address] [facility] Comment on above: Performed By: #### C BC #### [facility] [address] [place] [address] Dr. Jr Leiva Hemoglobin (Bld) [Mass/Vol] 13.1 g/dL Critically low 14.0-18.[address] [facility] Comment on above: Performed By: #### C BC #### [facility] [address] [place] [address] Dr. Jr Leiva IG # 0.02 10e3/ul Normal 0.00-0.[address] [facility] Comment on above: Performed By: #### C BC #### [facility] [address] [place] [address] Dr. Jr Leiva IG % 0.3 % Normal 0.0-0.[address] [facility] Comment on above: Performed By: #### C BC #### [facility] [address] [place] [address] Dr. Jr Leiva LYMPH # 1.5 103/ul Normal 1.2-3.[address] [facility] Comment on above: Performed By: #### C BC #### [facility] [address] [place] [address] Dr. Jr Leiva Lymphocytes/100 WBC (Bld) 20.3 % Critically low 20.5-60.[address] [facility] Comment on above: Performed By: #### C BC #### [facility] [address] [place] [address] Dr. Jr Leiva MANUAL DIFF REQ NO Normal [facility] Comment on above: Performed By: #### C BC #### [facility] [address] [place] [address] [address] Jr Leiva MCH (RBC) [Entitic mass] 29.3 pg Normal 25.9-34.[address] [facility] Comment on above: Performed By: #### C BC #### [facility] [address] [place] [address] [address] Jr Leiva MCHC (RBC) [Mass/Vol] 32.3 g/dL Normal 29.9-35.2 [facility] Comment on above: Performed By: #### C BC #### [facility] [address] [place] [address] [address] Jr Leiva MCV (RBC) [Entitic vol] 90.8 fL Normal 80.0-94.[address] [facility] Comment on above: Performed By: #### C BC #### [facility] [address] [place] [address] Dr. Jr Leiva MONO # 0.6 103/ul Normal 0.3-0.8 [facility] Comment on above: Performed By: #### C BC #### [facility] [address] [place] [address] Dr. Jr Leiva Monocytes/100 WBC (Bld) 8.4 % Normal 1.7-12.[address] [facility] Comment on above: Performed By: #### C BC #### [facility] [address] [place] [address] Dr. Jr Leiva NEUT # 4.7 103/ul Normal 1.4-6.5 [facility] Comment on above: Performed By: #### C BC #### [facility] [address] [place] [address] Dr. Jr Leiva Neutrophils/100 WBC (Bld) 64.1 % Normal 43.0-75.0 [facility] Comment on above: Performed By: #### C BC #### [facility] [address] [place] [address] Dr. Jr Leiva Platelet mean volume (Bld) [Entitic vol] 8.8 fL Critically low 9.5-13.5 [facility] Comment on above: Performed By: #### C BC #### [facility] [address] [place] [address] [address] Jr Leiva PLT 402 103/ul Normal 150-[address] [facility] Comment on above: Performed By: #### C BC #### [facility] [address] [id number] Jr Leiva RBC 4.47 106/ul Critically low 4.70-6.10 [facility] Comment on above: Performed By: #### C BC #### [facility] [address] [place] [address] [address] Jr Leiva WBC 7.4 103/ul Normal 4.0-11.0 [facility] Comment on above: Performed By: #### C BC #### [facility] [address] [place] [address] Dr. Jr Leiva FERRITINon 05-18-2022 Ferritin [Mass/Vol] 85.0 ng/mL Normal 26.0-388.0 [facility] Comment on above: Performed By: #### F ETIBC, FERR, VITB12 #### [facility] [address] [place] [address] [address] Jr Leiva IRON AND TIBCon 05-18-2022 % SATURATION 27.2 % Normal [facility] Comment on above: Performed By: #### C BC #### [facility] [address] [place] [address] [address] Jr Leiva Iron [Mass/Vol] 72.0 ug/dL Normal 65.0-175.0 [facility] Comment on above: Performed By: #### C BC #### [facility] [address] [place] [address] Dr. Jr Leiva TIBC DIRECT 265.0 ug/dL Normal 250.0-450.0 [facility] Comment on above: Performed By: #### C BC #### [facility] [id number] Jr Leiva TIBCon 05-18-2022 [facility] [employer] Other VITAMIN B12on 05-18-2022 Cobalamin (Vitamin B12) [Mass/Vol] 832.0 pg/mL Normal 193.0-986.[address] [facility] Comment on above: Performed By: #### F ETIBC, FERR, VITB12 #### [facility] [address] [place] [address] Dr. Jr Leiva CBC AUTO DIFFon 01-30-2022 BASO # 0.1 103/ul Normal 0.0-0.[address] [facility] Comment on above: Performed By: #### C BC #### [facility] [address] [place] [address] Dr. Jr Leiva Basophils/100 WBC (Bld) 0.9 % Normal 0.2-2.[address] [facility] Comment on above: Performed By: #### C BC #### [facility] [address] [place] [address] Dr. Jr Leiva EO # 0.3 103/ul Normal 0.0-0.[address] [facility] Comment on above: Performed By: #### C BC #### [facility] [address] [place] [address] Dr. Jr Leiva Eosinophils/100 WBC (Bld) 4.0 % Normal 0.9-7.[address] [facility] Comment on above: Performed By: #### C BC #### [facility] [address] [place] [address] Dr. Jr Leiva Erythrocyte distribution width (RBC) [Ratio] 12.3 % Normal 11.0-15.[address] [facility] Comment on above: Performed By: #### C BC #### [facility] [address] [place] [address] Dr. Jr Leiav Hematocrit (Bld) [Volume fraction] 38.0 % Critically low 42.0-54.[address] [facility] Comment on above: Performed By: #### C BC #### [facility] [address] [place] [address] Dr. Jr Leiva Hemoglobin (Bld) [Mass/Vol] 12.5 g/dL Critically low 14.0-18.[address] [facility] Comment on above: Performed By: #### C BC #### [facility] [address] [place] [address] [address] Jr Leiva IG # 0.02 10e3/ul Normal 0.00-0.[address] [facility] Comment on above: Performed By: #### C BC #### [facility] [address] [place] [address] Dr. Jr Leiva IG % 0.2 % Normal 0.0-0.[address] [facility] Comment on above: Performed By: #### C BC #### [facility] [address] [place] [address] Dr. Jr Leiva LYMPH # 1.7 103/ul Normal 1.2-3.[address] [facility] Comment on above: Performed By: #### C BC #### [facility] [address] [place] [address] Dr. Jr Leiva Lymphocytes/100 WBC (Bld) 19.9 % Critically low 20.5-60.[address] [facility] Comment on above: Performed By: #### C BC #### [facility] [address] [place] [address] Dr. Jr Leiva MANUAL DIFF REQ NO Normal [facility] Comment on above: Performed By: #### C BC #### [facility] [address] [place] [address] Dr. Jr Leiva MCH (RBC) [Entitic mass] 29.6 pg Normal 25.9-34.[address] [facility] Comment on above: Performed By: #### C BC #### [facility] [address] [place] [address] Dr. Jr Leiva MCHC (RBC) [Mass/Vol] 32.9 g/dL Normal 29.9-35.2 [facility] Comment on above: Performed By: #### C BC #### [facility] [address] [place] [address] Dr. Jr Leiva MCV (RBC) [Entitic vol] 89.8 fL Normal 80.0-94.[address] [facility] Comment on above: Performed By: #### C BC #### [facility] [address] [place] [address] Dr. Jr Leiva MONO # 0.7 103/ul Normal 0.3-0.8 [facility] Comment on above: Performed By: #### C BC #### [facility] [address] [place] [address] Dr. Jr Leiva Monocytes/100 WBC (Bld) 7.7 % Normal 1.7-12.[address] [facility] Comment on above: Performed By: #### C BC #### [facility] [address] [place] [address] Dr. Jr Leiva NEUT # 5.7 103/ul Normal 1.4-6.5 [facility] Comment on above: Performed By: #### C BC #### [facility] [address] [place] [address] Dr. Jr Leiva Neutrophils/100 WBC (Bld) 67.3 % Normal 43.0-75.[address] [facility] Comment on above: Performed By: #### C BC #### [facility] [address] [place] [address] Dr. Jr Leiva Platelet mean volume (Bld) [Entitic vol] 9.1 fL Critically low 9.5-13.[address] [facility] Comment on above: Performed By: #### C BC #### [facility] [address] [place] [address] Dr. Jr Leiva PLT 312 103/ul Normal 150-450 [facility] Comment on above: Performed By: #### C BC #### [facility] [address] [place] [address] Dr. Jr Leiva RBC 4.23 106/ul Critically low 4.70-6.10 [facility] Comment on above: Performed By: #### C BC #### [facility] [address] [place] [address] Dr. Jr Leiva WBC 8.5 103/ul Normal 4.0-11.0 [facility] Comment on above: Performed By: #### C BC #### [facility] [address] [place] [address] Dr. Jr Leiva CBC AUTO DIFFon 12-13-2021 BASO # 0.1 103/ul Normal 0.0-0.[address] [facility] Comment on above: Performed By: #### C BC #### [facility] [address] [place] [address] Dr. Jr Leiva Basophils/100 WBC (Bld) 0.7 % Normal 0.2-2.[address] [facility] Comment on above: Performed By: #### C BC #### [facility] [address] [place] [address] Dr. Jr Leiva EO # 0.4 103/ul Normal 0.0-0.7 [facility] Comment on above: Performed By: #### C BC #### [facility] [address] [place] [address] Dr. Jr Leiva Eosinophils/100 WBC (Bld) 4.1 % Normal 0.9-7.[address] [facility] Comment on above: Performed By: #### C BC #### [facility] [address] [place] [address] Dr. Jr Leiva Erythrocyte distribution width (RBC) [Ratio] 12.5 % Normal 11.0-15.[address] [facility] Comment on above: Performed By: #### C BC #### [facility] [address] [place] [address] Dr. Jr Leiva Hematocrit (Bld) [Volume fraction] 40.1 % Critically low 42.0-54.[address] [facility] Comment on above: Performed By: #### C BC #### [facility] [address] [place] [address] Dr. Jr Leiva Hemoglobin (Bld) [Mass/Vol] 13.0 g/dL Critically low 14.0-18.0 [facility] Comment on above: Performed By: #### C BC #### [facility] [address] [place] [address] Dr. Jr Leiva IG # 0.03 10e3/ul Normal 0.00-0.[address] [facility] Comment on above: Performed By: #### C BC #### [facility] [address] [place] [address] Dr. Jr Leiva IG % 0.3 % Normal 0.0-0.[address] [facility] Comment on above: Performed By: #### C BC #### [facility] [address] [place] [address] Dr. Jr Leiva LYMPH # 1.7 103/ul Normal 1.2-3.8 [facility] Comment on above: Performed By: #### C BC #### [facility] [address] [place] [address] Dr. Jr Leiva Lymphocytes/100 WBC (Bld) 19.1 % Critically low 20.5-60.[address] [facility] Comment on above: Performed By: #### C BC #### [facility] [address] [place] [address] Dr. Jr Leiva MANUAL DIFF REQ NO Normal [facility] Comment on above: Performed By: #### C BC #### [facility] [address] [place] [address] Dr. Jr Leiva MCH (RBC) [Entitic mass] 29.8 pg Normal 25.9-34.[address] [facility] Comment on above: Performed By: #### C BC #### [facility] [address] [place] [address] Dr. Jr Leiva MCHC (RBC) [Mass/Vol] 32.4 g/dL Normal 29.9-35.[address] [facility] Comment on above: Performed By: #### C BC #### [facility] [address] [place] [address] Dr. Jr Leiva MCV (RBC) [Entitic vol] 92.0 fL Normal 80.0-94.0 [facility] Comment on above: Performed By: #### C BC #### [facility] [address] [place] [address] Dr. Jr Leiva MONO # 0.7 103/ul Normal 0.3-0.[address] [facility] Comment on above: Performed By: #### C BC #### [facility] [address] [place] [address] Dr. Jr Leiva Monocytes/100 WBC (Bld) 8.3 % Normal 1.7-12.[address] [facility] Comment on above: Performed By: #### C BC #### [facility] [address] [place] [address] Dr. Jr Leiva NEUT # 5.9 103/ul Normal 1.4-6.[address] [facility] Comment on above: Performed By: #### C BC #### [facility] [address] [address] [address] Jr Leiva Neutrophils/100 WBC (Bld) 67.5 % Normal 43.0-75.[address] [facility] Comment on above: Performed By: #### C BC #### [facility] [address] [place] [address] Dr. Jr Leiva Platelet mean volume (Bld) [Entitic vol] 9.2 fL Critically low 9.5-13.[address] [facility] Comment on above: Performed By: #### C BC #### [facility] [address] [place] [address] Dr. Jr Leiva PLT 377 103/ul Normal 150-[address] [facility] Comment on above: Performed By: #### C BC #### [facility] [address] [place] [address] Dr. Jr Leiva RBC 4.36 106/ul Critically low 4.70-6.10 [facility] Comment on above: Performed By: #### C BC #### [facility] [address] [place] [address] Dr. Jr Leiva WBC 8.8 103/ul Normal 4.0-11.[address] [facility] Comment on above: Performed By: #### C BC #### [facility] [address] [place] [address] Dr. Jr Leiva LIPID PROFILEon 12-13-2021 CHOL-HDL RATIO NORM SEE BELOW Normal [facility] Comment on above: Result Comment: 3.3 - 4.4 LOW RISK 4.4 - 7.1 AVERAGE RISK 7.1 - 11.0 MODERATE RISK >11.0 HIGH RISK Performed By: #### L IPID, CMP #### [facility] [address] [address] [address] Jr Leiva Cholesterol [Mass/Vol] 186 mg/dL Normal <=[address] [facility] Comment on above: Performed By: #### L IPID, CMP #### [facility] [address] [address] [address] Jr Leiva Cholesterol in HDL [Mass/Vol] 36 mg/dL Critically low 40-[address] [facility] Comment on above: Performed By: #### L IPID, CMP #### [facility] [address] [address] [address] Jr Leiva Cholesterol in LDL [Mass/Vol] 100.8 mg/dL Normal [facility] Comment on above: Performed By: #### L IPID, CMP #### [facility] [address] [address] [address] Jr Leiva Cholesterol.total/Cho lesterol in HDL [Mass ratio] 5.2 {ratio} Normal [facility] Comment on above: Performed By: #### L IPID, CMP #### [facility] [address] [address] [address] Jr Leiva HDL NORMAL > or = 60 mg/dl - LO W CARDIOVASCULAR RISK <40 mg/dl - HIGH CARDIOVASCULAR RISK Normal [facility] Comment on above: Performed By: #### L IPID, CMP #### [facility] [address] [address] [address] Jr Leiva LDL CALC NORMAL SEE BELOW Normal [facility] Comment on above: Result Comment: <100 mg/dl OPTIMAL 100 - 129 mg/dl NEAR OR ABOVE OPTIMAL 130 - 159 mg/dl BORDERLINE HIGH 160 - 189 mg/dl HIGH >190 mg/dl VERY HIGH Performed By: #### L IPID, CMP #### [facility] [address] [address] [address] Jr Leiva Triglyceride [Mass/Vol] 246 mg/dL Critically high <=[address] [facility] Comment on above: Performed By: #### L IPID, CMP #### [facility] [address] [address] [address] Jr Leiva VLDL CALC 49.2 mg/dL Normal [facility] Comment on above: Performed By: #### L IPID, CMP #### [facility] [address] [place] [address] Dr. Jr Leiva PROF 14(COMP METB)on 022 Albumin [Mass/Vol] 3.6 g/dL Normal 3.4-5.0 [facility] Comment on above: Performed By: #### L IPID, CMP #### [facility] [address] [place] [address] Dr. Jr Leiva Albumin/Globulin [Mass ratio] 1.1 {ratio} Normal [facility] Comment on above: Performed By: #### L IPID, CMP #### [facility] [address] [place] [address] Dr. Jr Leiva ALP [Catalytic activity/Vol] 102 U/L Normal 46-[address] [facility] Comment on above: Performed By: #### L IPID, CMP #### [facility] [address] [place] [address] Dr. Jr Leiva ALT [Catalytic activity/Vol] 26 U/L Normal 16-[address] [facility] Comment on above: Performed By: #### L IPID, CMP #### [facility] [address] [place] [address] Dr. Jr Leiva Anion gap [Moles/Vol] 11.4 mmol/L Normal [facility] Comment on above: Performed By: #### L IPID, CMP #### [facility] [address] [place] [address] Dr. Jr Leiva AST [Catalytic activity/Vol] 12 U/L Critically low 15-[address] [facility] Comment on above: Performed By: #### L IPID, CMP #### [facility] [address] [place] [address] Dr. Jr Leiva Bilirubin [Mass/Vol] 0.5 mg/dL Normal 0.2-1.[address] [facility] Comment on above: Performed By: #### L IPID, CMP #### [facility] [address] [place] [address] Dr. Jr Leiva Calcium [Mass/Vol] 8.9 mg/dL Normal 8.5-10.1 [facility] Comment on above: Performed By: #### L IPID, CMP #### [facility] [address] [place] [address] Dr. Jr Leiva Chloride [Moles/Vol] 105 mmol/L Normal 98-[address] [facility] Comment on above: Performed By: #### L IPID, CMP #### [facility] [address] [place] [address] Dr. Jr Leiva CO2 [Moles/Vol] 26.5 mmol/L Normal 21.0-32.0 [facility] Comment on above: Performed By: #### L IPID, CMP #### [facility] [address] [place] [address] Dr. Jr Leiva Creatinine [Mass/Vol] 1.10 mg/dL Normal 0.70-1.[address] [facility] Comment on above: Performed By: #### L IPID, CMP #### [facility] [address] [place] [address] Dr. Jr Leiva EGFR-AF UKRAINIAN >60 Normal >=60 [facility] Comment on above: Performed By: #### L IPID, CMP #### [facility] [address] [place] [address] Dr. Jr Leiva EGFR-NON AF UKRAINIAN >60 Normal >=[address] [facility] Comment on above: Performed By: #### L IPID, CMP #### [facility] [address] [place] [address] Dr. Jr Leiva Globulin (S) [Mass/Vol] 3.4 g/dL Normal [facility] Comment on above: Performed By: #### L IPID, CMP #### [facility] [address] [place] [address] Dr. Jr Leiva Glucose [Mass/Vol] 109 mg/dL Critically high 74-106 [facility] Comment on above: Performed By: #### L IPID, CMP #### [facility] [address] [place] [address] Dr. Jr Leiva Potassium [Moles/Vol] 3.9 mmol/L Normal 3.5-5.[address] [facility] Comment on above: Performed By: #### L IPID, CMP #### [facility] [address] [address] [address] Jr Leiva Protein [Mass/Vol] 7.0 g/dL Normal 6.4-8.2 [facility] Comment on above: Performed By: #### L IPID, CMP #### [facility] [address] [address] [address] Jr Leiva Sodium [Moles/Vol] 139 mmol/L Normal 136-145 [facility] Comment on above: Performed By: #### L IPID, CMP #### [facility] [address] [place] [address] Dr. Jr Leiva Urea nitrogen [Mass/Vol] 13.0 mg/dL Normal 7.0-18.[address] [facility] Comment on above: Performed By: #### L IPID, CMP #### [facility] [address] [place] [address] Dr. Jr Leiva Urea nitrogen/Creatinine [Mass ratio] 11.8 mg/mg Normal [facility] Comment on above: Performed By: #### L IPID, CMP #### [facility] [address] [place] [address] Dr. Jr Leiva Creatinine and Glomerular fi ltration rate.predicted panel (S/P/Bld)Ordered By: Stuart Qureshi on 11-01-2021 Creatinine [Mass/Vol] 1.17 mg/dL 0.64-1.27 [facility] Estimated glomerular filtrat ion rate (GFR) non- AmericanOrdered By: Stuart Qureshi on 11-01-2021 GFR/1.73 sq M.predicted among non-blacks MDRD (S/P/Bld) [Vol rate/Area] > 60 mL/Min [facility] No Panel InformationOrdered By: Stuart Qureshi on 11-01-2021 Estimated GFR () > 60 mL/Min [facility] Comment on above: GFR estimated refere nce range: According to KDOQI guidelines, <60 ml/min/1.73m2 is sufficient to diagnose a patient with chronic kidney disease. Pharmacy Creatinine Clearance (Chem 63.56 [facility] Serum or plasma urea nitroge n measurement (mass/volume)Ordered By: Stuart Qureshi on 11-01-2021 Urea nitrogen [Mass/Vol] 15 mg/dL 9-[address] [facility] [address] LUNG CANCER SCREENINGon 0 10-19-2021 CT [...] by: KEESHA HARMON Date: 2021-10-19 17:[address] [facility] Creatinine (Bld) [Mass/Vol]O rdered By: Stuart Qureshi on 09-29-2021 Creatinine [Mass/Vol] 1.0 mg/dL 0.6-1.3 [facility] Comment on above: ER/ESD physician is notified/shown all ISTAT results. Critical values may be confirmed by laboratory testing if deemed necessary by ER attending doctor. No Panel InformationOrdered By: Stuart Qrueshi on 09-29-2021 POC Estimated GFR > 60 [facility] Comment on above: GFR estimated refere nce range: According to KDOQI guidelines, <60 ml/min/1.73m2 is sufficient to diagnose a patient with chronic kidney disease. POC Estimated GFR Non- Amer > 60 [facility] CBC AUTO DIFFon 08-14-2021 BASO # 0.1 103/ul Normal 0.0-0.[address] [facility] Comment on above: Performed By: #### C BC #### [facility] [address] [place] [address] Dr. Jr Leiva Basophils/100 WBC (Bld) 0.7 % Normal 0.2-2.[address] [facility] Comment on above: Performed By: #### C BC #### [facility] [address] [place] [address] Dr. Jr Leiva EO # 0.4 103/ul Normal 0.0-0.[address] [facility] Comment on above: Performed By: #### C BC #### [facility] [address] [place] [address] Dr. Jr Leiva Eosinophils/100 WBC (Bld) 4.5 % Normal 0.9-7.[address] [facility] Comment on above: Performed By: #### C BC #### [facility] [address] [place] [address] Dr. Jr Leiva Erythrocyte distribution width (RBC) [Ratio] 12.6 % Normal 11.0-15.[address] [facility] Comment on above: Performed By: #### C BC #### [facility] [address] [place] [address] Dr. Jr Leiva Hematocrit (Bld) [Volume fraction] 42.2 % Normal 42.0-54.[address] [facility] Comment on above: Performed By: #### C BC #### [facility] [address] [place] [address] Dr. Jr Leiva Hemoglobin (Bld) [Mass/Vol] 13.6 g/dL Critically low 14.0-18.[address] [facility] Comment on above: Performed By: #### C BC #### [facility] [address] [place] [address] Dr. Jr Leiva IG # 0.02 10e3/ul Normal 0.00-0.[address] [facility] Comment on above: Performed By: #### C BC #### [facility] [address] [place] [address] Dr. Jr Leiva IG % 0.2 % Normal 0.0-0.[address] [facility] Comment on above: Performed By: #### C BC #### [facility] [address] [place] [address] Dr. Jr Leiva LYMPH # 1.5 103/ul Normal 1.2-3.[address] [facility] Comment on above: Performed By: #### C BC #### [facility] [address] [place] [address] Dr. Jr Leiva Lymphocytes/100 WBC (Bld) 18.4 % Critically low 20.5-60.[address] [facility] Comment on above: Performed By: #### C BC #### [facility] [address] [place] [address] Dr. Jr Leiva MANUAL DIFF REQ NO Normal [facility] Comment on above: Performed By: #### C BC #### [facility] [address] [place] [address] Dr. Jr Leiva MCH (RBC) [Entitic mass] 29.4 pg Normal 25.9-34.[address] [facility] Comment on above: Performed By: #### C BC #### [facility] [address] [place] [address] Dr. Jr Leiva MCHC (RBC) [Mass/Vol] 32.2 g/dL Normal 29.9-35.[address] [facility] Comment on above: Performed By: #### C BC #### [facility] [address] [place] [address] Dr. Jr Leiva MCV (RBC) [Entitic vol] 91.1 fL Normal 80.0-94.[address] [facility] Comment on above: Performed By: #### C BC #### [facility] [address] [place] [address] Dr. Jr Leiva MONO # 0.8 103/ul Normal 0.3-0.8 [facility] Comment on above: Performed By: #### C BC #### [facility] [address] [address] [address] Jr Leiva Monocytes/100 WBC (Bld) 9.2 % Normal 1.7-12.[address] [facility] Comment on above: Performed By: #### C BC #### [facility] [address] [address] [address] Jr Leiva NEUT # 5.4 103/ul Normal 1.4-6.[address] [facility] Comment on above: Performed By: #### C BC #### [facility] [address] [address] [address] Jr Leiva Neutrophils/100 WBC (Bld) 67.0 % Normal 43.0-75.[address] [facility] Comment on above: Performed By: #### C BC #### [facility] [address] [place] [address] Dr. Jr Leiva Platelet mean volume (Bld) [Entitic vol] 8.9 fL Critically low 9.5-13.[address] [facility] Comment on above: Performed By: #### C BC #### [facility] [address] [place] [address] Dr. Jr Leiva PLT 330 103/ul Normal 150-[address] [facility] Comment on above: Performed By: #### C BC #### [facility] [address] [place] [address] Dr. Jr Leiva RBC 4.63 106/ul Critically low 4.70-6.10 [facility] Comment on above: Performed By: #### C BC #### [facility] [address] [place] [address] Dr. Jr Leiva WBC 8.1 103/ul Normal 4.0-11.[address] [facility] Comment on above: Performed By: #### C BC #### [facility] [address] [place] [address] Dr. Jr Leiva PROF CHEM 8 (BAS METB)on Anion gap [Moles/Vol] 13.7 mmol/L Normal [facility] Comment on above: Performed By: #### B MP #### [facility] [address] [address] [address] Jr Leiva Calcium [Mass/Vol] 9.0 mg/dL Normal 8.5-10.1 [facility] Comment on above: Performed By: #### B MP #### [facility] [address] [address] [address] Jr Leiva Chloride [Moles/Vol] 104 mmol/L Normal 98-[address] [facility] Comment on above: Performed By: #### B MP #### [facility] [address] [address] [address] Jr Leiva CO2 [Moles/Vol] 24.9 mmol/L Normal 21.0-32.0 [facility] Comment on above: Performed By: #### B MP #### [facility] [address] [address] [address] Jr Leiva Creatinine [Mass/Vol] 1.15 mg/dL Normal 0.70-1.[address] [facility] Comment on above: Performed By: #### B MP #### [facility] [address] [address] [address] Jr Leiva EGFR-AF UKRAINIAN >60 Normal >=60 [facility] Comment on above: Performed By: #### B MP #### [facility] [address] [address] [address] Jr Leiva EGFR-NON AF UKRAINIAN >60 Normal >=[address] [facility] Comment on above: Performed By: #### B MP #### [facility] [address] [address] [address] Jr Leiva Glucose [Mass/Vol] 111 mg/dL Critically high 74-106 [facility] Comment on above: Performed By: #### B MP #### [facility] [address] [address] [address] Jr Leiva Potassium [Moles/Vol] 4.6 mmol/L Normal 3.5-5.[address] [facility] Comment on above: Performed By: #### B MP #### [facility] [address] [place] [address] Dr. Jr Leiva Sodium [Moles/Vol] 138 mmol/L Normal 136-145 [facility] Comment on above: Performed By: #### B MP #### [facility] [address] [place] [address] Dr. Jr Leiva Urea nitrogen [Mass/Vol] 17.0 mg/dL Normal 7.0-18.[address] [facility] Comment on above: Performed By: #### B MP #### [facility] [address] [place] [address] Dr. Jr Leiva Urea nitrogen/Creatinine [Mass ratio] 14.8 mg/mg Normal [facility] Comment on above: Performed By: #### B MP #### [facility] [address] [place] [address] Dr. Jr Leiva PROTIMEon 08-14-2021 INR Coag (PPP) [Relative time] 0.94 {INR} Normal [facility] Comment on above: Performed By: #### C BC #### [facility] [address] [place] [address] Dr. Jr Leiva INR GUIDELINES SEE BELOW Normal [facility] Comment on above: Result Comment: ANANTH RED INR: 2.0 - 3.0 CONDITIONS NOT LISTED BELOW 2.5 - 3.5 FOR PROSTHETIC HEART VALVE REPLACEMENT 2.5 - 3.5 RECURRENT THROMBOSIS Performed By: #### C BC #### [facility] [address] [place] [address] Dr. Jr Leiva PT Coag (PPP) [Time] 10.2 s Normal 9.0-11.[address] [facility] Comment on above: Performed By: #### C BC #### [facility] [address] [place] [address] Dr. Jr Leiva PTTon 08-14-2021 aPTT Coag (Bld) [Time] 28.8 s Normal 22.3-36.[address] [facility] Comment on above: Performed By: #### C BC #### [facility] [address] [place] [address] Dr. Jr Leiva Creatinine (Bld) [Mass/Vol]O rdered By: Saqib Saba on 08-07-2021 Creatinine [Mass/Vol] 1.0 mg/dL 0.6-1.3 [facility] Comment on above: ER/ESD physician is notified/shown all ISTAT results. Critical values may be confirmed by laboratory testing if deemed necessary by ER attending doctor. No Panel InformationOrdered By: Saqib Saba on 08-07-2021 POC Estimated GFR > 60 [facility] Comment on above: GFR estimated refere nce range: According to KDOQI guidelines, <60 ml/min/1.73m2 is sufficient to diagnose a patient with chronic kidney disease. POC Estimated GFR Non- Amer > 60 [facility] XR TSPINE 2 VIEWSon 07-25-19 XR TSPINE [...] by: KEESHA HARMON Date: 2021-07-24 10:39 Normal [facility] 07-07-2020 [facility] HNO ID: [id number] Author: Georgina GonzalezRtDesire Garcia Service: Radiology Author Type: Airfield Engineer Officer Type: Allied Health Filed: 07/07/2020 9:37 AM [...] Mau July 07, 2020 9:37 AM Normal [facility] MRI PROSTATE WO/W IVCONon MRI PROSTATE WO/W [...] volume were obtained using a semi-automated software ([employer]). CONTRAST: IV: 18 cc of (Dotarem). RESULT: [...] of suspicion for clinically significant prostate cancer (Cameron score 3 + 4 or higher). PI-RADS v2.1 Assessment Categories: PI-RADS 1: Clinically significant cancer is highly unlikely PI-RADS 2: Clinically significant cancer is unlikely PI-RADS 3: Clinically significant cancer is equivocal PI-RADS 4: Clinically significant cancer is likely PI-RADS 5: Clinically significant cancer is highly likely M48/M60 Tank Driver: STEVE Transcribe Date/Time: Jul 07 2020 11:26A Dictated by : GIRMA BROTHERS DO This examination was interpreted and the report reviewed and electronically signed by: FREDDIE WILLSON MD on Jul 07 2020 2:53PM EST [id number] N [facility] NURSING PROGon 07-07-2020 NURSING PROG HNO ID: [id number] Author: Caden Stephens (Rn) [facility] [place] [...] DATE: July 07, 2020 TIME: 9:02 AM [facility] Other 07-07-2020 [facility] Vital Signs Date Time Vital Sign Value Performing Clinician Facility 07-29-2024 14:26-0400 Body height 182.88 cm [employer] Work Phone: [facility] 07-29-2024 14:26-0400 Body weight 92.98 kg Marshall Glovico DO Work Phone: [facility] 07-06-2024 09:45-0400 Body height 180.3 cm Sapphire Mcallister MD Work Phone: [facility] 07-06-2024 09:45-0400 Body mass index (BMI) [Ratio] 28.87 kg/m2 Sapphire Mcallister MD Work Phone: [facility] 07-06-2024 09:45-0400 Body weight 93.89 kg Sapphire Mcallister MD Work Phone: [facility] 06-15-2024 10:09-0400 Body height 182.88 cm [facility] 06-15-2024 10:09-0400 Body mass index (BMI) [Ratio] 27.4 kg/m2 [facility] 06-15-2024 10:09-0400 Body weight 91.79 kg [facility] 06-15-2024 10:09-0400 Diastolic blood pressure 64 mm[Hg] [facility] 06-15-2024 10:09-0400 Heart rate 76 /min [facility] 06-15-2024 10:09-0400 Respiratory rate 12 /min [facility] 06-15-2024 10:09-0400 Systolic blood pressure 165 mm[Hg] [facility] 04-06-2024 09:47-0500 Body height 180.3 cm Sapphire Mcallister MD Work Phone: [facility] 04-06-2024 09:47-0500 Body mass index (BMI) [Ratio] 28.87 kg/m2 Sapphire Mcallister MD Work Phone: [facility] 04-06-2024 09:47-0500 Body weight 93.89 kg Sapphire Mcallister MD Work Phone: [facility] 01-03-2024 09:07-0400 Body height 180.3 cm Sapphire Mcallister MD Work Phone: [facility] 01-03-2024 09:07-0400 Body mass index (BMI) [Ratio] 28.87 kg/m2 Sapphire Mcallister MD Work Phone: [facility] 01-03-2024 09:07-0400 Body weight 93.89 kg Sapphire Mcallister MD Work Phone: [facility] 09-16-2023 09:59-0400 Body height 181.9 cm Sapphire Mcallister MD Work Phone: [facility] 09-16-2023 09:59-0400 Body mass index (BMI) [Ratio] 28.39 kg/m2 Sapphire Mcallister MD Work Phone: [facility] 09-16-2023 09:59-0400 Body weight 93.89 kg Sapphire Mcallister MD Work Phone: [facility] 07-12-2023 08:49-0400 Blood Pressure Location Saqib SABA [facility] 07-12-2023 08:49-0400 Diastolic blood pressure 71 mm[Hg] Saqib SABA [facility] 07-12-2023 08:49-0400 Heart rate 67 /min Saqib SABA [facility] 07-12-2023 08:49-0400 Respiratory rate 16 /min Saqib SABA [facility] 07-12-2023 08:49-0400 Systolic blood pressure 136 mm[Hg] Saqib SABA [facility] 06-03-2023 12:33-0400 Body height 181.9 cm Sapphire Mcallister MD Work Phone: [employer] 06-03-2023 12:33-0400 Body mass index (BMI) [Ratio] 28.39 kg/m2 Sapphire Mcallister MD Work Phone: [employer] 06-03-2023 12:33-0400 Body weight 93.89 kg Sapphire Mcallister MD Work Phone: [employer] 12-14-2022 10:30-0400 Body height 182.88 cm Marshall Ball Other [employer] Other 12-14-2022 10:30-0400 Body mass index (BMI) [Ratio] 26.69 kg/m2 Marshall Ball Other [employer] Other 12-14-2022 10:30-0400 Body weight 89.27 kg Marshall Ball Other [employer] Other 12-14-2022 10:30-0400 Diastolic blood pressure 72 mm[Hg] Marshall Ball Other [employer] Other 12-14-2022 10:30-0400 Respiratory rate 12 /min Marshall Ball Other [employer] Other 12-14-2022 10:30-0400 Systolic blood pressure 133 mm[Hg] Marshall Ball Other [employer] Other 05-28-2022 09:30-0500 Body height 182.88 cm Marshall Ball Other [employer] Other 05-28-2022 09:30-0500 Body mass index (BMI) [Ratio] 28.72 kg/m2 Marshall Ball Other [employer] Other 05-28-2022 09:30-0500 Body weight 96.07 kg Marshall Ball Other [employer] Other 05-28-2022 09:30-0500 Diastolic blood pressure 70 mm[Hg] Marshall Ball Other [employer] Other 05-28-2022 09:30-0500 Respiratory rate 12 /min Marshall Ball Other [facility] Other 05-28-2022 09:30-0500 Systolic blood pressure 122 mm[Hg] Marshall Ball Other [facility] Other 11-01-2021 11:00-0400 Diastolic blood pressure 73 mm[Hg] DO Marshall Ball Work Phone: [facility] 11-01-2021 11:00-0400 Heart rate 61 /min DO Marshall Ball Work Phone: [facility] 11-01-2021 11:00-0400 Respiratory rate 16 /min DO Marshall Ball Work Phone: [facility] 11-01-2021 11:00-0400 SaO2% (BldA) [Mass fraction] 96 % DO Marshall Ball Work Phone: [facility] 11-01-2021 11:00-0400 Systolic blood pressure 157 mm[Hg] DO Marshall Ball Work Phone: [facility] 11-01-2021 07:37-0400 Body height 182.88 cm DO Marshall Ball Work Phone: [facility] 11-01-2021 07:37-0400 Body weight 92.07 kg DO Marshall Ball Work Phone: [facility] 10-23-2021 10:15-0400 Body height 182.88 cm Stuart Buehrer Other [employer] Other 10-23-2021 10:15-0400 Body mass index (BMI) [Ratio] 27.12 kg/m2 Stuart Buehrer Other [employer] Other 10-23-2021 10:15-0400 Body temperature 97.3 [degF] Stuart Buehrer Other [employer] Other 10-23-2021 10:15-0400 Body weight 90.72 kg Stuart Buehrer Other [employer] Other 10-23-2021 10:15-0400 Diastolic blood pressure 58 mm[Hg] Stuart Buehrer Other [employer] Other 10-23-2021 10:15-0400 SaO2% (BldA) [Mass fraction] 97 % Stuart Buehrer Other [employer] Other 10-23-2021 10:15-0400 Systolic blood pressure 126 mm[Hg] Stuart Buehrer Other [employer] Other 09-18-2021 11:30-0400 Body height 182.88 cm Stuart Buehrer Other [employer] Other 09-18-2021 11:30-0400 Body mass index (BMI) [Ratio] 27.12 kg/m2 Stuart Buehrer Other [employer] Other 09-18-2021 11:30-0400 Body temperature 97.2 [degF] Stuart Qureshi Other [employer] Other 09-18-2021 11:30-0400 Body weight 90.72 kg Stuart Qureshi Other [employer] Other 09-18-2021 11:30-0400 Diastolic blood pressure 70 mm[Hg] Stuart Qureshi Other [employer] Other 09-18-2021 11:30-0400 SaO2% (BldA) [Mass fraction] 96 % Stuart Qureshi Other [employer] Other 09-18-2021 11:30-0400 Systolic blood pressure 160 mm[Hg] Stuart Qureshi Other [employer] Other 08-07-2021 09:50-0400 Body weight 94.34 kg DO Marshall Ball Work Phone: [facility] 08-07-2021 09:50-0400 Diastolic blood pressure 72 mm[Hg] DO Marshall Ball Work Phone: [facility] 08-07-2021 09:50-0400 Heart rate 66 /min DO Marshall Ball Work Phone: [facility] 08-07-2021 09:50-0400 Respiratory rate 16 /min DO Marshall Ball Work Phone: [facility] 08-07-2021 09:50-0400 SaO2% (BldA) [Mass fraction] 98 % DO Marshall Ball Work Phone: [facility] 08-07-2021 09:50-0400 Systolic blood pressure 201 mm[Hg] DO Marshall Ball Work Phone: [facility] 08-07-2021 09:36-0400 Body height 182.88 cm DO Marshall Zaman Work Phone: [facility] 07-14-2021 08:13-0400 Blood Pressure Location Saqib SABA [facility] 07-14-2021 08:13-0400 Diastolic blood pressure 89 mm[Hg] Saqib SABA [facility] 07-14-2021 08:13-0400 Heart rate 68 /min Saqib SABA [facility] 07-14-2021 08:13-0400 Respiratory rate 16 /min Saqib SABA [facility] 07-14-2021 08:13-0400 Systolic blood pressure 138 mm[Hg] Saqib SABA [facility] Encounters Encounter Date Encounter Type Care Provider Facility Start: 01-15-2025 ambulatory Saqib SABA Facili ty:[facility] [place] Start: 10-12-2024 End: 10-12-2024 Bamboo flowsheet Jae [...] encounter procedure Marshall Zaman DO Work Phone: [facility] [place] Work Phone: Start: 07-29-2024 End: 07-29-2024 ambulatory Marshall Zaman DO Work Phone: [facility] Work Phone: Start: 07-10-2024 End: 07-10-2024 ambulatory Saqib SABA Facility:[facility] Start: 07-06-2024 End: 07-06-2024 ambulatory [facility] Start: 07-06-2024 End: 07-06-2024 Office outpatient visit 15 minutes Sapphire Mcallister MD Work Phone: [facility] Comment on above: 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 Dx) Start: 07-01-2024 Non-patient / Non-visit Benjam in Ball DO Work Phone: [facility] Work Phone: Start: 06-15-2024 End: 06-15-2024 ambulatory [facility] Work Phone: Start: 06-15-2024 End: 06-15-2024 Patient encounter procedure [facility] Work Phone: Start: 04-06-2024 End: 04-06-2024 Office outpatient visit 15 minutes Sapphire Mcallister MD Work Phone: [facility] Comment on above: 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 Dx) Start: 04-06-2024 End: 04-06-2024 ambulatory [facility] Start: 01-03-2024 End: 01-03-2024 Office outpatient visit 15 minutes Sapphire Mcallister MD Work Phone: [facility] Comment on above: 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 Dx) Start: 01-03-2024 End: 01-03-2024 ambulatory [facility] Start: 12-12-2023 Patient encounter procedure [facility] Start: 09-16-2023 End: 09-16-2023 Office outpatient visit 15 minutes Sapphire Mcallister MD Work Phone: [facility] Comment on above: 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 Dx); Acute bilateral knee pain Start: 09-16-2023 End: 09-16-2023 ambulatory [facility] Start: 07-12-2023 End: 07-12-2023 Patient encounter procedure Saqib Sumner OMER [facility] Start: 06-03-2023 End: 06-03-2023 Office outpatient visit 15 minutes Sapphire Mcallister MD Work Phone: [facility] Comment on above: 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 Dx) Start: 03-26-2023 End: 03-26-2023 ambulatory Marshall Ball Other [employer] Other Start: 03-26-2023 Telephone encounter Marshall Ball [facility] Start: 03-20-2023 End: 03-20-2023 ambulatory Marshall Ball Other [employer] Other Start: 03-20-2023 Telephone encounter Marshall Ball [facility] Start: 01-10-2023 End: 01-10-2023 ambulatory Marshall Ball Other [employer] Other Start: 01-10-2023 Telephone encounter Marshall Ball [facility] Start: 12-14-2022 End: 12-14-2022 ambulatory Marshall Ball Other [employer] Other Start: 12-14-2022 Patient encounter procedure Marshall Zaman [facility] Start: 12-05-2022 End: 12-05-2022 ambulatory Marshall Zaman Other [employer] Other Start: 12-05-2022 Telephone encounter Marshall Zaman [facility] Start: 11-29-2022 End: 11-29-2022 ambulatory Marshall Zaman Other [employer] Other Start: 11-29-2022 Telephone encounter Marshall Zaman [facility] Start: 11-28-2022 End: 11-28-2022 ambulatory Marshall Zaman Other [employer] Other Start: 11-28-2022 Telephone encounter Marshall Zaman [facility] Start: 11-13-2022 End: 11-13-2022 ambulatory Marshall Zaman Other [employer] Other Start: 11-13-2022 Telephone encounter Marshall Zaman [facility] Start: 09-24-2022 End: 09-24-2022 ambulatory Marshall Zaman Other [employer] Other Start: 09-24-2022 Telephone encounter Marshall Zaman [facility] Start: 05-28-2022 End: 05-28-2022 ambulatory Marshall Austyn Other [employer] Other Start: 05-28-2022 Office outpatient vi sit 25 minutes Marshall Zaman [facility] Start: 05-18-2022 End: 05-19-[address] MARSHALL ZAMAN Facility:[facility] Start: 05-04-2022 End: 05-04-2022 ambulatory Marshall Zaman Other [employer] Other Start: 05-04-2022 Telephone encounter Marshall Zaman [facility] Start: 01-30-2022 End: 01-31-[address] [facility] Start: 12-14-2021 Encounter for genera l adult medical examination without abnormal findings DR MARSHALL ZAMAN [facility] Start: 12-13-2021 Adult health examination Robert Zaman Other [employer] Other Start: 12-13-2021 End: 12-14-[address] MARSHALL ZAAMN Facility:[facility] Start: 12-13-2021 End: 12-14-2021 Encounter for general adult medical examination without abnormal findings DR MARSHALL ZAMAN Facility:[facility] Start: 11-01-2021 End: 11-01-2021 Admission to same day surgery center DO Marshall Zaman Work Phone: [facility]-Interventional Radiology Start: 10-23-2021 End: 10-23-2021 ambulatory Stuart Qureshi Other [employer] Other Start: 10-23-2021 Office outpatient vi sit 25 minutes Stuart Qureshi [facility] Start: 10-19-2021 End: 10-20-[address] MARSHALL ZAMAN Facility:[facility] Start: 09-29-2021 End: 09-29-2021 Patient encounter procedure DO Marshall Zaman Work Phone: [facility]-CT Scan [facility] [place] Start: 09-27-2021 End: 09-28-2021 ambulatory KIARA JUANITO . Facility:[facility] Start: 09-18-2021 End: 09-18-2021 ambulatory Stuart Qureshi Other [employer] Other Start: 09-18-2021 Office outpatient vi sit 25 minutes Stuart Qureshi [facility] Vascular Surgery Start: 08-25-2021 End: 08-26-2021 ambulatory KIARA JUANITO . Facility:[facility] Start: 08-17-2021 Encounter for preprocedural cardiovascular examination DR SAQIB SABA . [facility] Start: 08-17-2021 Encounter for preprocedural laboratory examination DR SAQIB SABA . [facility] Start: 08-17-2021 End: 08-17-[address] SAQIB SABA . Facility:[facility] Start: 08-14-2021 End: 08-15-[address] MARSHALL ZAMAN Facility:[facility] Start: 08-14-2021 End: 08-15-2021 Encounter for preprocedural cardiovascular examination DR MARSHALL ZAMAN Facility:[facility] Start: 08-07-2021 End: 08-07-2021 Patient encounter procedure DO Marshall Zaman Work Phone: [facility] [place] Start: 07-24-2021 End: 07-25-[address] MARSHALL ZAMAN Facility:[facility] Start: 07-14-2021 End: 07-14-2021 Patient encounter procedure Saqib Sumner OMER [facility] Start: 07-03-2021 End: 07-04-[address] MARSHALL ZAMAN Facility:[facility]1 Start: 07-07-2020 End: 07-07-2020 Subsequent hospital visit by physician [place] [id number] (I-Stat/3t) Work Phone: Radiology Comment on above: [...] Arthrocentesis aspir &/inj major jt/bursa w/o us Spaphire Mcallister MD Work Phone: Start: 04-06-2024 Arthrocentesis [...] above: Performed By: #### P SAD #### [facility] [address] [place] [address] Dr. Jr Leiva Start: 07-07-2020 Mri pelvis [...] Adult BMI Screening Adult BMI Screen ing [facility] Start: 07-06-2025 Tobacco Screening Tobacco Screening [facility] Start: 01-11-2025 End: 01-11-2025 Patient encounter procedure 01/11/2025 10:30 AM EDT Office Visit [facility] [address] [place] [address] Jae Anderson, COOKIE [address] [place] [address] [facility] Start: 01-08-2025 End: 01-08-2025 Patient encounter procedure 01/08/2025 9:00 AM EDT Office Visit [facility] [address] [place] [address] Sapphire Mcallister MD [address] [place] [address] [facility] Start: 01-02-2025 Adult BMI Screening Adult BMI Screen ing [facility] Start: 01-02-2025 Tobacco Screening Tobacco Screening [facility] Start: 11-23-2024 Influenza vaccination [facility] Start: 10-12-2024 End: 10-12-2024 Patient encounter procedure 10/12/2024 9:30 AM EDT Office Visit [facility] [address] [place] [address] Jae Anderson, COOKIE [address] [place] [address] Acute pain of right knee [...] Spine Surgeons [address] [place] [address] Sapphire Mcallister MD [address] [place] [address] [facility] Start: 09-15-2024 Adult BMI Screening Adult BMI Screen ing [facility] Start: 09-15-2024 Tobacco Screening Tobacco Screening [facility] Start: 07-06-2024 End: 07-06-2024 Patient encounter procedure 07/06/2024 9:40 AM EDT Office Visit [facility] [address] [place] [address] Sapphire Mcallister MD [address] [place] [address] [facility] Start: 06-02-2024 Adult BMI Screening Adult BMI Screen ing [facility] Start: 04-06-2024 End: 04-06-2024 Patient encounter procedure 04/06/2024 9:45 AM EST Office Visit [facility] [address] [place] [address] Sapphire Mcallister MD [address] [place] [address] [facility] Start: 04-03-2024 End: 04-03-2024 Patient encounter procedure 04/03/2024 9:45 AM EST Office Visit [facility] [address] [place] [address] Sapphire Mcallister MD [address] [place] [address] [facility] Start: 02-12-2024 Tobacco Screening Tobacco Screening [facility] Start: 01-03-2024 End: 01-03-2024 Patient encounter procedure 01/03/2024 9:20 AM EDT Office Visit [facility] [address] [place] [address] Sapphire Mcallister MD [address] [place] [address] [facility] Start: 11-24-2023 COVID-19 Vaccine ( season) COVID-19 Vaccine ( season) [facility] Start: 11-24-2023 COVID-19 Vaccine ( season) COVID-19 Vaccine ( season) [facility] Start: 11-24-2023 Influenza vaccination Influenza Vacc ine [facility] Start: 09-16-2023 End: 09-16-2023 Patient encounter procedure 09/16/2023 9:40 AM EDT Office Visit [facility] [address] [place] [address] Sapphire Mcallister MD [address] [place] [address] [facility] Start: 05-14-2023 COVID-19 Vaccine ( season) COVID-19 Vaccine ( season) [facility] Start: 11-23-2022 Influenza vaccination Influenza Vacc ine [facility] Start: 11-01-2021 End: 11-01-2021 [facility] Work Phone: Start: 11-23-2020 Influenza vaccination INFLUENZ A (Season Ended) [facility] Start: 06-26-2015 Abdominal aortic aneurysm screening Abdominal Aortic Aneurysm (AAA) Screen [facility] Start: 06-26-2015 ADVANCE DIRECTIVE DISCUSSION ADVANCE DIRECTIVE DISCUSSION [facility] Start: 06-26-2015 Fall Risk Screening Fall Risk Screen ing [facility] Start: 06-26-2015 PNEUMOVAX AGE 65 AND OVER WITH 5YR LOOKBACK (#1) PNEUMOVAX AGE 65 AND OVER WITH 5YR LOOKBACK (#1) [facility] Start: 2000 Screening for malign ant neoplasm of colon [facility] Start: 2000 SHINGRIX VACCINE (1 of 2) SHINGRIX VACCINE (1 of 2) [facility] Start: 06-26-1995 DIABETES SCREEN DIABETES SCREEN [facility] Start: 1985 LIPID SCREEN LIPID SCREEN [facility] Start: 1969 DTaP,Tdap and Td Vaccines (1 - Tdap) DTaP,Tdap and Td Vaccines (1 - Tdap) [facility] Start: 1969 Urine microalbumin profile DTAP,TDAP,TD (1 - Tdap) [facility] Start: 1968 Adult BMI Follow Up Plan Adult BMI Follow Up Plan [facility] Start: 1968 HEPATITIS C SCREENING HEPATITIS C SC REENING [facility] Start: 1962 Adult depression screening assessment DEPRESSION SCREENING [facility] Start: 1950 Medicare Annual Well ness Visit Medicare Annual Wellness Visit [facility] Start: 1950 Screening for malign ant neoplasm of colon [facility] Patient Education Arteriogram (DC) [facility] Work Phone: Patient referral [facility] Work Phone: Immunizations Immunization Date Immunization Notes Care Provider Fa ilsa 12-16-2023 influenza, high dose seasonal, preservative-free [facility] 12-16-2023 influenza virus vaccine, unspecified formulation Sapphire Mcallister MD [facility] 02-13-2023 zoster vaccine recombinant Saqib SABA [facility] 12-14-2022 influenza, high dose seasonal, preservative-free Marshall Zaman Other [employer] Other 12-14-2022 influenza virus vaccine, unspecified formulation Sapphire Mcallister MD Work Phone: [facility] 11-12-2022 zoster vaccine recombinant Saqibleonel SABA [facility] 08-02-2022 SARS-CoV-2 (COVID-19 ) [id number] Saqib SABA [facility] 12-13-2021 influenza virus vaccine, split virus (incl. purified surface antigen) Marshall Zaman Other [employer] Other 12-13-2021 influenza virus vaccine, unspecified formulation Sapphire Mcallister MD Work Phone: [facility] 12-06-2021 SARS-CoV-2 (COVID-19 ) [id number] Saqib SABA [facility] 01-13-2021 influenza virus vaccine, split virus (incl. purified surface antigen) Marshall Zaman Other [employer] Other 01-13-2021 influenza virus vaccine, unspecified formulation [facility] 12-30-2020 COVID-19 mRNA, Comirnaty (Pfizer) DO Marshall Zaman Work Phone: [facility] Comment on above: Result Comment: 2023: [id number] 05-30-2020 SARS-CoV-2 (COVID-19 ) mRNA BNT-162b2 vax Saqib SABA [facility] 05-27-2020 COVID-19 mRNA, Comirnaty (Pfizer) DO Marshall Zaman Work Phone: [facility] 05-06-2020 SARS-CoV-2 (COVID-19 ) mRNA BNT-162b2 vax Saqib SABA [facility] 04-26-2020 COVID-19 mRNA, Comirnaty (Pfizer) DO Marshall Zaman Work Phone: [facility] 01-11-2020 influenza virus vaccine, unspecified formulation [facility] 11-26-2019 influenza virus vaccine, split virus (incl. purified surface antigen) Marshall Zaman Other [employer] Other 11-26-2019 influenza virus vaccine, unspecified formulation [facility] 11-22-2018 influenza virus vaccine, unspecified formulation Saqib [place] [employer] [facility] 07-04-2018 pneumococcal polysaccharide vaccine, 23 valent Marshall Zaman Other [facility] 01-22-2018 influenza virus vaccine, unspecified formulation Saqib [place] [employer] [facility] 07-02-2017 pneumococcal conjuga te vaccine, 13 valent Marshall Zaman Other [facility] 07-02-2017 pneumococcal Conjuga te, unspecified formulation; Translations: [Need for prophylactic vaccination against Streptococcus pneumoniae (pneumococcus)] Marshall Zaman Other [employer] Other 04-16-2017 influenza virus vaccine, split virus (incl. purified surface antigen) Marshall Zaman Other [employer] Other 04-16-2017 influenza virus vaccine, unspecified formulation Saqib SABA [facility] 01-16-2014 influenza virus vaccine, unspecified formulation Saqib SABA [facility] Payers Date Payer Category Payer Self-pay [id number] 2023 Medicare (Managed Care) [facility] ADVANTAGE [id number] 2017 Medicare ANTHEM MEDICARE ANTHEM MEDICARE ADVANTAGE [id number] 2017-Present [phone] [id number] [place] [address] [id number] 2017 Medicare O FOR[facility]LY [facility] MEDICARE [id number] 2017 Unknown ANTHEM BLUE CROS S AND BLUE SHIELD ANTHEM MEDIBLUE ACCESS [id number] 2017-Present PPO [id number] [id number] 1959 Medicare [id number] 1950 Unknown [id number] 2.16.840.1.217026.3.579. 2.593 1950 Unknown [id number] 2.16.840.1.563358.3.579. 2.593 1950 Unknown [id number] 2.16.840.1.719543.3.579. 2.593 1950 Unknown [id number] 2.16.840.1.137896.3.579. 2.593 1950 Unknown [id number] 2.16.840.1.761177.3.579. 2.593 1950 Unknown [id number] 2.16.840.1.989898.3.579. 2.593 1950 Unknown [id number] 2.16.840.1.741283.3.579. 2.593 1950 Unknown [id number] 2.16.840.1.709774.3.579. 2.593 1950 Unknown [id number] 2.16.840.1.491337.3.579. 2.593 1950 Unknown [id number] 2.16.840.1.519896.3.579. 2.593 1950 Unknown [id number] 2.16.840.1.638651.3.579. 2.1286 1950 Unknown [id number] 2.16.840.1.986259.3.579. 2.1286 1950 Unknown [id number] 2.16.840.1.469000.3.579. 2.1286 1950 Unknown [id number] 2.16.840.1.085931.3.579. 2.1286 1950 Unknown [id number] 2.16.840.1.595733.3.579. 2.1286 1950 Unknown [id number] 2.16.840.1.672576.3.579. 2.1286 1950 Unknown [id number] 2.16.840.1.140380.3.579. 2.727 1950 Unknown [id number] 2.16.840.1.460124.3.579. 2.727 1950 Unknown [id number] 2.16.840.1.597971.3.579. 2.1259 1950 Unknown [id number] 2.16.840.1.135699.3.579. 2.1259 1950 Unknown [id number] 2.16.840.1.544367.3.579. 2.1259 Medicare Medicare [id number] Unknown [facility] [id number] Unknown [id number] 2.16.840.1.089982.3.579. 2.531 Social History Date Type Detail Facility [facility] Start: 1950 Sex Assigned At Not on file [facility] Exposure to SARS-CoV -2 (event) Not sure [facility] Start: 10-23-2019 End: 10-12-2024 Tobacco smoking status Ex-smoker (finding) [facility] Start: 04-06-2024 End: 10-12-2024 Sex Assigned At Male [facility] Start: 1950 Sex Assigned At Male [facility] Tobacco smoking status Never [facility] History of tobacco use [facility] History of tobacco use Cigarette Smoker [facility] Start: 07-16-2022 End: 10-12-2024 Tobacco use and exposure Smokeless tobacco non-user [facility] Start: 04-06-2024 End: 07-06-2024 Alcoholic beverage intake Ex-drinker (finding) [facility] Start: 04-06-2024 End: 10-12-2024 History of Social function [facility] Start: 10-28-2014 End: 07-30-2024 Sex Male (finding) [facility] Tobacco smoking stat [facility] Tobacco smoking consumption unknown [facility] Functional Status Date Assessment Result Facility 07-12-2023 Functional Status N/A [facility] Clinical Notes 07-14-2021 to 10-12-2024 COOKIE Leung [...] INJ B/L KNEES 07/06/24, 04/06/24 (DR. MCALLISTER @[facility]) ADMITS B/L DISCOMFORT (L>R) S/P CELESTONE INJ [...] patient has been receiving conservative treatment at [place], including cortisone injections every 3 months, which [...] requiring urgent evaluation. Visit was preformed using [employer] speech recognition. documented in this encounter [facility] 07-10-2024 Note Patient Education Oncology Prostate Cancer [...] Where to find more information ??? The [employer]: www.cancer.org ??? [employer] Association: www.auanet.org Contact a health care [...] The prostate gland (more content not included)... [facility] 07-06-2024 History of Present illness Narrative Associated Order(s): $ Large Joint Injection: bilateral knee Post-Procedure Diagnose(s): Primary osteoarthritis of both knees [facility] [address] [facility] [address] CHART NOTE: 07/06/2024 Chief Complaint: Chief Complaint [...] usual sterile fashion. documented in this encounter [facility] 06-15-2024 Evaluation note Diagnosis Onset Date Resolution Chronic kidney disease acute [facility] 2024 9:50am Elevated cholesterol acute [...] May 9:50am Anemia noneactive June 15 9:50am [facility] Work Phone: [phone] 275-691601-13-2025 History of Present illness Narrative* Sapphire Mcallister MD - 04/06/2024 9:45 AM ESTAssociated Order(s): $ Large Joint Injection: bilateral knee Post-Procedure Diagnose(s): Primary osteoarthritis of both knees [facility] [address] [place] [address] Name: Jean Santiago : 1950 Chief Complaint [...] the usual sterile fashion. documented [facility] Hospital[facility] [id number] History of Present illness Narrative* Sapphire Mcallister [...] the usual sterile fashion. [facility] History of Present illness Narrative* Sapphire Mcallister MD - 09/16/2023 9:40 AM EDTAssociated Order(s): $ Large Joint Injection: bilateral knee Post-Procedure Diagnose(s): Primary osteoarthritis of both knees Images from the original note were not included. [facility] [address] [facility] [address] Name: Jean Santiago : 1950 09/16/2023 SUBJECTIVE: [...] as well. Review of Systems: Refer to [facility] for other pertinent ROS findings Past Medical, [...] of the aforementioned history prepared by the [facility] practice provider, and I personally performed the [...] the usual sterile fashion. [facility] Discharge instructions Patient Education 07/12/2023 [...] treatment? Where to find more information [employer]: www.cancer.org [employer]: www.auanet.org Contact a health care [...] provider. Document Revised: 09/04/2021 Document Reviewed: 09/04/2021 [employer] Patient Education 2022 [employer]. Follow Up Care 12/31/2022 11:29:59 With:OMER JOVEL, Saqib Sumner, URL Address: [address] [place] [phone] When: Unknown [facility] 03-11-2024 History of Present illness Narrative* Sapphire Mcallister MD - 06/03/2023 12:40 PM EDTAssociated Order(s): $ Large Joint Injection: bilateral knee Post-Procedure Diagnose(s): Primary osteoarthritis of both knees [facility] [address] [facility] [id number] Name: Jean Santiago : 1950 Chief Complaint [...] of the aforementioned history prepared by the [place] practice provider, and I personally performed the [...] the usual sterile fashion. [facility]* Encounter Date Diagnosis Assessment Notes Treatment Notes Treatment Clinical Notes Mar, Recurrent major depressive disorder, in full remission (ICD-10 - F33.42) [employer] Other 12-27-2023 Evaluation note* Encounter Date Diagnosis Assessment Notes Treatment Notes Treatment Clinical Notes Feb, Anemia, unspecified type (ICD-10 - D64.9) [employer] Other 10-19-2023 Evaluation note* Encounter Date Diagnosis Assessment Notes Treatment Notes Treatment Clinical Notes Dec, SBE (subacute bacterial endocarditis) prophylaxis candidate (ICD-10 - Z29.89) [employer] Other 09-22-2023 Evaluation note* Encounter Date Diagnosis [...] achieve/maintain a normal BMI. Nov, Atherosclerosis of [place] arteries of extremities with intermittent claudication, bilateral [...] - Z79.899) Check labs: CBC, BS, GFR [employer] Other 09-13-2023 Evaluation note* Encounter Date Diagnosis Assessment Notes Treatment Notes Treatment Clinical Notes Nov, Primary hypertension (ICD-10 - I10) [employer] Other 09-06-2023 Evaluation note* Encounter Date Diagnosis Assessment Notes Treatment Notes Treatment Clinical Notes Nov, Simple chronic bronchitis (ICD-10 - J41.0) LDCT w/o suspicious nodules: 11/2022 [employer] Other 07-03-2023 Evaluation note* Encounter Date Diagnosis Assessment Notes Treatment Notes Treatment Clinical Notes Sep, Recurrent major depressive disorder, in full remission (ICD-10 - F33.42) [employer] Other 03-06-2023 Evaluation note* Encounter Date Diagnosis [...] achieve/maintain a normal BMI. May, Atherosclerosis of [place] arteries of extremities with intermittent claudication, bilateral [...] 3mo, EGD discussed Normal Colonoscopy in 2019 [employer] Other 02-10-2023 Evaluation note* Encounter Date Diagnosis Assessment Notes Treatment Notes Treatment Clinical Notes Apr, Anemia, unspecified type (ICD-10 - D64.9) [employer] Other 08-01-2022 Evaluation note* Encounter Date Diagnosis [...] well as goals and agrees to proceed. [employer] Other 06-27-2022 Evaluation note* Encounter Date Diagnosis [...] with me. They agree with that plan. [employer] Other 04-22-2022 Hospital Discharge instructions Patient Education [...] have oneof these risk factors: ?Being of -Chinese descent. ?Having a family history of prostate [...] you: Are older than age 55. Are -Chinese. Have a father, brother, or uncle who [...] 12/20/2017 Document Revised: 02/21/2018 Document Reviewed: 12/20/2017 [employer] Patient Education 2020 [employer]. Follow Up Care 07/15/2020 08:51:04 With:OMER JOVEL, Saqib Sumner, URL Address: [facility] [address], [place] [phone] When: Unknown [facility] evaluation + Plan note No data available for this section [facility] evaluation + Plan note Future Appointments Appointment Date:07/10/2024 08:30:00 AM Scheduled Provider:Saqib SABA MD Location:[facility] Appointment Type:URO Office Visit Diagnostic Tests Pending * PSA Total 04/25/24 [facility] evaluation noteNo assessment information available [facility] Work Phone: evaluation noteNo InformationNort [facility] Other evaluation note* Diagnosis Primary osteoarthritis of both knees- Primary documented in this encounter [facility] [employer] SystemEvaluation note* Diagnosis Primary osteoarthritis of both knees- Primary Acute bilateral knee pain Acute bilateral knee pain Acute bilateral knee pain documented [facility] Diagnosis Primary osteoarthritis of both knees- Primary [facility] System[facility]* Diagnosis Primary osteoarthritis of both knees- Primary documented in this encounter [facility] SystemEvaluation note* Diagnosis Onset Date Resolution [...] May 9:50am Anemia noneactive June 15 9:50am [facility] Work Phone: Evaluation note* Diagnosis Acute pain [...] LEG 2000IS H Hospitalization History See Above [employer] Other History general Narrative - Reported* Type [...] Surgical History COLONOSCOPY Hospitalization History See Above [employer] Other History general Narrative - Reported* Type [...] History COLONOSCOPY 2019 Hospitalization History See Above [employer] Other InstructionsNot on filedocumented in this encounter [facility] SystemInstructionsNot on filedocumented in this encounter [facility] [employer] SystemProgress note No data available for this section [facility] Summary Purpose Family History No Family History [...] section and content) DATE CREATED AUTHOR 07/08/2020 [facility] DATE CREATED AUTHOR AUTHOR'S ORGANIZ ATION 05/25/2022 [facility] DATE CREATED AUTHOR AUTHOR'S ORGANIZ ATION 07/07/2024 [facility] DATE CREATED AUTHOR AUTHOR'S ORGANIZ ATION 08/06/2024 [facility] DATE CREATED AUTHOR AUTHOR'S ORGANIZ ATION 09/02/2024 [facility] DATE CREATED AUTHOR AUTHOR'S ORGANIZ ATION 10/17/2024 [facility] EP[employer] Source Comments (unrecognize d section and content) In the event this informatio n is protected by the Federal Confidentiality of Alcohol and Drug Abuse Patient Records regulations: The Federal rules restrict any use of the information to criminally investigate or prosecute any alcohol or drug abuse patient.[facility] Reason for Visit (unrecogniz ed section and content) Status Reason Specialty Diagnoses / Procedures Referred By Contact Referred To Contact Outside PCP Radiology / RADI O MRI [facility] Diagnoses MRI Prostate WWO Contrast- BPH elevated PSA Procedures MRI WWO PROSTATE [address] Saqib Saba R [address] [place] [address] Radio Mri [facility] [address] [place] [address] Reason Comments Pain Bilateral knee valerie tone [...] TIME: 9:02 AM documented in this encounter [facility] Georgina Moise (Rt)Desire - 07/07/2020 9:00 [...] Active Stuart Qureshi MD Attending Provider Active 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 Start Date End Date Marshall Zaman DO [address] [place] [address] PCP - General 07/14/22 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 Start Date End Date Marshall Zaman DO [address] [place] [address] PCP - General 07/14/22 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 Start Date End Date Marshall Zaman DO [address] [place], [place] [id number] PCP - General 07/14/22 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 [employer] provides no warranty or guarantee of the accuracy or completeness of information in this document.
[2024-10-30 21:33] VITALS: BP 120/67; PULSE 87; TEMP 37.2; O2SAT 96; BMI 24.4
[2024-10-31] VITALS: BP 137/65; PULSE 74; TEMP 37.2; O2SAT 96
[2024-10-31 04:00] VITALS: BP 104/51; PULSE 74; TEMP 37.1; O2SAT 96
[2024-10-31] MEDS: PIPERACILLIN SODIUM/TAZOBACTAM 3.375 GM in 0.9 % SODIUM CHLORIDE 50 ML IV (05:27)
[2024-10-31 06:32] LABS: Hematocrit 34.2 % (42.0-54.0); Hemoglobin 11.3 g/dL (14.0-18.0); Immature Granulocytes Abs Auto 0.05 10^3/uL (0.00-0.03); Immature Granulocytes Pct Auto 0.4 % (0.0-0.5); Lymphocytes Absolute Auto 1.7 10^3/uL (1.2-3.8); Mean Corpuscular HGB Conc 33.0 g/dL (29.9-35.2); Mean Corpuscular Hemoglobin 30.0 pg (25.9-34.0); Mean Corpuscular Volume 90.7 fL (80.0-94.0); Platelet Count 305 10^3/uL (150-450); Red Blood Count 3.77 10^6/uL (4.70-6.10); White Blood Count 13.3 10^3/uL (4.0-11.0)
[2024-10-31 06:48] LABS: Alanine Aminotransferase 15 U/L (16-63); Albumin Globulin Ratio 1.0; Albumin Level 3.0 g/dL (3.4-5.0); Alkaline Phosphatase 98 U/L (46-116); Anion Gap 14.4; Aspartate Amino Transferase 13 U/L (15-37); Blood Urea Nitrogen 20.0 mg/dL (7.0-18.0); Calcium 8.9 mg/dL (8.5-10.1); Carbon Dioxide 22.6 mmol/L (21.0-32.0); Chloride 105 mmol/L (98-107); Estimated GFR (African America >60 (>=60 mL/min/1.73m^2); Estimated GFR (Non-African Ame >60 (>=60 mL/min/1.73m^2); Globulin 2.9 g/dL; Glucose 102 mg/dL (74-106); Potassium 4.0 mmol/L (3.5-5.1); Sodium 138 mmol/L (136-145); Total Protein 5.9 g/dL (6.4-8.2)
[2024-10-31 07:47] VITALS: BP 117/64; PULSE 72; TEMP 36.7; O2SAT 94
[2024-10-31] MEDS: AMLODIPINE BESYLATE 5 MG TABLET 2.5 MG PO (08:37)
[2024-10-31] MEDS: BUPROPION HCL 150 MG XL TABLET 24H 300 MG PO (08:38)
[2024-10-31] MEDS: ASPIRIN 325 MG TABLET PO (08:38)
[2024-10-31] MEDS: ENOXAPARIN SODIUM 40 MG/0.4 ML SYRINGE SUBQ (08:38)
[2024-10-31] MEDS: TAMSULOSIN HCL 0.4 MG CAPSULE PO (08:38)
--- NOTE | 2024-10-31 10:27 | PM.HP ---
HPI H&P: HPI History of Present Illness Chief complaint: ABDOMINAL PAIN, ACUTE DIVERTICULITIS Narrative: This is a combined history and physical and discharge summary. This is a 74-year-old man who presented to the [facility] emergency room in the evening of Saturday, October 30, with an acute onset of left lower quadrant abdominal pain that had started earlier that day. At home his had been trying to convince him to come to the ER for several hours. The patient explained that his stay started normally. He was brushing his teeth. The left lower quadrant abdominal pain came on so strong today gave him a profound diaphoresis and he felt lightheaded and dizzy. He felt a warm heat come over his body. All of the abdominal pain was focused in the left lower quadrant of his abdomen. There was no radiation. He was not having diarrhea at the time. There was no nausea. In the ER he was treated with IV Dilaudid and IV fluids. He was given IV Zosyn. His white blood count was high at 18.6. A CTA of his abdomen and pelvis was done. This did show evidence of sigmoid diverticulitis or inflammation in that region to suggest acute colitis. There were incidental findings of a 1.6 x 2.4 cm area at the head of the pancreas with mild dilation of the pancreatic duct and in the pancreas tail was a 9 x 9 mm area. There was also an incidental finding of cholelithiasis but no evidence of acute cholecystitis. The patient was admitted to [facility] overnight on Saturday. He got additional IV fluids. He got doses of IV Zosyn. But he did not require any more pain medication. By the next day, on Saturday, he had eaten a regular breakfast without difficulty. He had been ambulating in the halls. And after he had left the emergency room he had no doses of pain medication. He had not even taken a Tylenol. Seen on Saturday morning the patient is accompanied at the bedside by his . 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 One of their daughters worked in the ER in [place] for 2 decades and now works for the [employer]. The patient has no left lower quadrant abdominal pain at rest. He explains that overnight he had a few bouts of diarrhea. He thinks that the diarrhea is tapering off. The left lower quadrant abdominal pain was essentially entirely gone. He did not notice any blood in the bowel movement with all of these episodes of diarrhea. He does take a higher dose of aspirin at 325 mg daily given his peripheral arterial disease. He has never had an episode like this before. He and his explained that he has had 2 colonoscopies over the years that they recall and he was not advised to get any other colonoscopies. They did not recall any problems found on those colonoscopies. His past medical history includes peripheral arterial disease with an abdominal aortic aneurysm repair, right pseudoaneurysm repair, and significantly a left femoral aneurysm issue, treated surgically by Dr. Cedeno (of an uncertain type that was described life-threatening and required emergency surgery.) Both of his femoral arteries have stent-grafts. His left iliac stent is likely chronically occluded and supplied by collateral flow. He does continue to follow with vascular surgery with Dr. Qureshi. He also follows with urology with Dr. Saba every 6 months for an elevated PSA and he describes having a number of biopsies of the prostate that have not found any specific problem. He takes medicines for hypertension and dyslipidemia and prostate hypertrophy. Social history: He quit smoking in 2019. He does not drink alcohol. Family history his sister has bone cancer and a brother has colon polyps and gets frequent colonoscopies. Opioid HPI Opioid Management Most Recent Pain and Opioid Data: Last Pain Scale 0 Today, 10:15 Last Pain Assessment 10/30/24, 22:00 Last ED Pain Assessment 10/30/24, 17:25 Last MAR Pain Assessment 10/30/24, 17:30 Last ORT Total Score 3 10/30/24, 21:33 Last ORT Risk Category Low Risk 10/30/24, 21:33 Review of Systems ROS Narrative A 10 point review of systems is negative except as mentioned above in the history of present illness. [facility] Medical History (Updated 10/31/24 @ 10:36 by ROMY DUARTE) Depression ?F32.A - Depression, unspecified (ICD-10) Hypertension ?I10 - Essential (primary) hypertension (ICD-10) Surgical History (Updated 10/30/24 @ 20:17 by Lyubov Christine RN) H/O rotator cuff surgery ?Z98.890 - Other specified postprocedural states (ICD-10) H/O hernia repair ?Z98.890 - Other specified postprocedural states (ICD-10) ?Z87.19 - Personal history of other diseases of the digestive system (ICD-10) Social History Highest level of school completed/degree received: high school graduate Little interest or pleasure in doing things: not at all Feeling down, depressed, or hopeless: not at all Meds Home Medications and Allergies Home Medications ?Medication ?Instructions ?Recorded ?Confirmed ?Type aspirin 325 mg tablet 325 mg PO DAILY 10/30/24 10/30/24 History atorvastatin 40 mg tablet 40 mg PO QPM 10/30/24 10/31/24 History bupropion HCl 300 mg 24 hr tablet, 300 mg PO DAILY 10/30/24 10/30/24 History extended release multivitamin (Daily Multi-Vitamin 1 tab PO DAILY 10/30/24 10/30/24 History tablet) tamsulosin 0.4 mg capsule 0.4 mg PO DAILY 10/30/24 10/30/24 History telmisartan 80 mg-amlodipine 5 mg 1 tab PO DAILY 10/30/24 10/30/24 History tablet acetaminophen 325 mg tablet 650 mg (2 x 325 mg) PO Q4H PRN 10/31/24 Rx (Tylenol) Pain #0 tabs ciprofloxacin HCl 250 mg tablet 250 mg PO BID 7 days #14 tabs 10/31/24 Rx (Cipro) metronidazole 500 mg tablet 500 mg PO TID 7 days #21 tabs 10/31/24 Rx Allergies Allergy/AdvReac Type Severity Reaction Status Date / Time No Known Drug Allergies Allergy Verified 10/30/24 16:56 Exam Narrative Exam Narrative: Abdominal exam: Very mild left lower quadrant tenderness on palpation. Normal bowel sounds to auscultation. No peritoneal signs. No right upper quadrant tenderness. General: Awake. Alert. Sitting upright in bed with his at the bedside. Eyes: EOMI. Mouth: Normal external structures. No nasolabial fold abnormalities. Psychiatric: Awake and alert. Pleasant affect. Neurologic: Recent remote memory fully intact. ANO x 3. Pulmonary: Clear to auscultation throughout. No wheezing. No rhonchi. No crackles. Cardiac: Regular rate and rhythm to auscultation. No murmurs auscultation. Lower extremities: Skin is warm and dry and well-perfused. Constitutional Vital Signs, click to edit/add: Last Vital Signs Temp 98.0 F 10/31/24 07:47 Pulse 72 10/31/24 07:47 Resp 16 10/31/24 07:47 BP 117/64 10/31/24 07:47 Pulse Ox 94 L 10/31/24 07:47 O2 Del Method Room Air 10/31/24 07:47 Results Labs Labs: Short CBC 10/30/24 10/31/24 Range/Units 17:10 06:04 WBC 18.6 H 13.3 H (4.0-11.0) 10^3/uL Hgb 13.4 L 11.3 L (14.0-18.0) g/dL Hct 40.2 L 34.2 L (42.0-54.0) % Plt Count 340 305 (150-450) 10^3/uL BMP 10/30/24 10/31/24 17:10 06:04 Sodium 138 138 Potassium 4.5 4.0 Chloride 105 105 Carbon Dioxide 25.6 22.6 BUN 27.0 H 20.0 H Creatinine 1.25 1.06 Glucose 158 H 102 Calcium 9.4 8.9 Liver Function 10/30/24 10/31/24 Range/Units 17:10 06:04 Total Bilirubin 0.4 0.6 (0.2-1.0) mg/dL AST 15 13 L (15-37) U/L ALT 28 15 L (16-63) U/L Alkaline Phosphatase 131 H 98 (46-116) U/L Albumin 3.5 3.0 L (3.4-5.0) g/dL Assessment and Plan Assessment and Plan (1) Diverticulitis: (2) Pancreatic lesion: (3) Cholelithiasis: Qualifiers: Cholecystitis presence: without cholecystitis Cholelithiasis location: gallbladder Biliary obstruction: without biliary obstruction Qualified Code(s): K80.20 - Calculus of gallbladder without cholecystitis without obstruction Plan Assessment: Acute sigmoid diverticulitis. Slight possibility of infectious colitis, given that he is had some which diarrhea after he presented. Incidental finding of [address] scan. Cholelithiasis. He is asymptomatic of this. Longstanding peripheral arterial disease, especially the lower extremities. Hypertension. Mixed hyperlipidemia. Prostate hypertrophy. CT scan results are imported below. Ordering Physician: Jaycob Moore Date of Service: 10/30/24 Procedure(s): CT angio abdomen pelvis Accession Number(s): [id number] cc: Marshall Zaman D.O.~ [facility] [place] [id number] Patient Name: JEAN SANTIAGO MRN: [id number] date: 1950 Sex: M Assigned Patient Location: ED.MAIN Current Patient Location: ED.MAIN Accession/Order Number: [id number] Exam Date: 10/30/2024 18:51 Report Date: 10/30/2024 18:59 At the request of: JAYCOB GARY Procedure: CT angio abdomen pelvis CTA abdomen and pelvis . CLINICAL DATA: abdominal pain / sudden onset with hx aortic aneur. TECHNIQUE: While Intravenous contrast-enhanced CT angiography of the abdomen and pelvis was then performed. Axial, sagittal, coronal and volume-rendered three-dimensional reconstructions were created and reviewed. This CT exam was performed using one or more of the following dose reduction techniques: Automated exposure control, adjustment of the mA and/or kV according to patient size, or use of iterative reconstruction technique. COMPARISON: None. FINDINGS: Hypoventilatory changes lung bases. Pleural calcifications involving lung bases noted Cholelithiasis. Liver, spleen, adrenals, kidneys, are unremarkable. Pancreas, density 1.6 x 2.4 cm in size. Slight prominence of the pancreatic duct. Additional pancreatic tail/body lesion 9 x 9 mm in size. [id number] retained stool within colon. No bowel obstruction. There is pericolonic fat stranding involving the sigmoid colon mild background colonic diverticulosis. Enlarged prostate. Bladder grossly unremarkable. Moderate plaque involving the aorta. Evidence of postsurgical changes involving the aorta. Evidence of left iliac stent grafting.. Occluded left iliac arteries/stent graft noted likely chronic. On the left common iliac artery there is abnormal soft tissue density noted could represent postsurgical change versus sequelae of remote blood products. Evidence of bilateral femoral artery graft noted within the inguinal regions. Retrograde opacification left external iliac artery by the bypass and graft. Multilevel degenerative changes of the spine greatest L5-S1. Ventral bowel wall fat-containing hernias noted. CT/CT angio abdomen pelvis IMPRESSION: Sigmoid colonic wall thickening and surrounding haziness and adjacent lymph nodes may suggest colitis versus diverticulitis. Recommend follow-up to resolution. Extensive postsurgical change involving the aorta including evidence of prior femoral bypass grafting noted. Heterogeneous pancreas with pancreatic head hypodensity noted. This measures roughly 2 cm size. Recommend pancreatic MRI with and without contrast. Cholelithiasis. Impression dictated by: Chet Rodriguez M.D. 10/30/2024 6:59 PM Dictation Location: [place] [address] Electronically authenticated by: [id number] Y Date: 10/30/2024 18:59 Discussion: The patient presented to the emergency room with an extreme onset of very severe left lower quadrant abdominal pain, with an elevated white blood count of 18.6. So originally it was felt that he would need an inpatient stay with several days of IV antibiotics and IV fluids to get this under control. But on the next hospital morning his white blood count had improved to 13.3 and he is almost entirely pain-free.... except when I press really hard in the left lower quadrant of his abdomen. He has tolerated food. He has been having loose bowel movements. He is not having any hematochezia. He is eager to go home as soon as possible. I discussed with the patient and his about diverticulitis. I recommend that he increase his oral fluids. He does not drink much water at home. He drinks chocolate milk and Pepsi through the day. I discussed increasing the amount of fiber in his diet. For the next week or so he should have a bland and easy to digest diet and then gradually work his way up to his regular diet but with increased fiber and increased hydration. If this was just a one-time event I do not think that he needs gastroenterology referral in the immediate near future. I did describe to the patient and the that he may benefit from another colonoscopy several months down the road, giving the colon enough time to heal from this acute episode. I discussed the 2 areas of concern on the pancreas. At the next step is a dedicated pancreatic MRI. The patient describes getting MRI scans done in [place] for his prostate issues so he must be able to tolerate a high magnet strength machine. I told the patient and his that he can get the MRI done either in [place] or here in [place]. I hope that his PCP will be able to arrange this in the next few weeks. If an abnormality of the pancreas was found on the MRI I did describe, in general and layman's terms, that the patient would need endoscopic ultrasound with transmural biopsy. A lot of times we are able to have Dr. Dowling do this at [facility] in [place]. Of course sometimes patients go to either [facility] or [facility] to get this done or alternatively I think they can do this at [facility]. Plan: This morning the patient would mobilize and ambulate in the hallways to make sure he is having minimal symptomatic abdominal pain. His diet will be advanced. If he does well over the next couple hours he can be discharged to home. The status of this hospital stay will be observation because it will be less than 24 hours. At home I think he needs just a mild amount of antibiotics. The patient's daughter had already told the patient's by telephone that he would likely get 14 days of Cipro and Flagyl. I think that the patient will need about 5 days of Cipro and Flagyl but I am prescribing 7 days just in case he has diarrhea at home that lasts longer than we might expect.
--- NOTE | 2024-11-02 08:57 | PC.NURSE ---
Follow up appt on 11/10 @ 11:45am with Dr. Zaman [phone]
--- OUTSIDE RECORDS SUMMARY | 2024-11-02 09:13 | XMS_ITS | Clinical Summary ---
Author Organization [facility] Address [address] [place] [address] Care Team Providers Care Driver License Reviewing Officer Name Role Phone AustynMarshall Veda POST Primary Care Provider [phone] Allergies No known active allergies Medications aspirin (Vazalore) 325 MG capsule 325 mg Active tamsulosin (Flomax) 0.4 MG 24 hr capsule Take 0.4 mg by mouth Daily Active buPROPion XL (Wellbutrin XL) 300 MG 24 hr tablet Active atorvastatin (Lipitor) 40 MG tablet 40 mg Active Multiple Vitamin (MULTIVITAMIN ADULT PO) Active telmisartan-amLO DIPine (Twynsta) 80-5 MG tablet Take 1 tablet by mouth Daily Active Hospital, Clinic, or Other Facility Administered Medication Ordered Dose Route Frequency Start Date End Date Status bupivacaine PF (Marcaine) 0.5 % injection 1 mLIndications:Arthri tis of right knee 1 mL IJ Once PRN Procedure 10/12/2024 10/12/2024 Ended bupivacaine PF (Marcaine) 0.5 % injection 1 mLIndications:Arthri tis of left knee 1 mL IJ Once PRN Procedure 10/12/2024 10/12/2024 Ended methylPREDNISolone acetate (DEPO-Medrol) injection 40 mgIndications:Arthri tis of right knee 40 mg IX Once PRN Procedure 10/12/2024 10/12/2024 Ended methylPREDNISolone acetate (DEPO-Medrol) injection 40 mgIndications:Arthri tis of left knee 40 mg IX Once PRN Procedure 10/12/2024 10/12/2024 Ended Active Problems No known active problems Encounters Date Type Department Care Team Description 10/12/2024 10:15 AM EDT [facility] [address] [facility] [address] [place] [address] 10/12/2024 10:10 AM EDT [facility] [place] [facility] [address] [facility] [address] [place] [address] 10/12/2024 9:30 AM EDT [facility] [place] [facility] [address] [facility] [place] [address] Jose Anderson PA Acute pain of right knee (Primary Dx); Acute pain of left knee; Arthritis of right knee; Arthritis of left knee 10/12/2024 Bamboo flowsheet [facility] [place] [facility] [address] [facility] [address] [place] [address] Jose Anderson PA 10/12/2024 Travel 10/11/2024 Travel from Last 3 Months Social History Tobacco Use Types Packs/Day Years Used Date Smoking Tobacco: Former Cigarettes Smokeless Tobacco: Never Tobacco Cessation:Counseling Given: Not Answered Sex and Gender Information Value Date Recorded Sex Assigned at Not on file Legal Sex Male 7:21 PM EDT Gender Identity Not on file Sexual Orientation Not on file Plan of Treatment Upcoming Encounters Date Type Department Care Team (Late st Contact Info) Description 01/11/2025 10:30 AM EDT Office Visit [facility] [place] [facility] [address] [facility] [place] [address] Jose Anderson, PA [address] [place] [address] Health Maintenance Due Date Last Done Comments CT Colonography 1950 Colonoscopy 1950 Colorectal Cancer Screening 1950 FIT-DNA 1950 FIT 1950 FOBT 1950 Sigmoidoscopy 1950 Influenza Vaccine (#1) 2024 4, 12/13/2021, 01/11/2020, Additional history exists Pneumococcal Vaccine: 65+ Years Completed 9, 07/02/2017 Procedures Procedure Name Priority Date/Time Associated Diagnosis Comments XR KNEE 1-2 VIEWS LEFT Routine 5 10:05 AM EDT Acute pain of left knee XR KNEE 1-2 VIEWS RIGHT Routine 10/13/19 25 10:05 AM EDT Acute pain of right knee MD ARTHROCENTESIS ASPIR&/INJ MAJOR JT/BURSA W/O US Routine 10/12/2024 10:02 AM EDT Arthritis of left knee MD ARTHROCENTESIS ASPIR&/INJ MAJOR JT/BURSA W/O US Routine 10/12/2024 10:02 AM EDT Arthritis of right knee from Last 3 Months Results * XR knee 1 or 2 views right (10/12/2024 10:05 AM EDT) Anatomical Region Laterality Modality Lower Extremities, Knee Right Radiogra phic Imaging Narrative 10/12/2024 12:32 PM EDT Imaging Result: AP and lateral right knee: No acute fracture or dislocation Mild effusion Valgus alignment with bone on bone articulation lateral joint line, narrowing and flattening of patella femoral joint with spurring of articular surface of patella Soft tissue calcifications likely large loose body anterior knee. Impression: severe tricompartmental right knee arthritis us Jose GARY IMG XR PROCEDURES Final Resul t * XR knee 1 or 2 views left (10/12/2024 10:05 AM EDT) Anatomical Region Laterality Modality Lower Extremities, Knee Left Radiogra phic Imaging Narrative 10/12/2024 12:33 PM EDT Imaging Result: AP and lateral left knee: No acute fracture or dislocation Mild effusion Valgus alignment with narrowing lateral joint line, Flattening or articular surface weight bearing and subchondral sclerosis noted.. narrowing and flattening of patella femoral joint consistent with degenerative changes. Impression: mild to moderate tricompartmental left knee arthritis us Jose GARY IMG XR PROCEDURES Final Resul t * MD ARTHROCENTESIS ASPIR&/INJ MAJOR JT/BURSA W/O US (10/12/2024 10:02 AM EDT) Jose Segundo PA - 10/12/2024 10:02 AM EDT COOKIE Leung 10/12/2024 12:34 PM L Inj/Asp: [...] and draped in the usual sterile fashion. us Jose GARY IN CLINIC/BEDSIDE ORDERABLES Final Result * MD ARTHROCENTESIS ASPIR&/INJ MAJOR JT/BURSA W/O US (10/12/2024 10:02 AM EDT) Jose Segundo PA - 10/12/2024 10:02 AM EDT COOKIE Leung 10/12/2024 12:34 PM L Inj/Asp: [...] and draped in the usual sterile fashion. us Jose GAYR IN CLINIC/BEDSIDE ORDERABLES Final Result from Last 3 Months Insurance [employer] Care Teams Driver License Reviewing Officer Relationship Specialty Start Date End Date Marshall Zaman DO [address] [place] [id number] PCP - General Internal Medicine 10/12/24
--- OUTSIDE RECORDS SUMMARY | 2024-11-02 09:13 | XMS_ITS | Clinical Summary ---
Author Organization [facility] Address [id number] [address] [place] [address] Care Team Providers Care De Icer Installer Name Role Phone Marshall Zaman Primary Care Provider [phone] Allergies No known active allergies Medications aspirin 325 mg tablet Take by mouth. 01/01/2022 Active atorvastatin (LIPITOR) 20 mg tablet Take 2 tablets (40 mg total) by mouth nightly. 05/19/2022 Active buPROPion XL (WELLBUTRIN XL) 300 mg 24 hr tablet Take 1 tablet (300 mg total) by mouth in the morning. 06/18/2022 Active amLODIPine (NORVASC) 5 mg tablet Take 1 tablet (5 mg total) by mouth in the morning. 05/18/2022 Active lisinopriL (PRINIVIL,ZESTR IL) 30 mg tablet Take by mouth. 01/01/2022 Active nabumetone (RELAFEN) 750 mg tablet Take 1 tablet (750 mg total) by mouth in the morning and 1 tablet (750 mg total) before bedtime. 07/02/2022 Active tamsulosin (FLOMAX) 0.4 mg capsule Take by mouth daily. 06/26/2022 Active telmisartan-amL ODIPine (TWYNSTA) 80-5 mg per tablet Take 1 tablet by mouth in the morning. Active atorvastatin (LIPITOR) 40 mg tablet TAKE 1 TABLET BY MOUTH EVERY EVENING FOR 30 DAYS Active Active Problems Problem Noted Date Diagnosed Date Primary osteoarthritis of left knee 10/22/2022 Family History Medical History Relation Name Comments Alcohol abuse Father Amarjit Diabetes Mother Mai Colon cancer Sister Candis Relation Name Status Comments Father Amarjit Mother Mai Sister Candis Social History Tobacco Use Types Packs/Day Years Used Date Smoking Tobacco: Former Cigarettes Smokeless Tobacco: Never Tobacco Cessation:Counseling Given: Not Answered Alcohol Use Standard Drinks/Week Comments Not Currently 0 (1 standard drink = 0.6 oz pur e alcohol) Childcare Answer Date Recorded Childcare Unknown 09/03/2018 Employment Answer Date Recorded Employment Unknown 09/03/2018 Hunger Screening Answer Date Recorded Within the past 12 months we worried whether our food would run out before we got money to buy more. Never True 09/16/2023 Within the past 12 months th e food we bought just didn't last and we didn't have money to get more. Never True 09/16/2023 Sex and Gender Information Value Date Recorded Sex Assigned at Not on file Legal Sex Male 11:46 AM EDT Gender Identity Not on file Sexual Orientation Not on file Last Filed Vital Signs Vital Sign Reading Time Taken Comments Blood Pressure - - Pulse - - Temperature - - Respiratory Rate - - Oxygen Saturation - - Inhaled Oxygen Concentration - - Weight 93.9 kg (207 lb) 07/06/2024 9:45 AM EDT Height 180.3 cm (5' 11 ) 07/06/2024 9:45 AM EDT Body Mass Index 28.87 07/06/2024 9:45 AM EDT Plan of Treatment Health Maintenance Due Date Last Done Comments Depression Screening 1962 Adult BMI Follow Up Plan 1968 DTaP,Tdap and Td Vaccines (1 - Tdap) 1969 Abdominal Aortic Aneurysm (A AA) Screen 06/26/2015 Fall Risk Screening 06/26/2015 COVID-19 Vaccine (2023-2 5 season) 2023 01/11/2023, 08/02/2022, 12/06/2021, Additional history exists Influenza Vaccine 11/23/2024 12/16/2023, , 01/11/2020, Additional history exists Adult BMI Screening 07/06/2025 07/06/2024 Tobacco Screening 07/06/2025 07/06/2024 Zoster (Shingles) Vaccine Completed 02/13/2023, Medical Devices Not on file Insurance [employer] Care Teams De Icer Installer Relationship Specialty Start Date End Date Marshall Zaman DO [address] [place] [address] PCP - General 07/14/22
--- OUTSIDE RECORDS SUMMARY | 2024-11-02 09:13 | XMS_ITS | Continuity of Care Document ---
Author Organization [facility] Address [address] [place] [address] Phone Care Team Providers Care Sr. Strategic Sourcing Manager Name Role Phone Marshall Zaman DO Primary Care Provider [phone] Kyaw Moore PA-C Attending Provider Romeo Arceo MD Attending Provider Care Teams Patient Care Team Team Status: Active Member Role Status Dates Marshall Zaman DO Primary Care Provider Active Patient Care Team Team Status: Active Member Role Status Dates Marshall Zaman DO Primary Care Provider Active Start: October 30, 2024 Kyaw Moore PA-C Attending Provider Active Start: October 30, 2024 Patient Care Team Team Status: Active Member Role Status Dates Marshall Zaman DO Primary Care Provider Active Start: October 31, 2024 Romeo Arceo MD Attending Provider Active Sta rt: October 31, 2024 Allergies, Adverse Reactions, Alerts Allergen Type Severity Reaction Last Updated Verified Status No Known Allergies Allergy Unknown June 15, 2024 9:58 am Yes Active Social History Smoking Status Status Start Date End Date Date of Observa tion Ex-smoker (finding) r 2023 10:00am Observation Status Observation Response Date of Response Legal Sex Male (finding) Sex Assigned At Male 1950 Family History Relationship Condition Age at Onset Recorded Date/T alex father Unknown Malignant neoplasm of throat Unknown Malignant neoplasm Unknown mother Unknown Diabetes mellitus Unknown sister Malignant neoplasm Unknown Problems Active Problems Medical Problem Onset Date Status Comments Medicare annual wellness vis it, subsequent Unknown Active Nicotine dependence Unknown Active LDCT: no suspicious nodules 11/2022, 12/2023 Major depression Unknown Active Screening PSA (prostate spec ific antigen) Unknown Active Primary osteoarthritis of right knee Unknown Acti ve Elevated cholesterol Unknown Active Anemia Unknown Active Chronic kidney disease Unknown Active IFG (impaired fasting glucose) Unknown Active Overweight Unknown Active Benign prostatic hyperplasia with lower urinary tract symptoms Unknown Active Recurrent major depressive d isorder, in full remission Unknown Active Chronic midline thoracic back pain Unknown Active PAD (peripheral artery disease) Unknown Active Hypertension Unknown Active Prostate nodule Unknown Active MRI: TR4 5mm nodule - 07/2021,TRUS/bx x3 Lumbar spondylosis Unknown Active Medications Medication Status Dose Units Route Directions Qty Days St art Date Stop Date End Date Instructions Adherence Telmisartan -Amlodipine 80-5 mg tablet Discont inued 0 .ROUTE .COMPLEX 30 July 08, 2023 6:20pm June 26, 2024 7:28a m TAKE 1 TABLET BY MOUTH EVERY DAY Nabumetone 750 mg tablet Discont inued 0 .ROUTE .COMPLEX 60 October 03, 2023 8:32am Janua ry 2024 2:44p m TAKE 1 TABLET BY MOUTH TWICE A DAY Atorvastati n 20 mg tablet Discont inued 0 .ROUTE .COMPLEX 90 October 29, 2023 8:39am Octob er 2023 5:59p m TAKE 1 TABLET BY MOUTH EVERY DAY IN THE EVENING Atorvastati n 40 mg tablet Discont inued 40 MG PO Every evening Decobe r 2023 5:59pm June 15, 2024 10:33 am Bupropion Hcl 300 mg tablet extended release 24 hr Active 0 .ROUTE .COMPLEX 90 Decemb er 2023 1:38pm TAKE 1 TABLET BY MOUTH IN THE MORNING ONCE DAILY Unknown Nabumetone 750 mg tablet Discont inued 0 .ROUTE .COMPLEX 60 Maruar y 2024 2:44pm June 15, 2024 10:31 am TAKE 1 TABLET BY MOUTH TWICE A DAY Telmisartan -Amlodipine 80-5 mg tablet Active 0 .ROUTE .COMPLEX 90 June 26, 2024 7:28am TAKE 1 TABLET BY MOUTH EVERY DAY Unknown Multivitami n (Daily Vitamin) Tablet Active 1 TAB PO Daily November 01, 2021 12:00a m Unknown Atorvastati n 20 mg tablet Discont inued 20 MG PO Daily November 01, 2021 12:00a m Augus t 2023 8:39a m Nabumetone 750 mg tablet Discont inued 750 MG PO Twice daily November 01, 2021 12:00a m October 03, 2023 8:32a m Amlodipine 5 mg tablet Discont inued 5 MG PO Daily November 01, 2021 12:00[facility] Aspirin 81 mg Tablet,Hali yed Release (Dr/Ec) Discont inued 81 MG PO Daily November 01, 2021 12:00a m June 11, 2023 11:35 am Tamsulosin 0.4 mg capsule Discont inued 0.4 MG PO Daily November 01, 2021 12:00a m June 11, 2023 11:37 am Lisinopril 10 mg tablet Discont inued 30 MG PO Daily November 01, 2021 12:00a m June 11, 2023 11:36 am Bupropion Hcl 300 mg tablet extended release 24 hr Discont inued 300 MG PO Daily November 01, 2021 12:00a m Decem lili 2023 1:38p m Aspirin 325 mg tablet Active 325 MG PO Daily June 11, 2023 12:00a m Unknown Lisinopril 30 mg tablet Discont inued 30 MG PO Daily June 11, 2023 12:00a m June 15, 2024 10:43 am Tamsulosin 0.4 mg capsule Active MG PO Septem lili 2023 12:00a m Unknown Telmisartan -Amlodipine 80-5 mg tablet Discont inued 1 TAB PO Daily July 08, 2023 12:00a m July 08, 2023 6:21p m Atorvastati n 40 mg tablet Active 40 MG PO Every evening 90 90 June 15, 2024 10:32a m Unknown Immunizations Immunization Event Date Not Given Reason Dose Number Investor Relations Manager Lot Number Vaccine Information Statement (VIS) Detail Administration Location COVID-19 Nola Jha ([facility]) April 26, 2020 COVID-19 mRNANola ([facility]) May 27, 2020 COVID-19 mRNANola ([facility]) December 30, 2020 Fluzone TIV High-Dose 65YR+ December 16, 2023 [id number] A [facility] influenza, unspecified formulation April 16, 2017 influenza, unspecified formulation November 26, 2019 influenza, unspecified formulation January 13, 2021 influenza, unspecified formulation December 13, 2021 influenza, unspecified formulation December 14, 2022 Pneumococcal Conjugate Vaccine, 13 valent July 02, 2017 Pneumococcal Polysacc. Vaccine, 23 valent July 04, 2018 Relevant Diagnostic Tests and/or Laboratory Data Laboratory Results Test Collection Date/Time Result Date/Time Result Interpretation Reference Range Result Comment Performing Site Lactic Acid Level October 30, 2024 5:10pm October 30, 2024 5:10pm 1.5 mmol/L 0.4-2.0 Prothromb Time Internatio nal Ratio October 30, 2024 5:10pm October 30, 2024 5:10pm 0.99 DESIRED INR:2.0-3.0 CONDITIONS NOT LISTED BELOW2.5-3. 5 FOR PROSTHETIC HEART VALVE REPLACEMENT 2.5-3.5 RECURRENT THROMBOSIS Lipase October 30, 2024 5:10pm October 30, 2024 5:10pm 32.0 U/L 16.0-77.0 Magnesium Level October 30, 2024 5:10pm October 30, 2024 5:10pm 2.1 mg/dL 1.8-2.4 Anion Gap October 30, 2024 5:10pm October 30, 2024 5:10pm 11.[address] Time October 30, 2024 5:10pm October 30, 2024 5:10pm 28.3 sec 22.3-36.2 Basophils # (Auto) October 30, 2024 5:10pm October 30, 2024 5:10pm 0.1 10 3/uL 0.0-0.1 Anion Gap October 31, 2024 6:04am October 31, 2024 6:04am 14.4 Basophils # (Auto) October 31, 2024 6:04am October 31, 2024 6:04am 0.1 10 3/uL 0.0-0.1 Prothrombi n Time October 30, 2024 5:10pm October 30, 2024 5:10pm 10.5 sec 9.0-11.6 Albumin/Gl obulin Ratio October 30, 2024 5:10pm October 30, 2024 5:10pm 1.0 Basophils (%) (Auto) October 30, 2024 5:10pm October 30, 2024 5:10pm 0.3 % 0.2-2.0 Albumin/Gl obulin Ratio October 31, 2024 6:04am October 31, 2024 6:04am 1.0 Basophils (%) (Auto) October 31, 2024 6:04am October 31, 2024 6:04am 0.4 % 0.2-2.0 Albumin October 30, 2024 5:10pm October 30, 2024 5:10pm 3.5 g/dL 3.4-5.0 Eosinophil s # (Auto) October 30, 2024 5:10pm October 30, 2024 5:10pm 0.0 10 3/uL 0.0-0.7 Albumin October 31, 2024 6:04am October 31, 2024 6:04am 3.0 g/dL Below low normal 3.4-5.0 Eosinophil s # (Auto) October 31, 2024 6:04am October 31, 2024 6:04am 0.2 10 3/uL 0.0-0.7 Alkaline Phosphatas e October 30, 2024 5:10pm October 30, 2024 5:10pm 131 U/L Above high normal 46-116 Eosinophil s (%) (Auto) October 30, 2024 5:10pm October 30, 2024 5:10pm 0.2 % Below low normal 0.9-7.0 Alkaline Phosphatas e October 31, 2024 6:04am October 31, 2024 6:04am 98 U/L 46-116 Eosinophil s (%) (Auto) October 31, 2024 6:04am October 31, 2024 6:04am 1.2 % 0.9-7.0 Alanine Aminotrans ferase (ALT/SGPT) October 30, 2024 5:10pm October 30, 2024 5:10pm 28 U/L 16-63 Hematocrit October 30, 2024 5:10pm October 30, 2024 5:10pm 40.2 % Below low normal 42.0-54.0 Alanine Aminotrans ferase (ALT/SGPT) October 31, 2024 6:04am October 31, 2024 6:04am 15 U/L Below low normal 16-63 Hematocrit October 31, 2024 6:04am October 31, 2024 6:04am 34.2 % Below low normal 42.0-54.0 Aspartate Amino Transf (AST/SGOT) October 30, 2024 5:10pm October 30, 2024 5:10pm 15 U/L 15-37 Hemoglobin October 30, 2024 5:10pm October 30, 2024 5:10pm 13.4 g/dL Below low normal 14.0-18.0 Aspartate Amino Transf (AST/SGOT) October 31, 2024 6:04am October 31, 2024 6:04am 13 U/L Below low normal 15-37 Hemoglobin October 31, 2024 6:04am October 31, 2024 6:04am 11.3 g/dL Below low normal 14.0-18.0 BUN/Creati nine Ratio October 30, 2024 5:10pm October 30, 2024 5:10pm 21.6 Immature Granulocyt e # (Auto) October 30, 2024 5:10pm October 30, 2024 5:10pm 0.07 10 3/uL Above high normal 0.00-0.03 BUN/Creati nine Ratio October 31, 2024 6:04am October 31, 2024 6:04am 18.9 Immature Granulocyt e # (Auto) October 31, 2024 6:04am October 31, 2024 6:04am 0.05 10 3/uL Above high normal 0.00-0.03 Blood Urea Nitrogen October 30, 2024 5:10pm October 30, 2024 5:10pm 27.0 mg/dL Above high normal 7.0-18.0 Immature Granulocyt e % (Auto) October 30, 2024 5:10pm October 30, 2024 5:10pm 0.4 % 0.0-0.5 Blood Urea Nitrogen October 31, 2024 6:04am October 31, 2024 6:04am 20.0 mg/dL Above high normal 7.0-18.0 Immature Granulocyt e % (Auto) October 31, 2024 6:04am October 31, 2024 6:04am 0.4 % 0.0-0.5 Calcium Level October 30, 2024 5:10pm October 30, 2024 5:10pm 9.4 mg/dL 8.5-10.1 Lymphocyte s # (Auto) October 30, 2024 5:10pm October 30, 2024 5:10pm 0.7 10 3/uL Below low normal 1.2-3.8 Calcium Level October 31, 2024 6:04am October 31, 2024 6:04am 8.9 mg/dL 8.5-10.1 Lymphocyte s # (Auto) October 31, 2024 6:04am October 31, 2024 6:04am 1.7 10 3/uL 1.2-3.8 Chloride Level October 30, 2024 5:10pm October 30, 2024 5:10pm 105 mmol/L 98-107 Lymphocyte s (%) (Auto) October 30, 2024 5:10pm October 30, 2024 5:10pm 3.9 % Below low normal 20.5-60.0 Chloride Level October 31, 2024 6:04am October 31, 2024 6:04am 105 mmol/L 98-107 Lymphocyte s (%) (Auto) October 31, 2024 6:04am October 31, 2024 6:04am 12.6 % Below low normal 20.5-60.0 Carbon Dioxide Level October 30, 2024 5:10pm October 30, 2024 5:10pm 25.6 mmol/L 21.0-32.0 Mean Corpuscula r Hemoglobin October 30, 2024 5:10pm October 30, 2024 5:10pm 30.2 pg 25.9-34.0 Carbon Dioxide Level October 31, 2024 6:04am October 31, 2024 6:04am 22.6 mmol/L 21.0-32.0 Mean Corpuscula r Hemoglobin October 31, 2024 6:04am October 31, 2024 6:04am 30.0 pg 25.9-34.0 Creatinine October 30, 2024 5:10pm October 30, 2024 5:10pm 1.25 mg/dL 0.70-1.30 Mean Corpuscula r Hemoglobin Concent October 30, 2024 5:10pm October 30, 2024 5:10pm 33.3 g/dL 29.9-35.2 Creatinine October 31, 2024 6:04am October 31, 2024 6:04am 1.06 mg/dL 0.70-1.30 Mean Corpuscula r Hemoglobin Concent October 31, 2024 6:04am October 31, 2024 6:04am 33.0 g/dL 29.9-35.2 Estimated GFR () October 30, 2024 5:10pm October 30, 2024 5:10pm >60 >=60 mL/min/1.7 3m 2 Mean Corpuscula r Volume October 30, 2024 5:10pm October 30, 2024 5:10pm 90.5 fL 80.0-94.0 Estimated GFR () October 31, 2024 6:04am October 31, 2024 6:04am >60 >=60 mL/min/1.7 3m 2 Mean Corpuscula r Volume October 31, 2024 6:04am October 31, 2024 6:04am 90.7 fL 80.0-94.0 Estimated GFR (Non-Afric an Dutch October 30, 2024 5:10pm October 30, 2024 5:10pm 56 Below low normal >=60 mL/min/1.7 3m 2 Monocytes # (Auto) October 30, 2024 5:10pm October 30, 2024 5:10pm 1.1 10 3/uL Above high normal 0.3-0.8 Estimated GFR (Non-Afric an Dutch October 31, 2024 6:04am October 31, 2024 6:04am >60 >=60 mL/min/1.7 3m 2 Monocytes # (Auto) October 31, 2024 6:04am October 31, 2024 6:04am 1.1 10 3/uL Above high normal 0.3-0.8 Globulin October 30, 2024 5:10pm October 30, 2024 5:10pm 3.6 g/dL Monocytes (%) (Auto) October 30, 2024 5:10pm October 30, 2024 5:10pm 6.0 % 1.7-12.0 Globulin October 31, 2024 6:04am October 31, 2024 6:04am 2.9 g/dL Monocytes (%) (Auto) October 31, 2024 6:04am October 31, 2024 6:04am 8.3 % 1.7-12.0 Glucose Level October 30, 2024 5:10pm October 30, 2024 5:10pm 158 mg/dL Above high normal 74-106 Mean Platelet Volume October 30, 2024 5:10pm October 30, 2024 5:10pm 9.1 fL Below low normal 9.5-13.5 Glucose Level October 31, 2024 6:04am October 31, 2024 6:04am 102 mg/dL 74-106 Mean Platelet Volume October 31, 2024 6:04am October 31, 2024 6:04am 9.5 fL 9.5-13.5 Potassium Level October 30, 2024 5:10pm October 30, 2024 5:10pm 4.5 mmol/L 3.5-5.1 Neutrophil s # (Auto) October 30, 2024 5:10pm October 30, 2024 5:10pm 16.6 10 3/uL Above high normal 1.4-6.5 Potassium Level October 31, 2024 6:04am October 31, 2024 6:04am 4.0 mmol/L 3.5-5.1 Neutrophil s # (Auto) October 31, 2024 6:04am October 31, 2024 6:04am 10.3 10 3/uL Above high normal 1.4-6.5 Sodium Level October 30, 2024 5:10pm October 30, 2024 5:10pm 138 mmol/L 136-145 Neutrophil s (%) (Auto) October 30, 2024 5:10pm October 30, 2024 5:10pm 89.2 % Above high normal 43.0-75.0 Sodium Level October 31, 2024 6:04am October 31, 2024 6:04am 138 mmol/L 136-145 Neutrophil s (%) (Auto) October 31, 2024 6:04am October 31, 2024 6:04am 77.1 % Above high normal 43.0-75.0 Total Bilirubin October 30, 2024 5:10pm October 30, 2024 5:10pm 0.4 mg/dL 0.2-1.0 Platelet Count October 30, 2024 5:10pm October 30, 2024 5:10pm 340 10 3/uL 150-450 Total Bilirubin October 31, 2024 6:04am October 31, 2024 6:04am 0.6 mg/dL 0.2-1.0 Platelet Count October 31, 2024 6:04am October 31, 2024 6:04am 305 10 3/uL 150-450 Total Protein October 30, 2024 5:10pm October 30, 2024 5:10pm 7.1 g/dL 6.4-8.2 Red Blood Count October 30, 2024 5:10pm October 30, 2024 5:10pm 4.44 10 6/uL Below low normal 4.70-6.10 Total Protein October 31, 2024 6:04am October 31, 2024 6:04am 5.9 g/dL Below low normal 6.4-8.2 Red Blood Count October 31, 2024 6:04am October 31, 2024 6:04am 3.77 10 6/uL Below low normal 4.70-6.10 Red Cell Distributi on Width October 30, 2024 5:10pm October 30, 2024 5:10pm 12.0 % 11.0-15.0 Red Cell Distributi on Width October 31, 2024 6:04am October 31, 2024 6:04am 12.3 % 11.0-15.0 Corrected White Blood Count October 30, 2024 5:10pm October 30, 2024 5:10pm 18.6 10 3/uL Above high normal 4.0-11.0 Corrected White Blood Count October 31, 2024 6:04am October 31, 2024 6:04am 13.3 10 3/uL Above high normal 4.0-11.0 Advance Directives Advance Directive Response Recorded Date/ Time Advance Directives No July 31, 2021 2:01pm Insurance Providers Guarantor Eduardo Baron Address [address] [place] [address] Contact Info. Home Phone: Payer Policy Id Subscriber's Name Subscriber Id Effectiv e Date Expiration Date O [id number] Kat Henderson [id number] Medicare [id number] Eduardo Baron [id number] [facility] [id number] Eduardo Baron [id number] Encounters Encounter Location(s) Arrival/Admit Date Discharge/Depart Date Provider(s) Non-patient / Non-visit -[facility] October 30, 2024 5:10pm Kyaw Moore PA-C Non-patient / Non-visit -[facility] October 31, 2024 6:04am Romeo Arceo MD
--- OUTSIDE RECORDS SUMMARY | 2024-11-02 09:13 | XMS_ITS | Clinical Summary ---
Author Organization [facility] Address [address] [place] [id number] Care Team Providers Care General Production Worker Name Role Phone Saqib Saba MD Unavailable [phone] Allergies No known active allergies Social History Tobacco Use Types Packs/Day Years Used Date Smoking Tobacco: Never Assessed Area Deprivation Index Answer Date [place] rded National Score (1-100), lower number is lower ri sk Not on file 07/07/2020 State Score (1-10), lower number is lower risk N ot on file 07/07/2020 Data from: https://www.neighborhoodatlas.medicine.[facility].edu/. Last address used for calculation Not on file 07/07/2020 Sex and Gender Information Value Date Recorded Sex Assigned at Not on file Legal Sex Male 4:34 PM EST Gender Identity Not on file Sexual Orientation Not on file Plan of Treatment Health Maintenance Due Date Last Done Comments Anxiety Screening 1968 Depression Screening 1968 Hepatitis C Screening 1968 DTaP,Tdap,Td Vaccine (1 - Tdap) [address] Colonography 06/26/1995 Cologuard (FIT-DNA) 06/26/1995 Colonoscopy 06/26/1995 Colorectal Cancer Screening 06/26/1995 Diabetes Screening 06/26/1995 Fecal Occult Blood 06/26/1995 Sigmoidoscopy 06/26/1995 Shingrix Vaccine (1 of 2) 2000 Advance Directive Discussion 03/25/2024 Influenza Vaccine (#1) 2024 9, 01/22/2018, 04/16/2017, Additional history exists RSV Vaccine (1 - 1-dose 75+ series) 2025 Pneumococcal Vaccine: 50+ Completed 07/04/2018, 12/2017 Insurance [employer] PPO Care Teams General Production Worker Relationship Specialty Start Date End Date Saqib Saba MD Referring Urology 05/04/20
--- NOTE | 2024-11-02 15:28 | CM.DCFOLLOWU ---
Person spoke with:patient How are you feeling?well How is your pain?none Did you understand your discharge instructions?yes Do you have any questions about your discharge instructions?no Were you given any prescriptions at discharge?yes Were you able to get your prescriptions filled?yes, making his stomach a little upset, but he is doing fine Do you understand how to take your medications as ordered?yes Do you have any questions about your follow up appointment and do you plan to keep your follow up appointment? no questions, notified patient of follow up that was scheduled Is there anything else that you would like to discuss?no Questions/Comments/Concerns/Other:none
== END 2024-10-31 11:00 | disposition home or self-care (01) ==
LOC: ER 19:55 → MS 21:31
PROVIDERS: Physician Assistant; Admitting Provider Internal Medicine; Emergency Provider Emergency Medicine; PCP Internal Medicine; Visit Provider Hospitalist
DX: K57.32 Diverticulitis of large intestine without perforation or abscess without bleeding (principal); K86.9 Disease of pancreas, unspecified; K80.20 Calculus of gallbladder without cholecystitis without obstruction; D72.829 Elevated white blood cell count, unspecified; R10.32 Left lower quadrant pain; Z79.82 Long term (current) use of aspirin; I73.9 Peripheral vascular disease, unspecified; I10 Essential (primary) hypertension; N40.0 Benign prostatic hyperplasia without lower urinary tract symptoms; Z87.891 Personal history of nicotine dependence; E78.2 Mixed hyperlipidemia
CPT/HCPCS: 36415; 74174; 80053; 83605; 83690; 83735; 85025; 85610; 85730; 87040; 96361; 96365; 96366; 96372; 96375; 99285; G0378; J1171; J1650; J2405; J2543; Q9967

== ENCOUNTER 2024-12-21 11:04 | Outpatient (OUT) | payer MEDICARE, SELFPAY ==
--- OUTSIDE RECORDS SUMMARY | 2024-12-02 16:14 | XMS_ITS ---
Author Name Auto Generated Organization OHIP Care Team Providers Care Diving Fisher Name Role Phone JAE HALL Attending Unavailable JAE HALL Referring Unavailable JAE HALL Referring Unavailable MCALLISTER, SAPPHIRE K Attending Unavailable MARSHALL ZAMAN E Referring Unavailable MARSHALL ZAMAN E Primary Care Unavailable MCALLISTER, SAPPHIRE K Attending Unavailable MARSHALL ZAMAN E Referring Unavailable BALL, MARSHALL E Primary Care Unavailable MCALLISTER, SAPPHIRE K Attending Unavailable BALL, MARSHALL E Referring Unavailable BALL, MARSHALL E Primary Care Unavailable Austyn, Marshall Primary Care Unavailable Marshall Zaman Attending Unavailable Marshall Zaman Admitting Unavailable Marshall Zaman Primary Care Unavailable Saqib Saba Admitting Unavailable Saqib Saba Attending Unavailable Saqib SABA Attending Unavailable PROBLEMS DATE TYPE CONDITION / CODE ATTENDING STATUS [facility] 12/02/2024 Unknown Other specified diseases of pancreas / 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 07/29/2024 Unknown Elevated prostat e specific antigen [PSA] / R97.20(ICD-10) Saqib Saba [facility] 01/03/2024 Unknown Bilateral primar y osteoarthritis of knee / M17.0(ICD-10) SAPPHIRE MCALLISTER [facility] 01/03/2024 Unknown Pain / FREETEXT(AOF) MCALLISTERSAPPHIRE COKER [facility] PROCEDURES No Procedure Records Found RESULTS MR MRCP Observed: 12/03/2024 8:50 AM Status: COMPLETED Source: [facility] [place] [address] MRI Report Signed Patient: Jean Santiago MR#: [id number] 72 : 1950 Acct:[id number] Age/Sex: 74 / M ADM Date: 12/02/24 Loc: MR Room: Type: [facility] Attending Dr: Marshall Zaman DO Copies to: Marshall Zaman DO Ordering Provider: Marshall Zaman DO Date of Service: 12/02/24 MR/MR MRCP: K86.89 - Other specified diseases of pancreas MRI OF THE ABDOMEN WITHOUT CONTRAST: MRCP CLINICAL HISTORY: Pancreatic mass. COMPARISON: CT abdomen and pelvis 10/30/2024 TECHNIQUE: Multisequence, multiplanar imaging of the abdomen was obtained without the use of IV contrast. MRCP imaging was obtained FINDINGS: Organ evaluation is suboptimal due to lack of IV contrast. The liver appears normal in contour without evidence of steatosis or intrahepatic bile duct dilatation. A T2 hyperintense lesion is seen involving the left lobe the liver indeterminate on this study measuring 1.1 cm in greatest axial dimension. Additional subcentimeter low attenuating lesion is seen involving the right lobe the liver too small fracture characterization. Gallbladder demonstrates cholelithiasis. MRCP imaging demonstrates a normal caliber CBD without evidence of choledocholithiasis. A microclip cystic mass is noted involving the head of the pancreas measuring approximately 2.5 x 1.6 x 2.5 cm. It appears to be pancreatic duct dilatation. A more simple appearing cyst is seen involving the pancreatic body measuring 1.8 cm in greatest axial dimension. Spleen appears unremarkable. Adrenal glands appear unremarkable. Kidneys appear unremarkable. Aorta appears normal in caliber. No bulky lymphadenopathy or ascites. No pleural effusion. MR/MR MRCP IMPRESSION: 1. CHOLELITHIASIS WITHOUT EVIDENCE OF BILIARY OBSTRUCTION/CHOLEDOCHOLITHIASIS. 2. ORGAN EVALUATION IS SUBOPTIMAL DUE TO LACK OF IV CONTRAST. THERE APPEARS TO BE A MICROCYSTIC MASS INVOLVING THE HEAD OF THE PANCREAS MEASURING APPROXIMATELY 2.5 X 1.6 X 2.5 CM. A SERIOUS CYSTADENOMA CANNOT BE EXCLUDED. ADDITIONAL MORE SIMPLE APPEARING CYST IS SEEN INVOLVING THE PANCREATIC BODY MEASURING 1.8 CM IN GREATEST AXIAL DIMENSION. POSSIBLY SEQUELA OF PRIOR PANCREATITIS GIVEN THE PANCREATIC DUCT DILATATION. REPEAT MRI WITH AND WITHOUT IV CONTRAST IN 6 MONTHS IS SUGGESTED. 3. INDETERMINATE LESION INVOLVING THE LEFT LOBE OF THE LIVER MEASURING 1.1 CM IN GREATEST AXIAL DIMENSION. GIVEN THE CT FINDINGS, A BENIGN PROCESS SUCH A HEMANGIOMA IS SUSPECTED. REPEAT MRI WITH IV CONTRAST IS SUGGESTED FOR COMPLETE CHARACTERIZATION. Impression dictated by: Freddie Garcia Jr., DMaeOMae 12/03/2024 9:04 AM Dictation Location: [place] [address] Transcribed By: [facility] 12/03/24903 Dictated By: Freddie Garcia Jr, DO 12/03/24 0850 Signed By: <Electronically signed by Freddie Garcia Jr, DO in OV> 12/03/24903 MR PROSTATE WO/W CON Observed: 4:35 PM Status: COMPLETED Source: [facility] [place] [address] MRI Report Signed Patient: Jean Santiago MR#: [id number] 72 : 1950 Acct:[id number] Age/Sex: 74 / M ADM Date: 07/29/24 Loc: Room: Type: [facility] Attending Dr: Saqib Saba MD Copies [...] Jr., D.OMae 07/29/2024 4:38 PM Dictation Location: [facility]-23 Transcribed By: KELLY 07/29/24 1638 Dictated By: Freddie Garcia Jr, DO 07/29/24 163 Signed By: <Electronically signed by Freddie Garcia Jr, DO in OV> 07/29/241637 ISTAT XRAY CRE Collected: 07/29/2024 2:21 PM Status: F Source: [facility] TYPE CODE TESTS RESULT OUT OF RANGE REFERENCE UNITS LAB ISCREAT ISTAT Creatinine Level 1.2 Normal 0.6-1.3 mg/dL Result Comment: ER/ESD physi misa is notified/shown all ISTAT results. Critical values may be confirmed by laboratory testing if deemed necessary by ER attending doctor. LAB ISTATGFRNR ISTAT GFR >60.0 Result Comment: PERFORMED BY : [place] [id number] PATHOLOGIST [employer]BER[employer] SALES REPRESENTATIVE LIONEL HAGAN M.D. Performed By: #### ISCRE ### # [address] PATIENT EDUCATION Observed: 07/10/2024 9:29 AM Status: F Source: [facility] Patient Education Oncology Prostate Cancer Screening Prostate [...] Where to find more information ??? The [employer]: www.cancer.org ??? [employer] Association: www.auanet.org Contact a health care [...] gland adds fluid to semen during ejaculation. ??? Prostate cancer screening may identify cancer at an early stage, when the cancer can be treated more easily and is less likely to have spread to other areas of the body. ??? The prostate-specific antigen (PSA) test is the recommended screening test for prostate cancer, but it has associated risks. ??? Discuss the risks and benefits of prostate [...] provider. Document Revised: 09/04/2021 Document Reviewed: 09/04/2021 [employer] Patient Education ? 2023 [employer] UROLOGY OFFICE/CLINIC NOTE Observed: 8:28 AM Status: F Source: [facility] Urology Office/Clinic Note Chief Complaint 1 year with PSA HPI Staff 74 year old male patient here for a year follow up with PSA. Previous Dx: elevated PSA, BPH with urinary obstruction & flomax 0.4 mg qd. Previous PSA: 07/07/23- .14 Current PSA: 07/01/24- .28 Denies any urinary concerns at this time. [...] 6 months. -Schedule MRI of prostate at [facility] -PSA in 6 months if MRI is [...] Information OMER JOVEL, Saqib Sumner, URL [address] [place] [address]- Additional Instructions: MRI pending f/up Patient Education [...] zoster vaccine, inactivated 11/12/2022 Recorded SARS-CoV-2 (COVID-19) mRNAMUL.ORD![id number] 08/02/2022 Recorded influenza virus vaccine, inactivated 12/13/2021 Recorded SARS-CoV-2 (COVID-19) mRNAMUL.ORD![id number] 12/06/2021 Recorded SARS-CoV-2 (COVID-19) mRNA BNT-162b2 vax 12/30/2020 Recorded 2023-07-12: [id number] SARS-CoV-2 (COVID-19) mRNA BNT-162b2 vax 05/30/2020 Recorded SARS-CoV-2 (COVID-19) mRNA BNT-162b2 vax 05/27/2020 Recorded SARS-CoV-2 (COVID-19) mRNA BNT-162b2 vax 05/06/2020 Recorded influenza virus vaccine, inactivated 01/11/2020 Recorded influenza virus vaccine, inactivated 11/22/2018 Recorded pneumococcal 23-valent vaccine 07/04/2018 Recorded influenza virus vaccine, inactivated 01/22/2018 Recorded pneumococcal 13-valent vaccine 07/02/2017 Recorded influenza virus vaccine, inactivated 04/16/2017 Recorded influenza virus vaccine, inactivated 01/16/2014 Recorded Lab Results Ambulatory Point of Care Results Bilirubin Urine Dipstick: Negative (07/10/24 08:39:00) Blood Urine Dipstick: Negative (07/10/24 08:39:00) Glucose Urine Dipstick: Negative (07/10/24 08:39:00) Ketones Urine Dipstick: Negative (07/10/24 08:39:00) Leukocytes Urine Dipstick: Negative (07/10/24 08:39:00) Nitrite Urine Dipstick: Negative (07/10/24 08:39:00) Protein Urine Dipstick: Negative (07/10/24 08:39:00) Specific [place] Urine Dipstick: 1.020 (07/10/24 08:39:00) Urine Appearance Urine Dipstick: Clear (07/10/24 08:39:00) Urine Color Urine Dipstick: Yellow (07/10/24 08:39:00) Urobilinogen Urine Dipstick: Normal 0.2-1 EU/dl (07/10/24 08:39:00) pH Urine Dipstick: 6 (07/10/24 08:39:00) Result Comment: Electronical ly Signed By: Saqib SABA MD\.br\Date and Time Signed: 07/10/24 09:41 EDT\.br\Electronically Co-Signed By: Yazmin Oleary.br\Date and Time Co-Signed: 07/10/24 09:40 EDT AMBULATORY VISIT SUMMARY Observed: 07/10 8:28 AM Status: F Source: [facility] Ambulatory Visit Summary JAEN SANTIAGO :1950 Visit Date:07/10/2024 Ambulatory Visit Instructions Your Diagnosis Elevated PSA BPH with urinary obstruction Tests Performed MRI Pelvis (Soft Tissue) w/ + w/o contrast -- Results Pending -- Please visit your patient portal for your results or contact your primary care physician. Your Care Team Attending Physician - Saqib SABA MD Primary Care Physician - MARSHALL ZAMAN DO This Is Your Medications List tamsulosin (Flomax 0.4 mg Cap) Contact prescribing physician if questions or concerns amlodipine-telmisartan (amlodipine-telmisartan 5 mg-80 mg oral tablet) aspirin (aspirin [...] Following Appointments Follow Up with OMER JOVEL, Saqib Sumner, URL When: Where: [address] [place] [address]- Medications What How Much When Instructions Unchanged tamsulosin (Flomax 0.4 mg Cap) 1 Capsules By Mouth Every day Unchanged amlodipine-telmisartan (amlodipine-telmisartan 5 mg-80 mg oral tablet) Contact prescribing [...] Where to find more information ??? The [place] Cancer Society: www.cancer.org ??? [place] U[employer] Association: www.auanet.org Contact a health care [...] gland adds fluid to semen during ejaculation. ??? Prostate cancer screening may identify cancer at an early stage, when the cancer can be treated more easily and is less likely to have spread to other areas of the body. ??? The prostate-specific antigen (PSA) test is the recommended screening test for prostate cancer, but it has associated risks. ??? Discuss the risks and benefits of prostate [...] provider. Document Revised: 09/04/2021 Document Reviewed: 09/04/2021 [employer] Patient Education ??? 2023 [employer]. ALLERGIES DATE TYPE / CODE NAME / CODE REACTION SEVERITY SOURCE 11/10/2024 Drug Allergy/5262978 02(SNOMED CT) No Known Allergies/I377878525( RXNORM) [facility] /836206000(SN OMED CT) No Known Medication Allergies [facility] Drug Class/558706722 (SNOMED CT) NO KNOWN ALLERGIES [facility] ENCOUNTERS ADMIT/DISCHARGE ACCOUNT NUMBER ADMITTING ENCOUNTER CLASS LOCATION SOURCE 12/02/2024/12/03/19 [id number] [facility] 10/12/2024/10/13/19 [id number] Ambulatory Building:[facility] 10/12/2024/10/13/19 [id number] Ambulatory Building:[facility] 10/12/2024/10/13/19 [id number] [facility] 07/29/2024/07/30/19 [id number] Saba Saqib [facility] 07/10/2024/07/11/19 [id number] [place] Exam 1 [facility] 07/06/2024/07/07/19 [id number] Ambulatory Build[facility] 04/06/2024/04/06/19 [id number] Ambulatory Buildin [facility] 01/03/2024/01/03/20 24 [id number] Ambulatory Build[facility] PAYERS ENCOUNTER GUARANTOR PAYER SUBSCRIBER SOURCE 12/02/2024 Jean Santiago[address] [place] [address]Emt: (HP) Primary Insurance:[facility] PFFSPolicy Number: [id number] Date:2024-11-10 Jean Lama: [id number] [place] [address]Feh: (HP) [facility] 12/02/2024 Secondary Insurance:Self PayPolicy Number: Effective Date:2024-11-17 [facility] 10/12/2024 JEAN LAMA: [id number] [address] [place], [place] [address]Kei: (HP) Primary Insurance:ANTHEM MEDICARE ADVANTAGEPolicy Number: [id number] Date:2023-03-25 JEAN LAMA: [id number] [place] [address] [facility] 10/12/2024 JEAN LAMA: [id number] [address] [place], [place] [address]Jnf: (HP) Primary Insurance:ANTHEM MEDICARE ADVANTAGEPolicy Number: [id number] Date:2023-03-25 JEAN LAMA: [id number] [place] [address] [facility] 10/12/2024 JEAN GORDONB: [id number] [place], [place] [address]Mub: (HP) Primary Insurance:ANTHEM MEDICARE ADVANTAGEPolicy Number: [id number] Date:2023-03-25 JEAN LAMA: [id number] [place] [address] [facility] 07/29/2024 Jean Santiago[address] [place] [address]Jpu: (HP) Primary Insurance:[facility] PFFSPolicy Number: [id number] Date:2024-07-10 Jean GordonB: [id number] [place] [address]Wpa: (HP) [facility] 07/29/2024 Secondary Insurance:Self PayPolicy Number: Effective Date:2024-07-15 MERVIN SANCHEZ [facility] 07/10/2024 JEAN LAMA: [id number] [address] D[address]el: ~~(4 1 (HP) Primary Insurance:AnthemPolicy Number: [id number] Date:[id number] [address]QN: JEAN FRASER [facility] 07/06/2024 JEAN LAMA: [address], [place] [address]Qpt: (HP) Primary Insurance:ANTHEM MEDICARE ADVANTAGEPolicy Number: [id number] Date:2017-03-25 JEAN LAMA: [id number] [place] [address]Ojs: (HP) [facility] 04/06/2024 JEAN LAMA: [place], [place] [address]Yft: (HP) [facility] Insurance[facility] Number: [id number] Date:2017-03-25 JEAN LAMA: [id number] [place] [address]Lek: (HP) [facility] 01/03/2024 JEAN LAMA: [place], [place] [address]Xuo: (HP) Primary Insurance:ANTHEM MEDICARE ADVANTAGEPolicy Number: [id number] Date:2017-03-25 JEAN LAMA: [id number] [place] [address]Koq: (HP) [facility]
[2024-12-21 11:38] LABS: Hematocrit 39.2 % (42.0-54.0); Hemoglobin 12.8 g/dL (14.0-18.0); Immature Granulocytes Abs Auto 0.03 10^3/uL (0.00-0.03); Immature Granulocytes Pct Auto 0.4 % (0.0-0.5); Lymphocytes Absolute Auto 1.4 10^3/uL (1.2-3.8); Mean Corpuscular HGB Conc 32.7 g/dL (29.9-35.2); Mean Corpuscular Hemoglobin 30.0 pg (25.9-34.0); Mean Corpuscular Volume 92.0 fL (80.0-94.0); Platelet Count 387 10^3/uL (150-450); Red Blood Count 4.26 10^6/uL (4.70-6.10); White Blood Count 7.3 10^3/uL (4.0-11.0)
[2024-12-21 12:13] LABS: Alanine Aminotransferase 37 U/L (16-63); Albumin Globulin Ratio 0.9; Albumin Level 3.3 g/dL (3.4-5.0); Alkaline Phosphatase 123 U/L (46-116); Anion Gap 15.4; Aspartate Amino Transferase 18 U/L (15-37); Blood Urea Nitrogen 13.0 mg/dL (7.0-18.0); Calcium 9.2 mg/dL (8.5-10.1); Carbon Dioxide 25.4 mmol/L (21.0-32.0); Chloride 104 mmol/L (98-107); Cholesterol 154 mg/dL (<=200); Estimated GFR (African America >60 (>=60 mL/min/1.73m^2); Estimated GFR (Non-African Ame >60 (>=60 mL/min/1.73m^2); Globulin 3.6 g/dL; Glucose 105 mg/dL (74-106); HDL Cholesterol 40 mg/dL (40-60); Potassium 4.8 mmol/L (3.5-5.1); Sodium 140 mmol/L (136-145); Total Protein 6.9 g/dL (6.4-8.2); Triglycerides 173 mg/dL (<=150); VLDL CHOLESTEROL 34.6 mg/dL
== END 2024-12-21 11:05 | disposition home or self-care (01) ==
LOC: LAB 11:07
PROVIDERS: PCP Internal Medicine; Visit Provider Internal Medicine
DX: K86.89 Other specified diseases of pancreas (principal); R73.01 Impaired fasting glucose; I10 Essential (primary) hypertension; E78.00 Pure hypercholesterolemia, unspecified
CPT/HCPCS: 36415; 80053; 80061; 85025

== ENCOUNTER 2024-12-30 08:24 | Outpatient (OUT) | payer MEDICARE, SELFPAY ==
--- NOTE | 2024-12-30 08:27 | CT_ITS ---
The [address] [address] Patient Name: JEAN SANTIAGO MRN: [id number] date: 1950 Sex: M Assigned Patient Location: CT Current Patient Location: CT Accession/Order Number: [id number] Exam Date: 12/30/2024 08:30 Report Date: 12/30/2024 09:12 At the request of: KRISTY NIELSON DO Procedure: CT lung screening low-dose LOW-DOSE SCREENING CHEST CT WITHOUT CONTRAST COMPARISON: 12/24/2023 CLINICAL DATA: Former smoker with 53 pack year history of tobacco use. Spiral axial unenhanced low-dose images were obtained through the chest. Images were reviewed using both narrow and wide window settings. Images were reviewed using both narrow and wide window settings. This CT exam was performed using one or more following dose reduction techniques: Automated exposure control, adjustment of the mA and/or kV according to patient size, or use of iterative reconstruction technique. FINDINGS: The heart is not enlarged. A trace amount pericardial fluid is seen anteriorly. Minor coronary disease is noted. The ascending aorta is mildly ectatic. There is atherosclerotic plaque at the aorta. Similar small mediastinal lymph nodes are present. Minor gynecomastia is visualized, greater on the left. The bony structures are intact. There are tiny endplate spurs. Calcified pleural plaque is again visualized, left side greater than right. There is slight thickening of the fissures on the right. Apical scarring is again noted. Atelectasis and/or scarring at the bases is still seen. There are airspace lucencies and tiny subpleural blebs. There is no developing consolidation, pleural effusion, pneumothorax or discrete soft tissue nodules. Limited cuts through the upper abdomen show no contributory abnormality. CT/CT lung screening low-dose IMPRESSION: OBSTRUCTIVE LUNG DISEASE. CALCIFIED PLEURAL PLAQUE. MINOR ATELECTASIS AND SCARRING. NO DEVELOPING PULMONARY NODULARITY. Lung RADS category 1 - negative Twelve-month low-dose CT follow-up suggested Impression dictated by: Darlene Masters M.D. 12/30/2024 9:12 AM Dictation Location: [place] [address] Electronically authenticated by: [id number] Y Date: 12/30/2024 09:12
--- OUTSIDE RECORDS SUMMARY | 2024-12-30 08:30 | XMS_ITS | CCD ---
Author Organization [facility] CliniSyma Care Team Providers Care Copy Room Technician Name Role Phone Julissa Saba Unavailable Unavailable MARSHALL ZAMAN Primary Care Physician [phone] DO Marshall Zaman Primary Care Provider MD Julissa Saba Attending Provider [phone] Stuart Qureshi Unavailable MD Stuart Qureshi Attending Provider DO Marshall Zaman Primary Care Provider [phone] MISC, DR CHRISTOPHER Attending Unavailable MISC, DR CHRISTOPHER Admitting Unavailable MISC, DR CHRISTOPHER Consulting Unavailable NAGA, DR WAGNER Primary Care Unavailable JUANITO ., KIARA Attending Unavailable JUANITO ., KIARA Admitting Unavailable BALL, DR WAGNER Primary Care Unavailable JUANITO ., KIARA Attending Unavailable JUANITO ., KIARA Admitting Unavailable JUANITO ., KIARA Consulting Unavailable BALL, DR WAGNER Primary Care [...] Care Unavailable BALL, DR WAGNER Consulting Unavailable NAGA, DR WAGNER Attending Unavailable BALL, DR WAGNER Admitting Unavailable BALL, DR WAGNER Primary Care Unavailable SABA ., DR COSTA Consulting Unavailable SABA ., DR COSTA Attending Unavailable SABA ., DR COSTA Admitting Unavailable BALL, DR WAGNER Primary Care Unavailable BALL, DR WAGNER Consulting Unavailable NAGA, DR WAGNER Attending Unavailable BALL, DR WAGNER [...] Ball DO, Marshall E Primary Care Provider ESVIN, SAPPHIRE K Attending Unavailable BALL, MARSHALL E [...] Unavailable Ball DO, Marshall Primary Care Provider Julissa Saba MD Attending Provider Ball DO, Marshall E Primary Care Provider JAE ANDERSON Attending Unavailable JAE ANDERSON Referring Unavailable Ball DOMarshall Primary Care Provider [phone] Teresa TUCKER, Kyaw Stallings Attending Provider [phone] Romeo Arceo MD Attending Provider [phone] Rose Paredes CMA Attending Provider Unavaila keven Zaman DO, Marshall Attending Provider Julissa SABA Attending Unavailable SABA, Julissa Sumner Attending Unavailable SABA, Julissa Sumenr Attending Unavailable Ball, Marshall Attending Unavailable Ball, Marshall Primary Care Unavailable Ball, Marshall Admitting Unavailable SabaJulissa Admitting Unavailable Ball, Marshall Primary Care Unavailable Omer, Julissa Attending Unavailable Unavailable Primary Care Provider Unavailabl e Allergies Allergy Classification Reported Allergen(s) Allergy Type Date of Onset Reaction(s) Facility (4 sources) patient allergy list reviewed by nurse or physicia Propensity to adverse reactions 5 Comment:Done [facility] Other (1 source) No Known Medication Allergies; Translations: [No Known Medication Allergies] Propensity to adverse reactions (disorder) [facility] Repository Medications Current Medications Medication Drug Class(es) Dates Sig (Normalized) Sig (Original) amLODIPine 5 mg / telmisartan 80 mg oral tablet (20 sources) Dihydropyridine Calcium Channel Lina, Angiotensin 2 Receptor Lina Start: 07-12-2023 amlodipine-telmi sartan 5 mg-80 mg oral tablet Refill(s) 0 Start Date: 07/12/23 Status: Ordered Start: 07-08-2023 End: 06-26-2024 take 1 tablet by mouth once daily Telmisartan-Amlodipine 80-5 mg tablet Active 0 .ROUTE .COMPLEX 90 June 26, 2024 7:28am TAKE 1 TABLET BY MOUTH EVERY DAY Complies with drug therapy Start: 07-08-2023 End: 07-08-2023 take 1 tablet [...] MG PO Daily June 11, 2023 12:00am Complies with drug therapy Start: 01-01-2022 aspirin 325 mg tablet Take by mouth. 01/01/2022 Active Start: 11-01-2021 End: 06-11-2023 take 1 tablet by mouth once daily Aspirin 81 mg Tablet,Delayed Release (Dr/Ec) Discontinued 81 MG PO Daily November 01, 2021 12:00am June 11, 2023 11:35am Start: 07-07-2019 aspirin 81 mg Chew Tab 81 mg = 1 tab(s), Chewed, Daily Start Date: 07/07/19 Status: Ordered aspirin (Nataliiazalor e) 325 MG capsule 325 mg Active take 1 tablet by mercedes th once daily Aspirin 325 mg 325 mg one tab orally daily Active atorvastatin 40 mg oral tablet (20 sources) HMG-CoA Reductase Inhibitor Start: 12-25-2023 End: 06-15-2024 take 1 tablet by mouth once daily in the evening Atorvastatin 40 mg tablet Active 40 MG PO Every evening 90 June 15, 2024 10:32am Complies with drug therapy Start: 10-29-2023 End: 12-25-2023 take 1 tablet by mouth once daily in the evening Atorvastatin 20 mg tablet Discontinued 0 .ROUTE .COMPLEX October 29, 2023 8:39am December 25, 2023 [...] release 24 hr Active 0 .ROUTE .COMPLEX March 11, 2024 1:38pm TAKE 1 TABLET BY MOUTH IN THE MORNING ONCE DAILY Complies with drug therapy Start: 06-18-2022 take 1 tablet by mercedes th every twenty-four hours in the morning buPROPion [...] 1:38pm Start: 04-29-2020 take 1 tablet by mercedes [...] ADULT PO) Active Multivitamin (Daily Vitamin) Tablet (7 sources) Start: 11-01-2021 take 1 tablet by mouth once daily Start: 11-01-2021 take 1 tablet by mercedes th once daily Multivitamin (Daily Vitamin) Tablet Active 1 TAB PO Daily November 01, 2021 12:00am Complies with drug therapy Start: 11-01-2021 take 1 tablet by mercedes th once daily Multivitamin (Daily Vitamin) Tablet Active 1 TAB PO Daily November 01, 2021 12:00am multivitamin tablet (1 source) Start: 10-30-2024 multivitamin t ablet Take by mouth. 10/30/2024 Active tamsulosin hydrochloride 0.4 mg oral capsule (20 sources) alpha-Adrenergic Lina Start: 12-16-2023 Tamsulosin 0.4 mg capsule Active MG PO December 16, 2023 12:00am Complies with drug therapy Start: 11-01-2021 End: 06-11-2023 take 1 capsule [...] 2021 12:00am take 1 tablet by mercedes every twenty-four hours Lisinopril 40 MG 1 [...] Active Problems Problem Classification Problem Date Documented Date Episodic/Chronic Aortic; peripheral; and visceral artery aneurysms (15 sources) Aneurysm of left iliac artery; Translations: [Aneurysm of iliac artery] Chronic Calculus of urinary tract (2 sources) History of calculus of kidney 07-07-2019 Episodic Chronic kidney disease (15 sources) Chronic kidney disease; Translations: [Chronic kidney disease, unspecified] 06-10-2023 Chronic Chronic obstructive pulmonary disease and bronchiectasis (14 sources) Simple chronic bronchitis; Translations: [Simple chronic bronchitis] Chronic Deficiency and other anemia (10 sources) Anemia, unspecified; Translations: [Anemia, unspecified] Onset: 05-18-2022 Episodic Deficiency and other anemia (20 sources) Anemia; Translations: [Anemia, unspecified] 06-11-2023 Episodic Diabetes mellitus without complication (14 sources) Impaired fasting glycemia; Translations: [Impaired fasting glucose] 06-12-2023 Episodic Disorders of lipid metabolism (20 sources) Hyperlipidemia; Translations: [Familial hypercholesterolemia] Onset: 08-24-2021 07-07-2019 Chronic Diverticulosis and diverticulitis (9 sources) Diverticulitis of gastrointestinal tract 11-08-2024 Chronic Essential hypertension (20 sources) Essential hypertension; [...] depressive disorder, recurrent, in full remission] Chronic Neoplasms of unspecified nature or uncertain behavior (1 source) Neoplasm of uncertain behavior of pancreas; Translations: [Neoplasm of uncertain behavior of other specified digestive organs] 12-28-2024 Episodic Osteoarthritis (20 sources) Osteoarthritis of right knee joint; Translations: [Unilateral primary osteoarthritis, right knee] Onset: 10-22-2022 Chronic Other aftercare (2 sources) Long-term current use of anticoagulant 07-07-2019 Episodic Other aftercare (2 sources) 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; Translations: [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 CURRENT DRUG THERAPY] Onset: 12-14-2021 Episodic Other aftercare (4 sources) Long-term current use of drug therapy; Translations: [Other usp (current) drug therapy] Episodic Other injuries and [...] Episodic Other nutritional; endocrine; and metabolic disorders (11 sources) Overweight; Translations: [Overweight] 12-16-2023 Episodic Other nutritional; endocrine; and metabolic disorders (2 sources) Overweight; Translations: [Overweight] 06-15-2024 Episodic Other screening for suspected conditions (not mental disorders or infectious disease) (20 sources) Raised prostate specific antigen; Translations: [Elevated prostate specific antigen [PSA]] Onset: 07-02-2017 Resolved: 08-11-2019 Episodic Other upper respiratory disease (11 sources) Allergic rhinitis; Translations: [Other allergic rhinitis] Chronic Other upper respiratory disease (1 source) Other allergic rhinitis Chronic Pancreatic disorders (not diabetes) (13 sources) Mass of pancreas; Translations: [Other specified diseases of pancreas] Onset: 12-02-2024 11-01-2024 Episodic Comment on above: CTA abdomen: pancrea s w/ 2.4cm head, 9mm tail lesion - 10/2024 Peripheral and visceral atherosclerosis (20 sources) Peripheral [...] Onset: 11-03-2014 Resolved: 08-11-2019 Episodic Substance-related disorders (20 sources) Tobacco user; Translations: [Nicotine dependence, cigarettes, uncomplicated] Onset: 07-04-2018 Resolved: 12-07-2020 06-11-2024 Chronic Comment on above: LDCT: no suspicious nodules 11/2022, 12/2023 Unclassified (4 sources) Alcohol abuse with withdrawal, unspecified; Translations: [Alcohol abuse with withdrawal, unspecified] Onset: 01-20-2021 Unclassified (1 source) Injection Onset: 09-16-2023 Unclassified (1 source) K86.89 - Other specified diseases of pancreas Past or Other Problems Problem Classification Problem [...] Resolved: 08-11-2019 Episodic Other aftercare (1 source) skilled nursing (current) use of aspirin; Translations: [FDC CURRENT USE OF ASPIRIN] Onset: 08-24-2021 Episodic Other aftercare (1 source) 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 CHOLELITHIASIS WITHOUT EVIDENCE OF BILIARY OBSTRUCTION/CHOLEDOCH OLITHIASIS. 2. ORGAN EVALUATION IS SUBOPTIMAL DUE TO [...] CHARACTERIZATION. Impression dictated by: Freddie Garcia Jr., D.OMae 12/03/2024 9:04 AM Dictation Location: [place] [address] Transcribed By: [facility] 12/03/24903 Dictated By: Freddie Garcia Jr, DO 12/03/24 0850 Signed By: 12/03/24903 Normal [facility] Basophils Auto (Bld) [#/Vol] Ordered By: Romeo Arceo on 10-31-2024 Basophils (Bld) [#/Vol] 0.1 10 3/uL 0.0-0.1 [facility] Basophils/100 WBC Auto (Bld) Ordered By: Romeo Arceo on 10-31-2024 Basophils/100 WBC (Bld) 0.4 % 0.2-2.0 [facility] Eosinophils/100 WBC Auto (Bl d)Ordered By: Romeo Arceo on 10-31-2024 Eosinophils/100 WBC (Bld) 1.2 % 0.9-7.0 [facility] Erythrocyte distribution wid th Auto (RBC) [Ratio]Ordered By: Romeo Arceo on 10-31-2024 Erythrocyte distribution width (RBC) [Ratio] 12.3 % 11.0-15.0 [facility] Globulin Calc (S) [Mass/Vol] Ordered By: Marshall Zaman on 10-31-2024 Globulin (S) [Mass/Vol] 2.9 g/dL [facility] Glomerular filtration rate ( GFR) estimation in non- AmericanOrdered By: Marshall Zaman on 10-31-2024 GFR/1.73 sq M.predicted among non-blacks MDRD (S/P/Bld) [Vol rate/Area] mL/min/{1.73_m2} >=60 mL/min/1.73 m 2 [facility] Hematocrit Auto (Bld) [Volum e fraction]Ordered By: Romeo Arceo on 10-31-2024 Hematocrit (Bld) [Volume fraction] 34.2 % Low 42.0-54.0 [facility] Hemoglobin [Mass/volume] in BloodOrdered By: Romeo Arceo on 10-31-2024 Hemoglobin (Bld) [Mass/Vol] 11.3 g/dL Low 14.0-18.0 [facility] Laboratory - Chemistry and C hemistry - challengeOrdered By: Marshall Zaman on 10-31-2024 Albumin [Mass/Vol] 3.0 g/dL Low 3.4-5.0 [facility] ALP [Catalytic activity/Vol] 98 U/L 46-116 [facility] ALT [Catalytic activity/Vol] 15 U/L Low 16-63 [facility] AST [Catalytic activity/Vol] 13 U/L Low 15-37 [facility] Bilirubin [Mass/Vol] 0.6 mg/dL 0.2-1.0 [facility] Calcium [Mass/Vol] 8.9 mg/dL 8.5-10.1 [facility] Chloride [Moles/Vol] 105 mmol/L 98-107 [facility] CO2 [Moles/Vol] 22.6 mmol/L 21.0-32.0 [facility] Creatinine [Mass/Vol] 1.06 mg/dL 0.70-1.30 [facility] GFR/1.73 sq M.predicted MDRD (S/P/Bld) [Vol rate/Area] mL/min/{1.73_m2} >=60 mL/min/1.73 m 2 [facility] Glucose [Mass/Vol] 102 mg/dL 74-106 [facility] Potassium [Moles/Vol] 4.0 mmol/L 3.5-5.1 [facility] Protein [Mass/Vol] 5.9 g/dL Low 6.4-8.2 [facility] Sodium [Moles/Vol] 138 mmol/L 136-145 [facility] Urea nitrogen [Mass/Vol] 20.0 mg/dL High 7.0-18.0 [facility] Urea nitrogen/Creatinine [Mass ratio] 18.9 mg/mg [facility] Laboratory - Hematology and Cell countsOrdered By: Romeo Arceo on 10-31-2024 Immature granulocytes/100 WBC (Bld) 0.4 % 0.0-0.5 [facility] Leukocytes [#/volume] correc josue for nucleated erythrocytes in Blood by Automated counOrdered By: Romeo Arceo on 10-31-2024 WBC corrected for nucl RBC Auto (Bld) [#/Vol] 13.3 10 3/uL High 4.0-11.0 [facility] Lymphocytes Auto (Bld) [#/Vo l]Ordered By: Romeo Arceo on 10-31-2024 Lymphocytes (Bld) [#/Vol] 1.7 10 3/uL 1.2-3.8 [facility] Lymphocytes/100 WBC Auto (Bl d)Ordered By: Romeo Arceo on 10-31-2024 Lymphocytes/100 WBC (Bld) 12.6 % Low 20.5-60.0 [facility] MCH Auto (RBC) [Entitic mass ]Ordered By: Romeo Arceo on 10-31-2024 MCH (RBC) [Entitic mass] 30.0 pg 25.9-34.0 [facility] MCHC Auto (RBC) [Mass/Vol]Or dered By: Romeo Arceo on 10-31-2024 MCHC (RBC) [Mass/Vol] 33.0 g/dL 29.9-35.2 [facility] MCV Auto (RBC) [Entitic vol] Ordered By: Romeo Arceo on 10-31-2024 MCV (RBC) [Entitic vol] 90.7 fL 80.0-94.0 [facility] Monocytes Auto (Bld) [#/Vol] Ordered By: Romeo Arceo on 10-31-2024 Monocytes (Bld) [#/Vol] 1.1 10 3/uL High 0.3-0.8 [facility] Monocytes/100 WBC Auto (Bld) Ordered By: Romeo Arceo on 10-31-2024 Monocytes/100 WBC (Bld) 8.3 % 1.7-12.0 [facility] Neutrophils Auto (Bld) [#/Vo l]Ordered By: Romeo Arceo on 10-31-2024 Neutrophils (Bld) [#/Vol] 10.3 10 3/uL High 1.4-6.5 [facility] Neutrophils/100 WBC Auto (Bl d)Ordered By: Romeo Acreo on 10-31-2024 Neutrophils/100 WBC (Bld) 77.1 % High 43.0-75.0 [facility] No Panel InformationOrdered By: Romeo Arceo on 10-31-2024 Eosinophils # (Auto) 0.2 10 3/uL 0.0-0.7 [facility] Immature Granulocyte # (Auto) 0.05 10 3/uL High 0.00-0.03 [facility] Platelet mean volume Auto (B ld) [Entitic vol]Ordered By: Romeo Arceo on 10-31-2024 Platelet mean volume (Bld) [Entitic vol] 9.5 fL 9.5-13.5 [facility] Platelets Auto (Bld) [#/Vol] Ordered By: Romeo Arceo on 10-31-2024 Platelets (Bld) [#/Vol] 305 10 3/uL 150-450 [facility] RBC Auto (Bld) [#/Vol]Ordere d By: Romeo Arceo on 10-31-2024 RBC (Bld) [#/Vol] 3.77 10 6/uL Low 4.70-6.10 [facility] Serum or plasma albumin/glob ulin mass ratioOrdered By: Marshall Zaman on 10-31-2024 Albumin/Globulin [Mass ratio] 1.0 {ratio} [facility] Serum or plasma anion gap de terminationOrdered By: Marshall Zaman on 10-31-2024 Anion gap [Moles/Vol] 14.4 mmol/L [facility] Activated partial thrombopla stin time (aPTT) in platelet poor plasma by coagulation aOrdered By: Kyaw Moore on 10-30-2024 aPTT Coag (PPP) [Time] 28.3 s 22.3-36.2 [facility] Basophils Auto (Bld) [#/Vol] Ordered By: Kyaw Moore on 10-30-2024 Basophils (Bld) [#/Vol] 0.1 10 3/uL 0.0-0.1 [facility] Basophils/100 WBC Auto (Bld) Ordered By: Kyaw Moore on 10-30-2024 Basophils/100 WBC (Bld) 0.3 % 0.2-2.0 [facility] Eosinophils/100 WBC Auto (Bl d)Ordered By: Kyaw Moore on 10-30-2024 Eosinophils/100 WBC (Bld) 0.2 % Low 0.9-7.0 [facility] Erythrocyte distribution wid th Auto (RBC) [Ratio]Ordered By: Kyaw Moore on 10-30-2024 Erythrocyte distribution width (RBC) [Ratio] 12.0 % 11.0-15.0 [facility] Globulin Calc (S) [Mass/Vol] Ordered By: Kyaw Moore on 10-30-2024 Globulin (S) [Mass/Vol] 3.6 g/dL [facility] Glomerular filtration rate ( GFR) estimation in non- AmericanOrdered By: Kyaw Moore on 10-30-2024 GFR/1.73 sq M.predicted among non-blacks MDRD (S/P/Bld) [Vol rate/Area] 56 mL/min/{1.73_m2} Low >=60 mL/min/1.73 m 2 [facility] Hematocrit Auto (Bld) [Volum e fraction]Ordered By: Kyaw Moore on 10-30-2024 Hematocrit (Bld) [Volume fraction] 40.2 % Low 42.0-54.0 [facility] Hemoglobin [Mass/volume] in BloodOrdered By: Kyaw Moore on 10-30-2024 Hemoglobin (Bld) [Mass/Vol] 13.4 g/dL Low 14.0-18.0 [facility] INR in Platelet poor plasma by Coagulation assayOrdered By: Kyaw Moore on 10-30-2024 INR Coag (PPP) [Relative time] 0.99 {INR} [facility] Comment on above: DESIRED INR:2.0-3.0 CONDITIONS NOT LISTED BELOW2.5-3.5 FOR PROSTHETIC HEART VALVE REPLACEMENT2.5-3.5 RECURRENT THROMBOSIS Laboratory - Chemistry and C hemistry - challengeOrdered By: Kyaw Moore on 10-30-2024 Albumin [Mass/Vol] 3.5 g/dL 3.4-5.0 [facility] ALP [Catalytic activity/Vol] 131 U/L High 46-116 [facility] ALT [Catalytic activity/Vol] 28 U/L 16-63 [facility] AST [Catalytic activity/Vol] 15 U/L 15-37 [facility] Bilirubin [Mass/Vol] 0.4 mg/dL 0.2-1.0 [facility] Calcium [Mass/Vol] 9.4 mg/dL 8.5-10.1 [facility] Chloride [Moles/Vol] 105 mmol/L 98-107 [facility] CO2 [Moles/Vol] 25.6 mmol/L 21.0-32.0 [facility] Creatinine [Mass/Vol] 1.25 mg/dL 0.70-1.30 [facility] GFR/1.73 sq M.predicted MDRD (S/P/Bld) [Vol rate/Area] mL/min/{1.73_m2} >=60 mL/min/1.73 m 2 [facility] Glucose [Mass/Vol] 158 mg/dL High 74-106 [facility] Lactate [Moles/Vol] 1.5 mmol/L 0.4-2.0 [facility] Lipase [Catalytic activity/Vol] 32.0 U/L 16.0-77.0 [facility] Magnesium [Mass/Vol] 2.1 mg/dL 1.8-2.4 [facility] Potassium [Moles/Vol] 4.5 mmol/L 3.5-5.1 [facility] Protein [Mass/Vol] 7.1 g/dL 6.4-8.2 [facility] Sodium [Moles/Vol] 138 mmol/L 136-145 [facility] Urea nitrogen [Mass/Vol] 27.0 mg/dL High 7.0-18.0 [facility] Urea nitrogen/Creatinine [Mass ratio] 21.6 mg/mg [facility] Laboratory - Hematology and Cell countsOrdered By: Kyaw Moore on 10-30-2024 Immature granulocytes/100 WBC (Bld) 0.4 % 0.0-0.5 [facility] Leukocytes [#/volume] correc josue for nucleated erythrocytes in Blood by Automated counOrdered By: Kyaw Moore on 10-30-2024 WBC corrected for nucl RBC Auto (Bld) [#/Vol] 18.6 10 3/uL High 4.0-11.0 [facility] Lymphocytes Auto (Bld) [#/Vo l]Ordered By: Kyaw Moore on 10-30-2024 Lymphocytes (Bld) [#/Vol] 0.7 10 3/uL Low 1.2-3.8 [facility] Lymphocytes/100 WBC Auto (Bl d)Ordered By: Kyaw Moore on 10-30-2024 Lymphocytes/100 WBC (Bld) 3.9 % Low 20.5-60.0 [facility] MCH Auto (RBC) [Entitic mass ]Ordered By: Kyaw Moore on 10-30-2024 MCH (RBC) [Entitic mass] 30.2 pg 25.9-34.0 [facility] MCHC Auto (RBC) [Mass/Vol]Or dered By: Kyaw Moore on 10-30-2024 MCHC (RBC) [Mass/Vol] 33.3 g/dL 29.9-35.2 [facility] MCV Auto (RBC) [Entitic vol] Ordered By: Kyaw Moore on 10-30-2024 MCV (RBC) [Entitic vol] 90.5 fL 80.0-94.0 [facility] Monocytes Auto (Bld) [#/Vol] Ordered By: Kyaw Moore on 10-30-2024 Monocytes (Bld) [#/Vol] 1.1 10 3/uL High 0.3-0.8 [facility] Monocytes/100 WBC Auto (Bld) Ordered By: Kyaw Moore on 10-30-2024 Monocytes/100 WBC (Bld) 6.0 % 1.7-12.0 [facility] Neutrophils Auto (Bld) [#/Vo l]Ordered By: Kyaw Moore on 10-30-2024 Neutrophils (Bld) [#/Vol] 16.6 10 3/uL High 1.4-6.5 [facility] Neutrophils/100 WBC Auto (Bl d)Ordered By: Kyaw Moore on 10-30-2024 Neutrophils/100 WBC (Bld) 89.2 % High 43.0-75.0 [facility] No Panel InformationOrdered By: Kyaw Moore on 10-30-2024 Eosinophils # (Auto) 0.0 10 3/uL 0.0-0.7 [facility] Immature Granulocyte # (Auto) 0.07 10 3/uL High 0.00-0.03 [facility] Platelet mean volume Auto (B ld) [Entitic vol]Ordered By: Kyaw Moore on 10-30-2024 Platelet mean volume (Bld) [Entitic vol] 9.1 fL Low 9.5-13.5 [facility] Platelets Auto (Bld) [#/Vol] Ordered By: Kyaw Moore on 10-30-2024 Platelets (Bld) [#/Vol] 340 10 3/uL 150-450 [facility] Prothrombin time (PT)Ordered By: Kyaw Moore on 10-30-2024 PT Coag (PPP) [Time] 10.5 s 9.0-11.6 [facility] RBC Auto (Bld) [#/Vol]Ordere d By: Kyaw Moore on 10-30-2024 RBC (Bld) [#/Vol] 4.44 10 6/uL Low 4.70-6.10 [facility] Serum or plasma albumin/glob ulin mass ratioOrdered By: Kyaw Moore on 10-30-2024 Albumin/Globulin [Mass ratio] 1.0 {ratio} [facility] Serum or plasma anion gap de terminationOrdered By: Kyaw Moore on 10-30-2024 Anion gap [Moles/Vol] 11.9 mmol/L [facility] No Panel Informationon 10-12 Radiology Study observation (narrative) [facility] COOKIE Leung 10/12/2024 12:34 PM L [...] and draped in the usual sterile fashion. [facility] COOKIE Leung 10/12/2024 12:34 PM L Inj/Asp: [...] and draped in the usual sterile fashion. [facility] [employer] XR Knee - left 1 or 2 Viewso n 10-12-2024 Imaging Result: AP and lateral left knee: No acute fracture or dislocation Mild effusion Valgus alignment with narrowing lateral joint line, Flattening or articular surface weight bearing and subchondral sclerosis noted.. narrowing and flattening of patella femoral joint consistent with degenerative changes. Impression: mild to moderate tricompartmental left knee arthritis [facility] [employer] XR Knee - right 1 or 2 Views on 10-12-2024 Imaging Result: AP and lateral right knee: No acute fracture or dislocation Mild effusion Valgus alignment with bone on bone articulation lateral joint line, narrowing and flattening of patella femoral joint with spurring of articular surface of patella Soft tissue calcifications likely large loose body anterior knee. Impression: severe tricompartmental right knee arthritis [facility] Creatinine (Bld) [Mass/Vol]O rdered By: Julissa Saba on 07-29-2024 Creatinine [Mass/Vol] Whole blood creatinine measurement 0.6-1.3 [facility] Comment on above: ER/ESD physician is notified/shown all ISTAT results.Critical values may be confirmed by laboratory testing ifdeemed necessary by ER attending doctor. ISTAT XRay CREon 07-29-2024 Creatinine [Mass/Vol] 1.2 mg/dL Normal 0.6-1.3 [facility] Comment on above: Result Comment: ER/E SD physician is notified/shown all ISTAT results. Critical values may be confirmed by laboratory testing if deemed necessary by ER attending doctor. Performed By: #### I SCRE #### [address] ISTAT GFR >60.0 Normal [facility] Comment on above: Result Comment: PERF ORMED BY: [place] [address] PATHOLOGIST LAYER OUT LIONEL HAGAN M.D. Performed By: #### I SCRE #### [address] MR prostate wo/w conon 07-29 MR prostate wo/w con [facility] [place] [address] [place] [address] MRI Report Signed Patient: Jean Baron MR#: [id number] 72 : 1950 Acct:[id number] Age/Sex: 74 / M ADM Date: 07/29/24 Loc: MR Room: Type: [facility] Attending Dr: Julissa Saba MD Copies to: Julissa Saba MD Ordering Provider: Julissa Saba MD Date of Service: 07/29/24 MR/MR [...] Jr., D.OMae 07/29/2024 4:38 PM Dictation Location: [place] [address] Transcribed By: [facility] 07/29/24 1638 Dictated By: Freddie Garcia Jr, DO 07/29/24 1635 Signed By: 07/29/24 1638 Normal [facility] Magnetic resonance imaging r eportOrdered By: Freddie Garcia on 07-29-2024 Study report [facility] [place] [address] [place] [address] MRI Report Signed Patient: Jean Baron MR#: [id number] : 1950 Acct:[id number] Age/Sex: 74 / M ADM Date: 5 Loc: MR Room: Type: [facility] Attending Dr: Julissa Saba MD Copies to: Julissa Saba MD~ Ordering Provider: Julissa Saba MD Date of Service: 07/29/24 MR/MR [...] Jr., D.OMae 07/29/2024 4:38 PM Dictation Location: [facility]--23 Transcribed By: KELLY 07/29/24 1638 Dictated By: Freddie Garcia Jr, DO 07/29/24 163 Signed By: 07/29/24 1638 [facility] No Panel InformationOrdered By: Julissa Saba on 07-29-2024 Bedside Estimated GFR (eGFR) > 60.0 [facility] Ambulatory Visit Summaryon 0 07-10-2024 Ambulatory Visit Summary Ambulatory Visit Summary PAMELA JEAN Comer :1950 Visit Date:07/10/2024 Ambulatory Visit Instructions Your Diagnosis Elevated PSA BPH with urinary obstruction Tests Performed MRI Pelvis (Soft Tissue) w/ + w/o contrast -- Results Pending -- Please visit your patient portal for your results or contact your primary care physician. Your Care Team Attending Physician - OMER JOVEL, Julissa Sumner Primary Care Physician - MARSHALL ZAMAN [...] with OMER JOVEL, CONNER Jay When: Where: [address] [place], [place] [id number]- Medications What How Much When Instructions Unchanged [...] prostate-specific antigen (more content not included)... [facility] Urology Office/Clinic Noteon 07-10-2024 Urology Office/Clinic Note Urology Office/Clinic Note Chief Complaint 1 year with PSA HPI Staff 74 year old male patient here for a year follow up with PSA. Previous Dx: elevated PSA, BPH with urinary obstruction & flomax 0.4 mg qd. Previous PSA: 07/07/23- .14 Current PSA: 07/01/24- 16.28 Denies any urinary [...] lesions to suggest clinically significant disease. No bonnie or osseous metastatic disease. MRI of prostate [...] 6 months. -Schedule MRI of prostate at [facility] [place] -PSA in 6 months [...] Follow-up With When Contact Information OMER JOVEL, Julissa Sumner, [address] [place] [address]- Additional Instructions: MRI pending f/up Patient Education Prostate Cancer Screening I, Yazmin Mamta, personally scribed for Dr. Saba on 07/10/2024 [...] vaccine, inactivated (more content not included)... [facility] Comment on above: Result Comment: Elec tronically Signed By: Julissa SABA MD.br\Date and Time Signed: 07/10/24 09:41 EDT\.br\Electronically Co-Signed By: Mamta, Yazmin B\.br\Date and Time Co-Signed: 07/10/24 09:40 EDT $ [...] the usual sterile fashion. MANUALLY TRANSCRIBED RESULTS [facility] No Panel Informationon 07-01 Prostate Specific Antigen Total 16.28 ng/mL High <=4.00 [facility] $ Large Joint Injection: andres ateral [...] the usual sterile fashion. MANUALLY TRANSCRIBED RESULTS [facility] $ Large Joint Injection: andres ateral kneeon [...] the usual sterile fashion. MANUALLY TRANSCRIBED RESULTS [facility] $ Large Joint Injection: andres ateral [...] the usual sterile fashion. [facility] Knee - left 4 Viewson Bilateral standing AP, tunnel, Grecia x-rays of the knees and lateral x-ray of the left knee were performed in the office today. 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 No acute osseous abnormality. MANUALLY TRANSCRIBED RESULTS [facility] Radiology Study observation (narrative) [facility] XR Knee - right 4 Viewson Bilateral standing AP, tunnel, Grecia x-rays of the knees and lateral x-ray of the right knee were performed in the office today. 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 No acute osseous abnormality. MANUALLY TRANSCRIBED RESULTS [facility] Radiology Study observation (narrative) [facility] $ Large Joint Injection: andres ateral [...] the usual sterile fashion. MANUALLY TRANSCRIBED RESULTS [facility] CBC AUTO DIFFon 05-18-2022 BASO # 0.1 103/ul Normal 0.0-0.1 [facility] Comment on above: Performed By: #### C BC #### [facility] [address] [place] [address] Dr. Jr Leiva Basophils/100 WBC (Bld) 0.8 % Normal 0.2-2.0 [place] Comment on above: Performed By: #### C BC #### [facility] [address] [place] [address] Dr. Jr Leiva EO # 0.5 103/ul Normal 0.0-0.7 [facility] Comment on above: Performed By: #### C BC #### [facility] [address] [place] [address] Dr. Jr Leiva Eosinophils/100 WBC (Bld) 6.1 % Normal 0.9-7.0 [facility] Comment on above: Performed By: #### C BC #### [facility] [address] [place] [address] Dr. Jr Leiva Erythrocyte distribution width (RBC) [Ratio] 12.6 % Normal 11.0-15.0 [facility] Comment on above: Performed By: #### C BC #### [facility] [address] [place] [address] Dr. Jr Leiva Hematocrit (Bld) [Volume fraction] 40.6 % Critically low 42.0-54.0 [facility] Comment on above: Performed By: #### C BC #### [facility] [address] [place] [address] Dr. Jr Leiva Hemoglobin (Bld) [Mass/Vol] 13.1 g/dL Critically low 14.0-18.0 [facility] Comment on above: Performed By: #### C BC #### [facility] [address] [place] [address] Dr. Jr Leiva IG # 0.02 10e3/ul Normal 0.00-0.03 [facility] Comment on above: Performed By: #### C BC #### [facility] [address] [place] [address] Dr. Jr Leiva IG % 0.3 % Normal 0.0-0.5 [facility] Comment on above: Performed By: #### C BC #### [facility] [address] [place] [address] Dr. Jr Leiva LYMPH # 1.5 103/ul Normal 1.2-3.8 [facility] Comment on above: Performed By: #### C BC #### [facility] [address] [place] [address] Dr. Jr Leiva Lymphocytes/100 WBC (Bld) 20.3 % Critically low 20.5-60.0 [facility] Comment on above: Performed By: #### C BC #### [facility] [address] [place] [address] Dr. Jr Leiva MANUAL DIFF REQ NO Normal [facility] Comment on above: Performed By: #### C BC #### [facility] [address] [place] [address] Dr. Jr Leiva MCH (RBC) [Entitic mass] 29.3 pg Normal 25.9-34.0 [facility] Comment on above: Performed By: #### C BC #### [facility] [address] [place] [address] Dr. Jr Leiva MCHC (RBC) [Mass/Vol] 32.3 g/dL Normal 29.9-35.2 [facility] Comment on above: Performed By: #### C BC #### [facility] [address] [place] [address] Dr. Jr Leiva MCV (RBC) [Entitic vol] 90.8 fL Normal 80.0-94.0 [place] Comment on above: Performed By: #### C BC #### [facility] [address] [place] [address] [address] Jr Leiva MONO # 0.6 103/ul Normal 0.3-0.8 [facility] Comment on above: Performed By: #### C BC #### [facility] [address] [place] [address] [address] Jr Lieva Monocytes/100 WBC (Bld) 8.4 % Normal 1.7-12.0 [place] Comment on above: Performed By: #### C BC #### [facility] [address] [place] [address] [address] Jr Leiva NEUT # 4.7 103/ul Normal 1.4-6.5 [facility] Comment on above: Performed By: #### C BC #### [facility] [address] [place] [address] Dr. Jr Leiva Neutrophils/100 WBC (Bld) 64.1 % Normal 43.0-75.0 [facility] Comment on above: Performed By: #### C BC #### [facility] [address] [place] [address] [address] Jr Leiva Platelet mean volume (Bld) [Entitic vol] 8.8 fL Critically low 9.5-13.5 [facility] Comment on above: Performed By: #### C BC #### [facility] [address] [place] [address] Dr. Jr Leiva PLT 402 103/ul Normal 150-450 [facility] Comment on above: Performed By: #### C BC #### [facility] [address] [place] [address] Dr. Jr Leiva RBC 4.47 106/ul Critically low 4.70-6.10 [facility] Comment on above: Performed By: #### C BC #### [facility] [address] [place] [address] [address] Jr Leiva WBC 7.4 103/ul Normal 4.0-11.0 [facility] Comment on above: Performed By: #### C BC #### [facility] [address] [place] [address] [address] Jr Leiva FERRITINon 05-18-2022 Ferritin [Mass/Vol] 85.0 ng/mL Normal 26.0-388.0 [facility] Comment on above: Performed By: #### F ETIBC, FERR, VITB12 #### [facility] [address] [place] [address] [address] Jr Leiva IRON AND TIBCon 05-18-2022 % SATURATION 27.2 % Normal [facility] Comment on above: Performed By: #### C BC #### [facility] [address] [place] [address] Dr. Jr Leiva Iron [Mass/Vol] 72.0 ug/dL Normal 65.0-175.0 [facility] Comment on above: Performed By: #### C BC #### [facility] [address] [place] [address] Dr. Jr Leiva TIB DIRECT 265.0 ug/dL Normal 250.0-450.0 [facility] Comment on above: Performed By: #### C BC #### [facility] [address] [place] [address] Dr. Jr Leiav TIBCon 05-18-2022 [facility] [employer] Other VITAMIN B12on 05-18-2022 Cobalamin (Vitamin B12) [Mass/Vol] 832.0 pg/mL Normal 193.0-986.0 [facility] Comment on above: Performed By: #### F ETIBC, FERR, VITB12 #### [facility] [address] [place] [address] Dr. Jr Leiva CBC AUTO DIFFon 01-30-2022 BASO # 0.1 103/ul Normal 0.0-0.1 [facility] Comment on above: Performed By: #### C BC #### [facility] [address] [place] [address] Dr. Jr Leiva Basophils/100 WBC (Bld) 0.9 % Normal 0.2-2.0 [place] Comment on above: Performed By: #### C BC #### [facility] [address] [place] [address] Dr. Jr Leiva EO # 0.3 103/ul Normal 0.0-0.7 [facility] Comment on above: Performed By: #### C BC #### [facility] [address] [place] [address] Dr. Jr Leiva Eosinophils/100 WBC (Bld) 4.0 % Normal 0.9-7.0 [facility] Comment on above: Performed By: #### C BC #### [facility] [address] [place] [address] Dr. Jr Leiva Erythrocyte distribution width (RBC) [Ratio] 12.3 % Normal 11.0-15.0 [facility] Comment on above: Performed By: #### C BC #### [facility] [address] [place] [address] Dr. Jr Leiva Hematocrit (Bld) [Volume fraction] 38.0 % Critically low 42.0-54.0 [facility] Comment on above: Performed By: #### C BC #### [facility] [address] [place] [address] Dr. Jr Leiva Hemoglobin (Bld) [Mass/Vol] 12.5 g/dL Critically low 14.0-18.0 [facility] Comment on above: Performed By: #### C BC #### [facility] [address] [place] [address] Dr. Jr Leiva IG # 0.02 10e3/ul Normal 0.00-0.03 [facility] Comment on above: Performed By: #### C BC #### [facility] [address] [place] [address] Dr. Jr Leiva IG % 0.2 % Normal 0.0-0.5 [facility] Comment on above: Performed By: #### C BC #### [facility] [address] [place] [address] Dr. Jr Leiva LYMPH # 1.7 103/ul Normal 1.2-3.8 [facility] Comment on above: Performed By: #### C BC #### [facility] [address] [place] [address] Dr. Jr Leiva Lymphocytes/100 WBC (Bld) 19.9 % Critically low 20.5-60.0 [facility] Comment on above: Performed By: #### C BC #### [facility] [address] [place] [address] Dr. Jr Leiva MANUAL DIFF REQ NO Normal [facility] Comment on above: Performed By: #### C BC #### [facility] [address] [place] [address] Dr. Jr Leiva MCH (RBC) [Entitic mass] 29.6 pg Normal 25.9-34.0 [facility] Comment on above: Performed By: #### C BC #### [facility] [address] [place] [address] Dr. Jr Leiva MCHC (RBC) [Mass/Vol] 32.9 g/dL Normal 29.9-35.2 [facility] Comment on above: Performed By: #### C BC #### [facility] [address] [place] [address] Dr. Jr Leiva MCV (RBC) [Entitic vol] 89.8 fL Normal 80.0-94.0 [place] Comment on above: Performed By: #### C BC #### [facility] [address] [place] [address] Dr. Jr Leiva MONO # 0.7 103/ul Normal 0.3-0.8 [facility] Comment on above: Performed By: #### C BC #### [facility] [address] [place] [address] Dr. Jr Leiva Monocytes/100 WBC (Bld) 7.7 % Normal 1.7-12.0 [place] Comment on above: Performed By: #### C BC #### [facility] [address] [place] [address] Dr. Jr Leiva NEUT # 5.7 103/ul Normal 1.4-6.5 [facility] Comment on above: Performed By: #### C BC #### [facility] [address] [place] [address] Dr. Jr Leiva Neutrophils/100 WBC (Bld) 67.3 % Normal 43.0-75.0 [facility] Comment on above: Performed By: #### C BC #### [facility] [address] [place] [address] Dr. Jr Leiva Platelet mean volume (Bld) [Entitic vol] 9.1 fL Critically low 9.5-13.5 [facility] Comment on above: Performed By: #### C BC #### [facility] [address] [place] [address] Dr. Jr Leiva PLT 312 103/ul Normal 150-450 [facility] Comment on above: Performed By: #### C BC #### [facility] [address] [place] [address] Dr. Jr Leiva RBC 4.23 106/ul Critically low 4.70-6.10 [facility] Comment on above: Performed By: #### C BC #### [facility] [address] [place] [address] Dr. Jr Leiva WBC 8.5 103/ul Normal 4.0-11.0 [facility] Comment on above: Performed By: #### C BC #### [facility] [address] [place] [address] Dr. Jr Leiva CBC AUTO DIFFon 12-13-2021 BASO # 0.1 103/ul Normal 0.0-0.1 [facility] Comment on above: Performed By: #### C BC #### [facility] [address] [place] [address] Dr. Jr Leiva Basophils/100 WBC (Bld) 0.7 % Normal 0.2-2.0 [place] Comment on above: Performed By: #### C BC #### [facility] [address] [place] [address] Dr. Jr Leiva EO # 0.4 103/ul Normal 0.0-0.7 [facility] Comment on above: Performed By: #### C BC #### [facility] [address] [place] [address] Dr. Jr Leiva Eosinophils/100 WBC (Bld) 4.1 % Normal 0.9-7.0 [facility] Comment on above: Performed By: #### C BC #### [facility] [address] [place] [address] Dr. Jr Leiva Erythrocyte distribution width (RBC) [Ratio] 12.5 % Normal 11.0-15.0 [facility] Comment on above: Performed By: #### C BC #### [facility] [address] [place] [address] Dr. Jr Leiva Hematocrit (Bld) [Volume fraction] 40.1 % Critically low 42.0-54.0 [facility] Comment on above: Performed By: #### C BC #### [facility] [address] [place] [address] Dr. Jr Leiva Hemoglobin (Bld) [Mass/Vol] 13.0 g/dL Critically low 14.0-18.0 [facility] Comment on above: Performed By: #### C BC #### [facility] [address] [place] [address] Dr. Jr Leiva IG # 0.03 10e3/ul Normal 0.00-0.03 [facility] Comment on above: Performed By: #### C BC #### [facility] [address] [place] [address] Dr. Jr Leiva IG % 0.3 % Normal 0.0-0.5 [facility] Comment on above: Performed By: #### C BC #### [facility] [address] [place] [address] Dr. rJ Leiva LYMPH # 1.7 103/ul Normal 1.2-3.8 [facility] Comment on above: Performed By: #### C BC #### [facility] [address] [place] [address] Dr. Jr Leiva Lymphocytes/100 WBC (Bld) 19.1 % Critically low 20.5-60.0 [facility] Comment on above: Performed By: #### C BC #### [facility] [address] [place] [address] Dr. Jr Leiva MANUAL DIFF REQ NO Normal [facility] Comment on above: Performed By: #### C BC #### [facility] [address] [place] [address] Dr. Jr Leiva MCH (RBC) [Entitic mass] 29.8 pg Normal 25.9-34.0 [facility] Comment on above: Performed By: #### C BC #### [facility] [address] [place] [address] Dr. Jr Leiva MCHC (RBC) [Mass/Vol] 32.4 g/dL Normal 29.9-35.2 [facility] Comment on above: Performed By: #### C BC #### [facility] [address] [place] [address] Dr. Jr Leiva MCV (RBC) [Entitic vol] 92.0 fL Normal 80.0-94.0 [place] Comment on above: Performed By: #### C BC #### [facility] [address] [place] [address] Dr. Jr Leiva MONO # 0.7 103/ul Normal 0.3-0.8 [facility] Comment on above: Performed By: #### C BC #### [facility] [address] [place] [address] Dr. Jr Leiva Monocytes/100 WBC (Bld) 8.3 % Normal 1.7-12.0 [place] Comment on above: Performed By: #### C BC #### [facility] [address] [place] [address] Dr. Jr Leiva NEUT # 5.9 103/ul Normal 1.4-6.5 [facility] Comment on above: Performed By: #### C BC #### [facility] [address] [place] [address] Dr. Jr Leiva Neutrophils/100 WBC (Bld) 67.5 % Normal 43.0-75.0 [facility] Comment on above: Performed By: #### C BC #### [facility] [address] [place] [address] Dr. Jr Leiva Platelet mean volume (Bld) [Entitic vol] 9.2 fL Critically low 9.5-13.5 [facility] Comment on above: Performed By: #### C BC #### [facility] [address] [place] [address] [address] Jr Leiva PLT 377 103/ul Normal 150-450 [facility] Comment on above: Performed By: #### C BC #### [facility] [address] [place] [address] [address] Jr Leiva RBC 4.36 106/ul Critically low 4.70-6.10 [facility] Comment on above: Performed By: #### C BC #### [facility] [address] [place] [address] Dr. Jr Leiva WBC 8.8 103/ul Normal 4.0-11.0 [facility] Comment on above: Performed By: #### C BC #### [facility] [address] [place] [address] Dr. Jr Leiva LIPID PROFILEon 12-13-2021 CHOL-HDL RATIO NORM SEE BELOW Normal [facility] Comment on above: Result Comment: 3.3 - 4.4 LOW RISK 4.4 - 7.1 AVERAGE RISK 7.1 - 11.0 MODERATE RISK >11.0 HIGH RISK Performed By: #### L IPID, CMP #### [facility] [address] [place] [address] Dr. Jr Leiva Cholesterol [Mass/Vol] 186 mg/dL Normal <=200 Th [facility] Comment on above: Performed By: #### L IPID, CMP #### [facility] [address] [place] [address] Dr. Jr Leiva Cholesterol in HDL [Mass/Vol] 36 mg/dL Critically low 40-60 [facility] Comment on above: Performed By: #### L IPID, CMP #### [facility] [address] [place] [address] Dr. Jr Leiva Cholesterol in LDL [Mass/Vol] 100.8 mg/dL Normal [facility] Comment on above: Performed By: #### L IPID, CMP #### [facility] [address] [address] [address] Jr Leiva Cholesterol.total/Rosalina sterol in HDL [Mass ratio] 5.2 {ratio} Normal [facility] Comment on above: Performed By: #### L IPID, CMP #### [facility] [address] [address] [address] Jr Leiva HDL NORMAL > or = 60 mg/dl - LO W CARDIOVASCULAR RISK <40 mg/dl - HIGH CARDIOVASCULAR RISK Normal [facility] Comment on above: Performed By: #### L IPID, CMP #### [facility] [address] [address] [address] Jr Leiva LDL CALC NORMAL SEE BELOW Normal [facility] Comment on above: Result Comment: <100 mg/dl OPTIMAL 100 - 129 mg/dl NEAR OR ABOVE OPTIMAL 130 - 159 mg/dl BORDERLINE HIGH 160 - 189 mg/dl HIGH >190 mg/dl VERY HIGH Performed By: #### L IPID, CMP #### [facility] [address] [place] [address] Dr. Jr Leiva Triglyceride [Mass/Vol] 246 mg/dL Critically high <=150 [facility] Comment on above: Performed By: #### L IPID, CMP #### [facility] [address] [place] [address] Dr. Jr Leiva VLDL CALC 49.2 mg/dL Normal [facility] Comment on above: Performed By: #### L IPID, CMP #### [facility] [address] [address] [address] Jr Leiva PROF 14(COMP METB)on 022 Albumin [Mass/Vol] 3.6 g/dL Normal 3.4-5.0 [facility] Comment on above: Performed By: #### L IPID, CMP #### [facility] [address] [place] [address] Dr. Jr Leiva Albumin/Globulin [Mass ratio] 1.1 {ratio} Normal [facility] Comment on above: Performed By: #### L IPID, CMP #### [facility] [address] [address] [address] Jr Leiva ALP [Catalytic activity/Vol] 102 U/L Normal 46-116 [facility] Comment on above: Performed By: #### L IPID, CMP #### [facility] [address] [address] [address] Jr Leiva ALT [Catalytic activity/Vol] 26 U/L Normal 16-63 [facility] Comment on above: Performed By: #### L IPID, CMP #### [facility] [address] [address] [address] Jr Leiva Anion gap [Moles/Vol] 11.4 mmol/L Normal Th [facility] Comment on above: Performed By: #### L IPID, CMP #### [facility] [address] [place] [address] Dr. Jr Leiva AST [Catalytic activity/Vol] 12 U/L Critically low 15-37 [facility] Comment on above: Performed By: #### L IPID, CMP #### [facility] [address] [place] [address] Dr. Jr Leiva Bilirubin [Mass/Vol] 0.5 mg/dL Normal 0.2-1.0 [facility] Comment on above: Performed By: #### L IPID, CMP #### [facility] [address] [address] [address] Jr Leiva Calcium [Mass/Vol] 8.9 mg/dL Normal 8.5-10.1 [facility] Comment on above: Performed By: #### L IPID, CMP #### [facility] [address] [place] [address] Dr. Jr Leiva Chloride [Moles/Vol] 105 mmol/L Normal 98-107 [facility] Comment on above: Performed By: #### L IPID, CMP #### [facility] [address] [address] [address] Jr Leiva CO2 [Moles/Vol] 26.5 mmol/L Normal 21.0-32.0 [facility] Comment on above: Performed By: #### L IPID, CMP #### [facility] [address] [address] [address] Jr Leiva Creatinine [Mass/Vol] 1.10 mg/dL Normal 0.70-1.30 [facility] Comment on above: Performed By: #### L IPID, CMP #### [facility] [address] [address] [address] Jr Leiva EGFR-AF [place]I >60 Normal >=60 [facility] Comment on above: Performed By: #### L IPID, CMP #### [facility] Laboratory [address] [address] [address] Jr Leiva EGFR-NON AF [place]UWAITI >60 Normal >=60 [facility] Comment on above: Performed By: #### L IPID, CMP #### [facility] [address] [address] [address] Jr Leiva Globulin (S) [Mass/Vol] 3.4 g/dL Normal [place] Comment on above: Performed By: #### L IPID, CMP #### [facility] [address] [address] [address] Jr Leiva Glucose [Mass/Vol] 109 mg/dL Critically high 74-106 [place] Comment on above: Performed By: #### L IPID, CMP #### [facility] [address] [address] [address] Jr Leiva Potassium [Moles/Vol] 3.9 mmol/L Normal 3.5-5.1 [facility] Comment on above: Performed By: #### L IPID, CMP #### [facility] [address] [address] [address] Jr Leiva Protein [Mass/Vol] 7.0 g/dL Normal 6.4-8.2 [facility] Comment on above: Performed By: #### L IPID, CMP #### [facility] [address] [address] [address] Jr Leiva Sodium [Moles/Vol] 139 mmol/L Normal 136-145 [facility] Comment on above: Performed By: #### L IPID, CMP #### [facility] [address] [address] [address] Jr Leiva Urea nitrogen [Mass/Vol] 13.0 mg/dL Normal 7.0-18.0 [facility] Comment on above: Performed By: #### L IPID, CMP #### [facility] [address] [place], [place] [address] Dr. Jr Leiva Urea nitrogen/Creatinine [Mass ratio] 11.8 mg/mg Normal [facility] Comment on above: Performed By: #### L IPID, CMP #### [facility] [address] [address] [address] Jr Leiva Creatinine and Glomerular fi ltration rate.predicted panel (S/P/Bld)Ordered By: Stuart Qureshi on 11-01-2021 Creatinine [Mass/Vol] 1.17 mg/dL 0.64-1.27 [facility] Estimated glomerular filtrat ion rate (GFR) non- AmericanOrdered By: Stuart Qureshi on 11-01-2021 GFR/1.73 sq M.predicted among non-blacks MDRD (S/P/Bld) [Vol rate/Area] > 60 mL/Min [facility] No Panel InformationOrdered By: Stuart Qureshi on 11-01-2021 Estimated GFR () > 60 mL/Min [facility] Comment on above: GFR estimated refere nce range: According to KDOQI guidelines, <60 ml/min/1.73m2 is sufficient to diagnose a patient with chronic kidney disease. Pharmacy Creatinine Clearance (Chem 63.56 [facility] Serum or plasma urea nitroge n measurement (mass/volume)Ordered By: Stuart Qureshi on 11-01-2021 Urea nitrogen [Mass/Vol] 15 mg/dL 12-[address] [facility] [address] LUNG CANCER SCREENINGon 0 10-19-2021 [...] by: KEESHA HARMON Date: 2021-10-19 17:22 Normal [facility] Creatinine (Bld) [Mass/Vol]O rdered By: Stuart Qureshi on 09-29-2021 Creatinine [Mass/Vol] 1.0 mg/dL 0.6-1.3 [facility] Comment on above: ER/ESD physician is notified/shown all ISTAT results. Critical values may be confirmed by laboratory testing if deemed necessary by ER attending doctor. No Panel InformationOrdered By: Stuart Qureshi on 09-29-2021 POC Estimated GFR > 60 [facility] Comment on above: GFR estimated refere nce range: According to KDOQI guidelines, <60 ml/min/1.73m2 is sufficient to diagnose a patient with chronic kidney disease. POC Estimated GFR Non- Amer > 60 [facility] CBC AUTO DIFFon 08-14-2021 BASO # 0.1 103/ul Normal 0.0-0.1 [facility] Comment on above: Performed By: #### C BC #### [facility] [address] [place], [place] [address] Dr. Jr Leiva Basophils/100 WBC (Bld) 0.7 % Normal 0.2-2.0 [place] Comment on above: Performed By: #### C BC #### [facility] [address] [address] [address] rJ Leiva EO # 0.4 103/ul Normal 0.0-0.7 [facility] Comment on above: Performed By: #### C BC #### [facility] [address] [place] [address] Dr. Jr Leiva Eosinophils/100 WBC (Bld) 4.5 % Normal 0.9-7.0 [facility] Comment on above: Performed By: #### C BC #### [facility] [address] [place] [address] Dr. Jr Leiva Erythrocyte distribution width (RBC) [Ratio] 12.6 % Normal 11.0-15.0 [facility] Comment on above: Performed By: #### C BC #### [facility] [address] [place] [address] Dr. Jr Leiva Hematocrit (Bld) [Volume fraction] 42.2 % Normal 42.0-54.0 [facility] Comment on above: Performed By: #### C BC #### [facility] [address] [place] [address] Dr. Jr Leiva Hemoglobin (Bld) [Mass/Vol] 13.6 g/dL Critically low 14.0-18.0 [facility] Comment on above: Performed By: #### C BC #### [facility] [address] [place] [address] Dr. Jr Leiva IG # 0.02 10e3/ul Normal 0.00-0.03 [facility] Comment on above: Performed By: #### C BC #### [facility] [address] [place] [address] Dr. Jr Leiva IG % 0.2 % Normal 0.0-0.5 [facility] Comment on above: Performed By: #### C BC #### [facility] [address] [place] [address] Dr. Jr Leiva LYMPH # 1.5 103/ul Normal 1.2-3.8 [facility] Comment on above: Performed By: #### C BC #### [facility] [address] [place] [address] Dr. Jr Leiva Lymphocytes/100 WBC (Bld) 18.4 % Critically low 20.5-60.0 [facility] Comment on above: Performed By: #### C BC #### [facility] [address] [place] [address] Dr. Jr Leiva MANUAL DIFF REQ NO Normal [facility] Comment on above: Performed By: #### C BC #### [facility] [address] [place] [address] Dr. Jr Leiva MCH (RBC) [Entitic mass] 29.4 pg Normal 25.9-34.0 [facility] Comment on above: Performed By: #### C BC #### [facility] [address] [place] [address] Dr. Jr Leiva MCHC (RBC) [Mass/Vol] 32.2 g/dL Normal 29.9-35.2 [facility] Comment on above: Performed By: #### C BC #### [facility] [address] [place] [address] Dr. Jr Leiva MCV (RBC) [Entitic vol] 91.1 fL Normal 80.0-94.0 [place] Comment on above: Performed By: #### C BC #### [facility] [address] [place] [address] Dr. Jr Leiva MONO # 0.8 103/ul Normal 0.3-0.8 [facility] Comment on above: Performed By: #### C BC #### [facility] [address] [place] [address] Dr. Jr Leiva Monocytes/100 WBC (Bld) 9.2 % Normal 1.7-12.0 [place] Comment on above: Performed By: #### C BC #### [facility] [address] [place] [address] Dr. Jr Leiva NEUT # 5.4 103/ul Normal 1.4-6.5 [facility] Comment on above: Performed By: #### C BC #### [facility] [address] [place] [address] Dr. Jr Leiva Neutrophils/100 WBC (Bld) 67.0 % Normal 43.0-75.0 [facility] Comment on above: Performed By: #### C BC #### [facility] [address] [place] [address] Dr. Jr Leiva Platelet mean volume (Bld) [Entitic vol] 8.9 fL Critically low 9.5-13.5 [facility] Comment on above: Performed By: #### C BC #### [facility] [address] [place] [address] Dr. Jr Leiva PLT 330 103/ul Normal 150-450 [facility] Comment on above: Performed By: #### C BC #### [facility] [address] [place] [address] Dr. Jr Leiva RBC 4.63 106/ul Critically low 4.70-6.10 [facility] Comment on above: Performed By: #### C BC #### [facility] [address] [place] [address] Dr. Jr Leiva WBC 8.1 103/ul Normal 4.0-11.0 [facility] Comment on above: Performed By: #### C BC #### [facility] [address] [place] [address] Dr. Jr Leiva PROF CHEM 8 (BAS METB)on Anion gap [Moles/Vol] 13.7 mmol/L Normal [facility] Comment on above: Performed By: #### B MP #### [facility] [address] [place] [address] Dr. Jr Leiva Calcium [Mass/Vol] 9.0 mg/dL Normal 8.5-10.1 [facility] Comment on above: Performed By: #### B MP #### [facility] [address] [place] [address] Dr. Jr Leiva Chloride [Moles/Vol] 104 mmol/L Normal 98-107 [facility] Comment on above: Performed By: #### B MP #### [facility] [address] [place] [address] Dr. Jr Leiva CO2 [Moles/Vol] 24.9 mmol/L Normal 21.0-32.0 [facility] Comment on above: Performed By: #### B MP #### [facility] [address] [address] [address] Jr Leiva Creatinine [Mass/Vol] 1.15 mg/dL Normal 0.70-1.30 [facility] Comment on above: Performed By: #### B MP #### [facility] [address] [address] [address] Jr Leiva EGFR-AF [place] >60 Normal >=60 [facility] Comment on above: Performed By: #### B MP #### [facility] [address] [address] [address] Jr Leiva EGFR-NON AF [place] >60 Normal >=60 [facility] Comment on above: Performed By: #### B MP #### [facility] [address] [place] [address] Dr. Jr Leiva Glucose [Mass/Vol] 111 mg/dL Critically high 74-106 [place] Comment on above: Performed By: #### B MP #### [facility] [address] [address] [address] Jr Leiva Potassium [Moles/Vol] 4.6 mmol/L Normal 3.5-5.1 [facility] Comment on above: Performed By: #### B MP #### [facility] [address] [place] [address] Dr. Jr Leiva Sodium [Moles/Vol] 138 mmol/L Normal 136-145 [facility] Comment on above: Performed By: #### B MP #### [facility] [address] [place] [address] Dr. Jr Leiva Urea nitrogen [Mass/Vol] 17.0 mg/dL Normal 7.0-18.0 [facility] Comment on above: Performed By: #### B MP #### [facility] [address] [address] [address] Jr Leiva Urea nitrogen/Creatinine [Mass ratio] 14.8 mg/mg Normal [facility] Comment on above: Performed By: #### B MP #### [facility] [address] [address] [address] Jr Leiva PROTIMEon 08-14-2021 INR Coag (PPP) [Relative time] 0.94 {INR} Normal [facility] Comment on above: Performed By: #### C BC #### [facility] [address] [address] [address] Jr Leiva INR GUIDELINES SEE BELOW Normal [facility] Comment on above: Result Comment: ANANTH RED INR: 2.0 - 3.0 CONDITIONS NOT LISTED BELOW 2.5 - 3.5 FOR PROSTHETIC HEART VALVE REPLACEMENT 2.5 - 3.5 RECURRENT THROMBOSIS Performed By: #### C BC #### [facility] [address] [address] [address] Jr Leiva PT Coag (PPP) [Time] 10.2 s Normal 9.0-11.6 [facility] Comment on above: Performed By: #### C BC #### [facility] [address] [address] [address] Jr Leiva PTTon 08-14-2021 aPTT Coag (Bld) [Time] 28.8 s Normal 22.3-36.2 [facility] Comment on above: Performed By: #### C BC #### [facility] [address] [place] [address] Dr. Jr Leiva Creatinine (Bld) [Mass/Vol]O rdered By: Julissa Saba on 08-07-2021 Creatinine [Mass/Vol] 1.0 mg/dL 0.6-1.3 [facility] Comment on above: ER/ESD physician is notified/shown all ISTAT results. Critical values may be confirmed by laboratory testing if deemed necessary by ER attending doctor. No Panel InformationOrdered By: Julissa Saba on 08-07-2021 POC Estimated GFR > 60 [facility] Comment on above: GFR estimated refere nce range: According to KDOQI guidelines, <60 ml/min/1.73m2 is sufficient to diagnose a patient with chronic kidney disease. POC Estimated GFR Non- Amer > 60 [facility] XR TSPINE 2 VIEWSon 07-25-19 22 XR TSPINE 2 VIEWS EXAMINATION: XR CHES [...] by: KEESHA HARMON Date: 2021-07-24 10:39 Normal [facility] ALLIED HEALTHon 07-07-2020 ALLIED HEALTH HNO ID: [id number] Author: Desire León (Rt) Service: Radiology Author Type: Mixer Whipped Topping Type: Allied Health Filed: 07/07/2020 9:37 AM Note Text: Radiology Service Progress Note PATIENT NAME: Jean Baron DATE OF SERVICE: July 07, 2020 TIME: [...] Mau July 07, 2020 9:37 AM Normal [facility] MRI PROSTATE WO/W IVCONon MRI PROSTATE WO/W IVCON * * *Final Repor t* * * DATE OF EXAM: Jul 07 2020 10:22AM [facility] 0751 - MRI PROSTATE WO/W IVCON [...] volume were obtained using a semi-automated software ([employer]). CONTRAST: IV: 18 cc of (Dotarem). RESULT: [...] of suspicion for clinically significant prostate cancer ([place] score 3 + 4 or higher). PI-RADS v2.1 Assessment Categories: PI-RADS 1: Clinically significant cancer is highly unlikely PI-RADS 2: Clinically significant cancer is unlikely PI-RADS 3: Clinically significant cancer is equivocal PI-RADS 4: Clinically significant cancer is likely PI-RADS 5: Clinically significant cancer is highly likely Material Clerk: STEVE Transcribe Date/Time: Jul 07 2020 11:26A Dictated by : GIRMA BROTHERS DO This examination was interpreted and the report reviewed and electronically signed by: FREDDIE WILLSON MD on Jul 07 2020 2:53PM EST [id number] Normal [facility] NURSING PROGon 07-07-2020 NURSING PROG HNO ID: [id number] Author: Caden Stephens (Rn) [facility] [place] [...] De La Fuente RN PATIENT NAME: Jean Baron DATE: July 07, 2020 TIME: 9:02 AM [facility] Otheron 07-07-2020 [facility] Vital Signs Date Time Vital Sign Value Performing Clinician Facility 12-28-2024 12: Body height 182.9 cm Austin Moser MD Work Phone: [facility] 12-28-2024 12:22040 Body mass index (BMI) [Ratio] 25.85 kg/m2 Austin Moser MD Work Phone: [facility] 12-28-2024 12:0400 Body weight 86.46 kg Austin Moser MD Work Phone: [facility] 12-28-2024 12:22-0400 Diastolic blood pressure 80 mm[Hg] Austin Moser MD Work Phone: [facility] 12-28-2024 12:22-0400 Heart rate 66 /min Austin Moser MD Work Phone: [facility] 12-28-2024 12:22-0400 SaO2% (BldA) [Mass fraction] 97 % Austin Moser MD Work Phone: [facility] 12-28-2024 12:22-0400 Systolic blood pressure 169 mm[Hg] Austin Moser MD Work Phone: [facility] 12-21-2024 10:14-0400 Body height 182.88 cm Marshall Ball DO Work Phone: [facility] 12-21-2024 10:14-0400 Body mass index (BMI) [Ratio] 25.3 kg/m2 Marshall Ball DO Work Phone: [facility] 12-21-2024 10:14-0400 Body weight 84.87 kg Marshall Ball DO Work Phone: [facility] 12-21-2024 10:14-0400 Diastolic blood pressure 73 mm[Hg] Marshall Ball DO Work Phone: [facility] 12-21-2024 10:14-0400 Heart rate 60 /min Marshall Ball DO Work Phone: [facility] 12-21-2024 10:14-0400 Respiratory rate 12 /min Marshall Ball DO Work Phone: [facility] 12-21-2024 10:14-0400 Systolic blood pressure 133 mm[Hg] Marshall Ball DO Work Phone: [facility] 12-07-2024 08:36-0400 Body height 182.88 cm Marshall Ball DO Work Phone: [facility] 12-07-2024 08:36-0400 Body mass index (BMI) [Ratio] 25 kg/m2 Marshall Ball DO Work Phone: [facility] 12-07-2024 08:36-0400 Body weight 83.51 kg Marshall Ball DO Work Phone: [facility] 12-07-2024 08:36-0400 Diastolic blood pressure 69 mm[Hg] Marshall Ball DO Work Phone: [facility] 12-07-2024 08:36-0400 Heart rate 78 /min Marshall Ball DO Work Phone: [facility] 12-07-2024 08:36-0400 Respiratory rate 12 /min Marshall Ball DO Work Phone: [facility] 12-07-2024 08:36-0400 Systolic blood pressure 109 mm[Hg] Marshall Ball DO Work Phone: [facility] 11-10-2024 11:50-0400 Body height 182.88 cm Marshall Ball DO Work Phone: [facility] 11-10-2024 11:50-0400 Body mass index (BMI) [Ratio] 25.5 kg/m2 Marshall Ball DO Work Phone: [facility] 11-10-2024 11:50-0400 Body weight 85.44 kg Marshall Ball DO Work Phone: [facility] 11-10-2024 11:50-0400 Diastolic blood pressure 67 mm[Hg] Marshall Ball DO Work Phone: [facility] 11-10-2024 11:50-0400 Heart rate 73 /min Marshall Ball DO Work Phone: [facility] 11-10-2024 11:50-0400 Respiratory rate 12 /min Marshall Ball DO Work Phone: [facility] 11-10-2024 11:50-0400 Systolic blood pressure 119 mm[Hg] Marshall Ball DO Work Phone: [facility] 07-29-2024 14:26-0400 Body height 182.88 cm Marshall Ball DO Work Phone: [facility] 07-29-2024 14:26-0400 Body weight 92.98 kg Marshall Ball DO Work Phone: [facility] 07-06-2024 09:45-0400 Body height 180.3 cm Sapphire Mcallister MD Work Phone: [facility] [employer] 07-06-2024 09:45-0400 Body mass index (BMI) [Ratio] 28.87 kg/m2 Sapphire Mcallister MD Work Phone: [facility] [employer] [facility] 07-06-2024 09:45-0400 Body weight 93.89 kg Sapphire Mcallister MD Work Phone: [facility] 06-15-2024 10:09-0400 Body height 182.88 cm [facility] 06-15-2024 10:09-0400 Body mass index (BMI) [Ratio] 27.4 kg/m2 [facility] 06-15-2024 10:09-0400 Body weight 91.79 kg [facility] 06-15-2024 10:09-0400 Diastolic blood pressure 64 mm[Hg] [facility] 06-15-2024 10:09-0400 Heart rate 76 /min [facility] 06-15-2024 10:09-0400 Respiratory rate 12 /min [facility] 06-15-2024 10:09-0400 Systolic blood pressure 165 mm[Hg] [facility] 04-06-2024 09:47-0500 Body height 180.3 cm Sapphire Mcallister MD Work Phone: [facility] 04-06-2024 09:47-0500 Body mass index (BMI) [Ratio] 28.87 kg/m2 Sapphire Mcallister MD Work Phone: [facility] [employer] [facility] 04-06-2024 09:47-0500 Body weight 93.89 kg Sapphire Mcallister MD Work Phone: [facility] 01-03-2024 09:07-0400 Body height 180.3 cm Sapphire Mcallister MD Work Phone: [facility] 01-03-2024 09:07-0400 Body mass index (BMI) [Ratio] 28.87 kg/m2 Sapphire Mcallister MD Work Phone: [facility] 01-03-2024 09:07-0400 Body weight 93.89 kg Sapphire Mcallister MD Work Phone: [facility] 09-16-2023 09:59-0400 Body height 181.9 cm Sapphire Mcallister MD Work Phone: [facility] 09-16-2023 09:59-0400 Body mass index (BMI) [Ratio] 28.39 kg/m2 Sapphire Mcallister MD Work Phone: [facility] 09-16-2023 09:59-0400 Body weight 93.89 kg Sapphire Mcallister MD Work Phone: [facility] 07-12-2023 08:49-0400 Blood Pressure Location Julissa SABA [facility] 07-12-2023 08:49-0400 Diastolic blood pressure 71 mm[Hg] Julissa SABA [facility] 07-12-2023 08:49-0400 Heart rate 67 /min Julissa SABA [facility] 07-12-2023 08:49-0400 Respiratory rate 16 /min Julissa SABA [facility] 07-12-2023 08:49-0400 Systolic blood pressure 136 mm[Hg] Julissa SABA [facility] 06-03-2023 12:33-0400 Body height 181.9 cm Sapphire Mcallister MD Work Phone: [employer] 06-03-2023 12:33-0400 Body mass index (BMI) [Ratio] 28.39 kg/m2 Sapphire Mcallister MD Work Phone: [facility] 06-03-2023 12:33-0400 Body weight 93.89 kg Sapphire Mcallister MD Work Phone: [facility] 12-14-2022 10:30-0400 Body height 182.88 cm Marshall Ball Other [employer] Other 12-14-2022 10:30-0400 Body mass index (BMI) [Ratio] 26.69 kg/m2 Marshall Ball Other [employer] Other 12-14-2022 10:30-0400 Body weight 89.27 kg Marshall Ball Other [employer] Other 12-14-2022 10:30-0400 Diastolic blood pressure 72 mm[Hg] Marshall Ball Other [employer] Other 12-14-2022 10:30-0400 Respiratory rate 12 /min Marshall Ball Other [employer] Other 12-14-2022 10:30-0400 Systolic blood pressure 133 mm[Hg] Marshall Ball Other [employer] Other 05-28-2022 09:30-0500 Body height 182.88 cm Marshall Ball Other [employer] Other 05-28-2022 09:30-0500 Body mass index (BMI) [Ratio] 28.72 kg/m2 Marshall Ball Other [employer] Other 05-28-2022 09:30-0500 Body weight 96.07 kg Marshall Ball Other [facility] [employer] Other 05-28-2022 09:30-0500 Diastolic blood pressure 70 mm[Hg] Marshall Ball Other [employer] Other 05-28-2022 09:30-0500 Respiratory rate 12 /min Marshall Ball Other [employer] Other 05-28-2022 09:30-0500 Systolic blood pressure 122 mm[Hg] Marshall Ball Other [facility] [employer] Other 11-01-2021 11:00-0400 Diastolic blood pressure 73 mm[Hg] DO Marshall Ball Work Phone: [facility] 11-01-2021 11:00-0400 Heart rate 61 /min DO Marshall Ball Work Phone: [facility] 11-01-2021 11:00-0400 Respiratory rate 16 /min DO Marshall Ball Work Phone: [facility] 11-01-2021 11:00-0400 SaO2% (BldA) [Mass fraction] 96 % DO Marshall Ball Work Phone: [facility] 11-01-2021 11:00-0400 Systolic blood pressure 157 mm[Hg] DO Marshall Ball Work Phone: [facility] 11-01-2021 07:37-0400 Body height 182.88 cm DO Marshall Ball Work Phone: [facility] 11-01-2021 07:37-0400 Body weight 92.07 kg DO Marshall Ball Work Phone: [facility] 10-23-2021 10:15-0400 Body height 182.88 cm Stuart Qureshi Other [facility] [employer] Other 10-23-2021 10:15-0400 Body mass index (BMI) [Ratio] 27.12 kg/m2 Stuart Buehrer Other [employer] Other 10-23-2021 10:15-0400 Body temperature 97.3 [degF] Stuart Buehrer Other [employer] Other 10-23-2021 10:15-0400 Body weight 90.72 kg Stuart Buehrer Other [employer] Other 10-23-2021 10:15-0400 Diastolic blood pressure 58 mm[Hg] Stuart Buehrer Other [employer] Other 10-23-2021 10:15-0400 SaO2% (BldA) [Mass fraction] 97 % Stuart Buehrer Other [employer] Other 10-23-2021 10:15-0400 Systolic blood pressure 126 mm[Hg] Stuart Buehrer Other [employer] Other 09-18-2021 11:30-0400 Body height 182.88 cm Stuart Newmanrer Other [employer] Other 09-18-2021 11:30-0400 Body mass index (BMI) [Ratio] 27.12 kg/m2 Stuart Buehrer Other [employer] Other 09-18-2021 11:30-0400 Body temperature 97.2 [degF] Stuart Carlsonehrer Other [employer] Other 09-18-2021 11:30-0400 Body weight 90.72 kg Stuart Carlsonehrer Other [employer] Other 09-18-2021 11:30-0400 Diastolic blood pressure 70 mm[Hg] Stuart Qureshi Other [employer] Other 09-18-2021 11:30-0400 SaO2% (BldA) [Mass fraction] 96 % Stuart Qureshi Other [employer] Other 09-18-2021 11:30-0400 Systolic blood pressure 160 mm[Hg] Stuart Qureshi Other [employer] Other 08-07-2021 09:50-0400 Body weight 94.34 kg DO Marshall Ball Work Phone: [facility] 08-07-2021 09:50-0400 Diastolic blood pressure 72 mm[Hg] DO Marshall Ball Work Phone: [facility] 08-07-2021 09:50-0400 Heart rate 66 /min DO Marshall Ball Work Phone: [facility] 08-07-2021 09:50-0400 Respiratory rate 16 /min DO Marshall Ball Work Phone: [facility] 08-07-2021 09:50-0400 SaO2% (BldA) [Mass fraction] 98 % DO Marshall Ball Work Phone: [facility] 08-07-2021 09:50-0400 Systolic blood pressure 201 mm[Hg] DO Marshall Ball Work Phone: [facility] 08-07-2021 09:36-0400 Body height 182.88 cm DO Marshall Ball Work Phone: [facility] 07-14-2021 08:13-0400 Blood Pressure Location Julissa SABA [facility] 07-14-2021 08:13-0400 Diastolic blood pressure 89 mm[Hg] Julissa SABA [facility] 07-14-2021 08:13-0400 Heart rate 68 /min Julissa SABA [facility] 07-14-2021 08:13-0400 Respiratory rate 16 /min Julissa SABA [facility] 07-14-2021 08:13-0400 Systolic blood pressure 138 mm[Hg] Julissa SABA [facility] Encounters Encounter Date Encounter Type Care Provider Facility Start: 01-15-2025 ambulatory Julissa SABA Facili ty:[facility] [place] Start: 01-08-2025 ambulatory Julissa R SABA Facili ty:[facility] [place] Start: 12-28-2024 End: 12-28-2024 Office outpatient new 45 minutes Austin Moser MD [facility] Comment on above: 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 Start: 12-21-2024 End: 12-21-2024 ambulatory Marshall Ball DO Work Phone: [facility] Work Phone: Start: 12-21-2024 End: 12-21-2024 Patient encounter procedure Marshall Ball DO -[facility] Work Phone: Start: 12-07-2024 End: 12-07-2024 ambulatory Marshall Ball DO Work Phone: [facility] Work Phone: Start: 12-07-2024 End: 12-07-2024 Patient encounter procedure Marshall Ball DO -[facility] Work Phone: Start: 12-02-2024 End: 12-02-2024 Patient encounter procedure Marshall Zaman DO -[facility] [place] Work Phone: Start: 12-02-2024 End: 12-02-2024 ambulatory Marshall Zaman DO Work Phone: [facility] Work Phone: Start: 11-10-2024 End: 11-10-2024 ambulatory Marshall Zaman DO Work Phone: [facility] Work Phone: Start: 11-10-2024 End: 11-10-2024 Patient encounter procedure Marshall Zaman DO -[facility] Work Phone: Start: 11-02-2024 Non-patient / Non-visit Rose Curry CMA -[facility] Work Phone: Start: 10-31-2024 Non-patient / Non-visit Romeo stallings MD -[facility] Work Phone: Start: 10-30-2024 Non-patient / Non-visit Jayashree Moore PA-C -[facility] Work Phone: Start: 10-12-2024 End: 10-12-2024 Bamboo flowsheet Jae [...] knee Start: 10-12-2024 End: 10-12-2024 ambulatory JAE ANDERSON Not Available Start: 07-29-2024 End: 07-29-2024 Patient encounter procedure Marshall Zaman DO Work Phone: [facility] [place] Work Phone: Start: 07-29-2024 End: 07-29-2024 ambulatory Marshall Ball DO Work Phone: [facility] Work Phone: Start: 07-10-2024 End: 07-10-2024 ambulatory Julissa SABA Facility:[facility] Start: 07-06-2024 End: 07-06-2024 ambulatory [facility] Start: 07-06-2024 End: 07-06-2024 Office outpatient visit 15 minutes Sapphire Mcallister MD Work Phone: [facility] Comment on above: 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 Dx) Start: 07-01-2024 Non-patient / Non-visit Benjam in Ball DO Work Phone[facility] Work Phone: Start: 06-15-2024 End: 06-15-2024 ambulatory [facility] Work Phone: Start: 06-15-2024 End: 06-15-2024 Patient encounter procedure [facility] Work Phone: Start: 04-06-2024 End: 04-06-2024 Office outpatient visit 15 minutes Sapphire Mcallister MD Work Phone: [facility] Comment on above: 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 Dx) Start: 04-06-2024 End: 04-06-2024 ambulatory [facility] Start: 01-03-2024 End: 01-03-2024 Office outpatient visit 15 minutes Sapphire Mcallister MD Work Phone: [facility] Comment on above: 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 Dx) Start: 01-03-2024 End: 01-03-2024 ambulatory [facility] Start: 12-12-2023 Patient encounter procedure [facility] Start: 09-16-2023 End: 09-16-2023 Office outpatient visit 15 minutes Sapphire Mcallister MD Work Phone: [facility] Comment on above: 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 Dx); Acute bilateral knee pain Start: 09-16-2023 End: 09-16-2023 ambulatory [facility] Start: 07-12-2023 End: 07-12-2023 Patient encounter procedure Julissa R OMER [facility] Start: 06-03-2023 End: 06-03-2023 Office outpatient visit 15 minutes Sapphire Mcallister MD Work Phone: [facility] Comment on above: 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 Dx) Start: 03-26-2023 End: 03-26-2023 ambulatory Marshall Ball Other [employer] Other Start: 03-26-2023 Telephone encounter Amrshall Naga [facility] Start: 03-20-2023 End: 03-20-2023 ambulatory Marshall Ball Other [employer] Other Start: 03-20-2023 Telephone encounter Marshall Ball [facility] Start: 01-10-2023 End: 01-10-2023 ambulatory Marshall Ball Other [employer] Other Start: 01-10-2023 Telephone encounter Marshall Ball [facility] Start: 12-14-2022 End: 12-14-2022 ambulatory Marshall Ball Other [employer] Other Start: 12-14-2022 Patient encounter procedure Marshall Ball [facility] Start: 12-05-2022 End: 12-05-2022 ambulatory Marshall Ball Other [employer] Other Start: 12-05-2022 Telephone encounter Marshall CASTILLO [facility] Start: 11-29-2022 End: 11-29-2022 ambulatory Marshall Zaman Other [employer] Other Start: 11-29-2022 Telephone encounter Marshall Naga [facility] Start: 11-28-2022 End: 11-28-2022 ambulatory Marshall Zaman Other [employer] Other Start: 11-28-2022 Telephone encounter Marshall CASTILLO [facility] Start: 11-13-2022 End: 11-13-2022 ambulatory Marshall Zaman Other [employer] Other Start: 11-13-2022 Telephone encounter Marshall Naga CASTILLO [facility] Start: 09-24-2022 End: 09-24-2022 ambulatory Marshall Zaman Other [employer] Other Start: 09-24-2022 Telephone encounter Marshall CASTILLO [facility] Start: 05-28-2022 End: 05-28-2022 ambulatory Marshall Naga Other [employer] Other Start: 05-28-2022 Office outpatient vi sit 25 minutes Marshall Zaman [facility] Start: 05-18-2022 End: 05-19-[address] MARSHALL ZAMAN Facility:[facility] Start: 05-04-2022 End: 05-04-2022 ambulatory Marshall Zaman Other [employer] Other Start: 05-04-2022 Telephone encounter Marshall Zaman ANNA [facility] Start: 01-30-2022 End: 01-31-[address] DOCTOR WEST Facility:[facility] Start: 12-14-2021 Encounter for genera l adult medical examination without abnormal findings DR MARSHALL ZAMAN [facility] Start: 12-13-2021 Adult health examination Robert ayush Zaman Other [employer] Other Start: 12-13-2021 End: 12-14-[address] MARSHALL ZAMAN Facility:[facility] Start: 12-13-2021 End: 12-14-2021 Encounter for general adult medical examination without abnormal findings DR MARSHALL ZAMAN Facility:[facility] Start: 11-01-2021 End: 11-01-2021 Admission to same day surgery center DO Marshall Naga Work Phone: [facility]-Interventional Radiology Start: 10-23-2021 End: 10-23-2021 ambulatory Stuart Qureshi Other [employer] Other Start: 10-23-2021 Office outpatient vi sit 25 minutes Stuart Qureshi [facility] Vascular Surgery Start: 10-19-2021 End: 10-20-[address] MARSHALL ZAMAN Facility:[facility] Start: 09-29-2021 End: 09-29-2021 Patient encounter procedure DO Marshall Zaman Work Phone: [facility]-CT Scan [facility] [place] Start: 09-27-2021 End: 09-28-2021 ambulatory KIARA JUANITO . Facility:[facility] Start: 09-18-2021 End: 09-18-2021 ambulatory Stuart Qureshi Other [employer] [address] Other Start: 09-18-2021 Office outpatient vi sit 25 minutes Stuart Qureshi [facility] Vascular Surgery Start: 08-25-2021 End: 08-26-2021 ambulatory KIARA JUANITO . Facility:[facility] Start: 08-17-2021 Encounter for preprocedural cardiovascular examination DR JULISSA SABA . [facility] Start: 08-17-2021 Encounter for preprocedural laboratory examination DR JULISSA SABA . [facility] Start: 08-17-2021 End: 08-17-[address] JULISSA SABA . Facility:[facility] Start: 08-14-2021 End: 08-15-[address] MARSHALL ZAMAN Facility:[facility] Start: 08-14-2021 End: 08-15-2021 Encounter for preprocedural cardiovascular examination DR MARSHALL ZAMAN Facility:[facility] Start: 08-07-2021 End: 08-07-2021 Patient encounter procedure DO Marshall Zaman Work Phone: [facility] [place] Start: 07-24-2021 End: 07-25-[address] MARSHALL ZAMAN Facility:[facility] Start: 07-14-2021 End: 07-14-2021 Patient encounter procedure Julissa SABA [facility] Start: 07-03-2021 End: 07-04-[address] MARSHALL ZAMAN Facility:[facility] Start: 07-07-2020 End: 07-07-2020 Subsequent hospital visit by physician [place] [id number] (I-Stat/3t) Work Phone: Radiology Comment on above: Benign prostatic hyp erplasia without lower urinary tract symptoms [N40.0] Procedures Date Procedure Procedure Detail Performing Clinician Start: 12-02-2024 Magnetic resonance cholangiopancreatography Marshall Zaman DO Work Phone: Start: 10-12-2024 Radiologic examination knee 1/2 views Jae GARY Work Phone: Start: 10-12-2024 Radiologic examination knee 1/2 views Jae GARY Work Phone: Start: 10-12-2024 Arthrocentesis aspir&/inj major jt/bursa w/o us Jae GARY Work Phone: Start: 10-12-2024 Arthrocentesis aspir&/inj major jt/bursa w/o us Jae GARY Work Phone: Start: 07-29-2024 MR prostate wo/w con Marshall Zaman DO Work Phone: Start: 07-06-2024 Arthrocentesis aspir&/inj major jt/bursa w/o us Sapphire Mcallister MD Work Phone: Start: 04-06-2024 Arthrocentesis aspir&/inj major jt/bursa w/o us Sapphire Mcallister MD Work Phone: Start: 01-03-2024 Arthrocentesis aspir&/inj major jt/bursa w/o us Sapphire Mcallister MD Work Phone: Start: 09-16-2023 Arthrocentesis aspir&/inj major jt/bursa w/o us Sapphire Mcallister MD Work Phone: Start: 06-03-2023 Arthrocentesis aspir&/inj major jt/bursa w/o us Sapphire Mcallister MD Work Phone: Start: 11-01-2021 Abdominal aortogram DO Marshall Zaman Work Phone: Start: 09-29-2021 CT of abdominal aorta with contrast DO Marshall Zaman Work Phone: Start: 08-17-2021 MRI-US fusion guided transperineal biopsy of prostate Julissa OMER Start: 08-07-2021 MR prostate wo/w con DO Marshall Zaman Work Phone: Start: 07-03-[address] DOCTOR WEST Comment on above: Performed By: #### PSAD #### [facility] [address] [place] [address] Dr. Jr Leiva Start: 07-07-2020 Mri pelvis w/o & w/contrast material [facility] Provider Start: 07-05-2018 End: 08-11-2019 Screening for malignant neoplasm of colon Marshall Zaman Other Start: 07-02-2017 End: 08-11-2019 Diabetes mellitus screening Marshall Ac chelsy Other Start: 07-02-2017 End: 08-11-2019 Hyperlipidemia screening Marshall Zaman Other Start: 10-21-2012 Transrectal biopsy of prostate using ultrasound guidance Julissa SABA Depression screening Collin Zaman Other Extraction of cataract Mckenna SABA Hernia repair Julissa SABA Reconstruction of artery Adwoa SABA Repair of musculoten dinous cuff of shoulder Julissa SABA Plan of Treatment Date Care Activity Detail Author Start: 07-06-2025 Adult BMI Screening Adult BMI Screening [facility] Start: 07-06-2025 Tobacco Screening Tobacco Screening [facility] Start: 01-11-2025 End: 01-11-2025 Patient encounter procedure 01/11/2025 10:30 AM EDT Office Visit [facility] [address] [place] [address] Jae Anderson, PA [address] [place] [address] [facility] Start: 01-08-2025 End: 01-08-2025 Patient encounter procedure 01/08/2025 9:00 AM EDT Office Visit [facility] [address] [place] [phone] Sapphire Mcallister MD [address] [place] [phone] [facility] Start: 01-02-2025 Adult BMI Screening Adult BMI Screening [facility] Start: 01-02-2025 Tobacco Screening Tobacco Screening [facility] Start: 12-28-2024 End: 12-28-2025 Cancer Ag 19-9 [Units/volume] in Serum or Plasma Cancer antigen 19-9 Lab Routine Neoplasm of uncertain behavior of pancreas Expected: 12/28/2024 (Approximate), Expires: 12/28/2025 [facility] Service Area Work Phone: Comment on above: Expected: 12/28/2024 (Approximate), Expi res: 12/28/2025 Start: 12-07-2024 Patient referral [facility] Work Phone: Start: 12-02-2024 Magnetic resonance cholangiopancreatography [facility] Start: 11-23-2024 COVID-19 Vaccine ( season) COVID-19 Vaccine ( season) [facility] Start: 11-23-2024 Influenza vaccination [facility] Start: 10-12-2024 End: 10-12-2024 Patient encounter procedure 10/12/2024 9:30 AM EDT Office Visit [facility] [address] [place] [address] Jae Anderson, PA [address] [place] [address] Acute pain of right knee (Primary Dx); Acute pain of left knee; Arthritis of right knee; Arthritis of left knee [facility] Comment on above: Acute pain of right knee (Primary Dx); Acute pain of left knee; Arthritis of right knee; Arthritis of left knee Start: 10-05-2024 End: 10-05-2024 Patient encounter procedure 10/05/2024 9:40 AM EDT Office Visit [facility] [address] [place] [phone] Sapphire Mcallister MD [address] [place] [address] [facility] Start: 09-15-2024 Adult BMI Screening Adult BMI Screening [facility] Start: 09-15-2024 Tobacco Screening Tobacco Screening [facility] Start: 07-06-2024 End: 07-06-2024 Patient encounter procedure 07/06/2024 9:40 AM EDT Office Visit [facility] [address] [place] [address] Sapphire Mcallister MD [address] [place] [address] [facility] Start: 06-02-2024 Adult BMI Screening Adult BMI Screening [facility] Start: 04-06-2024 End: 04-06-2024 Patient encounter procedure 04/06/2024 9:45 AM EST Office Visit [facility] [address] [place] [address] Sapphire Mcallister MD [address] [place] [address] [facility] Start: 04-03-2024 End: 04-03-2024 Patient encounter procedure 04/03/2024 9:45 AM EST Office Visit [facility] [address] [place] [address] Sapphire Mcallister MD [address] [place] [address] [facility] Start: 02-12-2024 Tobacco Screening Tobacco Screening [facility] Start: 01-03-2024 End: 01-03-2024 Patient encounter procedure 01/03/2024 9:20 AM EDT Office Visit [facility] [address] [place] [address] Sapphire Mcallister MD [address] [place] [address] [facility] Start: 11-24-2023 COVID-19 Vaccine ( season) COVID-19 Vaccine ( season) [facility] Start: 11-24-2023 COVID-19 Vaccine ( season) COVID-19 Vaccine ( season) [facility] Start: 11-24-2023 Influenza vaccination Influenza Vaccine [facility] Start: 09-16-2023 End: 09-16-2023 Patient encounter procedure 09/16/2023 9:40 AM EDT Office Visit [facility] [address] [place] [phone] Sapphire Mcallister MD [address] [place] [phone] [facility] Start: 05-14-2023 COVID-19 Vaccine ( season) COVID-19 Vaccine ( season) [facility] Start: 11-23-2022 Influenza vaccination Influenza Vaccine [facility] Start: 11-01-2021 End: 11-01-[address] [facility] Work Phone: Start: 11-23-2020 Influenza vaccination INFLUENZA (Season Ended) [facility] Start: 06-26-2015 Abdominal aortic aneurysm screening [facility] Start: 06-26-2015 ADVANCE DIRECTIVE DISCUSSION ADVANCE DIRECTIVE DISCUSSION [facility] Start: 06-26-2015 Fall Risk Screening Fall Risk Screening [facility] Start: 06-26-2015 PNEUMOVAX AGE 65 AND OVER WITH 5YR LOOKBACK (#1) PNEUMOVAX AGE 65 AND OVER WITH 5YR LOOKBACK (#1) [facility] Start: 2010 RSV High Risk: (Elderly (60+) or Population) (1 - Risk 60-74 years 1-dose series) RSV High Risk: (Elderly (60+) or Population) (1 - Risk 60-74 years 1-dose series) [facility] Start: 2000 Screening for malignant neoplasm of colon [facility] Start: 2000 SHINGRIX VACCINE (1 of 2) SHINGRIX VACCINE (1 of 2) [facility] Start: 06-26-1995 DIABETES SCREEN DIABETES SCREEN [facility] Start: 1985 LIPID SCREEN LIPID SCREEN [facility] Start: 1972 DTaP/Tdap/Td Vaccines (1 - Tdap) DTaP/Tdap/Td Vaccines (1 - Tdap) [facility] Start: 1969 DTaP,Tdap and Td Vaccines (1 - Tdap) DTaP,Tdap and Td Vaccines (1 - Tdap) [facility] Start: 1969 Urine microalbumin profile DTAP,TDAP,TD (1 - Tdap) [facility] Start: 1968 Adult BMI Follow Up Plan Adult BMI Follow Up Plan [facility] Start: 1968 Diabetes mellitus screening Diabetes Screening [facility] Start: 1968 HEPATITIS C SCREENING HEPATITIS C SCREENING [facility] Start: 1968 Hepatitis C screening Hepatitis C Screening [facility] Start: 1962 Adult depression screening assessment DEPRESSION SCREENING [facility] Start: [birth year]26-1951 MMR Vaccines (1 of 1 - Standard series) MMR Vaccines (1 of 1 - Standard series) [facility] Start: 1950 Lipid panel Lipid Panel [facility] Start: 1950 Medicare Annual Wellness Visit [facility] Start: 1950 Screening for malignant neoplasm of colon [facility] Comprehensive metabo lic 2000 panel - Serum or Plasma [facility] Patient Education Arteriogram (DC) [facility] Work Phone: Patient referral [facility] Work Phone: [facility] Immunizations Immunization Date Immunization Notes Care Provider Fa lisa 12-21-2024 influenza, high dose seasonal, preservative-free Marshall Zaman DO Work Phone: [facility] 12-16-2023 influenza, high dose seasonal, preservative-free [facility] 12-16-2023 influenza virus vaccine, unspecified formulation Sapphire Mcallister MD Work Phone: [facility] 02-13-2023 zoster vaccine recombinant Julissa SABA [facility] 01-11-2023 COVID-19 (PFIZER) 12Y and older Marshall Zaman DO Work Phone: [facility] 12-14-2022 influenza, high dose seasonal, preservative-free Marshall Zaman Other [facility] [employer] Other 12-14-2022 influenza virus vaccine, unspecified formulation Sapphire Mcallister MD Work Phone: [facility] 11-12-2022 zoster vaccine recombinant Julissa SABA [facility] 08-02-2022 SARS-CoV-2 (COVID-19 ) [id number] Julissa SABA [facility] 12-13-2021 Influenza vaccine, quadrivalent, adjuvanted Marshall Zaman DO Work Phone: [facility] 12-13-2021 influenza virus vaccine, split virus (incl. purified surface antigen) Marshall Zaman Other [facility] [employer] Other 12-13-2021 influenza virus vaccine, unspecified formulation Sapphire Mcallister MD Work Phone: [facility] 12-06-2021 SARS-CoV-2 (COVID-19 ) [id number] Julissaleonel SABA [facility] 01-13-2021 influenza virus vaccine, split virus (incl. purified surface antigen) Marshall Zaman Other [facility] [employer] Other 01-13-2021 influenza virus vaccine, unspecified formulation [facility] 12-30-2020 COVID-19 mRNA, Comirnaty (Pfizer) DO Marshall Zaman Work Phone: [facility] Comment on above: Result Comment: 2023: [id number] 05-30-2020 SARS-CoV-2 (COVID-19 ) mRNA BNT-162b2 vax Julissa SABA [facility] 05-27-2020 COVID-19 mRNA, Comirnaty (Pfizer) DO Marshall Zaman Work Phone: [facility] 05-06-2020 SARS-CoV-2 (COVID-19 ) mRNA BNT-162b2 vax Julissa SABA [facility] 04-26-2020 COVID-19 mRNA, Comirnaty (Pfizer) DO Marshall Zaman Work Phone: [facility] 01-11-2020 influenza virus vaccine, unspecified formulation Julissa Valutao [facility] 11-26-2019 influenza virus vaccine, split virus (incl. purified surface antigen) Marshall Zaman Other [employer] Other 11-26-2019 influenza virus vaccine, unspecified formulation [facility] 11-22-2018 influenza virus vaccine, unspecified formulation Julissa SABA [facility] 11-22-2018 Seasonal trivalent influenza vaccine, adjuvanted, preservative free Marshall Naga DO Work Phone: [facility] 07-04-2018 pneumococcal polysaccharide vaccine, 23 valent Marshall Zaman Other [facility] 01-22-2018 influenza virus vaccine, unspecified formulation Julissa SABA [facility] 01-22-2018 influenza, high dose seasonal, preservative-free Marshall Naga DO Work Phone: [facility] 07-02-2017 pneumococcal conjuga te vaccine, 13 valent Marshall Naga Other [facility] 07-02-2017 pneumococcal Conjuga te, unspecified formulation; Translations: [Need for prophylactic vaccination against Streptococcus pneumoniae (pneumococcus)] Marshall Zaman Other [facility] [employer] Other 04-16-2017 influenza virus vaccine, split virus (incl. purified surface antigen) Marshall Zaman Other [employer] Other 04-16-2017 influenza virus vaccine, unspecified formulation Julissa SABA [facility] 04-16-2017 influenza, injectabl e, quadrivalent, contains preservative Marshall Zaman DO Work Phone: [facility] 01-16-2014 influenza virus vaccine, unspecified formulation Julissa SABA [facility] 01-16-2014 influenza, seasonal, injectable, preservative free Marshall Zaman DO Work Phone: [facility] Payers Date Payer Category Payer Self-pay [id number] 2023 Medicare (Managed Care) [id number] 2017 Medicare ANTHEM MEDICARE ANTHEM MEDICARE ADVANTAGE [id number] 2017-Present [phone] [address] [place] [address] [id number] 2017 Medicare HMO [facility] [id number] 2017 Unknown ANTHEM BLUE CROS S AND BLUE SHIELD ANTHEM MEDIBLUE ACCESS [id number] 2017-Present PPO [id number]. [id number] 1959 Medicare [id number] 1950 Unknown [id number] 2.16840.1.937792.3.579. 2.593 1950 Unknown [id number] 2.840.1.248058.3.579. 2.593 1950 Unknown [id number] 2.16840.1.426554.3.579. 2.593 1950 Unknown [id number] 2.16.840.1.929903.3.579. 2.593 1950 Unknown [id number] 2.16840.1.444600.3.579. 2.593 1950 Unknown [id number] 2.840.1.977740.3.579. 2.593 1950 Unknown [id number] 2.16.840.1.971518.3.579. 2.593 1950 Unknown [id number] 2.16.840.1.908621.3.579. 2.593 1950 Unknown [id number] 2.16840.1.185801.3.579. 2.593 1950 Unknown [id number] 2.16840.1.192630.3.579. 2.593 1950 Unknown [id number] 2.16.840.1.519420.3.579. 2.1286 1950 Unknown [id number] 2.16840.1.678950.3.579. 2.1286 1950 Unknown [id number] 2.16840.1.497613.3.579. 2.128 1950 Unknown [id number] 2.840.1.709880.3.579. 2.128 1950 Unknown [id number] 2.840.1.491178.3.579. 2.128 1950 Unknown [id number] 2.0.1.999905.3.579. 2.128 1950 Unknown [id number] 2.840.1.823912.3.579. 2.1259 1950 Unknown [id number] 2.0.1.831940.3.579. 2.1259 1950 Unknown [id number] 2.840.1.706574.3.579. 2.1259 1950 Unknown [id number] 2.0.1.971280.3.579. 2.727 1950 Unknown [id number] 2.840.1.798509.3.579. 2.727 1950 Unknown [id number] 2.840.1.497938.3.579. 2.727 Medicare Medicare [id number] Unknown MMO [id number] Unknown [id number] 2.16840.1.537129.3.579. 2.531 Unknown [id number] 2.840.1.691649.3.579. 2.531 Social History Date Type Detail Facility Tobacco smoking stat us NHIS Unknown if ever smoked [facility] Start: 1950 Sex Assigned At Not on file [facility] Exposure to SARS-CoV -2 (event) Not sure [facility] Start: 10-23-2019 End: 12-21-2024 Tobacco smoking status Ex-smoker (finding) [facility] Start: 04-06-2024 End: 12-28-2024 Sex Assigned At Male [facility] Start: 1950 Sex Assigned At Male [facility] Start: 02-17-2022 Tobacco smoking status Never [facility] End: 07-24-2019 History of tobacco use Current smoker [facility] End: 07-24-2019 History of tobacco use Cigarette Smoker [facility] Start: 07-16-2022 End: 12-21-2024 Tobacco use and exposure Smokeless tobacco non-user [facility] Start: 04-06-2024 End: 12-28-2024 Alcoholic beverage intake Ex-drinker (finding) [facility] Start: 04-06-2024 End: 12-28-2024 History of Social function [facility] Start: 10-28-2014 End: 07-30-2024 Sex Male (finding) [facility] Tobacco smoking stat [facility] Tobacco smoking consumption unknown [facility] Healthcare Functional Status Date Assessment Result Facility 12-28-2024 Functional status 169/80 [facility] Work Phone: 12-28-2024 Vital signs 66 12/28/2024 12 :22 PM EDT Chrissy Burnett MA [facility] Work Phone: 12-28-2024 [facility] Work Phone: 07-12-2023 Functional Status N/A [facility] Clinical Notes 07-14-2021 to 12-28-2024 Austin Moser MD - 12/28/2024 12:30 PM EDT Note Date & Type Note Facility 12-28-2024 History of Present illness Narrative Subjective Jean Abrams is a 74 y.o. male who is referred by ELIZABETH Rivera 45 min HPI The patient is a 74-year-old gentleman is here today with his . He had some abdominal discomfort, was evaluated for diverticulitis and hypodense lesion was seen in the head of the pancreas. 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 The main duct measured 8 to 9 mm in the body of the pancreas. There are no obvious solid components. He has no history of pancreas cancer in his family. He smoked in the past but no longer smokes. Of note he has peripheral vascular disease with multiple surgeries and abnormalities of the pelvic and lower extremity arterial system. He is currently asymptomatic. Review of Systems All other systems reviewed and are negative. Social History Socioeconomic History Marital status: Spouse name: Not on file Number of children: Not on file Years of education: Not on file Highest education level: Not on file Occupational History Not on file Tobacco Use Smoking status: Former Current packs/day: 0.00 Average packs/day: 0.5 packs/day for 15.0 years (7.5 ttl pk-yrs) Types: Cigarettes Quit date: 07/24/2019 Years since quittin.4 Smokeless tobacco: Never Substance and Sexual Activity Alcohol use: Not Currently Drug use: Never Sexual activity: Not Currently Partners: Female Other Topics Concern Not on file Social History Narrative Not on file Social Drivers of Health Financial Resource Strain: Not on file Food Insecurity: No Food Insecurity (09/16/2023) Received from [facility] Hunger Screening Within the past 12 months we worried whether our food would run out before we got money to buy more.: Never True Within the past 12 months the food we bought just didn't last and we didn't have money to get more.: Never True Transportation Needs: Not on file Physical Activity: Not on file Stress: Not on file Social Connections: Not on file Intimate Partner Violence: Not on file Housing Stability: Not on file Medications Ordered Prior to Encounter[1] Family History[2] Medical History[3] Surgical History[4] Objective BP 169/80 Pulse 66 Ht 1.829 m (6') Wt 86.5 kg (190 lb 9.6 oz) SpO2 97% BMI 25.85 kg/m Physical Exam General: in no acute distress, comfortable Eyes: no pallor or scleral icterus Ears, nose, throat: no oropharyngeal edema Cardiovascular: normal rate, regular rhythm Respiratory: no wheezing. Even and unlabored. Gastrointestinal: abdomen soft, non-tender, no masses Musculoskeletal: normal gate, no deformities Integumentary: no concerning lesions, no jaundice Neurologic: no gross deficits Psychiatric: cognition intact, mood appropriate RESULTS . No solid masses obviously observed. MRI reveals an 8 mm main pancreatic duct with multiple sidebranch cysts including a dominant 1 of 2 to 3 cm in the head and another 1 in the body Assessment/Plan In summary the patient has a mixed type IPMN. Based on the literature, he does have a significantly increased risk of invasive pancreatic cancer currently as well as in the future. Of note he is 74 with peripheral vascular disease. Therefore he does have some comorbidities. We discussed the alternatives of a total pancreatectomy versus surveillance. I do not know if an EUS would be helpful as I do not think he would inform our recommendations. We discussed several different scenarios and it is impossible to predict which 1 will bear out for him specifically, and these include doing surgery and this would never become a cancer, doing surgery and this already is a cancer or could become a cancer, surveillance with this never becoming a cancer, versus surveillance and this becomes an incurable cancer. All these possibilities remain and his decision should be made considering the risks of each. We are going to move forward by presenting him at our multidisciplinary imaging conference with other pancreatic surgeons and body radiologist. I will report back to him our shared recommendation after this discussion. In the meantime he will give our conversation consideration. I answered their questions to the best my ability today. Austin Msoer MD [1] Current Outpatient Medications on File Prior to Visit Medication Sig Dispense Refill multivitamin tablet Take by mouth. aspirin 325 mg tablet atorvastatin (Lipitor) 40 mg tablet TAKE 1 TABLET BY MOUTH ONCE EVERY EVENING buPROPion XL (Wellbutrin XL) 300 mg 24 hr tablet tamsulosin (Flomax) 0.4 mg 24 hr capsule Take 1 capsule (0.4 mg) by mouth once daily. telmisartan-amlodipine (Twynsta) 80-5 mg tablet Take 1 tablet by mouth once daily. No current facility-administered medications on file prior to visit. [2] Family History Problem Relation Name Age of Onset Colon cancer Sister Candis Baron Alcohol abuse Father Amarjit Baron Cancer Father Amarjit Baron Diabetes Mother Mai Baron [3] Past Medical History: Diagnosis Date Diverticulitis of colon 10/30/2024 [4] Past Surgical History: Procedure Laterality Date HERNIA REPAIR July 2012 documented in this encounter [facility] Work Phone: 11-10-2024 Evaluation note Diagnosis Onset Date Resolution Chronic kidney disease acute Au david 2024 11:43am Diverticulitis acute October 11:43am Elevated cholesterol acute Augu 2024 11:43am Hypertension acute November 10, 2024 11:43am IFG (impaired fasting glucose) acute November 10 11:43am Nicotine dependence acute 2024 11:43am PAD (peripheral artery disease) acute November 10 11:43am Pancreatic mass acute November 102024 11:43am Anemia noneactive November 10 025 11:43am [facility] Work Phone: 1(779) 938-727208-19-2025 Evaluation note* Diagnosis Onset Date Resolution Status Admit Date Chronic kidney disease acute Au 2024 11:43am Diverticulitis acute October 11:43am Elevated cholesterol acute Aug2024 11:43am Hypertension acute November 10, 2024 11:43am IFG (impaired fasting glucose) acute November 10 11:43am Nicotine dependence acute 2024 11:43am PAD (peripheral artery disease) acute November 10 11:43am Pancreatic mass acute November 102024 11:43am Anemia noneactive November 10 025 11:43am Chronic kidney disease acute Se ptember 2024 8:26am Diverticulitis acute December 07, 2024 8:26am Elevated cholesterol acute Sept ember 2024 8:26am Hypertension acute December 072024 8:26am IFG (impaired fasting glucose) acute December 07, 2024 8:26am Nicotine dependence acute 2024 8:26am PAD (peripheral artery disease) acute December 07, 2024 8:26am Pancreatic mass acute December 07, 2024 8:26am Anemia noneactive November 8:26am [facility] Work Phone: 1(531) 749-873408-19-2025 Evaluation note* Diagnosis Onset Date Resolution Status Admit Date Chronic kidney disease acute Au david 2024 11:43am Diverticulitis acute October 11:43am Elevated cholesterol acute Octu st 2024 11:43am Hypertension acute November 10, 2024 11:43am IFG (impaired fasting glucose) acute November 10 11:43am Nicotine dependence acute Octus t 2024 11:43am PAD (peripheral artery disease) acute November 10 11:43am Pancreatic mass acute November 102024 11:43am Anemia noneactive November 10, 11:43am Chronic kidney disease acute Se ptember 2024 8:26am Hypertension acute December 072024 8:26am Nicotine dependence acute 2024 8:26am PAD (peripheral artery disease) acute December 07, 2024 8:26am Pancreatic mass acute December 07, 2024 8:26am Chronic kidney disease acute Se ptember 2024 9:48am Elevated cholesterol acute Nov 9:48am Hypertension acute December 212024 9:48am IFG (impaired fasting glucose) acute December 21, 2024 9:48am Lumbar spondylosis acute 2024 9:48am Major depression acute 2024 9:48am Medicare annual wellness visit, subsequent acute November 9:48am Nicotine dependence acute 2024 9:48am Overweight acute November 9:48am PAD (peripheral artery disease) acute December 21, 2024 9:48am Pancreatic mass acute December 21, 2024 9:48am Prostate nodule acute December 21, 2024 9:48am Screening PSA (prostate specific antigen) acute November 9:48am Anemia noneactive November 9:48am [facility] Work Phone: 1(732) 335-197907-21-2025 History of Present illness Narrative* COOKIE Leung - 10/12/2024 9:30 AM EDTAssociated Order(s): L Inj/Asp: R knee; L Inj/Asp: L knee Post-Procedure Diagnose(s): Arthritis of right knee; Arthritis of left knee Images from the original note were not included. Orthopedic Office note: NAME: Jean Baron : 1950 (NEW PT) - B/L KNEE DISCOMFORT (L>R) ; S/P CELESTONE INJ 07/06/24 (3 MONTHS, 2 WKS) @[facility] - HERE FOR POSSIBLE B/L CORTISONE INJ XRAY B/L KNEES 07/06/24 @[facility] CELESTONE INJ B/L KNEES 07/06/24, 04/06/24 [facility] ADMITS B/L DISCOMFORT (L>R) S/P CELESTONE INJ [...] IN RIGHT KNEE, NEUROVASC INTACT S/P INJ, TOLERATEDWELL Procedure, treatment alternatives, risks and benefits explained, [...] patient has been receiving conservative treatment at [facility], including cortisone injections every 3 months, which [...] current tolerance to activity with conservative measures andinjections. Viscosupplementation was suggested as a potential treatment for his left knee if cortisone injections do not provide sufficient relief. The possibility of spinal stenosis affecting his ability to walk and stand for extended periods was also mentioned. He is an avid bowler, participatingmultiple times a week, and wishes to continue [...] requiring urgent evaluation. Visit was preformed using [employer]police pilot speech recognition. documented in this encounterNatasha [place] [id number] NotePatient Education Oncology Prostate Cancer Screening Prostate cancer [...] prostate gland for testing (biopsy). This is theonly way to know for certain if you [...] Where to find more information ??? The [place] [employer]: www.cancer.org ??? [place] U[employer] Association: www.auanet.org Contact a health care [...] men. The prostate gland (more content not included)...[facility]04-14-2025 History of Present illness Narrative* Sapphire Mcallister MD - 07/06/2024 9:40 AM EDTAssociated Order(s): $ Large Joint Injection: bilateral knee Post-Procedure Diagnose(s): Primary osteoarthritis of both knees [facility] [address] [facility] [address] CHART NOTE: 07/06/2024 Chief Complaint: Chief Complaint Patient presents with Left Knee - Pain Bilateral knee celestone injection 04/06/24, lasted until a couple weeks ago. Right Knee - Pain Bilateral knee celestone injection 04/06/24, lasted until a couple weeks ago. Subjective History Jean Baron is a 74 y.o. male who presents [...] of the aforementioned history prepared by the [place] practice provider, and I personally performed the [...] the usual sterile fashion. [facility]* Diagnosis Onset Date Resolution Status Admit Date Chronic kidney disease acute [facility] 2024 9:50am Elevated cholesterol acute Enrique h [...] May 9:50am Anemia noneactive June 15 9:50am [facility] Work Phone: 1(115) 299-629201-13-2025 History of Present illness Narrative* Sapphire Mcallister MD - 04/06/2024 9:45 AM ESTAssociated Order(s): $ Large Joint Injection: bilateral knee Post-Procedure Diagnose(s): Primary osteoarthritis of both knees [facility] [address] [facility] [address] Name: Jean Baron : 1950 Chief Complaint Patient presents with Right Knee - Pain Bilateral knee celestone injection 01/03/24, lasted about 3 months. Would like to repeat. Left Knee - Pain Bilateral knee celestone injection 01/03/24, lasted about 3 months. Would like to repeat. Subjective Jean Baron is a 73 y.o. year old male [...] the usual sterile fashion. [facility] History of Present illness Narrative* Sapphire Mcallister [...] would like to repeat. Subjective History Jean Baron is a 73 y.o. male who presents [...] valgus stress testing. XRAYS: None Assessment: Jean Baron is a 73 y.o. male with bilateral knee osteoarthritis Plan: I, SAPPHIRE MCALLISTER MD, personally performed the face to face evaluation on this patient. I discussed with the patient and confirmed the accuracy and completeness of the aforementioned history prepared by the [place] practice provider, and I personally performed the [...] the usual sterile fashion. [facility] in [facility] History of Present illness Narrative* Sapphire Mcallister MD - 09/16/2023 9:40 AM EDTAssociated Order(s): $ Large Joint Injection: bilateral knee Post-Procedure Diagnose(s): Primary osteoarthritis of both knees Images from the original note were not included. [facility] [address] [facility] [address] Name: Jean Baron : 1950 09/16/2023 SUBJECTIVE: Chief Complaint: Bilateral [...] as well. Review of Systems: Refer to HPI for other pertinent ROS findings Past Medical, [...] of the aforementioned history prepared by the [place] practice provider, and I personally performed the [...] the usual sterile fashion. [facility] Hospital Discharge instructions Patient Education 07/12/2023 [...] treatment? Where to find more information The [place] [employer] Society: www.cancer.org [place] U[employer] Association: www.auanet.org Contact a health care [...] provider. Document Revised: 09/04/2021 Document Reviewed: 09/04/2021 [employer] Patient Education 2022 [employer]. Follow Up Care 12/31/2022 11:29:59 With:OMER JOVEL, Julissa Sumner, URL Address: [address] [place] [address]- When: Unknown [facility] [place] 03-11-2024 History of Present illness Narrative* Sapphire Mcallister MD - 06/03/2023 12:40 PM EDTAssociated Order(s): $ Large Joint Injection: bilateral knee Post-Procedure Diagnose(s): Primary osteoarthritis of both knees [facility] [address] [facility] [address] Name: Jean Baron : 1950 Chief Complaint Patient presents with Right Knee - Follow-up Last celestone 02/11/23 increased pain with bowling Left Knee - Follow-up Last celestone 02/11/23 left is worse increased pain with bowling Subjective Jean Baron is a 72 y.o. year old male [...] of the aforementioned history prepared by the [place] practice provider, and I personally performed the [...] the usual sterile fashion. [facility] Evaluation note* Encounter Date Diagnosis Assessment Notes Treatment Notes Treatment Clinical Notes Mar, Recurrent major depressive disorder, in full remission (ICD-10 - F33.42) [facility] Other 12-27-2023 Evaluation note* Encounter Date Diagnosis Assessment Notes Treatment Notes Treatment Clinical Notes Feb, Anemia, unspecified type (ICD-10 - D64.9) [facility] Other 10-19-2023 Evaluation note* Encounter Date Diagnosis Assessment Notes Treatment Notes Treatment Clinical Notes Dec, SBE (subacute bacterial endocarditis) prophylaxis candidate (ICD-10 - Z29.89) [facility] Other 09-22-2023 Evaluation note* Encounter Date Diagnosis [...] achieve/maintain a normal BMI. Nov, Atherosclerosis of [place] arteries of extremities with intermittent claudication, bilateral [...] - Z79.899) Check labs: CBC, BS, GFR [facility] Other 09-13-2023 Evaluation note* Encounter Date Diagnosis Assessment Notes Treatment Notes Treatment Clinical Notes Nov, Primary hypertension (ICD-10 - I10) [facility] Other 09-06-2023 Evaluation note* Encounter Date Diagnosis Assessment Notes Treatment Notes Treatment Clinical Notes Nov, Simple chronic bronchitis (ICD-10 - J41.0) LDCT w/o suspicious nodules: 11/2022 [facility] Other 07-03-2023 Evaluation note* Encounter Date Diagnosis Assessment Notes Treatment Notes Treatment Clinical Notes Sep, Recurrent major depressive disorder, in full remission (ICD-10 - F33.42) [facility] Other 03-06-2023 Evaluation note* Encounter Date Diagnosis [...] achieve/maintain a normal BMI. May, Atherosclerosis of [place] arteries of extremities with intermittent claudication, bilateral [...] 3mo, EGD discussed Normal Colonoscopy in 2019 [facility] Other 02-10-2023 Evaluation note* Encounter Date Diagnosis Assessment Notes Treatment Notes Treatment Clinical Notes Apr, Anemia, unspecified type (ICD-10 - D64.9) [facility] Other 08-01-2022 Evaluation note* Encounter Date Diagnosis [...] well as goals and agrees to proceed. [facility] Other 06-27-2022 Evaluation note* Encounter Date Diagnosis [...] with me. They agree with that plan. [facility] Other 04-22-2022 Hospital Discharge instructions Patient Education [...] have oneof these risk factors: ?Being of -[place] descent. ?Having a family history of prostate [...] you: Are older than age 55. Are -[place]. Have a father, brother, or uncle who [...] 12/20/2017 Document Revised: 02/21/2018 Document Reviewed: 12/20/2017 [employer] Patient Education RESAAS. Follow Up Care 07/15/2020 08:51:04 With:Julissa SABA MD, URL Address: [facility] [address] [place] [address]- [phone] When: Unknown [facility] evaluation + Plan note No data available for this section [facility] evaluation + Plan note Future Appointments Appointment Date:07/10/2024 08:30:00 AM Scheduled Provider:Julissa SABA MD Location:[facility] [place] Appointment Type:URO Office Visit Diagnostic Tests Pending * PSA Total 04/25/24 [facility] [place] evaluation noteNo assessment information available [facility] Work Phone: Evaluation noteNo InformationN[facility] Other Evaluation note* Diagnosis Primary osteoarthritis of both knees- Primary documented in this encounter [facility] Diagnosis Primary osteoarthritis of both knees- Primary Acute bilateral knee pain Acute bilateral knee pain Acute bilateral knee pain documented in this encounter [facility]* Diagnosis Primary osteoarthritis of both knees- Primary documented in this [facility]* Diagnosis Primary osteoarthritis of both knees- Primary documented in this encounter [facility]* Diagnosis Onset Date Resolution Status Admit Date Chronic kidney disease acute Ma [facility] 2024 9:50am Elevated cholesterol acute Enrique 2024 [...] May 9:50am Anemia noneactive June 15 9:50am [facility] Work Phone: Evaluation note* Diagnosis Acute pain of right knee- Primary Acute pain of left knee Arthritis of right knee Arthritis of left knee documented in this encounter [facility]* Diagnosis Onset Date Resolution Status Admit Date Chronic kidney disease acute Au david 2024 11:43am Diverticulitis acute October 11:43am Elevated cholesterol acute Augu st 2024 11:43am Hypertension acute November 10, 2024 11:43am IFG (impaired fasting glucose) acute November 10, 2024 11:43am Nicotine dependence acute Augus t 2024 11:43am PAD (peripheral artery disease) acute November 10 11:43am Pancreatic mass acute November 102024 11:43am Anemia noneactive November 10, 025 11:43am [facility] Work Phone: Evaluation note* Diagnosis Neoplasm of uncertain behavior of pancreas documented in this encounter [facility] Work Phone: History general Narrative - Reported* Type Description [...] LEG 2000IS H Hospitalization History See Above [facility] Other History general Narrative - Reported* Type [...] Surgical History COLONOSCOPY Hospitalization History See Above [facility] Other Hisoujt general Narrative - Reported* Type Description Date [...] History COLONOSCOPY 2019 Hospitalization History See Above [facility] Other InstructionsNot on filedocumented in this encounter [facility]Not on filedocumented in this encounter [facility] No data available for this section [facility] reason for referral (narrative)No reason for referral information [facility] Work Phone: Summary Purpose Family History Relationship Condition Age at Onset Recorded Date/T alex father Unknown Malignant neoplasm of throat Unknown Malignant neoplasm Unknown mother Unknown Diabetes mellitus Unknown sister Malignant neoplasm Unknown Advance Directives Advance Directive Response Recorded Date/ [...] month f/u June 15, 2024 9:5 0am Chief Complaint Admit Date Amb Documentation November 02, 2024 9: 06am TBH follow up November 10, 2024 11 :43am Reason for Visit Admit Date Chronic kidney disease November 10, 2024 11:43am Diverticulitis November 10, 2024 11 :43am Elevated cholesterol November 10, 2024 1 1:43am Hypertension November 10, 2024 11 :43am IFG (impaired fasting glucose) November 102024 11:43am Nicotine dependence November 10, 2024 11 :43am PAD (peripheral artery disease) October 232024 11:43am Pancreatic mass November 10, 2024 11 :43am Anemia November 10, 2024 11 :43am Chief Complaint Admit Date Amb Documentation November 02, 2024 9: 06am TBH follow up November 10, 2024 11 :43am K86.89 December 02, 2024 4:14pm Chief Complaint Admit Date Amb Documentation November 02, 2024 9: 06am TBH follow up November 10, 2024 11 :43am K86.89 December 02, 2024 4:14pm discuss MRI results December 07, 2024 8:26am Reason for Visit Admit Date Chronic kidney disease November 10, 2024 11:43am Diverticulitis November 10, 2024 11 :43am Elevated cholesterol November 10, 2024 1 1:43am Hypertension November 10, 2024 11 :43am IFG (impaired fasting glucose) November 102024 11:43am Nicotine dependence November 10, 2024 11 :43am PAD (peripheral artery disease) October 232024 11:43am Pancreatic mass November 10, 2024 11 :43am Anemia November 10, 2024 11 :43am Chronic kidney disease December 07, 2 025 8:26am Diverticulitis December 07, 2024 8:26am Elevated cholesterol December 07 8:26am Hypertension December 07, 2024 8:26am IFG (impaired fasting glucose) December 07, 2024 8:26am Nicotine dependence December 07, 2024 8:26am PAD (peripheral artery disease) [facility] 2024 8:26am Pancreatic mass December 07, 2024 8:26am Anemia December 07, 2024 8:26am Chief Complaint Admit Date Amb Documentation November 02, 2024 9: 06am TBH follow up November 10, 2024 11 :43am K86.89 December 02, 2024 4:14pm discuss MRI results December 07, 2024 8:26am Wellness December 21, 2024 9:48am Reason for Visit Admit Date Chronic kidney disease November 10, 2024 11:43am Diverticulitis November 10, 2024 11 :43am Elevated cholesterol November 10, 2024 1 1:43am Hypertension November 10, 2024 11 :43am IFG (impaired fasting glucose) November 102024 11:43am Nicotine dependence November 10, 2024 11 :43am PAD (peripheral artery disease) October 232024 11:43am Pancreatic mass November 10, 2024 11 :43am Anemia November 10, 2024 11 :43am Chronic kidney disease December 07, 2 025 8:26am Hypertension December 07, 2024 8:26am Nicotine dependence December 07, 2024 8:26am [facility]per[facility]) [facility] 8:26am Pancreatic mass December 07, 2024 8:26am Chronic kidney disease December 21, 2 025 9:48am Elevated cholesterol December 21 9:48am Hypertension December 21, 2024 9:48am IFG (impaired fasting glucose) December 21, 2024 9:48am Lumbar spondylosis December 21, 2024 9:48am Major depression December 21, 2024 9:48am Medicare annual wellness visit, subseque nt December 21, 2024 9:48am Nicotine dependence December 21, 2024 9:48am Overweight December 21, 2024 9:48am PAD (peripheral artery disease) [facility] 2024 9:48am Pancreatic mass December 21, 2024 9:48am Prostate nodule December 21, 2024 9:48am Screening PSA (prostate specific antigen ) December 21, 2024 9:48am Anemia December 21, 2024 9:48am Additional Source Comments (unrecognized sect ion and content) No Status Records FoundNo Status Records FoundNo Status Records FoundNo Status Records FoundNo Status Records FoundNo Status Records Found INFORMATION SOURCE (unrecogn ized section and content) DATE CREATED AUTHOR 07/08/2020 [facility] DATE CREATED AUTHOR AUTHOR'S ORGANIZ ATION 05/25/2022 [facility] DATE CREATED AUTHOR AUTHOR'S ORGANIZ ATION 07/07/2024 [facility] DATE CREATED AUTHOR AUTHOR'S ORGANIZ ATION 10/17/2024 [facility] EPIC DATE CREATED AUTHOR AUTHOR'S ORGANIZ ATION 11/20/2024 [facility] DATE CREATED AUTHOR AUTHOR'S ORGANIZ ATION 12/05/2024 [facility] Source Comments (unrecognize d section and content) In the event this informatio n is protected by the Federal Confidentiality of Alcohol and Drug Abuse Patient Records regulations: The Federal rules restrict any use of the information to criminally investigate or prosecute any alcohol or drug abuse patient.[facility] Reason for Visit (unrecogniz ed section and content) Status Reason Specialty Diagnoses / Procedures Referred By Contact Referred To Contact Outside PCP Radiology / RADI O MRI [facility] Diagnoses MRI Prostate WWO Contrast- BPH elevated PSA Procedures MRI WWO PROSTATE [address] [place] [address] Radio Mri [facility] [address] [place] [address] Reason Comments Pain Bilateral knee valerie tone [...] ago. Reason Comments Pain Caden De La Fuente (Rn), RN - [...] De La Fuente RN PATIENT NAME: Jean Baron DATE: July 07, 2020 TIME: 9:02 AM documented in this encounter [facility] - Georgina Moise ()Desire - 07/07/2020 9:00 AM EDT Miscellaneous Notes (unrecog nized section and content) Radiology Service Progress Note PATIENT NAME: Jean Baron DATE OF SERVICE: July 07, 2020 TIME: [...] (unrecognized sec tion and content) Team Status: Active Member Role Status Dates Marshall Zaman DO Primary Care Provider Active Team Status: Active Member Role Status Dates Marshall Zaman DO Primary Care Provider Active Start: October 30, 2024 Kyaw Moore PA-C Attending Provider Active Start: October 30, 2024 Team Status: Active Member Role Status Dates Marshall Zaman DO Primary Care Provider Active Start: October 31, 2024 Romeo Arceo MD Attending Provider Active Sta rt: October 31, 2024 Team Status: Active Member Role Status Dates Marshall Zaman DO Primary Care Provider Active Start: November 02, 2024 Rose Paredes CMA Attending Provider Active Start: November 02, 2024 Team Status: Inactive Member Role Status Dates Marshall Zaman DO Primary Care Provider Active Start: November 10, 2024 End: November 10, 2024 Marshall Zaman DO Attending Provider Active Sta rt: November 10, 2024 End: November 10, 2024 Team Status: Inactive Member Role Status Dates Marshall Zaman DO Primary Care Provider Active Julissa Saba MD Attending Provider Active Team Status: Inactive Member Role Status Dates Marshall Zaman DO Primary Care Provider Active Stuart Qureshi MD Attending Provider Active Copy Room Technician Relationship Specialty Start Date End Date Marshall Zaman DO [address] [place] [address] PCP - General 07/14/22 Copy Room Technician Relationship Specialty Start Date End Date Marshall Zaman DO [address] [place] [address] PCP - General 07/14/22 Copy Room Technician Relationship Specialty Start Date End Date Marshall Zaman DO [address] [place] [address] PCP - General 07/14/22 Copy Room Technician Relationship Specialty Start Date End Date Marshall Zaman DO [address] [place] [address] PCP - General 4/22/23 Team Status: Inactive Member Role Status Dates Marshall Zaman DO Primary Care Provide r, Attending Provider Active Start: June 15, 2024 End: June 15, 2024 Team Status: Active Member Role Status Dates Marshall Zaman DO Primary Care Provider Active Start: July 01, 2024 Julissa Saba MD Attending Provider Active St art: July 01, 2024 Team Status: Inactive Member Role Status Dates Marshall Zaman DO Primary Care Provider Active Start: July 29, 2024 End: July 29, 2024 Julissa Saba MD Attending Provider Active St art: July 29, 2024 End: July 29, 2024 Copy Room Technician Relationship Specialty Start Date End Date Marshall Zaman DO [address] [place] [address] PCP - General Internal Medicine 10/12/24 Copy Room Technician Relationship Specialty Start Date End Date Marshall Zaman DO [address] [place] [id number] PCP - General Internal Medicine 10/12/24 Team Status: Inactive Member Role Status Dates Marshall Zaamn DO Primary Care Provider Active Start: December 02, 2024 End: December 02, 2024 Marshall Zaman DO Attending Provider Active Sta rt: December 02, 2024 End: December 02, 2024 Team Status: Inactive Member Role Status Dates Marshall Zaman DO Primary Care Provider Active Start: December 07, 2024 End: December 07, 2024 Marshall Zaman DO Attending Provider Active Sta rt: December 07, 2024 End: December 07, 2024 Team Status: Inactive Member Role Status Dates Marshall Zaman DO Primary Care Provider Active Start: December 21, 2024 End: December 21, 2024 Marshall Zaman DO Attending Provider Active Sta rt: December 21, 2024 End: December 21, 2024 Goals (unrecognized section and content) Goals may [...] BE BASED ON THE PRIMARY CLINICAL RECORDS. [facility] [employer] [facility]. provides no warranty or guarantee of the accuracy or completeness of information in this document.
== END 2024-12-30 08:25 | disposition home or self-care (01) ==
LOC: CT 08:24
PROVIDERS: PCP Internal Medicine; Visit Provider Internal Medicine
DX: J44.9 Chronic obstructive pulmonary disease, unspecified (principal); Z87.891 Personal history of nicotine dependence
CPT/HCPCS: 71271